=== PATIENT | male | born 1940 | race Caucasian/White ===

== ENCOUNTER 2017-03-05 02:02 | Observation (INO) | payer MEDICARE, BC ==
[2017-03-05 02:44] LABS: Basophils % (A) 0 %; Eosinophils # (A) 0.1 k/uL (0-0.7); Eosinophils % (A) 1 %; HCT 40.6 % (39.0-53.0); HGB 13.4 gm/dL (13.0-17.5); Lymphocytes # (A) 0.5 k/uL (1.0-4.8); Lymphocytes % (A) 5 %; MCV 94.1 fL (80.0-100.0); Mean Platelet Volume 6.7; Monocytes # (A) 0.5 k/uL (0-1.0); Monocytes % (A) 5 %; Neutrophils # (A) 8.7 k/uL (1.3-7.7); Neutrophils % (A) 88 %; Platelet Count 149 k/uL (150-450); RBC 4.31 m/uL (4.30-5.90); RDW 13.2 % (11.5-15.5)
[2017-03-05 02:57] LABS: Albumin 4.3 g/dL (3.5-5.0); Amylase 52 U/L (30-110); Anion Gap 10 mmol/L; Calcium 9.5 mg/dL (8.4-10.2); Carbon Dioxide 28 mmol/L (22-30); Chloride 103 mmol/L (98-107); Glucose 121 mg/dL (74-99); Lipase 175 U/L (23-300); Sodium 141 mmol/L (137-145); Total Bilirubin 0.9 mg/dL (0.2-1.3); Total Protein 7.2 g/dL (6.3-8.2)
[2017-03-05 03:01] LABS: ALT 36 U/L (21-72); AST 41 U/L (17-59); Blood Urea Nitrogen 25 mg/dL (9-20); Potassium 4.7 mmol/L (3.5-5.1)
[2017-03-05 03:02] LABS: Alkaline Phosphatase 58 U/L (38-126)
--- NOTE | 2017-03-05 03:33 | CT ---
EXAM: CT Abdomen and Pelvis Without Intravenous Contrast CLINICAL HISTORY: Pain TECHNIQUE: Axial computed tomography images of the abdomen and pelvis without intravenous contrast. CTDI is 14.4 mGy and DLP is 716 mGy-cm. This CT exam was performed using one or more of the following dose reduction techniques: automated exposure control, adjustment of the mA and/or kV according to patient size, and/or use of iterative reconstruction technique. COMPARISON: No relevant prior studies available. FINDINGS: Lower thorax: Lower thorax demonstrates atelectasis and or scarring. ABDOMEN: Liver: Unremarkable. Gallbladder and bile ducts: Gallstones. No CT evidence of acute cholecystitis. Pancreas: Unremarkable. Spleen: Calcified granulomata within the spleen Adrenals: Unremarkable. Kidneys and ureters: Minimally complex cyst within the left kidney measuring up to 8.1 cm (Bosniak 2F). Nonobstructing calculus within the right kidney. Probable hyperdense cysts within the right kidney. Stomach and bowel: Acute uncomplicated sigmoid diverticulitis. Mild bowel wall thickening within an inflamed diverticulum seen in the sigmoid colon with adjacent stranding. Appendix: No findings to suggest acute appendicitis. PELVIS: Bladder: Unremarkable. Reproductive: Unremarkable as visualized. ABDOMEN and PELVIS: Intraperitoneal space: Unremarkable. Bones/joints: Evidence of prior median sternotomy. Total left hip arthroplasty. Marked degenerative changes of the right hip. Scoliosis of the spine with degenerative change. No acute fracture. No dislocation. Soft tissues: Probable trace fluid within the left inguinal canal. Vasculature: Unremarkable. No abdominal aortic aneurysm. Lymph nodes: Unremarkable. IMPRESSION: 1. Acute uncomplicated sigmoid diverticulitis. 2. Gallstones. No CT evidence of acute cholecystitis. 3. Minimally complex cyst within the left kidney measuring up to 8.1 cm (Bosniak 2F).
[2017-03-05 03:38] LABS: Erythrocyte Sedimentation Rate 20 mm/hr (0-15)
[2017-03-05 03:54] LABS: Appearance,Urine Clear (Clear); Bilirubin,Urine Negative (Negative); Blood,Urine Negative (Negative); Color,Urine Yellow; Glucose,Urine (UA) Negative (Negative); Ketones,Urine Trace (Negative); Leukocyte Esterase,Urine Negative (Negative); Nitrite,Urine Negative (Negative); Protein,Urine Negative (Negative); Specific Gravity,Urine 1.018 (1.001-1.035); Urobilinogen,Urine <2.0 mg/dL (<2.0)
[2017-03-05] MEDS ORDERED: LEVOFLOXACIN 750 MG TAB PO STA (04:11)
[2017-03-05] MEDS ORDERED: metroNIDAZOLE 500 MG TAB PO STA (04:11)
[2017-03-05] MEDS ORDERED: ONDANSETRON 4 MG/2 ML VIAL IVP PRN (04:32)
[2017-03-05] MEDS ORDERED: NALOXONE 0.4 MG/ML 1 ML VIAL IV PRN (04:32)
--- NOTE | 2017-03-05 04:36 | ED ---
Abdominal Pain HPI - General Chief Complaint: Abdominal Pain Stated Complaint: ABD PAIN Time Seen by Provider: 03/05/17 02:12 Source: patient Mode of arrival: EMS Limitations: no limitations - History of Present Illness Initial Comments: Patient 76-year-old man presenting with increasing left lower quadrant pain and tenderness. MD Complaint: abdominal pain -: hour(s) Location: LLQ Radiation: none Migration to: no migration Severity: moderate Quality: aching, dull Consistency: constant Improves With: nothing Worsens With: nothing Associated Symptoms: denies other symptoms - Related Data Home Medications Medication Instructions Recorded Confirmed Cholecalciferol [Vitamin D3] 1,000 unit PO DAILY 03/05/17 03/05/17 Finasteride [Proscar] 5 mg PO DAILY 03/05/17 03/05/17 Tamsulosin HCl [Flomax] 0.4 mg PO DAILY 03/05/17 03/05/17 Previous Rx's Medication Instructions Recorded HYDROcodone/APAP 5-325MG [Evans 5] 1 each PO Q4HR PRN #60 tab 03/07/17 Levofloxacin [Levaquin] 500 mg PO DAILY #7 tab 03/07/17 metroNIDAZOLE [Flagyl] 500 mg PO TID #21 tab 03/07/17 Allergies Allergy/AdvReac Type Severity Reaction Status Date / Time verapamil Allergy Rash/Hives Verified 03/05/17 08:20 Review of Systems ROS Statement: Those systems with pertinent positive or pertinent negative responses have been documented in the HPI. ROS Other: All systems not noted in ROS Statement are negative. Constitutional: Denies: fever, chills Respiratory: Denies: cough, dyspnea Cardiovascular: Denies: chest pain, palpitations, edema Gastrointestinal: Reports: as per HPI, abdominal pain. Denies: nausea, vomiting , diarrhea, constipation Genitourinary: Denies: dysuria, hematuria Musculoskeletal: Denies: back pain Skin: Denies: rash Neurological: Denies: headache, weakness, numbness Past Medical History Past Medical History: Prostate Disorder History of Any Multi-Drug Resistant Organisms: None Reported Past Surgical History: Coronary Bypass/CABG, Orthopedic Surgery Past Psychological History: No Psychological Hx Reported Smoking Status: Former smoker Past Alcohol Use History: None Reported Past Drug Use History: None Reported - Past Family History Father Family Medical History: Unable to Obtain General Exam Limitations: no limitations General appearance: alert, in no apparent distress Head exam: Present: atraumatic, normocephalic Eye exam: Present: normal appearance. Absent: scleral icterus, conjunctival injection Respiratory exam: Present: normal lung sounds bilaterally. Absent: respiratory distress, wheezes, rales, rhonchi, stridor Cardiovascular Exam: Present: regular rate, normal rhythm, normal heart sounds. Absent: systolic murmur, diastolic murmur, rubs, gallop GI/Abdominal exam: Present: soft, tenderness, normal bowel sounds. Absent: distended, guarding, rebound, rigid, mass, pulsatile mass, hernia Extremities exam: Present: normal inspection, normal capillary refill. Absent: pedal edema, calf tenderness Back exam: Present: normal inspection. Absent: CVA tenderness (R), CVA tenderness (L) Neurological exam: Present: alert Skin exam: Present: warm, dry, intact, normal color. Absent: rash Course Vital Signs 03/05/17 03/05/17 03/05/17 02:07 03:12 04:29 Temperature 99.4 F Pulse Rate 83 79 80 Respiratory 18 16 18 Rate Blood Pressure 126/69 129/67 121/63 O2 Sat by Pulse 98 95 96 Oximetry 03/05/17 04:57 Temperature 99.2 F Pulse Rate 78 Respiratory 16 Rate Blood Pressure 115/59 O2 Sat by Pulse 94 L Oximetry Medical Decision Making - Medical Decision Making Patient is a 76-year-old man presenting with increasing pain and tenderness in the left lower quadrant. Given the tenderness patient sent for CT which does demonstrate diverticulitis. Patient will be admitted for further treatment. - Lab Data Result diagrams: 03/07/17 06:40 03/07/17 06:40 Lab Results 03/05/17 03/05/17 03/05/17 Range/Units 02:05 02:32 03:40 WBC 10.0 (3.8-10.6) k/uL RBC 4.31 (4.30-5.90) m/uL Hgb 13.4 (13.0-17.5) gm/dL Hct 40.6 (39.0-53.0) % MCV 94.1 (80.0-100.0) fL MCH 31.0 (25.0-35.0) pg MCHC 33.0 (31.0-37.0) g/dL RDW 13.2 (11.5-15.5) % Plt Count 149 L (150-450) k/uL Neutrophils % 88 % Lymphocytes % 5 % Monocytes % 5 % Eosinophils % 1 % Basophils % 0 % Neutrophils # 8.7 H (1.3-7.7) k/uL Lymphocytes # 0.5 L (1.0-4.8) k/uL Monocytes # 0.5 (0-1.0) k/uL Eosinophils # 0.1 (0-0.7) k/uL Basophils # 0.0 (0-0.2) k/uL ESR 20 H (0-15) mm/hr Sodium 141 (137-145) mmol/L Potassium 4.7 (3.5-5.1) mmol/L Chloride 103 (98-107) mmol/L Carbon Dioxide 28 (22-30) mmol/L Anion Gap 10 mmol/L BUN 25 H (9-20) mg/dL Creatinine 0.90 (0.66-1.25) mg/dL Est GFR (MDRD) Af Amer >60 (>60 ml/min/1.73 sqM) Est GFR (MDRD) Non-Af >60 (>60 ml/min/1.73 sqM) Glucose 121 H (74-99) mg/dL Calcium 9.5 (8.4-10.2) mg/dL Total Bilirubin 0.9 (0.2-1.3) mg/dL AST 41 (17-59) U/L ALT 36 (21-72) U/L Alkaline Phosphatase 58 (38-126) U/L Total Protein 7.2 (6.3-8.2) g/dL Albumin 4.3 (3.5-5.0) g/dL Amylase 52 (30-110) U/L Lipase 175 (23-300) U/L Urine Color Yellow Urine Appearance Clear (Clear) Urine pH 5.0 (5.0-8.0) Ur Specific [place] 1.018 (1.001-1.035) Urine Protein Negative (Negative) Urine Glucose (UA) Negative (Negative) Urine Ketones Trace H (Negative) Urine Blood Negative (Negative) Urine Nitrite Negative (Negative) Urine Bilirubin Negative (Negative) Urine Urobilinogen <2.0 (<2.0) mg/dL Ur Leukocyte Esterase Negative (Negative) Disposition Clinical Impression: Diverticulitis, Abdominal pain Disposition: ADMITTED IP TO THIS HOSP Condition: Fair
[2017-03-05] MEDS: HYDROcodone/APAP 5-325MG 1 EACH TAB PO PRN ×4 (05:24→20:58)
[2017-03-05] MEDS: FINASTERIDE 5 MG TAB PO SCH (08:19)
[2017-03-05] MEDS: TAMSULOSIN 0.4 MG CAP.ER.24H PO SCH (08:19)
[2017-03-05] MEDS ORDERED: ERGOCALCIFEROL 50,000 UNIT CAP PO SCH (09:00)
--- NOTE | 2017-03-05 11:34 | P.HPIM ---
History of Present Illness H&P Date: 03/05/17 Chief Complaint: Left lower quadrant abdominal pain This is a 76-year-old male, patient of Dr. Delgado. He has a known past medical history of enlarged prostate, history of previous nicotine dependence and diverticulitis. Patient reports his last episode of diverticulitis was 20 years ago. Last colonoscopy was about 3 years and he was told it was reported normal. He was scheduled for right knee surgery today at [facility]. However, yesterday patient is working outside and noticed some left lower quadrant abdominal pain. Pain continued to progress throughout the day. Patient reports that he felt that maybe she passed gas or had a bowel movement in the room help relieve the symptoms. He was unable to do this. I he visited with family and laid down to rest because of the pain. However when he awoke a couple hours later he was in excruciating pain and an ambulance had to be called. He was brought into the emergency room for further evaluation. Computed tomography scan of the abdomen and pelvis was completed showing evidence of an acute diverticulitis gallstones with no evidence of cholecystitis and a minimal complexed cyst in the left kidney measuring 8.1 cm. Patient was admitted to the medical floor and started on Levaquin and Flagyl for any acute diverticulitis. Patient reports eating a lot of nuts and he had blackberries couple a days ago. I even since he had diverticulitis in the past he has eaten nuts regularly. Patient's pain is controlled with the [place]. He denies any fever, chills, sweats, nausea or vomiting. Reports normal bowel movements. Denies any blood in the stools. Last bowel movement was yesterday morning. Denies any chest pain or shortness of breath. Denies any burning with urination. Review of Systems Please refer to HPI otherwise unremarkable Past Medical History Past Medical History: Prostate Disorder Additional Past Medical History / Comment(s): hip replacement, cardiac ablation , heart valve repair History of Any Multi-Drug Resistant Organisms: None Reported Past Surgical History: Cardiac Ablation, Orthopedic Surgery Past Anesthesia/Blood Transfusion Reactions: No Reported Reaction Past Psychological History: No Psychological Hx Reported Smoking Status: Former smoker Past Alcohol Use History: None Reported Past Drug Use History: None Reported - Past Family History Father Family Medical History: Unable to Obtain Medications and Allergies Home Medications Medication Instructions Recorded Confirmed Type Cholecalciferol [Vitamin D3] 1,000 unit PO DAILY 03/05/17 03/05/17 History Finasteride [Proscar] 5 mg PO DAILY 03/05/17 03/05/17 History Tamsulosin HCl [Flomax] 0.4 mg PO DAILY 03/05/17 03/05/17 History Allergies Allergy/AdvReac Type Severity Reaction Status Date / Time verapamil Allergy Rash/Hives Verified 03/05/17 08:20 Physical Exam Vitals: Vital Signs Temp Pulse Pulse Resp BP BP Pulse Ox 03/05/17 07:00 98.5 F 80 16 105/58 94 L 03/05/17 06:09 98.6 F 82 18 115/64 95 03/05/17 04:57 99.2 F 78 16 115/59 94 L 03/05/17 04:29 80 18 121/63 96 03/05/17 03:12 79 16 129/67 95 03/05/17 02:07 99.4 F 83 18 126/69 98 Intake and Output 03/04/17 03/05/17 03/05/17 22:59 06:59 14:59 Intake Total 480 Balance 480 Intake: Oral 480 Other: # Voids 0 Weight 95.254 kg Head normocephalic Neck supple Lungs clear to auscultation bilaterally no wheezing or crackles Heart regular rate and rhythm S1-S2, no rub or gallop Abdomen is soft nontender with left lower quadrant abdominal pain positive bowel sounds no hepatosplenomegaly Extremities no edema Neuro alert and orientated to 3 Results CBC & Chem 7: 03/05/17 02:05 03/05/17 02:32 Labs: Abnormal Lab Results - Last 24 Hours (Table) 03/05/17 03/05/17 03/05/17 Range/Units 02:05 02:32 03:40 Plt Count 149 L (150-450) k/uL Neutrophils # 8.7 H (1.3-7.7) k/uL Lymphocytes # 0.5 L (1.0-4.8) k/uL ESR 20 H (0-15) mm/hr BUN 25 H (9-20) mg/dL Glucose 121 H (74-99) mg/dL Urine Ketones Trace H (Negative) Thrombosis Risk Factor Assmnt - Choose All That Apply Any of the Below Risk Factors Present?: Yes Each Factor Represents 1 point: Obesity (BMI >25) Each Risk Factor Represents 2 Points: Age 61-74 years Thrombosis Risk Factor Assessment Total Risk Factor Score: 3 Thrombosis Risk Factor Assessment Level: Moderate Risk Assessment and Plan Assessment: 1. Acute diverticulitis. Patient is been placed on oral Levaquin and Flagyl. Computed tomography scan of the abdomen and pelvis had shown evidence of an acute diverticulitis. We'll continue with [place] for pain control. Educated patient to refrain from any seeds or nuts. Dietitian will be consulted. We'll advance diet from liquid to full liquid diet and then as tolerated 2. Enlarged prostate. Continue with Flomax and Proscar 3. History of nicotine dependence 4. Initially scheduled for right knee surgery today at [facility]. Surgery has been canceled. Patient will follow-up with his orthopedic at a later date GI prophylaxis Pepcid and DVT prophylaxis subcu heparin Time with Patient: Greater than 30 (Greater than 50% of the total time spent in counseling and coordination of care.I performed an examination of the patient and discussed their management with the physician [employer]. I have reviewed the Physician [employer]s's notes and agree with the documented findings and plan of care)
[2017-03-05 14:03] VITALS: BMI 30.1
[2017-03-05] MEDS: metroNIDAZOLE 500 MG TAB PO SCH ×2 (16:40→20:58)
[2017-03-05] MEDS: HEPARIN SODIUM,PORCINE 5,000 UNIT/ML 1 ML VIAL SQ SCH (20:59)
[2017-03-06] MEDS: HYDROcodone/APAP 5-325MG 1 EACH TAB PO PRN ×6 (01:00→21:25)
[2017-03-06 07:20] LABS: Basophils % (A) 0 %; Eosinophils # (A) 0.1 k/uL (0-0.7); Eosinophils % (A) 1 %; HGB 11.6 gm/dL (13.0-17.5); Lymphocytes # (A) 0.8 k/uL (1.0-4.8); Lymphocytes % (A) 12 %; MCH 30.7 pg (25.0-35.0); MCHC 33.3 g/dL (31.0-37.0); MCV 92.3 fL (80.0-100.0); Mean Platelet Volume 7.1; Monocytes # (A) 0.5 k/uL (0-1.0); Monocytes % (A) 7 %; Neutrophils # (A) 5.3 k/uL (1.3-7.7); Neutrophils % (A) 79 %; Platelet Count 136 k/uL (150-450); RBC 3.79 m/uL (4.30-5.90); WBC 6.7 k/uL (3.8-10.6)
[2017-03-06 07:41] LABS: Anion Gap 7 mmol/L; Blood Urea Nitrogen 15 mg/dL (9-20); Calcium 9.2 mg/dL (8.4-10.2); Carbon Dioxide 29 mmol/L (22-30); Chloride 102 mmol/L (98-107); Glucose 102 mg/dL (74-99); Potassium 4.3 mmol/L (3.5-5.1); Sodium 138 mmol/L (137-145)
[2017-03-06] MEDS: metroNIDAZOLE 500 MG TAB PO SCH ×3 (08:14→21:23)
[2017-03-06] MEDS: FINASTERIDE 5 MG TAB PO SCH (08:14)
[2017-03-06] MEDS: HEPARIN SODIUM,PORCINE 5,000 UNIT/ML 1 ML VIAL SQ SCH ×2 (08:15→21:23)
[2017-03-06] MEDS: TAMSULOSIN 0.4 MG CAP.ER.24H PO SCH (08:15)
[2017-03-06] MEDS: LEVOFLOXACIN 500 MG TAB PO SCH (08:15)
[2017-03-06] MEDS: CHOLECALCIFEROL 1,000 UNIT TAB PO SCH (08:15)
[2017-03-06] MEDS: FAMOTIDINE 20 MG TAB PO SCH (08:15)
--- NOTE | 2017-03-06 10:33 | P.CONS ---
History of Present Illness - Reason for Consult Consult date: 03/06/17 Diverticulitis Requesting physician: Elli Kim - Chief Complaint Abdominal pain - History of Present Illness 76-year-old gentleman with a history of valvular heart disease with repair, cardiac ablation, diverticulosis admitted with acute left lower quadrant abdominal pain 2 days without fever chills hematemesis hematochezia melena. No constipation or diarrhea. Last colonoscopy performed about [address] Bennett to his memory was unremarkable except diverticular disease. Last flare up of diverticulitis about [address] abdomen and pelvis reported acute diverticulitis sigmoid without abscess or free air. Patient's diet consisted of berries and nuts prior to admission. White count 6.7. Hemoglobin 11.6. Platelet 136. Passing flatus. No bowel movements. Tolerating low fiber diet. Review of Systems Constitutional: Denies fever, chills, sweats, weight gain, or loss. HEENT: Negative for migraines, blurred vision or loss, earaches, drainage, tinnitus, oral mucosal lesions, dysphagia, or odynophagia. Cardiac: Valvular heart disease with repair, cardiac ablation Negative for chest pain, arrhythmias, or palpitation. Respiratory: Negative for shortness of breath, hemoptysis, cough, or sputum production. Gastrointestinal: See HPI for pertinent findings. Genitourinary: History of prostate hypertrophy. Musculoskeletal: Negative for muscle aches, swelling, arthritis, and arthralgias. Neurologic: Negative for stroke or TIA. Endocrine: Negative for thyroid problems. Skin: Negative for rash or itching. Psychiatric: Negative history for depression and anxiety Past Medical History Past Medical History: Prostate Disorder Additional Past Medical History / Comment(s): hip replacement, cardiac ablation , heart valve repair History of Any Multi-Drug Resistant Organisms: None Reported Past Surgical History: Cardiac Ablation, Orthopedic Surgery Past Anesthesia/Blood Transfusion Reactions: No Reported Reaction Past Psychological History: No Psychological Hx Reported Smoking Status: Former smoker Past Alcohol Use History: None Reported Past Drug Use History: None Reported - Past Family History Father Family Medical History: Unable to Obtain Medications and Allergies Home Medications Medication Instructions Recorded Confirmed Type Cholecalciferol [Vitamin D3] 1,000 unit PO DAILY 03/05/17 03/05/17 History Finasteride [Proscar] 5 mg PO DAILY 03/05/17 03/05/17 History Tamsulosin HCl [Flomax] 0.4 mg PO DAILY 03/05/17 03/05/17 History Allergies Allergy/AdvReac Type Severity Reaction Status Date / Time verapamil Allergy Rash/Hives Verified 03/05/17 08:20 Physical Exam Vitals: Vital Signs Temp Pulse Resp BP Pulse Ox 03/06/17 07:00 97.0 F L 63 18 100/58 96 03/05/17 22:13 99.2 F 68 16 102/54 95 03/05/17 15:00 98.4 F 77 16 96/54 95 Intake and Output 03/05/17 03/06/17 03/06/17 22:59 06:59 14:59 Intake Total 540 240 Output Total 800 600 Balance -260 -360 Intake: Oral 540 240 Output: Urine 800 600 Other: Voiding Method Toilet Urinal # Voids 1 General appearance: The patient is alert, oriented, in no acute distress. HET: Head is normocephalic and atraumatic. Pupils are equal and reactive. Oropharynx is clear without lesions. Neck: Supple without lymphadenopathy. Trachea midline. Heart: S1 S2. Regular rate and rhythm. Lungs: No crackles or wheezes are heard. Abdomen: Soft, minimal tenderness left lower quadrant, nondistended with bowel sounds. No peritoneal signs. No palpable organomegaly or masses. Extremities: Normal skin color and turgor. No cyanosis, rash, ulceration, clubbing, or edema. Radial and pedal pulses are 2/4 bilaterally. Neurological: No focal deficits. Strength and sensation are grossly intact. Results CBC & Chem 7: 03/06/17 06:30 03/06/17 06:30 Labs: Abnormal Lab Results - Last 24 Hours (Table) 03/06/17 03/06/17 Range/Units 06:30 06:30 RBC 3.79 L (4.30-5.90) m/uL Hgb 11.6 L (13.0-17.5) gm/dL Hct 35.0 L (39.0-53.0) % Plt Count 136 L (150-450) k/uL Lymphocytes # 0.8 L (1.0-4.8) k/uL Glucose 102 H (74-99) mg/dL CT scan - abdomen: report reviewed (Dr. Cervantes) Assessment and Plan (1) Diverticulitis Narrative/Plan: Unconjugated sigmoid diverticulitis Current Visit: Yes Status: Acute Code(s): K57.92 - DVTRCLI OF INTEST, PART UNSP, W/O PERF OR ABSCESS W/O BLEED SNOMED Code(s): 753294179 Plan: 1. Agreeable for discharge. Remain on low fiber diet 1 week and advance to high-fiber. Avoid nuts and seeds. 2. Antibiotics x 7 days; Cipro Flagyl acceptable. 3. Return to office in 3-4 weeks for reevaluation and discussion of outpatient colonoscopy. Thank you for this kind referral and the opportunity to participate in the care of your patient. This consultation was discussed with Dr. Cervantes. The impression and plan of care have been directed as dictated.
--- NOTE | 2017-03-06 11:07 | P.PN ---
Subjective Progress Note Date: 03/06/17 This is a 76-year-old male, patient of Dr. Delgado. He has a known past medical history of enlarged prostate, history of previous nicotine dependence and diverticulitis. Patient reports his last episode of diverticulitis was 20 years ago. Last colonoscopy was about 3 years and he was told it was reported normal. He was scheduled for right knee surgery today at [facility]. However, yesterday patient is working outside and noticed some left lower quadrant abdominal pain. Pain continued to progress throughout the day. Patient reports that he felt that maybe she passed gas or had a bowel movement in the room help relieve the symptoms. He was unable to do this. I he visited with family and laid down to rest because of the pain. However when he awoke a couple hours later he was in excruciating pain and an ambulance had to be called. He was brought into the emergency room for further evaluation. Computed tomography scan of the abdomen and pelvis was completed showing evidence of an acute diverticulitis gallstones with no evidence of cholecystitis and a minimal complexed cyst in the left kidney measuring 8.1 cm. Patient was admitted to the medical floor and started on Levaquin and Flagyl for any acute diverticulitis. Patient reports eating a lot of nuts and he had blackberries couple a days ago. I even since he had diverticulitis in the past he has eaten nuts regularly. Patient's pain is controlled with the [place]. He denies any fever, chills, sweats, nausea or vomiting. Reports normal bowel movements. Denies any blood in the stools. Last bowel movement was yesterday morning. Denies any chest pain or shortness of breath. Denies any burning with urination. 03/06/2017 patient reports last night he had severe left lower quadrant abdominal pain. It was as severe as the pain that brought him into the hospital. He almost has nursing staff call the doctor for IV pain medication. Patient denies any nausea or vomiting. Reports no bowel movement yet. He's been started on a low fiber diet. White count normal. He is remained afebrile. A repeat Computed tomography scan of the abdomen and pelvis has been ordered to further follow up on patient's abdominal pain Objective - Vital Signs Vital signs: Vital Signs Temp 97.0 F L 03/06/17 07:00 Pulse 63 03/06/17 07:00 Resp 18 03/06/17 07:00 BP 100/58 03/06/17 07:00 Pulse Ox 96 03/06/17 07:00 Intake & Output 03/05/17 03/06/17 03/06/17 18:59 06:59 18:59 Intake Total 480 540 240 Output Total 500 800 600 Balance -20 -260 -360 Weight 95.254 kg Intake: Oral 480 540 240 Output: Urine 500 800 600 Other: Voiding Method Toilet Urinal # Voids 1 - Exam Head normocephalic Neck supple Lungs clear to auscultation bilaterally no wheezing or crackles Heart regular rate and rhythm S1-S2, no rub or gallop Abdomen is soft left lower quadrant tenderness nondistended positive bowel sounds no hepatosplenomegaly Extremities no edema Neuro alert and orientated to 3 - Labs CBC & Chem 7: 03/06/17 06:30 03/06/17 06:30 Labs: Abnormal Lab Results - Last 24 Hours (Table) 03/06/17 03/06/17 Range/Units 06:30 06:30 RBC 3.79 L (4.30-5.90) m/uL Hgb 11.6 L (13.0-17.5) gm/dL Hct 35.0 L (39.0-53.0) % Plt Count 136 L (150-450) k/uL Lymphocytes # 0.8 L (1.0-4.8) k/uL Glucose 102 H (74-99) mg/dL Assessment and Plan Assessment: 1. Acute diverticulitis. Patient is been placed on oral Levaquin and Flagyl. Computed tomography scan of the abdomen and pelvis had shown evidence of an acute diverticulitis. We'll continue with [place] for pain control. Educated patient to refrain from any seeds or nuts. Dietitian will be consulted. Patient currently on a low fiber diet. Patient had severe left lower quadrant abdominal pain last night. A repeat computed tomography scan the abdomen and pelvis has been ordered for further follow-up. Patient evaluated by GI service. He is to follow up outpatient for reevaluation and discussion of colonoscopy in 3 to 4 weeks 2. Enlarged prostate. Continue with Flomax and Proscar 3. History of nicotine dependence 4. Initially scheduled for right knee surgery today at [facility]. Surgery has been canceled. Patient will follow-up with his orthopedic at a later date GI prophylaxis Pepcid and DVT prophylaxis subcu heparin
--- NOTE | 2017-03-06 11:49 | CT ---
EXAMINATION TYPE: CT abdomen pelvis wo con DATE OF EXAM: 03/06/2017 COMPARISON: 03/05/2017 HISTORY: LLQ pain CT DLP: 794.7 mGycm Automated exposure control for dose reduction was used. TECHNIQUE: Helical acquisition of images was performed from the lung bases through the pelvis. FINDINGS: Lack of intravenous and oral contrast limit evaluation of both the hollow and solid viscera . LUNG BASES: 4 mm right lower lobe pulmonary nodules present on series 4 image 3. Pleural parenchymal scarring is noted along the interlobar fissure. LIVER/GB: Few punctate gallstones are seen within the gallbladder. No right upper quadrant fat strand ing is seen. The unenhanced liver is of unremarkable morphology. PANCREAS: No ductal dilatation. SPLEEN: Numerous benign splenic parenchymal granulomas are noted. ADRENALS: Symmetric and unremarkable. KIDNEYS: Within the left upper pole there is an exophytic 8.1 cm renal cyst with a single septa conta ining calcifications. Again this is Bosniak 2F and short-term follow-up is recommended. No hydronephr osis or nephrolithiasis of either kidney. FREE AIR: No free air is visualized ADENOPATHY: No greater than 1 cm short axis lymph nodes. REPRODUCTIVE ORGANS: Partially obscured by spray artifact from the left femoral arthroplasty. URINARY BLADDER: Incompletely distended and incompletely evaluated. OSSEOUS STRUCTURES: Left femoral arthroplasty is noted. Prior median sternotomy is seen. Severe dege nerative changes of the right femoral acetabular joint are noted. Redemonstration of scoliosis of the visualized spine with moderate multilevel degenerative change. BOWEL: There is redemonstration of acute uncomplicated sigmoid diverticulitis with numerous sigmoid diverticula surrounded by pericolonic fat stranding and focal bowel wall thickening. This is unchange d in comparison to the exam of 03/05/2017. No surrounding fluid collection or new pneumoperitoneum is seen. Small amount of free fluid layers within the low pelvis. No proximal obstruction. IMPRESSION: 1. EXAM IS UNCHANGED FROM 03/05/2017. ACUTE UNCOMPLICATED SIGMOID DIVERTICULITIS 2. REDEMONSTRATION OF A BOSNIAK 2F LEFT RENAL CYST. 3. CHOLELITHIASIS WITHOUT CT EVIDENCE OF CHOLECYSTITIS. FOLLOW-UP ENHANCED CT ABDOMEN (3 PHASE RENAL MASS PROTOCOL) IS RECOMMENDED IN 6 MONTHS FOR SURVEILLANCE.
[2017-03-07] MEDS: HYDROcodone/APAP 5-325MG 1 EACH TAB PO PRN ×2 (07:03→11:49)
[2017-03-07 07:08] LABS: Basophils % (A) 0 %; Eosinophils # (A) 0.1 k/uL (0-0.7); Eosinophils % (A) 1 %; HCT 36.8 % (39.0-53.0); HGB 12.1 gm/dL (13.0-17.5); Lymphocytes # (A) 0.9 k/uL (1.0-4.8); Lymphocytes % (A) 12 %; MCH 30.3 pg (25.0-35.0); MCHC 32.8 g/dL (31.0-37.0); MCV 92.4 fL (80.0-100.0); Mean Platelet Volume 7.4; Monocytes # (A) 0.6 k/uL (0-1.0); Monocytes % (A) 8 %; Neutrophils # (A) 5.9 k/uL (1.3-7.7); Neutrophils % (A) 77 %; Platelet Count 154 k/uL (150-450); RBC 3.98 m/uL (4.30-5.90); RDW 13.7 % (11.5-15.5); WBC 7.6 k/uL (3.8-10.6)
[2017-03-07 07:39] LABS: Anion Gap 9 mmol/L; Blood Urea Nitrogen 18 mg/dL (9-20); Calcium 9.1 mg/dL (8.4-10.2); Carbon Dioxide 27 mmol/L (22-30); Chloride 102 mmol/L (98-107); Glucose 106 mg/dL (74-99); Potassium 4.1 mmol/L (3.5-5.1); Sodium 138 mmol/L (137-145)
[2017-03-07 07:52] VITALS: BP 99/56; PULSE 73; RESP 16; TEMP 98.3
[2017-03-07] MEDS: HEPARIN SODIUM,PORCINE 5,000 UNIT/ML 1 ML VIAL SQ SCH (08:07)
[2017-03-07] MEDS: LEVOFLOXACIN 500 MG TAB PO SCH (08:07)
[2017-03-07] MEDS: CHOLECALCIFEROL 1,000 UNIT TAB PO SCH (08:07)
[2017-03-07] MEDS: metroNIDAZOLE 500 MG TAB PO SCH ×2 (08:07→16:07)
[2017-03-07] MEDS: TAMSULOSIN 0.4 MG CAP.ER.24H PO SCH (08:07)
[2017-03-07] MEDS: FINASTERIDE 5 MG TAB PO SCH (08:07)
[2017-03-07] MEDS: FAMOTIDINE 20 MG TAB PO SCH (08:07)
--- NOTE | 2017-03-07 11:37 | P.DS ---
Providers Date of admission: 03/05/17 04:23 Expected date of discharge: 03/07/17 Attending physician: Elli Kim Primary care physician: Radha Delgado [facility] Course: Diagnosis on discharge 1. Acute diverticulitis. Patient is been placed on oral Levaquin and Flagyl. Computed tomography scan of the abdomen and pelvis had shown evidence of an acute diverticulitis. We'll continue with [place] for pain control. Educated patient to refrain from any seeds or nuts. Dietitian will be consulted. Patient currently on a low fiber diet. Patient had severe left lower quadrant abdominal pain last night. A repeat computed tomography scan the abdomen and pelvis has been ordered for further follow-up. Patient evaluated by GI service. He is to follow up outpatient for reevaluation and discussion of colonoscopy in 3 to 4 weeks 2. Enlarged prostate. Continue with Flomax and Proscar 3. History of nicotine dependence 4. Initially scheduled for right knee surgery today at [facility]. Surgery has been canceled. Patient will follow-up with his orthopedic at a later date Hospital course This is a 76-year-old male, patient of Dr. Delgado. He has a known past medical history of enlarged prostate, history of previous nicotine dependence and diverticulitis. Patient reports his last episode of diverticulitis was 20 years ago. Last colonoscopy was about 3 years and he was told it was reported normal. He was scheduled for right knee surgery today at [facility]. However, yesterday patient is working outside and noticed some left lower quadrant abdominal pain. Pain continued to progress throughout the day. Patient reports that he felt that maybe she passed gas or had a bowel movement in the room help relieve the symptoms. He was unable to do this. I he visited with family and laid down to rest because of the pain. However when he awoke a couple hours later he was in excruciating pain and an ambulance had to be called. He was brought into the emergency room for further evaluation. Computed tomography scan of the abdomen and pelvis was completed showing evidence of an acute diverticulitis gallstones with no evidence of cholecystitis and a minimal complexed cyst in the left kidney measuring 8.1 cm. Patient was admitted to the medical floor and started on Levaquin and Flagyl for any acute diverticulitis. Patient reports eating a lot of nuts and he had blackberries couple a days ago. I even since he had diverticulitis in the past he has eaten nuts regularly. Patient's pain is controlled with the [place]. He denies any fever, chills, sweats, nausea or vomiting. Reports normal bowel movements. Denies any blood in the stools. Last bowel movement was yesterday morning. Denies any chest pain or shortness of breath. Denies any burning with urination. 03/06/2017 patient reports last night he had severe left lower quadrant abdominal pain. It was as severe as the pain that brought him into the hospital. He almost has nursing staff call the doctor for IV pain medication. Patient denies any nausea or vomiting. Reports no bowel movement yet. He's been started on a low fiber diet. White count normal. He is remained afebrile. A repeat Computed tomography scan of the abdomen and pelvis has been ordered to further follow up on patient's abdominal pain On 03/07/2017 agent is feeling better less pain since yesterday was ambulating without difficulty he is tolerating diet well requiring [place] one every 4-6 hours as needed GI input reviewed patient will be discharged home today he will be given a prescription for Levaquin 500 mg 1 daily for 7 days and Flagyl 503 times daily for 7 days and also be given [place] 5 325 one every 4 hours when necessary #60 he was told to follow-up with his primary care physician Dr. Radha Delgado within 1 week Patient Condition at Discharge: Fair Plan - Discharge Summary New Discharge Prescriptions: New HYDROcodone/APAP 5-325MG [[place] 5-325] 1 each PO Q4HR PRN tab PRN Reason: Moderate Pain Levofloxacin [Levaquin] 500 mg PO Q24H tab metroNIDAZOLE [Flagyl] 500 mg PO TID tab Continue Finasteride [Proscar] 5 mg PO DAILY Tamsulosin HCl [Flomax] 0.4 mg PO DAILY Cholecalciferol [Vitamin D3] 1,000 unit PO DAILY Discharge Medication List Cholecalciferol [Vitamin D3] 1,000 unit PO DAILY 03/05/17 [History] Finasteride [Proscar] 5 mg PO DAILY 03/05/17 [History] Tamsulosin HCl [Flomax] 0.4 mg PO DAILY 03/05/17 [History] HYDROcodone/APAP 5-325MG [[place] 5-325] 1 each PO Q4HR PRN tab 03/07/17 [Rx] Levofloxacin [Levaquin] 500 mg PO Q24H tab 03/07/17 [Rx] metroNIDAZOLE [Flagyl] 500 mg PO TID tab 03/07/17 [Rx] Follow up Appointment(s)/Referral(s): Radha Delgado DO [Primary Care Provider] - 1-2 days Chichi Cervantes MD [STAFF PHYSICIAN] - 04/11/17 2:30 pm
== END 2017-03-07 16:13 | disposition home or self-care (01) ==
LOC: EC 02:02 → INTOOBSV 04:23 → 5MS5E 04:23
PROVIDERS: ADMIT Internal Medicine; ATTEND Internal Medicine
DX: K57.32 Diverticulitis of large intestine without perforation or abscess without bleeding (principal); K80.20 Calculus of gallbladder without cholecystitis without obstruction; N28.1 Cyst of kidney, acquired; N40.0 Benign prostatic hyperplasia without lower urinary tract symptoms; E66.9 Obesity, unspecified; Z68.25 Body mass index [BMI] 25.0-25.9, adult; Z79.899 Other long term (current) drug therapy; Z88.8 Allergy status to other drugs, medicaments and biological substances; Z87.891 Personal history of nicotine dependence; Z86.79 Personal history of other diseases of the circulatory system; Z96.649 Presence of unspecified artificial hip joint
CPT/HCPCS: 99285 ×2; 96372 ×3; 36415; 97162; 80053; 80048 ×2; 85652; 82150; 83690; 85025 ×3; 81003; 74176 ×2; G0378 ×4; S0138 ×3; J1644 ×3; 96373

== ENCOUNTER → 2018-03-25 | Outpatient (CLI) | payer MEDICARE, BC ==
--- NOTE | 2018-03-25 14:08 | NM ---
EXAMINATION TYPE: NM bone 3 phase DATE OF EXAM: 03/25/2018 COMPARISON: NONE HISTORY: Right foot cellulitis Triple phase bone scintigraphy was performed following the injection of 24.8 mCi Tc 99m MDP. Immedia te images and 5 hours post injection images acquired. FINDINGS: There is increased flow throughout the right foot and increased blood pool within the right foot and ankle. On delayed imaging there is focal accumulation within the right tarsal bones appearing medial, possibly within the navicular. Delayed images only were obtained of the knees demonstrating increased uptake surrounding the right k nee prosthesis inferiorly and at its lateral tibial component. Bilateral knee prostheses are noted. IMPRESSION: 1. 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 Correlate with physical examination and radiographs for localization. 2. Delayed images only over the knees demonstrate findings that could relate to septic or aseptic loo sening of the right knee arthroplasty in the tibial component.
== END ==
LOC: RADNMMAIN 07:31
PROVIDERS: ATTEND Family Medicine
DX: M86.8X7 Other osteomyelitis, ankle and foot (principal)
CPT/HCPCS: 78315; A9503

== ENCOUNTER → 2018-11-20 | Outpatient (CLI) | payer MEDICARE, BC ==
[2018-11-20 10:35] LABS: HCT 38.2 % (39.0-53.0); HGB 12.6 gm/dL (13.0-17.5); MCH 31.4 pg (25.0-35.0); MCV 95.2 fL (80.0-100.0); Mean Platelet Volume 6.4; Platelet Count 164 k/uL (150-450); RBC 4.01 m/uL (4.30-5.90); RDW 13.5 % (11.5-15.5)
[2018-11-20 10:46] LABS: Potassium 4.5 mmol/L (3.5-5.1)
== END | disposition home or self-care (01) ==
LOC: LABPAT 09:47
PROVIDERS: ATTEND Internal Medicine Interventional Cardiology
DX: Z01.812 Encounter for preprocedural laboratory examination (principal); R94.39 Abnormal result of other cardiovascular function study
CPT/HCPCS: 36415; 80051; 82565; 84520; 85027

== ENCOUNTER → 2018-11-22 | Day surgery (SDC) | payer MEDICARE, BC ==
[2018-11-20 11:02] VITALS: BMI 30.7
[~2018-11-22] MED LIST: ALPRAZolam 0.25 MG TAB PO PRN; ALPRAZolam 0.5 MG TAB PO PRN; ASPIRIN 325 MG TAB PO ONE; ASPIRIN 81 MG ONE; ATORVASTATIN 80 MG TAB PO ONE; HEPARIN SODIUM 1,000 UN/ML (10ML VL) IV ONE; HEPARIN SODIUM 1,000 UN/ML (10ML VL) ONE; IOPAMIDOL-370 125ML BTL INJ ONE; LIDOCAINE 1% INJ 10MG/ML (20 ML MDV) ONE; LIDOCAINE 1% INJ 10MG/ML (20 ML MDV) SQ ONE; NITROGLYCERIN SL TABS 0.4 MG TAB SUBLINGUAL PRN; SODIUM CHLORIDE 0.9% 1,000 ML IV SCH; SODIUM CHLORIDE 0.9% 1,000 ML in EMPTY BAG 1 BAG IV ONE; VERAPAMIL 2.5 MG/ML 2 ML AMP ONE
[2018-11-22 09:30] VITALS: RESP 18; TEMP 97.9
[2018-11-22] MEDS: MIDAZOLAM PF (FBP) 2 MG/2 ML VIAL IV ONE ×2 (11:13→11:24)
[2018-11-22] MEDS: VERAPAMIL SYRINGE (5 MG/10 ML) INTRAARTER ONE ×2 (11:20→11:33)
--- NOTE | 2018-11-22 12:35 | CC ---
CARDIAC CATHETERIZATION REPORT DATE OF SERVICE: 11/22/2018 PROCEDURE: Left heart catheterization and coronary angiography. PERFORMED BY: Dr. Roney Church. Moderate conscious sedation time was 22 minutes. Patient was administered Versed. His oxygen saturation, hemodynamics and EKG were monitored closely. CLINICAL INFORMATION: Mr. 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 He also developed an SVT requiring ablation in the past. He has been doing well overall, but lately has some exertional shortness of breath and chest tightness and had a positive stress test and therefore was advised cardiac catheterization after due discussion regarding the risks, benefits, and options. PROCEDURE NOTE: Under local anesthesia and strict aseptic precautions, a 6-Cameroonian introducer was placed in the right radial artery. Using a JL3.5 and JR4 catheters I performed coronary angiography and a pigtail catheter was used to check LV pressures. LV gram was not performed. The catheter and sheath were taken out and TR band applied as per protocol. The saturation of the fingers of the right hand was 92%. Patient tolerated procedure well without complications. CARDIAC CATHETERIZATION FINDINGS: The left ventricular end-diastolic pressure was about 11 mmHg. There was no gradient across the aortic valve. CORONARY ANGIOGRAPHY FINDINGS: RIGHT CORONARY ARTERY: Large dominant vessel. No significant disease. Distally, it bifurcates into a larger PLV, smaller PDA. No significant disease noted. LEFT MAIN CORONARY ARTERY: Short patent disease-free vessel that bifurcates into LAD and circumflex. LEFT ANTERIOR DESCENDING CORONARY ARTERY: Good caliber vessel extends along the anterior wall, gives off septal and diagonal branches, runs all the way to the apex supplying a sizable amount of myocardium. There is no significant disease other than some mild calcification. LAD is a good caliber and good distribution vessel. LEFT POSTERIOR CIRCUMFLEX CORONARY ARTERY: This is a good caliber, good distribution, nondominant vessel that has minor irregularities but no significant obstructive disease is noted. It gives off a good-sized obtuse marginal that runs laterally. LEFT VENTRICULOGRAM: Left ventriculogram was not performed. FINAL IMPRESSION: This patient has a right dominant system, no significant obstructive coronary artery disease. Normal filling pressures and no gradient across the aortic valve. Stress test was therefore probably a false positive finding. Findings were discussed with the patient and I expect he will be discharged later on today if he remains stable. MMODL / IJN: [id number] /
[2018-11-22 17:33] VITALS: BP 127/64; PULSE 59
== END ==
LOC: CATHCVL 08:52
PROVIDERS: ATTEND Internal Medicine Interventional Cardiology
DX: I25.10 Atherosclerotic heart disease of native coronary artery without angina pectoris (principal); I25.84 Coronary atherosclerosis due to calcified coronary lesion; I47.1 Supraventricular tachycardia; Z72.0 Tobacco use; I10 Essential (primary) hypertension; E55.9 Vitamin D deficiency, unspecified; Z87.2 Personal history of diseases of the skin and subcutaneous tissue; Z96.642 Presence of left artificial hip joint; Z95.818 Presence of other cardiac implants and grafts; Z98.890 Other specified postprocedural states; Z79.82 Long term (current) use of aspirin; Z79.899 Other long term (current) drug therapy; Z88.8 Allergy status to other drugs, medicaments and biological substances
CPT/HCPCS: 93458; C1769; C1894; J2001; J1644; Q9967; J2250

== ENCOUNTER → 2019-10-20 | Outpatient (CLI) | payer MEDICARE ==
--- NOTE | 2019-10-21 06:02 | MR ---
EXAMINATION TYPE: MR lumbar spine wo con DATE OF EXAM: 10/20/2019 COMPARISON: CT abdomen and pelvis March 06, 2017. HISTORY: Low back pain radiating into stan legs TECHNIQUE: Multiplanar, multisequence imaging of the lumbar spine is performed without IV contrast. FINDINGS: Sagittal images of the lumbar spine show vertebral body heights to remain satisfactory. The re is dextroconvex scoliosis centered at L3 level redemonstrated. There is slight grade 1 retrolisthe sis L1 on L2 and more prominent grade 1 retrolisthesis L3 on L4 along with grade 1 anterolisthesis L4 on L5 and L5 on S1. There is multilevel disc desiccation and moderate to advanced disc space narrowi ng. There is moderate multilevel anterior spurring. The conus medullaris is normal in position and si gnal ending superior L1 level. There are heterogeneous Modic type I and type II endplate changes. Axial images at the T12-L1 level shows mild to moderate broad disc bulge mildly effacing the anterior thecal sac. Bilateral neural foramina are patent. Axial images at the L1-L2 level show spondylolisthesis with posterior spur disc complex effacing the anterior thecal sac. Mild facet arthropathy ligament flavum hypertrophy is seen. There is moderate le ft-sided neural foraminal narrowing. Axial images at the L2-L3 level show moderate broad disc bulge and [id number] facet degenerativ e changes and ligament flavum hypertrophy bilaterally effacing posterior lateral thecal sac. There is mild left-sided anterior inferior neural foraminal narrowing. Axial images at the L3-L4 level shows spondylolisthesis and advanced broad disc bulge. There is moder ate facet degenerative change and ligamentum flavum hypertrophy. There is effacement of the anterior thecal sac. There is moderate left greater than right bilateral neural foraminal narrowing. Axial images at the L4-L5 level shows spondylolisthesis and advanced facet degenerative changes and l igamentum flavum hypertrophy. There is moderate broad disc bulge. There is effacement of the anterior and posterior lateral thecal sac. There is moderate bilateral neural foraminal narrowing with encroa chment on right L4 nerve seen axial image 11 and sagittal image 14. Axial images at the L5-S1 level show advanced facet degenerative changes bilaterally. There is spondy lolisthesis with advanced broad disc bulge. There is advanced bilateral neural foraminal narrowing en croaching on both L5 nerves on sagittal image 4 and 13 respectively and confirmed on axial image 5. There is partial visualization of large lobulated thin-walled cyst left kidney corresponding to the C T findings. IMPRESSION: Scoliosis with multilevel spondylolisthesis and advanced degenerative changes as detailed above. Findings noted most prominent at the lumbosacral junction.
== END | disposition home or self-care (01) ==
LOC: RADMRIMAIN 18:04
PROVIDERS: ATTEND Family Medicine
DX: M43.16 Spondylolisthesis, lumbar region (principal); M43.17 Spondylolisthesis, lumbosacral region; M47.816 Spondylosis without myelopathy or radiculopathy, lumbar region; M47.817 Spondylosis without myelopathy or radiculopathy, lumbosacral region; M41.86 Other forms of scoliosis, lumbar region
CPT/HCPCS: 72148

== ENCOUNTER 2021-06-20 15:21 | Inpatient (IN) | payer MEDICARE ==
--- NOTE | 2021-06-20 16:17 | ED ---
General Adult HPI - General Chief complaint: Urogenital Stated complaint: Possible Sepsis Time Seen by Provider: 06/20/21 15:32 Source: patient Mode of arrival: wheelchair Limitations: no limitations - History of Present Illness Initial comments: This 81-year-old male presents emergency department stating is sent here by his primary care provider for UTI. Patient states he has been having increased urinary urgency and frequency 2 weeks. He states today he followed up with his primary care provider and was placed on levofloxacin. Patient states on Sunday afternoon he has also noticed right testicular swelling and pain. Patient states after leaving the office he began to experience fever, chills and increased fatigue. Patient states he called his primary care provider who told him to come be evaluated in the emergency room. Patient states he doesn't notice pain in the testicle unless it is being touched, he denies any left testicular pain or swelling. Patient states over the last couple weeks he has had a little bit of decreased appetite, however he states he has been eating a little bit and and drinking water. Patient denies any chest pain, shortness of breath, abdominal pain, back pain, nausea, vomiting, change in bowel, headache and lightheadedness, dizziness or change in vision. - Related Data Home Medications Medication Instructions Recorded Confirmed Finasteride [Proscar] 5 mg PO DAILY 03/05/17 06/20/21 Aspirin 81 mg PO DAILY 11/20/18 06/20/21 Metoprolol Tartrate 25 mg PO DAILY 11/22/18 06/20/21 Atorvastatin [Lipitor] 40 mg PO FR 06/20/21 06/20/21 Celecoxib [CeleBREX] 200 mg PO DAILY 06/20/21 06/20/21 Ergocalciferol [Vitamin D2 (1250 1,250 mcg PO FR 06/20/21 06/20/21 Mcg = 88634 Iu)] Levofloxacin [Levaquin] 750 mg PO DAILY 06/20/21 06/20/21 Multivitamins, Thera [Multivitamin 1 tab PO DAILY 06/20/21 06/20/21 (formulary)] Tadalafil [Cialis] 5 mg PO DAILY 06/20/21 06/20/21 Allergies Allergy/AdvReac Type Severity Reaction Status Date / Time verapamil Allergy Rash/Hives Verified 06/20/21 17:44 Review of Systems ROS Statement: Those systems with pertinent positive or pertinent negative responses have been documented in the HPI. ROS Other: All systems not noted in ROS Statement are negative. Past Medical History Past Medical History: Prostate Disorder Additional Past Medical History / Comment(s): hip replacement, cardiac ablation, heart valve repair History of Any Multi-Drug Resistant Organisms: None Reported Past Surgical History: Coronary Bypass/CABG, Orthopedic Surgery Past Anesthesia/Blood Transfusion Reactions: No Reported Reaction Past Psychological History: No Psychological Hx Reported Smoking Status: Former smoker Past Alcohol Use History: None Reported Past Drug Use History: None Reported - Past Family History Father Family Medical History: No Reported History General Exam Limitations: no limitations General appearance: alert, in no apparent distress Head exam: Present: atraumatic, normocephalic, normal inspection Eye exam: Present: normal appearance, PERRL, EOMI. Absent: scleral icterus, conjunctival injection, periorbital swelling ENT exam: Present: normal exam, mucous membranes moist Neck exam: Present: normal inspection, full ROM. Absent: tenderness, me ningismus, lymphadenopathy Respiratory exam: Present: normal lung sounds bilaterally. Absent: respiratory distress, wheezes, rales, rhonchi, stridor Cardiovascular Exam: Present: regular rate, normal rhythm, normal heart sounds. Absent: systolic murmur, diastolic murmur, rubs, gallop, clicks GI/Abdominal exam: Present: soft, normal bowel sounds. Absent: distended, tenderness, guarding, rebound, rigid exam: Present: testicular tenderness (Right testicular pain to palpation and scrotal swelling), scrotal swelling Extremities exam: Present: normal inspection, full ROM, normal capillary refill. Absent: tenderness, pedal edema, joint swelling, calf tenderness Back exam: Present: normal inspection, full ROM. Absent: CVA tenderness (R), CV A tenderness (L), paraspinal tenderness, vertebral tenderness Neurological exam: Present: alert, oriented X3, CN II-XII intact Psychiatric exam: Present: normal affect, normal mood Skin exam: Present: warm, dry, intact, normal color. Absent: rash Course Vital Signs 06/20/21 06/20/21 06/20/21 15:26 17:29 18:00 Temperature 100.8 F H 101.0 F H Pulse Rate 94 87 Respiratory 18 16 Rate Blood Pressure 116/71 99/56 O2 Sat by Pulse 98 98 Oximetry Medical Decision Making - Medical Decision Making This 81-year-old male presents emergency department for urinary tract infection and right testicular pain/scrotal swelling. Patient states over the last couple days he is also feeling increased fatigue, fever and chills. Patient with white blood cells 13.4, hemoglobin 11.9, hematocrit 35.3, sodium 132, calcium 0.3, albumin 3.4, urine with large leukocyte esterase, 1+ ketones, white blood cells 152, few white blood cell clumps and few urine bacteria. Patient with ultrasound scrotum with Doppler impression: Complex right hydrocele septated measuring 3.22.43.1, no varicoceles. Right testicle and epididymis show increased color Doppler flow. Left testicle is slightly asymmetric hydrogenous, patient without any pain, swelling or erythema to left testicle. I did review the ultrasound results with . I did call and speak to Dr.David Delgado who requested I start patient on Zosyn every 8 hours and consult urology. He requested I admit patient to his services. Patient verbally agreed to be admitted to the hospital for further workup, evaluation and treatment. Discussed case in detail my attending, Dr. Resendiz. - Lab Data Result diagrams: 06/20/21 16:07 06/20/21 16:07 Lab Results 06/20/21 06/20/21 06/20/21 Range/Units 16:07 16:07 16:08 WBC 13.4 H (3.8-10.6) k/uL RBC 3.74 L (4.30-5.90) m/uL Hgb 11.9 L (13.0-17.5) gm/dL Hct 35.3 L (39.0-53.0) % MCV 94.3 (80.0-100.0) fL MCH 31.7 (25.0-35.0) pg MCHC 33.6 (31.0-37.0) g/dL RDW 13.4 (11.5-15.5) % Plt Count 154 (150-450) k/uL MPV 6.8 Neutrophils % 93 % Lymphocytes % 3 % Monocytes % 4 % Eosinophils % 0 % Basophils % 0 % Neutrophils # 12.4 H (1.3-7.7) k/uL Lymphocytes # 0.4 L (1.0-4.8) k/uL Monocytes # 0.5 (0-1.0) k/uL Eosinophils # 0.0 (0-0.7) k/uL Basophils # 0.0 (0-0.2) k/uL Sodium 132 L (137-145) mmol/L Potassium 4.1 (3.5-5.1) mmol/L Chloride 100 (98-107) mmol/L Carbon Dioxide 24 (22-30) mmol/L Anion Gap 8 mmol/L BUN 19 (9-20) mg/dL Creatinine 0.83 (0.66-1.25) mg/dL Est GFR (CKD-EPI)AfAm >90 (>60 ml/min/1.73 sqM) Est GFR (CKD-EPI)NonAf 84 (>60 ml/min/1.73 sqM) Glucose 110 H (74-99) mg/dL Calcium 8.3 L (8.4-10.2) mg/dL Total Bilirubin 0.8 (0.2-1.3) mg/dL AST 21 (17-59) U/L ALT 14 (4-49) U/L Alkaline Phosphatase 54 (38-126) U/L Total Protein 6.3 (6.3-8.2) g/dL Albumin 3.4 L (3.5-5.0) g/dL Urine Color Yellow Urine Appearance Cloudy (Clear) Urine pH 5.5 (5.0-8.0) Ur Specific [place] 1.016 (1.001-1.035) Urine Protein Trace H (Negative) Urine Glucose (UA) Negative (Negative) Urine Ketones 1+ H (Negative) Urine Blood Large H (Negative) Urine Nitrite Negative (Negative) Urine Bilirubin Negative (Negative) Urine Urobilinogen <2.0 (<2.0) mg/dL Ur Leukocyte Esterase Large H (Negative) Urine RBC 158 H (0-5) /hpf Urine WBC 152 H (0-5) /hpf Urine WBC Clumps Few H (None) /hpf Urine Bacteria Few H (None) /hpf Urine Mucus Rare H (None) /hpf Disposition Clinical Impression: Testicular swelling, right, Hydrocele, right, Urinary tract infection, Leukocytosis Disposition: ADMITTED IP TO THIS HOSP Condition: Serious Is patient prescribed a controlled substance at d/c from ED?: No
[2021-06-20 16:34] LABS: Basophils % (A) 0 %; Eosinophils % (A) 0 %; HCT 35.3 % (39.0-53.0); HGB 11.9 gm/dL (13.0-17.5); Lymphocytes # (A) 0.4 k/uL (1.0-4.8); Lymphocytes % (A) 3 %; MCH 31.7 pg (25.0-35.0); MCHC 33.6 g/dL (31.0-37.0); MCV 94.3 fL (80.0-100.0); Mean Platelet Volume 6.8; Monocytes # (A) 0.5 k/uL (0-1.0); Monocytes % (A) 4 %; Neutrophils # (A) 12.4 k/uL (1.3-7.7); Neutrophils % (A) 93 %; Platelet Count 154 k/uL (150-450); RBC 3.74 m/uL (4.30-5.90); RDW 13.4 % (11.5-15.5); WBC 13.4 k/uL (3.8-10.6)
[2021-06-20 16:38] LABS: Appearance,Urine Cloudy (Clear); Bacteria,Urine Few /hpf; Bilirubin,Urine Negative (Negative); Blood,Urine Large (Negative); Color,Urine Yellow; Glucose,Urine (UA) Negative (Negative); Ketones,Urine 1+ (Negative); Leukocyte Esterase,Urine Large (Negative); Mucus,Urine Rare /hpf; Nitrite,Urine Negative (Negative); PH, Urine 5.5 (5.0-8.0); Protein,Urine Trace (Negative); RBC,Urine 158 /hpf (0-5); Specific Gravity,Urine 1.016 (1.001-1.035); Urobilinogen,Urine <2.0 mg/dL (<2.0); WBC,Urine 152 /hpf (0-5)
[2021-06-20] MEDS ORDERED: ACETAMINOPHEN TAB 500 MG TAB PO STA (16:51)
[2021-06-20 16:53] LABS: ALT 14 U/L (4-49); AST 21 U/L (17-59); African American GFR (CKD) >90 (>60 ml/min/1.73 sqM); Albumin 3.4 g/dL (3.5-5.0); Alkaline Phosphatase 54 U/L (38-126); Anion Gap 8 mmol/L; Blood Urea Nitrogen 19 mg/dL (9-20); Calcium 8.3 mg/dL (8.4-10.2); Carbon Dioxide 24 mmol/L (22-30); Chloride 100 mmol/L (98-107); Glucose 110 mg/dL (74-99); Non-African American GFR(CKD) 84 (>60 ml/min/1.73 sqM); Potassium 4.1 mmol/L (3.5-5.1); Sodium 132 mmol/L (137-145); Total Bilirubin 0.8 mg/dL (0.2-1.3); Total Protein 6.3 g/dL (6.3-8.2)
--- NOTE | 2021-06-20 17:17 | US ---
EXAMINATION TYPE: US scrotum with doppler. Grayscale and color Doppler Duplex imaging performed of yovani vazquez scrotum. DATE OF EXAM: 06/20/2021 COMPARISON: NONE CLINICAL HISTORY: Right testicle pain/swelling. EXAM MEASUREMENTS: TESTICLES: Right Testicle: 4.6 x 3.9 x 4.0cm Left Testicle: 5.0 x 3.0 x 2.2 cm EPIDIDYMIS HEAD: Right Epididymis: 1.1 cm Left Epididymis: 1.1 cm Doppler performed to assess for testicular vascularity; good bilateral color flow and waveforms are s een within the right testis suboptimal evaluation of the left testis vascular flow in particular the venous waveforms. Presence of hydroceles: septated hydrocele on right measuring 3.2 x 2.4 x 3.1 cm. Presence of varicoceles: No Right testicle and epididymis show increased color Doppler flow. Left testicle is slightly asymmetrically heterogeneous. IMPRESSION: 1. Right epididymoorchitis. 2. Complex right hydrocele likely secondary to #1. 3. Appropriate arterial collateral flow to the right testis. 4. Suboptimal evaluation of the venous arterial waveforms on the left. If there is concern for left testicular torsion consider repeat vascular flow examination.
[2021-06-20] MEDS ORDERED: PIPERACILLIN-TAZOBACTAM 3.375 GM in SODIUM CHLORIDE 0.9% 100 ML IVPB ONE (17:45)
[2021-06-20] MEDS ORDERED: NALOXONE 0.4 MG/ML 1 ML VIAL IV PRN (18:00)
[2021-06-20] MEDS ORDERED: ACETAMINOPHEN TAB 325 MG TAB PO PRN (18:00)
[2021-06-20] MEDS ORDERED: ONDANSETRON 4 MG/2 ML VIAL IVP PRN (18:00)
[2021-06-20] MEDS ORDERED: MORPHINE SULFATE 2 MG/ML SYRINGE IV PRN (18:00)
[2021-06-20] MEDS ORDERED: HYDROcodone/APAP 5-325MG 1 EACH TAB PO PRN (20:43)
[2021-06-21] MEDS: PIPERACILLIN-TAZOBACTAM 3.375 GM in SODIUM CHLORIDE 0.9% 100 ML IVPB SCH ×4 (02:45→17:44)
[2021-06-21] MEDS: SODIUM CHLORIDE 0.9% 1,000 ML IV SCH ×3 (02:46→16:50)
--- NOTE | 2021-06-21 08:33 | P.GSCN ---
History of Present Illness Consult date: 06/21/21 Reason for Consult: Right epididymitis Requesting physician: Ismael Delgado History of present illness: The patient is a 81-year-old male who presents with a 2 week history of urinary frequency and urgency. On June 17, he began to experience right testicular pain and swelling, associated with fever, chills, and fatigue. His symptoms have worsened and he was thus advised to be evaluated in the emergency room yesterday. Urinalysis was consistent with infection, and ultrasound was consistent with right epididymitis. He has been admitted for treatment with IV antibiotics. He takes tadalafil and finasteride for BPH. He previously took tamsulosin, but this was discontinued due to cataract surgery, and it was r eplaced with tadalafil. He states that his PSA level was elevated prior to taking finasteride. Review of Systems - Constitutional Reports chills, Reports fatigue, Reports fever - Cardiovascular Denies chest pain - Respiratory Denies dyspnea - Genitourinary Reports as per HPI Past Medical History Past Medical History: Prostate Disorder Additional Past Medical History / Comment(s): hip replacement, cardiac ablation, heart valve repair History of Any Multi-Drug Resistant Organisms: None Reported Past Surgical History: Coronary Bypass/CABG, Orthopedic Surgery Additional Past Surgical History / Comment(s): right and left hip, right knee 2x, cardiac ablation, heart valve repair Past Anesthesia/Blood Transfusion Reactions: No Reported Reaction Past Psychological History: No Psychological Hx Reported Smoking Status: Never smoker Past Alcohol Use History: None Reported Past Drug Use History: None Reported - Past Family History Father Family Medical History: No Reported History Medications and Allergies Home Medications Medication Instructions Recorded Confirmed Type Finasteride [Proscar] 5 mg PO DAILY 03/05/17 06/20/21 History Aspirin 81 mg PO DAILY 11/20/18 06/20/21 History Metoprolol Tartrate 25 mg PO DAILY 11/22/18 06/20/21 History Atorvastatin [Lipitor] 40 mg PO FR 06/20/21 06/20/21 History Celecoxib [CeleBREX] 200 mg PO DAILY 06/20/21 06/20/21 History Ergocalciferol [Vitamin D2 (1250 1,250 mcg PO FR 06/20/21 06/20/21 History Mcg = 41206 Iu)] Levofloxacin [Levaquin] 750 mg PO DAILY 06/20/21 06/20/21 History Multivitamins, Thera [Multivitamin 1 tab PO DAILY 06/20/21 06/20/21 History (formulary)] Tadalafil [Cialis] 5 mg PO DAILY 06/20/21 06/20/21 History Allergies Allergy/AdvReac Type Severity Reaction Status Date / Time verapamil Allergy Rash/Hives Verified 06/20/21 17:44 Surgical - Exam Vital Signs Temp Pulse Resp BP Pulse Ox 100.8 F H 94 18 116/71 98 06/20/21 15:26 06/20/21 15:26 06/20/21 15:26 06/20/21 15:26 06/20/21 15:26 - General well developed, well nourished, no distress - Respiratory normal respiratory effort - Abdomen Abdomen: soft, non tender, no guarding, no rigid, no rebound - Genitourinary Normal phallus, normal urethral meatus. The scrotum and left test year normal. The right testicle is tender and enlarged. - Rectum Rectum: normal sphincter tone, no masses, other (Prostate moderately enlarged and smooth) - Psychiatric oriented to time, oriented to person, oriented to place, speech is normal, memory intact Results - Labs 06/20/21 16:07 06/20/21 16:07 Abnormal Lab Results - Last 24 Hours (Table) 06/20/21 06/20/21 06/20/21 Range/Units 16:07 16:07 16:08 WBC 13.4 H (3.8-10.6) k/uL RBC 3.74 L (4.30-5.90) m/uL Hgb 11.9 L (13.0-17.5) gm/dL Hct 35.3 L (39.0-53.0) % Neutrophils # 12.4 H (1.3-7.7) k/uL Lymphocytes # 0.4 L (1.0-4.8) k/uL Sodium 132 L (137-145) mmol/L Glucose 110 H (74-99) mg/dL Calcium 8.3 L (8.4-10.2) mg/dL Albumin 3.4 L (3.5-5.0) g/dL Urine Protein Trace H (Negative) Urine Ketones 1+ H (Negative) Urine Blood Large H (Negative) Ur Leukocyte Esterase Large H (Negative) Urine RBC 158 H (0-5) /hpf Urine WBC 152 H (0-5) /hpf Urine WBC Clumps Few H (None) /hpf Urine Bacteria Few H (None) /hpf Urine Mucus Rare H (None) /hpf Microbiology - Last 24 Hours (Table) 06/20/21 16:08 Urine Culture - Preliminary Urine,Clean Catch Diabetes panel 06/20/21 Range/Units 16:07 Sodium 132 L (137-145) mmol/L Potassium 4.1 (3.5-5.1) mmol/L Chloride 100 (98-107) mmol/L Carbon Dioxide 24 (22-30) mmol/L BUN 19 (9-20) mg/dL Creatinine 0.83 (0.66-1.25) mg/dL Glucose 110 H (74-99) mg/dL Calcium 8.3 L (8.4-10.2) mg/dL AST 21 (17-59) U/L ALT 14 (4-49) U/L Alkaline Phosphatase 54 (38-126) U/L Total Protein 6.3 (6.3-8.2) g/dL Albumin 3.4 L (3.5-5.0) g/dL Calcium panel 06/20/21 Range/Units 16:07 Calcium 8.3 L (8.4-10.2) mg/dL Albumin 3.4 L (3.5-5.0) g/dL Pituitary panel 06/20/21 Range/Units 16:07 Sodium 132 L (137-145) mmol/L Potassium 4.1 (3.5-5.1) mmol/L Chloride 100 (98-107) mmol/L Carbon Dioxide 24 (22-30) mmol/L BUN 19 (9-20) mg/dL Creatinine 0.83 (0.66-1.25) mg/dL Glucose 110 H (74-99) mg/dL Calcium 8.3 L (8.4-10.2) mg/dL Adrenal panel 06/20/21 Range/Units 16:07 Sodium 132 L (137-145) mmol/L Potassium 4.1 (3.5-5.1) mmol/L Chloride 100 (98-107) mmol/L Carbon Dioxide 24 (22-30) mmol/L BUN 19 (9-20) mg/dL Creatinine 0.83 (0.66-1.25) mg/dL Glucose 110 H (74-99) mg/dL Calcium 8.3 L (8.4-10.2) mg/dL Total Bilirubin 0.8 (0.2-1.3) mg/dL AST 21 (17-59) U/L ALT 14 (4-49) U/L Alkaline Phosphatase 54 (38-126) U/L Total Protein 6.3 (6.3-8.2) g/dL Albumin 3.4 L (3.5-5.0) g/dL - Imaging US - pelvic: report reviewed Assessment and Plan (1) Right epididymitis Current Visit: Yes Status: Acute Code(s): N45.1 - EPIDIDYMITIS SNOMED Code(s): 30736145 Plan: The patient has right epididymitis due to a UTI and is being treated with Zosyn, pending the urine culture result. I will recommend that he be treated with a 14 day course of culture appropriate antibiotics, and anticipate complete resolution of his symptoms. The postvoid residual will be checked to assess bladder emptying. Time with Patient: Greater than 30
[2021-06-21] MEDS: FINASTERIDE 5 MG TAB PO SCH (09:21)
[2021-06-21] MEDS: METOPROLOL TARTRATE 25 MG TAB PO SCH (09:21)
[2021-06-21] MEDS: ASPIRIN 81 MG PO SCH (09:21)
--- NOTE | 2021-06-21 22:13 | P.HPIM ---
History of Present Illness H&P Date: 06/21/21 Chief Complaint: testicular pain Chip Mcmahan is a 81 yo M with PMH of BPH on finasteride, HTN, HLD who presented to the ED with increasing testicular pain and dysuria over the past few days. He states his symptoms started Sunday and have worsened over the weekend. He complains of chills and weakness over the same period. He saw his primary physician and was given a prescription for levaquin. He continued to experience the scrotal pain and was recommended to come to the ED. On his presentation he was febrile, WBC 13.4k, Hgb 11.9, Cr 0.83, urine with few bacteria, large LE. Scrotal US with good blood flow, R epididymoorchitis. Review of Systems All systems: negative Constitutional: Reports fever, Reports malaise, Denies chills Eyes: denies blurred vision, denies pain Ears, nose, mouth and throat: Denies headache, Denies sore throat Cardiovascular: Denies chest pain, Denies shortness of breath Respiratory: Denies cough Gastrointestinal: Denies abdominal pain, Denies diarrhea, Denies nausea, Denies vomiting Genitourinary: Reports as per HPI, Reports testicular pain Musculoskeletal: Denies myalgias Integumentary: Denies pruritus, Denies rash Neurological: Denies numbness, Denies weakness Psychiatric: Denies anxiety, Denies depression Endocrine: Denies fatigue, Denies weight change Past Medical History Past Medical History: Prostate Disorder Additional Past Medical History / Comment(s): hip replacement, cardiac ablation, heart valve repair History of Any Multi-Drug Resistant Organisms: None Reported Past Surgical History: Coronary Bypass/CABG, Orthopedic Surgery Additional Past Surgical History / Comment(s): right and left hip, right knee 2x, cardiac ablation, heart valve repair Past Anesthesia/Blood Transfusion Reactions: No Reported Reaction Past Psychological History: No Psychological Hx Reported Smoking Status: Never smoker Past Alcohol Use History: None Reported Past Drug Use History: None Reported - Past Family History Father Family Medical History: No Reported History Medications and Allergies Home Medications Medication Instructions Recorded Confirmed Type Finasteride [Proscar] 5 mg PO DAILY 03/05/17 06/20/21 History Aspirin 81 mg PO DAILY 11/20/18 06/20/21 History Metoprolol Tartrate 25 mg PO DAILY 11/22/18 06/20/21 History Atorvastatin [Lipitor] 40 mg PO FR 06/20/21 06/20/21 History Celecoxib [CeleBREX] 200 mg PO DAILY 06/20/21 06/20/21 History Ergocalciferol [Vitamin D2 (1250 1,250 mcg PO FR 06/20/21 06/20/21 History Mcg = 50774 Iu)] Levofloxacin [Levaquin] 750 mg PO DAILY 06/20/21 06/20/21 History Multivitamins, Thera [Multivitamin 1 tab PO DAILY 06/20/21 06/20/21 History (formulary)] Tadalafil [Cialis] 5 mg PO DAILY 06/20/21 06/20/21 History Allergies Allergy/AdvReac Type Severity Reaction Status Date / Time verapamil Allergy Rash/Hives Verified 06/20/21 17:44 Physical Exam Vitals: Vital Signs Temp Pulse Pulse Resp BP BP Pulse Ox 06/21/21 19:21 98.8 F 70 15 116/64 95 06/21/21 18:00 72 130/75 92 L 06/21/21 17:45 56 L 106/52 93 L 06/21/21 17:30 59 L 122/67 92 L 06/21/21 17:15 48 L 117/64 95 06/21/21 17:00 57 L 109/50 06/21/21 16:45 54 L 119/55 99 06/21/21 16:30 97.7 F 58 L 17 119/66 99 06/21/21 14:03 97.8 F 64 17 102/61 95 06/21/21 09:20 68 108/65 06/21/21 07:21 98.9 F 64 17 94/52 97 06/21/21 03:37 87 17 06/21/21 03:22 98.3 F 87 17 107/60 94 L 06/20/21 22:28 99.3 F 71 16 91/49 96 Intake and Output 06/21/21 06/21/21 06/21/21 06:59 14:59 22:59 Intake Total 591 Balance 591 Intake: Oral 591 Other: # Voids 2 # Bowel Movements 0 Weight 102.965 kg General: well nourished, well developed, NAD. Vitals reviewed Eyes: PERRL, EOMI, conjunctiva normal HENT: normocephalic, mucus membranes moist Neck: supple, no JVD Lungs: normal respiratory effort, no wheezes or rales CV: Regular rate and rhythm, no murmur. Peripheral pulses 2+ Abdomen: soft, nondistended, no organomegaly Lymph: no cervical or axillary LAD Skin: warm and dry. Testicular swelling and tenderness on the R Neuro: A&Ox3, normal mood and affect Results CBC & Chem 7: 06/20/21 16:07 06/20/21 16:07 Labs: Microbiology - Last 24 Hours (Table) 06/20/21 16:08 Urine Culture - Final Urine,Clean Catch 06/20/21 17:15 Blood Culture - Preliminary Blood No Growth after 24 hours 06/20/21 17:00 Blood Culture - Preliminary Blood No Growth after 24 hours Thrombosis Risk Factor Assmnt - Choose All That Apply Other Risk Factors: Yes Each Risk Factor Represents 3 Points: Age 75 years or older Thrombosis Risk Factor Assessment Total Risk Factor Score: 3 Thrombosis Risk Factor Assessment Level: Moderate Risk Assessment and Plan Plan: 1. Acute epididymoorchitis. Admit, blood and urine cultures. Start IV zosyn. Consult Urology 2. BPH. Continue with finasteride 3. HTN. Continue metoprolol
[2021-06-22] MEDS: PIPERACILLIN-TAZOBACTAM 3.375 GM in SODIUM CHLORIDE 0.9% 100 ML IVPB SCH ×3 (02:55→17:27)
--- NOTE | 2021-06-22 08:45 | P.PN ---
Subjective Progress Note Date: 06/22/21 Principal diagnosis: Right epididymo-orchitis The patient continues to feel better. He denies orchalgia. He is afebrile with stable vital signs. Urine and blood cultures are negative. Objective - Vital Signs Vital signs: Vital Signs Temp 97.8 F 06/22/21 07:06 Pulse 62 06/22/21 07:06 Resp 17 06/22/21 07:06 BP 108/66 06/22/21 07:06 Pulse Ox 93 L 06/22/21 07:06 Intake & Output 06/21/21 06/22/21 06/22/21 18:59 06:59 18:59 Output Total 200 Balance -200 Output: Urine 200 Other: # Voids 2 1 # Bowel Movements 0 - Constitutional General appearance: Present: average body habitus, cooperative, no acute distress - Genitourinary Genitourinary Comment(s): Normal phallus, normal urethral meatus. The left testicle is palpably normal. The right testicle remains hard and enlarged. Scrotal edema is noted overlying the right testicle. - Musculoskeletal Musculoskeletal: Present: gait normal - Psychiatric Psychiatric: Present: A&O x's 3, appropriate affect - Labs CBC & Chem 7: 06/20/21 16:07 06/20/21 16:07 Labs: Microbiology - Last 24 Hours (Table) 06/20/21 16:08 Urine Culture - Final Urine,Clean Catch 06/20/21 17:15 Blood Culture - Preliminary Blood No Growth after 24 hours 06/20/21 17:00 Blood Culture - Preliminary Blood No Growth after 24 hours Assessment and Plan (1) Right epididymitis Current Visit: Yes Status: Acute Code(s): N45.1 - EPIDIDYMITIS SNOMED Code(s): 66305138 Plan: The patient has right epididymitis due to a UTI and is being treated with Zosyn. His condition is improving. Cultures are negative, but perhaps falsely so given that he took Levaquin prior to present into the emergency room. I ex plained to him that with appropriate antibiotic therapy, the right testicular enlargement will take several weeks to subside. I would suggest he be treated with an additional 10 days of a broad-spectrum antibiotic such as Levaquin. This can be done as an outpatient, as I see no reason for him to remain hospitalized. He has noted some urethral spotting, so he will be given an appointment to follow up with me in 3-4 weeks, at which time cystoscopy will be performed. Please notify me if I can be of any further assistance.
[2021-06-22] MEDS: FINASTERIDE 5 MG TAB PO SCH (09:51)
[2021-06-22] MEDS: METOPROLOL TARTRATE 25 MG TAB PO SCH (09:51)
[2021-06-22] MEDS: ASPIRIN 81 MG PO SCH (09:51)
[2021-06-22] MEDS: SODIUM CHLORIDE 0.9% 1,000 ML IV SCH (11:26)
--- NOTE | 2021-06-22 11:28 | CDI ---
Documentation Clarification Form Date: 06/22/2021 11:09 AM From: Mony Locke RN CCDS Admit Date: 06/21/2021 02:07:00 PM Patient Name: Chip Mcmahan Visit Number: [id number] Discharge Date: ATTENTION: The Clinical Documentation Specialists (CDI) and [facility] Coding Staff appreciate your assistance in clarifying documentation. Please respond to the clarification below the line at the bottom and electronically sign. The CDI & [facility] Coding staff will review the response and follow-up if needed. Please note: Queries are made part of the Legal Health Record. If you have any questions, please contact the author of this message via ITS. Dr. Ismael Delgado The patient presented with the following clinical indicators. Additional clarification regarding the etiology/cause of the clinical indicators is requested. History/Risk Factors: 81-year-old male presents to the ED with increasing testicular pain and dysuria over a few days with chills and weakness. Medical History: Prostate disorder. Clinical Indicators: ED Note 5/2: Possible Sepsis WBC 5/2: 13.4 Neutrophil 5/2: 12.4 UA cultures 5/2: No growth after 18 hours. Blood cultures 5/2: No growth after 24 hours. Vitals signs: B/P 116/71; HR 94; Temp 100.8 F Oral; RR 18; SpO2 98% room air Treatment: Urology Consult 06/21: Right epididymitis Antibiotics: 5/2 - Zosyn 3.375mg IVPB x 1; 3 current Zosyn 3.375gm IVPB Q8H In your professional opinion, please clarify if these findings signify one of the following conditions: [ ] Sepsis POA [ ] Sepsis ruled out [ ] SIRS, without underlying infectious process [ ] Other, please specify [ ] Unable to determine SIRS Criteria: 2 or more of the following may indicate SIRS -Temperature < 96.8F (36C) or > 101.0F (38.3C) -Heart Rate > 90 bpm -Respiratory Rate > 20 breaths/min or PaCO2 < 32 mmHg -White Blood Cell Count > 12,000 or < 4,000 cells/mm3 or > 10% bands (Template Last Reviewed: March 2020) Sepsis BRANDONA DEVANG
--- NOTE | 2021-06-22 13:59 | P.PN ---
Subjective Progress Note Date: 06/22/21 H&P Date: 06/21/21 Chief Complaint: testicular pain Chip Mcmahan is a 81 yo M with PMH of BPH on finasteride, HTN, HLD who presented to the ED with increasing testicular pain and dysuria over the past few days. He states his symptoms started [place] and have worsened over the weekend. He complains of chills and weakness over the same period. He saw his primary physician and was given a prescription for levaquin. He continued to experience the scrotal pain and was recommended to come to the ED. On his presentation he was febrile, WBC 13.4k, Hgb 11.9, Cr 0.83, urine with few bacteria, large LE. Scrotal US with good blood flow, R epididymoorchitis. 06/22/2021 maintained on IV fluid hydration, Zosyn with significant clinical improvement. Preliminary blood cultures remain negative. Denies chills or sweats. Mild hematuria .Reporting less tenderness, less fatigue. Afebrile Denies chest pain, palpitations or shortness of breath. Objective - Vital Signs Vital signs: Vital Signs Temp 97.8 F 06/22/21 07:06 Pulse 62 06/22/21 07:06 Resp 17 06/22/21 07:06 BP 108/66 06/22/21 07:06 Pulse Ox 93 L 06/22/21 07:06 Intake & Output 06/21/21 06/22/21 06/22/21 18:59 06:59 18:59 Output Total 200 0 Balance -200 0 Output: Urine 200 Post Void Residual 0 Other: # Voids 2 1 # Bowel Movements 0 - Exam General: Lying in bed, fatigued, NAD. Vitals reviewed Eyes: PERRL, EOMI, conjunctiva normal HENT: normocephalic, mucus membranes moist Neck: supple, no JVD Lungs: normal respiratory effort, no wheezes or rales CV: Regular rate and rhythm, no murmur. Peripheral pulses 2+ Abdomen: soft, nondistended, no organomegaly,+bs Skin: warm and dry. Decreasing testicular swelling and tenderness on the R Neuro: A&Ox3, normal mood and affect Microbiology 06/20/21 16:08 Urine,Clean Catch Urine Culture - Final 06/20/21 17:15 Blood Blood Culture - Preliminary No Growth after 24 hours 06/20/21 17:00 Blood Blood Culture - Preliminary No Growth after 24 hours - Labs CBC & Chem 7: 06/20/21 16:07 06/20/21 16:07 Labs: Microbiology - Last 24 Hours (Table) 06/20/21 16:08 Urine Culture - Final Urine,Clean Catch 06/20/21 17:15 Blood Culture - Preliminary Blood No Growth after 24 hours 06/20/21 17:00 Blood Culture - Preliminary Blood No Growth after 24 hours Assessment and Plan Assessment: Acute Right epididymoorchitis, secondary to acute UTI BPH HTN Plan: Continue on current medication regime ,monitoring and symptomatic treatment. Maintain IV fluids and IV antibiotics as recommended per neurology. Bladder scan to evaluate for post void residual discussed with RN. Increase ambulation. Discharge planning in progress pending final DC recommendations and clearance per urology. The impression and plan of care has been dictated as directed. : I performed a history and examination of this patient, discussed the same with the dictator. I agree with the dictator's note ,documented as a scribe. Any additional findings or plans will be noted.
[2021-06-23] MEDS: PIPERACILLIN-TAZOBACTAM 3.375 GM in SODIUM CHLORIDE 0.9% 100 ML IVPB SCH ×2 (03:12→10:28)
[2021-06-23] MEDS: SODIUM CHLORIDE 0.9% 1,000 ML IV SCH ×2 (03:12→10:07)
[2021-06-23 09:24] LABS: Basophils # (A) 0.04 X 10*3/uL (0.00-0.10); Basophils % (A) 0.4 %; Eosinophils # (A) 0.19 X 10*3/uL (0.04-0.35); Eosinophils % (A) 1.8 %; HCT 30.5 % (39.6-50.0); HGB 9.9 g/dL (13.0-17.0); Immature Grans, Automated 0.9 %; Lymphocytes # (A) 0.93 X 10*3/uL (0.90-5.00); Lymphocytes % (A) 8.9 %; MCH 30.7 pg (27.0-32.0); MCHC 32.5 g/dL (32.0-37.0); MCV 94.7 fL (80.0-97.0); Mean Platelet Volume 9.7 fL (9.5-12.2); Monocytes # (A) 0.66 X 10*3/uL (0.20-1.00); Monocytes % (A) 6.3 %; NRBC Per 100 WBC 0 /100 WBCS (0.0-0.0); Neutrophils # (A) 8.57 X 10*3/uL (1.80-7.70); Neutrophils % (A) 81.7 %; Platelet Count 123 X 10*3/uL (140-440); RBC 3.22 X 10*6/uL (4.40-5.60); RDW 12.7 % (11.5-14.5); WBC 10.48 X 10*3/uL (4.50-10.00)
[2021-06-23] MEDS: ASPIRIN 81 MG PO SCH (09:39)
[2021-06-23] MEDS: FINASTERIDE 5 MG TAB PO SCH (09:39)
[2021-06-23] MEDS: METOPROLOL TARTRATE 25 MG TAB PO SCH (09:40)
[2021-06-23 09:49] LABS: African American GFR (CKD) 98.5 (60.0-200.0); Anion Gap 9.9 mmol/L (10.00-18.00); BUN/Creat Ratio 18.63 Ratio (12.00-20.00); Blood Urea Nitrogen 14.9 mg/dL (9.0-27.0); Calcium 8.1 mg/dL (8.7-10.3); Carbon Dioxide 23.1 mmol/L (20.0-27.5); Potassium 3.9 mmol/L (3.5-5.5)
--- NOTE | 2021-06-23 11:17 | P.PN ---
Subjective Progress Note Date: 06/23/21 Principal diagnosis: Right epididymo-orchitis The patient continues to feel better. He denies orchalgia. He is afebrile with stable vital signs. Urine and blood cultures are negative. Objective - Vital Signs Vital signs: Vital Signs Temp 98.3 F 06/23/21 07:13 Pulse 60 06/23/21 07:13 Resp 18 06/23/21 09:59 BP 117/66 06/23/21 07:13 Pulse Ox 96 06/23/21 07:13 Intake & Output 06/22/21 06/23/21 06/23/21 18:59 06:59 18:59 Output Total 0 Balance 0 Output: Post Void Residual 0 Other: # Voids 2 3 # Bowel Movements 0 - Constitutional General appearance: Present: cooperative, no acute distress - Genitourinary Genitourinary Comment(s): Physical examination is unchanged. The right testicle remains hard and enlarged, and remains mildly tender. Right scrotal wall edema is noted. - Psychiatric Psychiatric: Present: A&O x's 3, appropriate affect - Labs CBC & Chem 7: 06/23/21 04:21 06/23/21 04:21 Labs: Abnormal Lab Results - Last 24 Hours (Table) 06/23/21 06/23/21 Range/Units 04:21 04:21 WBC 10.48 H (4.50-10.00) X 10*3/uL RBC 3.22 L (4.40-5.60) X 10*6/uL Hgb 9.9 L (13.0-17.0) g/dL Hct 30.5 L (39.6-50.0) % Plt Count 123 L (140-440) X 10*3/uL Immature Gran # 0.09 H (0.00-0.04) X 10*3/uL Neutrophils # 8.57 H (1.80-7.70) X 10*3/uL Anion Gap 9.90 L (10.00-18.00) mmol/L Calcium 8.1 L (8.7-10.3) mg/dL Microbiology - Last 24 Hours (Table) 06/20/21 17:15 Blood Culture - Preliminary Blood No Growth after 48 hours 06/20/21 17:00 Blood Culture - Preliminary Blood No Growth after 48 hours Assessment and Plan (1) Right epididymitis Current Visit: Yes Status: Acute Code(s): N45.1 - EPIDIDYMITIS SNOMED Code(s): 90778958 Plan: The patient is urologically stable for discharge. He has been verified to be emptying his bladder completely. I would suggest he be treated with an additional 10 days of a broad-spectrum antibiotic such as Levaquin. In view of the recent urethral spotting, he will follow up with me in 3-4 weeks, at which time cystoscopy will be performed.
--- NOTE | 2021-06-23 12:08 | P.DS ---
Providers Date of admission: 06/21/21 14:07 Expected date of discharge: 06/23/21 Attending physician: Ismael Delgado MD Consults: 06/20/21 18:01 Consult Physician Routine Consulting Provider: Byron Turner Consult Reason/Comments: Right testicular pain, right hydrocele Do you want consulting provider notified?: Yes Primary care physician: Radha Delgado Hospital Course: Hospital course: Acute Right epididymoorchitis, suspect secondary to acute UTI, though patient had been on antibiotics prior to admission and culture reported no growth after 18 hours, BPH HTN Hospital course:Chip Mcmahan is a 81 yo M with PMH of BPH on finasteride, HTN, HLD who presented to the ED with increasing testicular pain and dysuria over the past few days. He states his symptoms started Sunday and have worsened over the weekend. He complains of chills and weakness over the same period. He saw his primary physician and was given a prescription for levaquin. He continued to experience the scrotal pain and was recommended to come to the ED. On his presentation he was febrile, WBC 13.4k, Hgb 11.9, Cr 0.83, urine with few bacteria, large LE. Scrotal US with good blood flow, R epididymoorchitis. 06/22/2021 maintained on IV fluid hydration, Zosyn with significant clinical improvement. Preliminary blood cultures remain negative. Denies chills or sweats. Mild hematuria .Reporting less tenderness, less fatigue. Afebrile Denies chest pain, palpitations or shortness of breath. Significant clinical improvement. Maintained on gentle IV fluid hydration, Zosyn. Afebrile, blood in urine cultures reporting no growth. Feels better, with continued decreased testicular edema,tenderness without redness. Cleared by urology for discharge with outpatient cystoscopy being planned. Patient will be discharged home today in a stable condition with guarded prognosis. The impression and plan of care has been dictated as directed. : I performed a history and examination of this patient, discussed the same with the dictator. I agree with the dictator's note ,documented as a scribe. Any additional findings or plans will be noted. Patient Condition at Discharge: Stable Plan - Discharge Summary Discharge Rx Participant: Yes New Discharge Prescriptions: Continue Finasteride [Proscar] 5 mg PO DAILY Aspirin 81 mg PO DAILY Metoprolol Tartrate 25 mg PO DAILY Celecoxib [CeleBREX] 200 mg PO DAILY Atorvastatin [Lipitor] 40 mg PO FR Levofloxacin [Levaquin] 750 mg PO DAILY #7 tab Multivitamins, Thera [Multivitamin (formulary)] 1 tab PO DAILY Ergocalciferol [Vitamin D2 (1250 Mcg = 77294 Iu)] 1,250 mcg PO FR No Action Tadalafil [Cialis] 5 mg PO DAILY Discharge Medication List Finasteride [Proscar] 5 mg PO DAILY 03/05/17 [History] Aspirin 81 mg PO DAILY 11/20/18 [History] Metoprolol Tartrate 25 mg PO DAILY 11/22/18 [History] Atorvastatin [Lipitor] 40 mg PO FR 06/20/21 [History] Celecoxib [CeleBREX] 200 mg PO DAILY 06/20/21 [History] Ergocalciferol [Vitamin D2 (1250 Mcg = 85074 Iu)] 1,250 mcg PO FR 06/20/21 [H istory] Multivitamins, Thera [Multivitamin (formulary)] 1 tab PO DAILY 06/20/21 [History] Tadalafil [Cialis] 5 mg PO DAILY 06/20/21 [History] Levofloxacin [Levaquin] 750 mg PO DAILY #7 tab 06/23/21 [Rx] Follow up Appointment(s)/Referral(s): Byron Turner MD [STAFF PHYSICIAN] - 4 Weeks (Office will call you with appointment. ) Radha Delgado DO [Primary Care Provider] - 06/27/21 2:30 pm ([place] office) Patient Instructions/Handouts: Hydrocele (DC), Testicle Pain (ED) Activity/Diet/Wound Care/Special Instructions: At time of discharge, scheduled follow-up appointment with Dr. Turner in 3-4 weeks for office cystoscopy.
[2021-06-23 14:37] VITALS: BP 123/67; PULSE 65; RESP 19; TEMP 98.7
== END 2021-06-23 16:41 | disposition home or self-care (01) | DRG 872 ==
LOC: EC 15:21 → 4SSUR 17:47 → OBSVTOIN 06-21 14:07
PROVIDERS: ADMIT Family Medicine; ATTEND Family Medicine
DX: A41.9 Sepsis, unspecified organism (principal); N39.0 Urinary tract infection, site not specified; N45.3 Epididymo-orchitis; E78.5 Hyperlipidemia, unspecified; I10 Essential (primary) hypertension; R31.9 Hematuria, unspecified; N40.0 Benign prostatic hyperplasia without lower urinary tract symptoms; R35.0 Frequency of micturition; N43.3 Hydrocele, unspecified; Z79.1 Long term (current) use of non-steroidal anti-inflammatories (NSAID); Z79.82 Long term (current) use of aspirin; Z79.899 Other long term (current) drug therapy; Z87.891 Personal history of nicotine dependence; Z95.1 Presence of aortocoronary bypass graft; Z96.643 Presence of artificial hip joint, bilateral; Z88.8 Allergy status to other drugs, medicaments and biological substances
CPT/HCPCS: 36415; 76870; 80048; 80053; 81001; 85025; 87040; 87086; 93975; 99285

== ENCOUNTER 2021-07-02 16:21 | Emergency (ER) | payer MEDICARE ==
[2021-07-02 16:44] VITALS: TEMP 98
--- NOTE | 2021-07-02 18:06 | ED ---
Extremity Problem HPI - General Chief complaint: Extremity Problem,Nontraumatic Stated complaint: Lower leg pain,r/o blood clots Time Seen by Provider: 07/02/21 17:37 Source: patient, family, RN notes reviewed Mode of arrival: ambulatory Limitations: no limitations - History of Present Illness Initial comments: This is a pleasant 81-year-old male who was recently admitted for urinary tract infection, had antibiotics. Patient does have a history of lymphedema. Patient states that he had bilateral calf pain which started about 3 days ago. He now noticed increased swelling today. There is been no fever. No erythema. Patient has no history of blood clots. Patient denying any chest pain or shortness of breath. No headache, no fever or chills, no changes in vision or hearing, no sore throat or difficulty with speech, no neck pain, no chest pain or shortness of breath, no abdominal pain, no nausea or vomiting, no changes in urination or bowel movements, no numbness or tingling, no extremity pain, no skin rashes or le sions. - Related Data Home Medications Medication Instructions Recorded Confirmed Finasteride [Proscar] 5 mg PO DAILY 03/05/17 07/02/21 Aspirin 81 mg PO DAILY 11/20/18 07/02/21 Metoprolol Tartrate 25 mg PO DAILY 11/22/18 07/02/21 Atorvastatin [Lipitor] 40 mg PO FR 06/20/21 07/02/21 Celecoxib [CeleBREX] 200 mg PO DAILY 06/20/21 07/02/21 Ergocalciferol [Vitamin D2 (1250 1,250 mcg PO FR 06/20/21 07/02/21 Mcg = 78726 Iu)] Multivitamins, Thera [Multivitamin 1 tab PO DAILY 06/20/21 07/02/21 (formulary)] Tadalafil [Cialis] 5 mg PO DAILY 06/20/21 07/02/21 Allergies Allergy/AdvReac Type Severity Reaction Status Date / Time verapamil Allergy Rash/Hives Verified 07/02/21 19:22 Review of Systems ROS Statement: Those systems with pertinent positive or pertinent negative responses have been documented in the HPI. ROS Other: All systems not noted in ROS Statement are negative. Past Medical History Past Medical History: Prostate Disorder Additional Past Medical History / Comment(s): hip replacement, cardiac ablation, heart valve repair History of Any Multi-Drug Resistant Organisms: None Reported Past Surgical History: Coronary Bypass/CABG, Orthopedic Surgery Additional Past Surgical History / Comment(s): right and left hip, right knee 2x, cardiac ablation, heart valve repair Past Anesthesia/Blood Transfusion Reactions: No Reported Reaction Past Psychological History: No Psychological Hx Reported Smoking Status: Never smoker Past Alcohol Use History: None Reported Past Drug Use History: None Reported - Past Family History Father Family Medical History: No Reported History General Exam - General Exam Comments Initial Comments: Patient does not appear to be ill or toxic. Limitations: no limitations General appearance: alert, in no apparent distress Head exam: Present: atraumatic, normocephalic, normal inspection Eye exam: Present: normal appearance, PERRL, EOMI. Absent: scleral icterus, conjunctival injection, periorbital swelling ENT exam: Present: normal exam, mucous membranes moist Neck exam: Present: normal inspection, full ROM. Absent: tenderness, meningismus, lymphadenopathy Respiratory exam: Present: normal lung sounds bilaterally. Absent: respiratory distress, wheezes, rales, rhonchi, stridor Cardiovascular Exam: Present: regular rate, normal rhythm, normal heart sounds. Absent: systolic murmur, diastolic murmur, rubs, gallop, clicks GI/Abdominal exam: Present: soft, normal bowel sounds. Absent: distended, tenderness, guarding, rebound, rigid Extremities exam: Present: normal inspection, full ROM, normal capillary refill, pedal edema (Bilateral pedal edema extending all the way up to the tibial plateau area. 3+ pitting. No evidence of erythema or infectious process). Absent: tenderness, joint swelling, calf tenderness Back exam: Present: normal inspection Neurological exam: Present: alert, oriented X3, CN II-XII intact Psychiatric exam: Present: normal affect, normal mood Skin exam: Present: warm, dry, intact, normal color. Absent: rash Course Vital Signs 07/02/21 16:40 Temperature 98.0 F Pulse Rate 80 Respiratory 18 Rate Blood Pressure 94/61 O2 Sat by Pulse 96 Oximetry - Reevaluation(s) Reevaluation #1: 07/02/21 20:27 Patient unchanged here in the right upper. No distress. Vital signs stable, patient afebrile Medical Decision Making - Medical Decision Making Patient presents with peripheral edema. Patient has had this previously as he does have some level of lymphedema and chronic edema. No respiratory distress. No evidence of congestive heart.. Patient in no distress. This appears to be consistent with the patient's worsening of chronic edema. We will treat conservatively with elevation and follow-up with her regular physician. Patient voiced understanding. All questions answered. Patient was told to return to the ER for any signs or symptoms worsen. Told to return immediately if any other problems arise. All questions answered. Treatment plan discussed. Patient in agreement Every effort has been made to ensure accuracy of this dictation. However, due to the limitations of electronic medical records and dictation devices, errors in charting still occur. The case was discussed in detail with ED attending physician. Presentation, findings, treatment plan discussed in detail. Supervising physician is - Lab Data Result diagrams: 07/02/21 18:37 07/02/21 18:37 Lab Results 07/02/21 07/02/21 07/02/21 Range/Units 18:37 18:37 18:37 WBC 8.3 (3.8-10.6) k/uL RBC 3.93 L (4.30-5.90) m/uL Hgb 11.9 L (13.0-17.5) gm/dL Hct 37.1 L (39.0-53.0) % MCV 94.3 (80.0-100.0) fL MCH 30.3 (25.0-35.0) pg MCHC 32.2 (31.0-37.0) g/dL RDW 13.0 (11.5-15.5) % Plt Count 230 (150-450) k/uL MPV 7.1 Neutrophils % 79 % Lymphocytes % 11 % Monocytes % 6 % Eosinophils % 2 % Basophils % 1 % Neutrophils # 6.5 (1.3-7.7) k/uL Lymphocytes # 0.9 L (1.0-4.8) k/uL Monocytes # 0.5 (0-1.0) k/uL Eosinophils # 0.1 (0-0.7) k/uL Basophils # 0.1 (0-0.2) k/uL PT 11.3 (9.0-12.0) sec INR 1.0 (<1.2) APTT 24.7 (22.0-30.0) sec Sodium 139 (137-145) mmol/L Potassium 4.5 (3.5-5.1) mmol/L Chloride 105 (98-107) mmol/L Carbon Dioxide 27 (22-30) mmol/L Anion Gap 7 mmol/L BUN 34 H (9-20) mg/dL Creatinine 1.18 (0.66-1.25) mg/dL Est GFR (CKD-EPI)AfAm 68 (>60 ml/min/1.73 sqM) Est GFR (CKD-EPI)NonAf 58 (>60 ml/min/1.73 sqM) Glucose 102 H (74-99) mg/dL Calcium 9.2 (8.4-10.2) mg/dL Magnesium 2.3 (1.6-2.3) mg/dL Total Bilirubin 0.6 (0.2-1.3) mg/dL AST 25 (17-59) U/L ALT 14 (4-49) U/L Alkaline Phosphatase 55 (38-126) U/L Troponin I (0.000-0.034) ng/mL NT-Pro-B Natriuret Pep pg/mL Total Protein 6.8 (6.3-8.2) g/dL Albumin 4.0 (3.5-5.0) g/dL 07/02/21 07/02/21 Range/Units 18:37 18:37 WBC (3.8-10.6) k/uL RBC (4.30-5.90) m/uL Hgb (13.0-17.5) gm/dL Hct (39.0-53.0) % MCV (80.0-100.0) fL MCH (25.0-35.0) pg MCHC (31.0-37.0) g/dL RDW (11.5-15.5) % Plt Count (150-450) k/uL MPV Neutrophils % % Lymphocytes % % Monocytes % % Eosinophils % % Basophils % % Neutrophils # (1.3-7.7) k/uL Lymphocytes # (1.0-4.8) k/uL Monocytes # (0-1.0) k/uL Eosinophils # (0-0.7) k/uL Basophils # (0-0.2) k/uL PT (9.0-12.0) sec INR (<1.2) APTT (22.0-30.0) sec Sodium (137-145) mmol/L Potassium (3.5-5.1) mmol/L Chloride (98-107) mmol/L Carbon Dioxide (22-30) mmol/L Anion Gap mmol/L BUN (9-20) mg/dL Creatinine (0.66-1.25) mg/dL Est GFR (CKD-EPI)AfAm (>60 ml/min/1.73 sqM) Est GFR (CKD-EPI)NonAf (>60 ml/min/1.73 sqM) Glucose (74-99) mg/dL Calcium (8.4-10.2) mg/dL Magnesium (1.6-2.3) mg/dL Total Bilirubin (0.2-1.3) mg/dL AST (17-59) U/L ALT (4-49) U/L Alkaline Phosphatase (38-126) U/L Troponin I <0.012 (0.000-0.034) ng/mL NT-Pro-B Natriuret Pep 296 pg/mL Total Protein (6.3-8.2) g/dL Albumin (3.5-5.0) g/dL - EKG Data EKG Comments: EKG done at 1821 and read by the ED attending physician reveals sinus rhythm with indeterminate axis, right bundle-branch block with QRS duration of 140 ms. Intervals are normal otherwise. No evidence of acute changes. Disposition Clinical Impression: Peripheral edema Disposition: HOME SELF-CARE Condition: Good Instructions (If sedation given, give patient instructions): Edema (ED) Additional Instructions: Elevate her legs as much as possible. Limit salt. Follow-up with your regular physician Sunday morning. Follow-up with your regular physician as directed. Return to the ER immediately if any symptoms worsen, new symptoms arise, or any other problems develop. Is patient prescribed a controlled substance at d/c from ED?: No Referrals: Ismael Delgado MD [STAFF PHYSICIAN] - 07/04/21 Time of Disposition: 20:29
[2021-07-02 19:09] LABS: Potassium 4.5 mmol/L (3.5-5.1)
[2021-07-02 19:10] LABS: Calcium 9.2 mg/dL (8.4-10.2); Magnesium 2.3 mg/dL (1.6-2.3); Total Bilirubin 0.6 mg/dL (0.2-1.3); Total Protein 6.8 g/dL (6.3-8.2)
[2021-07-02 19:12] LABS: Partial Thromboplastin Time 24.7 sec (22.0-30.0); Prothrombin Time 11.3 sec (9.0-12.0)
--- NOTE | 2021-07-02 19:19 | US ---
EXAMINATION TYPE: US venous doppler duplex LE BI DATE OF EXAM: 07/02/2021 6:55 PM COMPARISON: NONE CLINICAL HISTORY: Bilateral leg edema/pain. edema SIDE PERFORMED: Bilateral TECHNIQUE: The lower extremity deep venous system is examined utilizing real time linear array sonog jo-ann with graded compression, doppler sonography and color-flow sonography. VESSELS IMAGED: Common Femoral Vein Deep Femoral Vein Greater Saphenous Vein * Femoral Vein Popliteal Vein Small Saphenous Vein * Proximal Calf Veins (* superficial vessels) Right Leg: Negative for DVT Left Leg: Negative for DVT IMPRESSION: No evidence of deep vein thrombosis in both legs.
[2021-07-02 19:29] LABS: Basophils # (A) 0.1 k/uL (0-0.2); Basophils % (A) 1 %; Eosinophils # (A) 0.1 k/uL (0-0.7); Eosinophils % (A) 2 %; HCT 37.1 % (39.0-53.0); HGB 11.9 gm/dL (13.0-17.5); Lymphocytes # (A) 0.9 k/uL (1.0-4.8); Lymphocytes % (A) 11 %; MCH 30.3 pg (25.0-35.0); MCHC 32.2 g/dL (31.0-37.0); MCV 94.3 fL (80.0-100.0); Mean Platelet Volume 7.1; Monocytes # (A) 0.5 k/uL (0-1.0); Monocytes % (A) 6 %; Neutrophils # (A) 6.5 k/uL (1.3-7.7); Neutrophils % (A) 79 %; Platelet Count 230 k/uL (150-450); RBC 3.93 m/uL (4.30-5.90); WBC 8.3 k/uL (3.8-10.6)
--- NOTE | 2021-07-02 19:36 | XR ---
EXAMINATION TYPE: XR chest 1V portable DATE OF EXAM: 07/02/2021 COMPARISON: NONE HISTORY: Short of breath TECHNIQUE: Single view FINDINGS: There is no heart failure nor confluent pneumonic infiltrate. Costophrenic angles are clear . There are sternal wires. Heart size is normal. IMPRESSION: No active cardiopulmonary disease.
[2021-07-02 21:39] VITALS: BP 118/64; PULSE 74; RESP 16
== END 2021-07-02 21:40 | disposition home or self-care (01) ==
LOC: EC 16:21
DX: R60.0 Localized edema (principal); Z88.1 Allergy status to other antibiotic agents
CPT/HCPCS: 36415; 71045; 80053; 83735; 83880; 84484; 85025; 85610; 85730; 93970

== ENCOUNTER → 2021-09-12 | Outpatient (CLI) | payer MEDICARE ==
--- NOTE | 2021-09-12 09:58 | MR ---
EXAMINATION TYPE: MR lumbar spine wo con DATE OF EXAM: 09/12/2021 COMPARISON: 10/20/2019 INDICATION: Patient age:Male; 81 years old; Reason for study: M43.16 SPONDYLOLISTHESIS, LUMBAR REGION; TECHNIQUE: Multi planar, multi sequence imaging was performed utilizing: T1-weighted, T2-weighted, i maging of the lumbar spine. No gadolinium was given. FINDINGS: Alignment: The lumbar vertebral bodies have preserved heights. Slight grade 1 anterolisthesis of L4 a nd L5 which is unchanged from prior. Cord: The conus medullaris and the distal spinal cord appear unremarkable with regards to their signa l intensity and morphology. Bones/Discs: Multilevel degenerative disc disease is identified throughout the visualized spine with disc space narrowing, osteophyte formation and Modic endplate changes. No suspicious osseous bone mar row signal abnormality. L1-L2: Disc space narrowing with disc bulging, osteophytes and facet joint arthropathy result in mild spinal canal stenosis and mild bilateral neural foraminal stenosis. L2-L3: Disc space narrowing with disc bulging, osteophytes and facet joint arthropathy result in mild spinal canal stenosis and mild bilateral neural foraminal stenosis. L3-L4: Disc space narrowing with disc bulging, osteophytes and facet joint arthropathy result in mode rate spinal canal stenosis and moderate to severe bilateral neural foraminal stenosis. L4-L5: Disc space narrowing with disc bulging, grade 1 anterolisthesis, osteophytes and facet joint a rthropathy result in moderate to severe spinal canal stenosis and moderate bilateral neural foraminal stenosis. L5-S1: Disc space narrowing with disc bulging, osteophytes and facet joint arthropathy result in mode rate to severe spinal canal stenosis and severe bilateral neural foraminal stenosis. Other findings: There is a high T2 left renal cyst partially in the mwecl-bs-cane measuring at least 7.0 cm. 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 Findings overall are not significantly different than from prior o n 10/20/2019.
== END | disposition home or self-care (01) ==
LOC: RADMRIMAIN 05:55
PROVIDERS: ATTEND Orthopaedic Surgery
DX: M43.16 Spondylolisthesis, lumbar region (principal); M47.26 Other spondylosis with radiculopathy, lumbar region; M48.061 Spinal stenosis, lumbar region without neurogenic claudication; M99.73 Connective tissue and disc stenosis of intervertebral foramina of lumbar region
CPT/HCPCS: 72148

== ENCOUNTER → 2021-10-03 | Outpatient (CLI) | payer MEDICARE ==
[2021-10-03 08:35] VITALS: BP 125/77; PULSE 71; RESP 18; TEMP 98.6
--- NOTE | 2021-10-03 14:17 | P.PAINPG ---
PQRS Measure Charge Sheet Comment: HISTORY OF PRESENT ILLNESS: 81 yr old male as a referral from [facility] presents today w severe and chronic LBP secondary to disc bulges, spinal stenosis, neuroforaminal stenoses and fact arthropathy for evaluation. PT states his pain level is currently at 0/10 in intensity when sitting but escalates as high as 3/10 when standing/ walking for periods of 15 min or more. Pain is constant, dull/ achy in character which radiates to BL thighs. Pain is provoked w walking/standing and other weight bearing activity. Pain is palliated w topicals, PT for July 2021 for 6 weeks, chiropractic treatments semi monthly, use of a cane for ambulation, repositioning and rest. PMH: Prostate Disorder PSH: BL Hip Replacement, Cardiac Ablation, Coronary Bypass/CABG, Heart Valve Repair SH: Negative x 3 FH: Father- No reported history. All: See list Meds: See list REVIEW OF ORGAN SYSTEMS: CONSTITUTIONAL: No fevers or chills. No recent weight loss. NEUROLOGICAL: + numbness and tingling along the distal extremities. No seizure disorders or headaches. MUSCULOSKELETAL: + pain PSYCHIATRIC: Denies current depression or suicidal thoughts. Physical Examinations : Constitutional : Cooperative , not in acute distress . Neurologic : Cranial nerve II to XII intact. No focal neurological deficits. Psychiatric : alert & oriented x 3. Matching mood & appropriate affect. Judgment & insight intact. Musculoskeletal : Cervical Spine Motor strength in the deltoid and biceps: Normal right side. Normal Left side Motor strength biceps and the wrist extensors: Normal right side . Normal left side Motor strength in the triceps muscle: Normal right side. Normal left side Deep tendon reflexes: Normal at the biceps. Normal at Brachioradialis. Normal at triceps Vertebral body tenderness to deep palpation over Cervical facet loading test: positive bilaterally Spurling test: positive bilaterally Neck distraction test: positive bilaterally Tanja sign: positive bilaterally Lumbar spine Motor strength lower extremities ,thigh and legs 5/5 Right side , 5/5 Left side Deep tendon reflexes : Normal Knee Jerk. Normal Ankle Jerk Vertebral body tenderness over L4 Lumbar facet Loading Test: positive Right / positive Left Range of motion of the lumbar spine Flexion 30 degrees, extension 10 degrees Straight Leg Raise test: Left/ Right positive at degree Genoveva test: positive right / positive left. Severe tenderness over the Sacroiliac joint on the Right / Left sides Gaenslen test: positive bilaterally Seated flexion test: positive bilaterally. Sacral spine : Severe tenderness over the Sacroiliac joint: right side / left side Range of motion: Flexion of the lumbar spine <60 degrees Range of motion: Extension of the lumbar spine <20 degrees Gaenslen's Test positive Toro's Test positive Genoveva test: positive right side / left side Thigh Thrust Test Sacral Thrust Test Imaging: MRI without contrast of the lumbar spine from 09/12/21 reviewed Assessment/ Plan : Lumbar DDD Recommendation of LESI L4-L5. May need a series of injections, up to 3 within a 6 mo period, for optimal pain relief. Risks, benefits of procedure discussed and patient verbalized understanding. Denies aspirin or anti- coagulant use or medical history of diabetes. Protocol for discontinuation/ continuation of medications tere procedure discussed. All questions answered. I have spent greater than 30 minutes on patient care today. Dr Agarwal was available by phone for the evaluation of this patient. The time was used to review the medical records including relevant urine studies and Prescription history (MAPs), review of the available imaging, evaluation and examination of the patient, coordination of care with the medical staff and if applicable referring physicians, as well as creation of the medical record - Pain Location Bilateral Lower Back Non-Pharmacological Interventions: Chiropractic Treatment, Physical Therapy, Sitting PQRS Narrative: Smoking Status Former smoker Home Medications: Ambulatory Orders Finasteride [Proscar] 5 mg PO DAILY 03/05/17 Aspirin 81 mg PO DAILY 11/20/18 Metoprolol Tartrate 25 mg PO DAILY 11/22/18 Atorvastatin [Lipitor] 40 mg PO FR 06/20/21 Celecoxib [CeleBREX] 200 mg PO DAILY 06/20/21 Ergocalciferol [Vitamin D2 (1250 Mcg = 60887 Iu)] 1,250 mcg PO FR 06/20/21 Multivitamins, Thera [Multivitamin (formulary)] 1 tab PO DAILY 06/20/21 tadalafiL [Cialis] 5 mg PO DAILY 06/20/21 Controlled Substance Measures - Controlled Substance Measures Is patient prescribed a controlled substance at discharge?: No
== END ==
LOC: PNWHC3 08:03
PROVIDERS: ATTEND Specialist
DX: M47.26 Other spondylosis with radiculopathy, lumbar region (principal); M51.16 Intervertebral disc disorders with radiculopathy, lumbar region; Z87.891 Personal history of nicotine dependence
CPT/HCPCS: 99211

== ENCOUNTER 2021-11-08 10:03 | Day surgery (SDC) | payer MEDICARE ==
[2021-11-07 10:23] VITALS: BMI 31.4
[~2021-11-08 10:03] MED LIST changes: -ALPRAZolam 0.25 MG TAB PO PRN; -ALPRAZolam 0.5 MG TAB PO PRN; -ASPIRIN 325 MG TAB PO ONE; -ASPIRIN 81 MG ONE; -ATORVASTATIN 80 MG TAB PO ONE; -HEPARIN SODIUM 1,000 UN/ML (10ML VL) IV ONE; -HEPARIN SODIUM 1,000 UN/ML (10ML VL) ONE; -IOPAMIDOL-370 125ML BTL INJ ONE; +LACTATED RINGERS 1,000 ML IV SCH; -LIDOCAINE 1% INJ 10MG/ML (20 ML MDV) ONE; -LIDOCAINE 1% INJ 10MG/ML (20 ML MDV) SQ ONE; -NITROGLYCERIN SL TABS 0.4 MG TAB SUBLINGUAL PRN; -SODIUM CHLORIDE 0.9% 1,000 ML IV SCH; -SODIUM CHLORIDE 0.9% 1,000 ML in EMPTY BAG 1 BAG IV ONE; -VERAPAMIL 2.5 MG/ML 2 ML AMP ONE
[2021-11-08 10:36] VITALS: TEMP 97.1
[2021-11-08] MEDS: LACTATED RINGERS 1,000 ML IV SCH ×2 (10:46→10:48)
[2021-11-08] MEDS ORDERED: methylPREDNISolone ACETATE 80 MG/ML 1 ML VIAL ONE (10:50)
[2021-11-08] MEDS ORDERED: fentaNYL (PF) 50 MCG/ML 2 ML AMP ONE (10:50)
[2021-11-08] MEDS ORDERED: IOPAMIDOL M200 10 ML VIAL ONE (10:50)
[2021-11-08] MEDS ORDERED: MIDAZOLAM 2 MG/2 ML VIAL ONE (10:50)
--- NOTE | 2021-11-08 11:03 | P.PCN ---
Date of Procedure: 11/08/21 Description of Procedure: Procedure: 1. L4-L5 Epidural steroid injection under fluoroscopic guidance#1/3 , 2. Lumbar epidurogram PREOPERATIVE DIAGNOSIS: Lumbar degenerative disc disease, and Lumbar radiculopathy. POSTOPERATIVE DIAGNOSIS: Lumbar degenerative disc disease, and Lumbar radiculopathy. SURGEON: Kiana Molina ANESTHESIA: Local with 1% lidocaine, and IV sedation : Versed 1 mg, and fentanyl 50 g Sedation supervision start time : 1051 sedation Supervision end time: 1100 EBL: None. Specimen removed: None Fluoroscopic image: saved to electronic medical records PROCEDURE INDICATION: The patient had history of Lumbar degenerative disc disease and Lumbar radiculopathy. Failed to conservative therapy. Presented for epidural steroid injection. PROCEDURE DESCRIPTION: The patient was seen and identified in the preoperative area. Risks, benefits, complications, and alternatives were discussed with the patient. The patient agreed to proceed with the procedure and signed the consent. IV was started, and vital signs were stable. Patient was taken to the procedure area, and time out was completed. The patient was placed in the prone position on procedure table and a pillow was placed under the abdomen to reduce lumbar lordosis. The lumbosacral area was prepped and draped in the usual sterile fashion. Critical pause was taken. Vital signs were closely monitored during the procedure. Using anterior-posterior fluoroscopy, the L4-L5 interlaminar space was identified, and skin and deeper tissues were localized with 1% lidocaine. Using anterior-posterior fluoroscopy, lateral fluoroscopy, and [id number] technique, a 20 gauge 3.5 Tuohy epidural needle entered the epidural space. After negative aspiration of CSF and blood with no paresthesias, 2 ml of [id number] contrast dye was injected and an excellent epidurogram was seen. Again after negative aspiration of CSF and blood with no paresthesias, 6 mL of block solution was injected into the epidural space. Block solution contained 80 mg of Depo-Medrol, and 5 mL of preservative-free normal saline. Needle was withdrawn intact, skin was cleansed, and bandages were applied. COMPLICATIONS: None. DISPOSITION / PLANS: The patient was placed in a supine position and transferred to the recovery area in a stable condition for observation. Patient was discharged from the recovery room after meeting discharge criteria. Home discharge instructions given to the patient by the staff. The patient was reexamined prior to discharge. The patient will schedule a follow up in the clinic in 4 weeks.
[2021-11-08] MEDS ORDERED: IV FLUID CONTINUATION 1,000 ML IV ONE (11:04)
[2021-11-08 11:08] VITALS: RESP 16
--- NOTE | 2021-11-08 11:12 | FL ---
Intraoperative/procedural fluoroscopic services were provided for lumbar epidural injection. Total fl uoroscopy time is 6 seconds with a total of 2 submitted images to PACS. Please see the operative note for further details.
[2021-11-08 11:40] VITALS: BP 105/63; PULSE 57
== END 2021-11-08 12:00 | disposition home or self-care (01) ==
LOC: ORPAIN 10:03
PROVIDERS: ATTEND Specialist
DX: M51.16 Intervertebral disc disorders with radiculopathy, lumbar region (principal); Z88.1 Allergy status to other antibiotic agents; E78.00 Pure hypercholesterolemia, unspecified; M19.90 Unspecified osteoarthritis, unspecified site; I48.91 Unspecified atrial fibrillation
CPT/HCPCS: 62323; J2250; J1040; J3010; Q9966

== ENCOUNTER → 2021-12-07 | Outpatient (CLI) | payer MEDICARE ==
[2021-12-07 08:48] VITALS: BP 131/74; PULSE 67; RESP 16; TEMP 98.1
--- NOTE | 2021-12-07 14:44 | P.PAINPG ---
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 Pt states he experienced 15% pain relief x 4 wks s/p procedure. Pain is also accom panied w BL paraspinal lumbar spasms and cramping. Pain level is currently at 2/10 in intensity, constant, localized in the lower lumbar spine, dull/ achy in character without radiation. Pain is provoked by weight bearing activity. Pain is alleviated with PT this month but stopped intermittently due to illness, chiropractic treatments monthly, heat, medications (ASA), repositioning and rest. Interventional pain procedures completed include SHERI L4-L5 Patient is currently on ASA Patient denies any side effects of the medication(s), denies excessive drowsiness or sleepiness, denies suicidal ideation and reports that the current pain medication is helping to control the pain and improve activities of daily living. Patient denies any motor or sensory deficits. Patient denies any fever or night sweats, denies any change in the bowel movements or urination. Physical Examination: -Constitutional: Cooperative. Not in acute distress . - Neurologic: Cranial nerve II to XII intact. No focal neurological deficits. - Psychatric: Alert & oriented x 3. Matching mood & appropriate affect. Judgment and insight intact. - Musculoskeletal: Cervical spine: Muscle bulk/ tone/ strength in the bilateral upper extremities normal Vertebral body tenderness to palpation over Spurling test positive Distraction test positive Facet loading test positive Thoracic spine Muscle bulk / tone/ strength in the bilateral paraspinal muscles normal Vertebral body tender to palpation over Facet loading test positive Lumbar spine: Motor bulk/ tone/ strength lower extremities , thigh and legs : 5/5 Deep tendon reflexes : Normal Knee Jerk. Normal Ankle Jerk . Vertebral body tenderness to palpation over L4, L5 Lumbar Facet Loading Test positive Straight Leg Raise: positive at 30 degrees right side/ left side Gaenslen's Test positive Sacral spine : Severe tenderness over the Sacroiliac joint: right side / left side Range of motion: Flexion of the lumbar spine <60 degrees Range of motion: Extension of the lumbar spine <20 degrees Gaenslen's Test positive Toro's Test positive Genoveva test: positive right side / left side Thigh Thrust Test Sacral Thrust Test Assessment and plan: Chronic low back pain secondary to lumbar degenerative disc disease , lumbar spondylosis with facet arthropathy without myelopathy Recommendatino of SHERI L4-L5 #2. May need a series of injections, up to 3 within a 6m o period, for optimal pain relief. Risks, benefits of procedure discussed and pt verbalized understanding. Admits to anticoagulant use or medical history of diabetes. Protocol for discontinuation/ continuation of medications tere procedure discussed. All patient questions answered I have spent less than 30 minutes on patient care today. Dr Agarwal was available by phone for the evaluation of this patient. The time was used to review the medical records including relevant urine studies and Prescription history (MAPs), review of the available imaging, evaluation and examination of the patient, coordination of care with the medical staff and if applicable referring physicians, as well as creation of the medical record PQRS Narrative: Smoking Status Former smoker Hx Alcohol Use (MH) No Home Medications: Ambulatory Orders Finasteride [Proscar] 5 mg PO DAILY 03/05/17 Aspirin 81 mg PO DAILY 11/20/18 Ergocalciferol [Vitamin D2 (1250 Mcg = 06333 Iu)] 1,250 mcg PO FR 06/20/21 tadalafiL [Cialis] 5 mg PO DAILY 06/20/21 Co Q-10 200mg W/Vitamin D3 50mcg 1 tab PO DAILY 11/26/21 Collagen Powder 1 scoop PO DAILY 11/26/21 Iron W/Vitamin C 1 tab PO Q72H 11/26/21 Apixaban [Eliquis] 5 mg PO BID #60 tab 11/29/21 Digoxin [Lanoxin] 125 mcg PO DAILY #90 tab 11/29/21 Famotidine [Pepcid] 20 mg PO DAILY #30 tablet 11/29/21 Metoprolol Tartrate [Lopressor] 50 mg PO BID #60 tab 11/29/21 Controlled Substance Measures - Controlled Substance Measures Is patient prescribed a controlled substance at discharge?: No
== END ==
LOC: PNWHC3 08:26
PROVIDERS: ATTEND Specialist
DX: M47.816 Spondylosis without myelopathy or radiculopathy, lumbar region (principal); M51.36 Other intervertebral disc degeneration, lumbar region; G89.29 Other chronic pain; E11.9 Type 2 diabetes mellitus without complications; Z79.01 Long term (current) use of anticoagulants; Z79.84 Long term (current) use of oral hypoglycemic drugs
CPT/HCPCS: 99211

== ENCOUNTER 2022-01-18 22:37 | Inpatient (IN) | payer MEDICARE ==
--- NOTE | 2022-01-18 23:59 | XR ---
EXAMINATION TYPE: XR chest 2V DATE OF EXAM: 01/18/2022 COMPARISON: 11/26/2021 HISTORY: Cough TECHNIQUE: FINDINGS: Heart is normal. There is some coarsening of interstitial markings. There are sternal wires . No pleural effusion. No obvious heart failure. Bony thorax is intact. IMPRESSION: Coarse interstitial densities suggestive of some mild pulmonary fibrosis. No change marta red to old exam.
[2022-01-19] MEDS ORDERED: ACETAMINOPHEN TAB 500 MG TAB PO STA (01:06)
[2022-01-19] MEDS ORDERED: SODIUM CHLORIDE 0.9% 1,000 ML IV STA (01:06)
[2022-01-19] MEDS ORDERED: CEFEPIME 2 GM in SODIUM CHLORIDE 0.9% 100 ML IVPB STA (01:07)
--- NOTE | 2022-01-19 01:10 | ED ---
Fever HPI - General Chief Complaint: Fever Stated Complaint: Fever, Weakness Time Seen by Provider: 01/19/22 00:57 Source: patient, RN notes reviewed Mode of arrival: ambulatory Limitations: no limitations - History of Present Illness Initial Comments: This is a pleasant 81-year-old male with history of hypertension. He presents to the emergency room today complaining of a fever, shaking chills which has been going on for 1 day. Patient has also had a bit of a runny nose but no shortness breath or cough. Patient denies any problems with urination or bowel movements. Patient's noticed that he has some redness to his right great toe. No headache,no changes in vision or hearing, no sore throat or difficulty with speech, no neck pain, no chest pain or shortness of breath, no abdominal pain, no nausea or vomiting, no changes in urination or bowel movements, no numbness or tingling, no extremity pain, no skin rashes or lesions. Past medical, surgical, social, and family history reviewed. MD Complaint: fever - Related Data Home Medications Medication Instructions Recorded Confirmed Finasteride [Proscar] 5 mg PO DAILY 03/05/17 01/17/22 Aspirin 81 mg PO DAILY 11/20/18 01/17/22 Ergocalciferol [Vitamin D2 (1250 1,250 mcg PO FR 06/20/21 01/17/22 Mcg = 30729 Iu)] tadalafiL [Cialis] 5 mg PO DAILY 06/20/21 01/17/22 Co Q-10 200mg W/Vitamin D3 50mcg 1 tab PO DAILY 11/26/21 01/17/22 Collagen Powder 1 scoop PO DAILY 11/26/21 01/17/22 Iron W/Vitamin C 1 tab PO Q72H 11/26/21 01/17/22 Previous Rx's Medication Instructions Recorded Apixaban [Eliquis] 5 mg PO BID #60 tab 11/29/21 Digoxin [Lanoxin] 125 mcg PO DAILY #90 tab 11/29/21 Metoprolol Tartrate [Lopressor] 50 mg PO BID #60 tab 11/29/21 Allergies Allergy/AdvReac Type Severity Reaction Status Date / Time verapamil Allergy Rash/Hives Verified 01/17/22 11:25 on face levofloxacin [From Levaquin] AdvReac leg pain Verified 01/17/22 11:25 Review of Systems ROS Statement: Those systems with pertinent positive or pertinent negative responses have been documented in the HPI. ROS Other: All systems not noted in ROS Statement are negative. Past Medical History Past Medical History: Atrial Fibrillation, Hyperlipidemia, Hypertension, Prostate Disorder Additional Past Medical History / Comment(s): hip replacement, cardiac ablation, heart valve repair History of Any Multi-Drug Resistant Organisms: None Reported Past Surgical History: Cardiac Ablation, Cardiac Valve Replacement, Coronary Bypass/CABG, Joint Replacement, Orthopedic Surgery Additional Past Surgical History / Comment(s): right and left hip, right knee 2x, LT TKA, cardiac ablation, heart valve repair , COLONOSCOPY, BILAT CATARACTS REMOVED WITH LENS IMPLANTS Past Anesthesia/Blood Transfusion Reactions: No Reported Reaction Past Psychological History: No Psychological Hx Reported Smoking Status: Former smoker Past Alcohol Use History: None Reported Past Drug Use History: None Reported - Past Family History Father Family Medical History: No Reported History Additional Family Medical History / Comment(s): father was a heavy smoker and most of his health problems were related to smoking Mother Additional Family Medical History / Comment(s): had TB when she was young, at 97 General Exam - General Exam Comments Initial Comments: Temp 102.8. Remainder of vital signs are stable. Limitations: no limitations General appearance: alert, in distress (Minimal) Head exam: Present: atraumatic, normocephalic, normal inspection Eye exam: Present: normal appearance, PERRL, EOMI. Absent: scleral icterus, conjunctival injection, periorbital swelling ENT exam: Present: normal exam, normal oropharynx, mucous membranes moist, normal external ear exam. Absent: mucous membranes dry Neck exam: Present: normal inspection, full ROM. Absent: tenderness, meningismus, lymphadenopathy Respiratory exam: Present: normal lung sounds bilaterally. Absent: respiratory distress, wheezes, rales, rhonchi, stridor Cardiovascular Exam: Present: regular rate, normal rhythm, normal heart sounds. Absent: systolic murmur, diastolic murmur, rubs, gallop, clicks GI/Abdominal exam: Present: soft, normal bowel sounds. Absent: distended, tenderness, guarding, rebound, rigid Extremities exam: Present: full ROM, normal capillary refill. Absent: tenderness, pedal edema, joint swelling, calf tenderness Right Knee exam: Present: normal inspection. Absent: tenderness, swelling, erythema Lower Leg exam: Present: swelling, erythema. Absent: normal inspection, tenderness, abrasion, laceration, ecchymosis, deformity, crepitus, dislocation, palpable cord, Homans' sign Ankle exam: Present: normal inspection, full ROM. Absent: tenderness, swelling, erythema Foot/Toe exam: Present: tenderness (Minimal tenderness in the right great toe), erythema (Right great toe) Neurovascular tendon exam: Present: no vascular compromise. Absent: pulse deficit, abnormal cap refill, motor deficit, sensory deficit, tendon deficit, extremity cold to touch, pallor, foot drop Back exam: Present: normal inspection Neurological exam: Present: alert, oriented X3, CN II-XII intact Psychiatric exam: Present: normal affect, normal mood Skin exam: Present: warm, dry, intact, normal color. Absent: rash Course Vital Signs 01/18/22 23:32 Temperature 102.8 F H Pulse Rate 96 Respiratory 18 Rate Blood Pressure 101/57 O2 Sat by Pulse 95 Oximetry - Reevaluation(s) Reevaluation #1: 01/19/22 02:08 Medical record is reviewed Patient somewhat improved after acetaminophen. Patient does meet sepsis criteria. We'll admit the patient for IV antibiotics Patient is informed of results and questions answered Patient in no distress - Consultations Consultation #1: Call placed for admitting physician Consultation #2: Social awaiting callback from the patient's primary care/admitting physician Medical Decision Making - Medical Decision Making Patient presents symptomology most consistent with right lower leg cellulitis. Patient afebrile. Patient's viral testing with regards to COVID-19, influenza, and RSV was all negative. Patient will be worked up with septic workup. Will start patient on cefepime 2 g IV piggyback. Patient's white blood cell count is 17,900, no differential noted. C-reactive protein 4.7, anion gap was normal at 10 Patient does meet sepsis criteria. I did review the plain film x-rays myself. PMI interpretation patient has no acute findings. She'll be admitted for IV antibiotics. Will consult infectious disease. Currently awaiting callback from the admitting physician. Blood cultures are pending. I did consider a venous Doppler however, this does not appear to be consistent with DVT The case was discussed in detail with ED attending physician. Presentation, findings, treatment plan discussed in detail. Crab Backer Dr. Harvey - Lab Data Result diagrams: 01/19/22 01:16 01/19/22 01:16 Lab Results 01/18/22 01/18/22 01/19/22 Range/Units 23:46 23:46 01:16 WBC 17.9 H (3.8-10.6) k/uL RBC 4.13 L (4.30-5.90) m/uL Hgb 13.2 (13.0-17.5) gm/dL Hct 38.0 L (39.0-53.0) % MCV 92.0 (80.0-100.0) fL MCH 31.9 (25.0-35.0) pg MCHC 34.7 (31.0-37.0) g/dL RDW 13.1 (11.5-15.5) % Plt Count 117 L (150-450) k/uL MPV 7.5 Sodium (137-145) mmol/L Potassium (3.5-5.1) mmol/L Chloride (98-107) mmol/L Carbon Dioxide (22-30) mmol/L Anion Gap mmol/L BUN (9-20) mg/dL Creatinine (0.66-1.25) mg/dL Est GFR (CKD-EPI)AfAm (>60 ml/min/1.73 sqM) Est GFR (CKD-EPI)NonAf (>60 ml/min/1.73 sqM) Glucose (74-99) mg/dL Plasma Lactic Acid Raghav (0.7-2.0) mmol/L Calcium (8.4-10.2) mg/dL Total Bilirubin (0.2-1.3) mg/dL AST (17-59) U/L ALT (4-49) U/L Alkaline Phosphatase (38-126) U/L Troponin I (0.000-0.034) ng/mL C-Reactive Protein (<1.0) mg/dL Total Protein (6.3-8.2) g/dL Albumin (3.5-5.0) g/dL Coronavirus (PCR) Not Detected (Not Detectd) Influenza Type A RNA Not Detected (Not Detectd) Influenza Type B (PCR) Not Detected (Not Detectd) RSV (PCR) Negative (Negative) 01/19/22 01/19/2222 Range/Units 01:16 01:16 01:16 WBC (3.8-10.6) k/uL RBC (4.30-5.90) m/uL Hgb (13.0-17.5) gm/dL Hct (39.0-53.0) % MCV (80.0-100.0) fL MCH (25.0-35.0) pg MCHC (31.0-37.0) g/dL RDW (11.5-15.5) % Plt Count (150-450) k/uL MPV Sodium 134 L (137-145) mmol/L Potassium 4.0 (3.5-5.1) mmol/L Chloride 101 (98-107) mmol/L Carbon Dioxide 23 (22-30) mmol/L Anion Gap 10 mmol/L BUN 26 H (9-20) mg/dL Creatinine 1.05 (0.66-1.25) mg/dL Est GFR (CKD-EPI)AfAm 78 (>60 ml/min/1.73 sqM) Est GFR (CKD-EPI)NonAf 68 (>60 ml/min/1.73 sqM) Glucose 114 H (74-99) mg/dL Plasma Lactic Acid Raghav 1.4 (0.7-2.0) mmol/L Calcium 9.0 (8.4-10.2) mg/dL Total Bilirubin 1.1 (0.2-1.3) mg/dL AST 30 (17-59) U/L ALT 21 (4-49) U/L Alkaline Phosphatase 58 (38-126) U/L Troponin I <0.012 (0.000-0.034) ng/mL C-Reactive Protein 4.7 H (<1.0) mg/dL Total Protein 7.2 (6.3-8.2) g/dL Albumin 4.6 (3.5-5.0) g/dL Coronavirus (PCR) (Not Detectd) Influenza Type A RNA (Not Detectd) Influenza Type B (PCR) (Not Detectd) RSV (PCR) (Negative) - Radiology Data Radiology results: report reviewed, image reviewed Two-view chest x-ray reveals some evidence of pulmonary fibrosis. No evidence of pneumonia. No pneumothorax. No effusion. This was interpreted by me. Her with radiology interpretation. Plain film x-rays of the right tibia/fibula and right foot interpreted by me reveal no acute pathology. Patient does have postsurgical hardware noted. I did review the radiologist's interpretation. Disposition Clinical Impression: Cellulitis of right lower leg, Sepsis, Thrombocytopenia Disposition: ADMITTED IP TO THIS HOSP Referrals: Radha Delgado DO [Primary Care Provider] - 1-2 days Time of Disposition: 02:08 Decision to Admit Reason: Admit from EC Decision Time: 02:08
[2022-01-19 01:52] LABS: HGB 13.2 gm/dL (13.0-17.5); MCH 31.9 pg (25.0-35.0); MCHC 34.7 g/dL (31.0-37.0); Mean Platelet Volume 7.5; Platelet Count 117 k/uL (150-450); RBC 4.13 m/uL (4.30-5.90); RDW 13.1 % (11.5-15.5); WBC 17.9 k/uL (3.8-10.6)
--- NOTE | 2022-01-19 02:02 | XR ---
EXAMINATION TYPE: XR foot complete RT DATE OF EXAM: 01/19/2022 COMPARISON: NONE HISTORY: Big toe infection TECHNIQUE: 3 views FINDINGS: There is some soft tissue swelling of the forefoot. Metatarsals are intact. There is narrow ing of the intertarsal joint spaces. The big toe is intact. I see no focal bone destruction. 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 No fracture seen. No focal bone destruction .
--- NOTE | 2022-01-19 02:05 | XR ---
EXAMINATION TYPE: XR tibia fibula RT DATE OF EXAM: 01/19/2022 COMPARISON: NONE HISTORY: Infectious process TECHNIQUE: 4 views FINDINGS: There is right knee prosthesis. The ankle joint appears anatomic. I see no fracture nor dis location. No focal bone destruction. There is mild soft tissue swelling around the lower leg. IMPRESSION: Soft tissue swelling. No fracture. No evidence of osteomyelitis.
[2022-01-19 02:12] LABS: Albumin 4.6 g/dL (3.5-5.0); C Reactive Protein 4.7 mg/dL (<1.0); Total Bilirubin 1.1 mg/dL (0.2-1.3); Total Protein 7.2 g/dL (6.3-8.2)
[2022-01-19] MEDS ORDERED: ONDANSETRON 4 MG/2 ML VIAL IVP PRN (02:38)
[2022-01-19] MEDS ORDERED: NALOXONE 0.4 MG/ML 1 ML VIAL IV PRN (02:38)
[2022-01-19 03:02] LABS: Band Neutrophils % 13 %; Lymphocytes # (M) 0.36 k/uL (1.0-4.8); Monocytes # (M) 0.36 k/uL (0-1.0); Neutrophils % (M) 83 %; Nucleated Red Blood Cells 0 /100 WBC (0-0); Total Cells Counted 100
[2022-01-19] MEDS ORDERED: HEPARIN SODIUM,PORCINE/PF 5,000 UNIT/0.5 ML SYRINGE SQ SCH (09:00)
[2022-01-19] MEDS: SODIUM CHLORIDE 0.9% 1,000 ML IV SCH ×3 (10:27→20:02)
[2022-01-19] MEDS: DIGOXIN 125 MCG TAB PO SCH ×2 (10:33→10:44)
[2022-01-19] MEDS: APIXABAN 5 MG TAB PO SCH ×2 (10:33→21:11)
[2022-01-19] MEDS: ACETAMINOPHEN TAB 325 MG TAB PO PRN ×2 (10:33→21:11)
[2022-01-19] MEDS: METOPROLOL TARTRATE 50 MG TAB PO SCH ×2 (10:33→21:11)
[2022-01-19] MEDS: NON FORMULARY DRUG (Mirabegron [Myrbetriq] 50 MG Tab.Er.24h) PO SCH (11:05)
[2022-01-19] MEDS: PANTOPRAZOLE 40 MG/10 ML VIAL IVP SCH (13:07)
[2022-01-19] MEDS: FINASTERIDE 5 MG TAB PO SCH (13:07)
[2022-01-19 15:50] LABS: Appearance,Urine Clear (Clear); Bilirubin,Urine Negative (Negative); Blood,Urine Negative (Negative); Color,Urine Yellow; Glucose,Urine (UA) Negative (Negative); Ketones,Urine Trace (Negative); Leukocyte Esterase,Urine Negative (Negative); Nitrite,Urine Negative (Negative); PH, Urine 5.5 (5.0-8.0); Protein,Urine Trace (Negative); Specific Gravity,Urine 1.024 (1.001-1.035); Urobilinogen,Urine <2.0 mg/dL (<2.0)
[2022-01-19] MEDS: CEFEPIME 2 GM in SODIUM CHLORIDE 0.9% 100 ML IVPB SCH ×2 (15:51→16:26)
--- NOTE | 2022-01-19 23:19 | P.CONS ---
History of Present Illness - Reason for Consult Consult date: 01/19/22 - History of Present Illness Patient is a 81-year-old male with a past medical history significant for hypertension history of right lower extremity cellulitis presenting to the ER last night for evaluation of fever shaking chills that has been going on for a day before presentation to the hospital patient was complaining of some runny nose but no other URI symptoms no chest pain or shortness of breath no cough no nausea no vomiting no abdominal pain or any diarrhea patient noticed to have increasing swelling and redness to right lower extremity and has been complaining of some dull aching pain to the right leg 5- no radiation did have diffuse swelling redness but no blisters or open wound or any drainage and apparently the patient seem to have a problem with the right big toe ingrowing toenail that has 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 but did have associated swelling and redness and pain to the right big toe with the symptom the patient was evaluated by the ER physician on arrival to the ER the patient did have a fever of 102.8 F patient was not tachycardic white count 17.9 with a left shift kidney function has been normal liver enzymes are normal influenza RSV and COVID testing was negative urine is negative patient did have a chest x- ray which was reported as coarse interstitial density suggestive of some pulmonary fibrosis no change from previous x-ray patient did have a foot x-ray osteoarthritis midfoot no fracture seen no focal bony destruction x-rays of the tibia-fibula was negative for any fracture patient was started on cefepime infectious disease was consulted for further management of antibiotic therapy Past Medical History Past Medical History: Atrial Fibrillation, Hyperlipidemia, Hypertension, Prostate Disorder Additional Past Medical History / Comment(s): hip replacement, cardiac ablation, heart valve repair History of Any Multi-Drug Resistant Organisms: None Reported Past Surgical History: Cardiac Ablation, Cardiac Valve Replacement, Coronary Bypass/CABG, Joint Replacement, Orthopedic Surgery Additional Past Surgical History / Comment(s): right and left hip, right knee 2x, LT TKA, cardiac ablation, heart valve repair , COLONOSCOPY, BILAT CATARACTS REMOVED WITH LENS IMPLANTS Past Anesthesia/Blood Transfusion Reactions: No Reported Reaction Past Psychological History: No Psychological Hx Reported Smoking Status: Former smoker Past Alcohol Use History: None Reported Past Drug Use History: None Reported - Past Family History Father Family Medical History: No Reported History Additional Family Medical History / Comment(s): father was a heavy smoker and most of his health problems were related to smoking Mother Additional Family Medical History / Comment(s): had TB when she was young, at 97 Medications and Allergies Home Medications Medication Instructions Recorded Confirmed Type Finasteride [Proscar] 5 mg PO DAILY 03/05/17 01/19/22 History Aspirin 81 mg PO DAILY 11/20/18 01/19/22 History Ergocalciferol [Vitamin D2 (1250 1,250 mcg PO FR 06/20/21 01/19/22 History Mcg = 98973 Iu)] tadalafiL [Cialis] 5 mg PO DAILY 06/20/21 01/19/22 History Co Q-10 200mg W/Vitamin D3 50mcg 1 tab PO DAILY 11/26/21 01/19/22 History Collagen Powder 1 scoop PO DAILY 11/26/21 01/19/22 History Iron W/Vitamin C 1 tab PO DAILY 11/26/21 01/19/22 History Apixaban [Eliquis] 5 mg PO BID #60 tab 11/29/21 01/19/22 Rx Digoxin [Lanoxin] 125 mcg PO DAILY #90 tab 11/29/21 01/19/22 Rx Metoprolol Tartrate [Lopressor] 50 mg PO BID #60 tab 11/29/21 01/19/22 Rx Mirabegron [Myrbetriq] 50 mg PO DAILY 01/19/22 01/19/22 History Allergies Allergy/AdvReac Type Severity Reaction Status Date / Time verapamil Allergy Rash/Hives Verified 01/19/22 07:13 on face ciprofloxacin [From Cipro] AdvReac Severe LEG PAIN Verified 01/19/22 07:13 levofloxacin [From Levaquin] AdvReac leg pain Verified 01/19/22 07:13 Physical Exam Vitals: Vital Signs Temp Pulse Pulse Resp BP BP Pulse Ox 01/19/22 09:30 100.4 F H 72 18 112/53 95 01/19/22 05:15 107/52 01/19/22 04:25 101.4 F H 82 14 93 L 01/18/22 23:32 102.8 F H 96 18 101/57 95 Intake and Output 01/18/22 01/19/22 01/19/22 22:59 06:59 14:59 Intake Total 90 Output Total 300 Balance 90 -300 Intake: Oral 90 Output: Urine 300 Other: Voiding Method Urinal Weight 104.326 kg Results CBC & Chem 7: 01/19/22 01:16 01/19/22 01:16 Labs: Abnormal Lab Results - Last 24 Hours (Table) 01/19/22 01/19/22 Range/Units 01:16 01:16 WBC 17.9 H (3.8-10.6) k/uL RBC 4.13 L (4.30-5.90) m/uL Hct 38.0 L (39.0-53.0) % Plt Count 117 L (150-450) k/uL Neutrophils # (Manual) 17.10 H (1.3-7.7) k/uL Lymphocytes # (Manual) 0.36 L (1.0-4.8) k/uL Sodium 134 L (137-145) mmol/L BUN 26 H (9-20) mg/dL Glucose 114 H (74-99) mg/dL C-Reactive Protein 4.7 H (<1.0) mg/dL Assessment and Plan Plan: 1patient presented to hospital with sepsis in this patient who did have a fever elevated white count source is likely right lower extremity cellulitis with diffuse swelling redness likely streptococcal disease and the patient did have ingrowing right big toe nail could be the contributing factor. 2Mark area of the redness and apply Jackson wrap from just above the toe to below the knee 3discontinue cefepime. 4start the patient on cefazolin 2 g every 8 hours. We will follow on clinical condition and cultures to further adjust medication if needed Thank you for this consultation will follow this patient along with you Time with Patient: Greater than 30
[2022-01-20] MEDS: SODIUM CHLORIDE 0.9% 1,000 ML IV SCH ×3 (04:18→20:17)
[2022-01-20] MEDS: ACETAMINOPHEN TAB 325 MG TAB PO PRN (05:43)
--- NOTE | 2022-01-20 08:29 | P.HPIM ---
History of Present Illness H&P Date: 01/19/22 Chip Mcmahan is a 81 yo M with PMH of HTN, hx RLE cellulitis and chronic RLE edema who presented to the ED complaining of leg redness and tenderness x2 days and fever, chills and sweats over the past day or so. He denies any obvious injury to the leg, no laceration or insect bite, he does complain of chronically ingrown R great toenail. He denies chest pain or shortness of breath, no nausea, vomiting or diarrhea. He has not been on any antibiotics recently. He does note his toenail had been trimmed by podiatry recently. On presentation pt febrile to 102.8, WBC 17.9k, renal function normal, trop negative. RSV, influenza, Covid negative. CXR with no acute process. XR R foot with OA no focal bony destruction. Review of Systems All systems: negative Constitutional: Reports malaise, Reports sweats, Reports weakness, Denies chills , Denies fever Eyes: denies blurred vision, denies pain Ears, nose, mouth and throat: Denies headache, Denies sore throat Cardiovascular: Denies chest pain, Denies shortness of breath Respiratory: Denies cough Gastrointestinal: Denies abdominal pain, Denies diarrhea, Denies nausea, Denies vomiting Musculoskeletal: Denies myalgias Integumentary: Denies pruritus, Denies rash Neurological: Denies numbness, Denies weakness Psychiatric: Denies anxiety, Denies depression Endocrine: Denies fatigue, Denies weight change Past Medical History Past Medical History: Atrial Fibrillation, Hyperlipidemia, Hypertension, Prostate Disorder Additional Past Medical History / Comment(s): hip replacement, cardiac ablation, heart valve repair History of Any Multi-Drug Resistant Organisms: None Reported Past Surgical History: Cardiac Ablation, Cardiac Valve Replacement, Coronary Bypass/CABG, Joint Replacement, Orthopedic Surgery Additional Past Surgical History / Comment(s): right and left hip, right knee 2x, LT TKA, cardiac ablation, heart valve repair , COLONOSCOPY, BILAT CATARACTS REMOVED WITH LENS IMPLANTS Past Anesthesia/Blood Transfusion Reactions: No Reported Reaction Past Psychological History: No Psychological Hx Reported Smoking Status: Former smoker Past Alcohol Use History: None Reported Past Drug Use History: None Reported - Past Family History Father Family Medical History: No Reported History Additional Family Medical History / Comment(s): father was a heavy smoker and most of his health problems were related to smoking Mother Additional Family Medical History / Comment(s): had TB when she was young, at 97 Medications and Allergies Home Medications Medication Instructions Recorded Confirmed Type Finasteride [Proscar] 5 mg PO DAILY 03/05/17 01/19/22 History Aspirin 81 mg PO DAILY 11/20/18 01/19/22 History Ergocalciferol [Vitamin D2 (1250 1,250 mcg PO FR 06/20/21 01/19/22 History Mcg = 12187 Iu)] tadalafiL [Cialis] 5 mg PO DAILY 06/20/21 01/19/22 History Co Q-10 200mg W/Vitamin D3 50mcg 1 tab PO DAILY 11/26/21 01/19/22 History Collagen Powder 1 scoop PO DAILY 11/26/21 01/19/22 History Iron W/Vitamin C 1 tab PO DAILY 11/26/21 01/19/22 History Apixaban [Eliquis] 5 mg PO BID #60 tab 11/29/21 01/19/22 Rx Digoxin [Lanoxin] 125 mcg PO DAILY #90 tab 11/29/21 01/19/22 Rx Metoprolol Tartrate [Lopressor] 50 mg PO BID #60 tab 11/29/21 01/19/22 Rx Mirabegron [Myrbetriq] 50 mg PO DAILY 01/19/22 01/19/22 History Allergies Allergy/AdvReac Type Severity Reaction Status Date / Time verapamil Allergy Rash/Hives Verified 01/19/22 07:13 on face ciprofloxacin [From Cipro] AdvReac Severe LEG PAIN Verified 01/19/22 07:13 levofloxacin [From Levaquin] AdvReac leg pain Verified 01/19/22 07:13 Physical Exam Vitals: Vital Signs Temp Pulse Pulse Resp BP BP Pulse Ox 01/20/22 07:00 99.4 F 66 18 85/32 87/42 94 L 01/20/22 02:18 99.7 F H 61 18 116/62 96 01/19/22 19:15 100.2 F H 72 17 95/46 95 01/19/22 15:00 98.8 F 72 16 121/62 97 01/19/22 14:40 100.2 F H 64 18 96/43 95 01/19/22 09:30 100.4 F H 72 18 112/53 95 Intake and Output 01/19/22 01/20/22 01/20/22 22:59 06:59 14:59 Output Total 500 Balance -500 Output: Urine 500 Other: Voiding Method Urinal Urinal # Voids 1 Gen: well developed, well nourished, NAD Neck: supple, no JVD or thyromegaly CV: RRR, no murmur Lungs: Normal effort, clear throughout Abd: soft, nontender, non distended Skin: warm and dry. Erythema extending up R calf approx 50% up. 1+ edema and tenderness Neuro: alert and oriented x3, no focal deficit Lymph: no cervical or axillary LAD Results CBC & Chem 7: 01/19/22 01:16 01/19/22 01:16 Labs: Abnormal Lab Results - Last 24 Hours (Table) 01/19/22 Range/Units 15:39 Urine Protein Trace H (Negative) Urine Ketones Trace H (Negative) Microbiology - Last 24 Hours (Table) 01/19/22 01:17 Blood Culture - Preliminary Blood No Growth after 24 hours 01/19/22 01:33 Blood Culture - Preliminary Blood No Growth after 24 hours Thrombosis Risk Factor Assmnt - Choose All That Apply Any of the Below Risk Factors Present?: No Each Factor Represents 1 point: Obesity (BMI >25), Swollen legs (current) Each Risk Factor Represents 3 Points: Age 75 years or older Other congenital or acquired thrombophilia - If yes, enter type in comment: No Thrombosis Risk Factor Assessment Total Risk Factor Score: 5 Thrombosis Risk Factor Assessment Level: High Risk Assessment and Plan Plan: 1. Sepsis secondary to RLE cellulitis. Admit, start cefepime. blood cultures. ID consult 2. AF continue eliquis, metoprolol
[2022-01-20] MEDS: METOPROLOL TARTRATE 50 MG TAB PO SCH ×2 (08:31→20:17)
[2022-01-20] MEDS: NON FORMULARY DRUG (Mirabegron [Myrbetriq] 50 MG Tab.Er.24h) PO SCH (08:31)
[2022-01-20] MEDS: DIGOXIN 125 MCG TAB PO SCH (08:31)
[2022-01-20] MEDS: FINASTERIDE 5 MG TAB PO SCH (08:31)
[2022-01-20] MEDS: APIXABAN 5 MG TAB PO SCH ×2 (08:31→20:16)
[2022-01-20] MEDS: PANTOPRAZOLE 40 MG/10 ML VIAL IVP SCH (08:31)
[2022-01-20 09:54] LABS: African American GFR (CKD) 74.4 (60.0-200.0); Anion Gap 8.5 mmol/L (10.00-18.00); BUN/Creat Ratio 18.26 Ratio (12.00-20.00); Blood Urea Nitrogen 19.9 mg/dL (9.0-27.0); C Reactive Protein 20.4 mg/dL (0.00-0.80); Calcium 8.1 mg/dL (8.7-10.3); Carbon Dioxide 24.4 mmol/L (20.0-27.5); Non-African American GFR(CKD) 64.2 (60.0-200.0)
[2022-01-20 10:01] LABS: Basophils # (A) 0.03 X 10*3/uL (0.00-0.10); Basophils % (A) 0.3 %; Eosinophils # (A) 0.01 X 10*3/uL (0.04-0.35); Eosinophils % (A) 0.1 %; HCT 31.1 % (39.6-50.0); HGB 10.3 g/dL (13.0-17.0); Immature Grans, Automated 0.7 %; Lymphocytes # (A) 0.58 X 10*3/uL (0.90-5.00); MCH 31.9 pg (27.0-32.0); MCHC 33.1 g/dL (32.0-37.0); MCV 96.3 fL (80.0-97.0); Mean Platelet Volume 9.5 fL (9.5-12.2); Monocytes # (A) 0.52 X 10*3/uL (0.20-1.00); Monocytes % (A) 5.3 %; NRBC Per 100 WBC 0 /100 WBCS (0.0-0.0); Neutrophils # (A) 8.53 X 10*3/uL (1.80-7.70); Neutrophils % (A) 87.6 %; Platelet Count 81 X 10*3/uL (140-440); RBC 3.23 X 10*6/uL (4.40-5.60); RDW 13.6 % (11.5-14.5); WBC 9.74 X 10*3/uL (4.50-10.00)
--- NOTE | 2022-01-20 11:04 | P.CNOR ---
History of Present Illness - HPI Consult date: 01/20/22 Consult reason: other (Right lower extremity cellulitis. Possible source foot?) History of present illness: Chip Mcmahan is a 81 yo M with PMH of HTN, hx RLE cellulitis and chronic RLE edema who presented to the ED complaining of leg redness and tenderness x2 days and fever, chills and sweats over the past day or so. He denies any obvious injury to the leg, no laceration or insect bite, he does complain of chronically ingrown R great toenail. He denies chest pain or shortness of breath, no nausea, vomiting or diarrhea. He has not been on any antibiotics recently. He does note his toenail had been trimmed by podiatry recently. On presentation pt febrile to 102.8, WBC 17.9k, renal function normal, trop negative. RSV, influenza, Covid negative. CXR with no acute process. XR R foot with OA no focal bony de struction. Patient states that he's had a previous history of right lower extremity cellulitis. States that the source was an open wound between to his toes. Since that event, he states that he has chronic edema in the right lower extremity. During the exam when I noted that his leg appeared swollen, and he commented that it was near baseline. Past Medical History Past Medical History: Atrial Fibrillation, Hyperlipidemia, Hypertension, Prostate Disorder Additional Past Medical History / Comment(s): hip replacement, cardiac ablation, heart valve repair History of Any Multi-Drug Resistant Organisms: None Reported Past Surgical History: Cardiac Ablation, Cardiac Valve Replacement, Coronary Bypass/CABG, Joint Replacement, Orthopedic Surgery Additional Past Surgical History / Comment(s): right and left hip, right knee 2x, LT TKA, cardiac ablation, heart valve repair , COLONOSCOPY, BILAT CATARACTS REMOVED WITH LENS IMPLANTS Past Anesthesia/Blood Transfusion Reactions: No Reported Reaction Past Psychological History: No Psychological Hx Reported Smoking Status: Former smoker Past Alcohol Use History: None Reported Past Drug Use History: None Reported - Past Family History Father Family Medical History: No Reported History Additional Family Medical History / Comment(s): father was a heavy smoker and most of his health problems were related to smoking Mother Additional Family Medical History / Comment(s): had TB when she was young, at 97 Medications and Allergies Home Medications Medication Instructions Recorded Confirmed Type Finasteride [Proscar] 5 mg PO DAILY 03/05/17 01/19/22 History Aspirin 81 mg PO DAILY 11/20/18 01/19/22 History Ergocalciferol [Vitamin D2 (1250 1,250 mcg PO FR 06/20/21 01/19/22 History Mcg = 98389 Iu)] tadalafiL [Cialis] 5 mg PO DAILY 06/20/21 01/19/22 History Co Q-10 200mg W/Vitamin D3 50mcg 1 tab PO DAILY 11/26/21 01/19/22 History Collagen Powder 1 scoop PO DAILY 11/26/21 01/19/22 History Iron W/Vitamin C 1 tab PO DAILY 11/26/21 01/19/22 History Apixaban [Eliquis] 5 mg PO BID #60 tab 11/29/21 01/19/22 Rx Digoxin [Lanoxin] 125 mcg PO DAILY #90 tab 11/29/21 01/19/22 Rx Metoprolol Tartrate [Lopressor] 50 mg PO BID #60 tab 11/29/21 01/19/22 Rx Mirabegron [Myrbetriq] 50 mg PO DAILY 01/19/22 01/19/22 History Allergies Allergy/AdvReac Type Severity Reaction Status Date / Time verapamil Allergy Rash/Hives Verified 01/19/22 07:13 on face ciprofloxacin [From Cipro] AdvReac Severe LEG PAIN Verified 01/19/22 07:13 levofloxacin [From Levaquin] AdvReac leg pain Verified 01/19/22 07:13 Physical Examination Osteopathic Statement: *. No significant issues noted on an osteopathic structural exam other than those noted in the History and Physical/Consult. Right lower extremity exam: Skin: Warm, dry, supple skin. No obvious open wounds. Right great toenail was thickened, discolored, and dystrophic. There is dried blood in the proximal medial nail fold. There is no surrounding erythema, no open wounds, no purulent drainage. There are markings near the knee indicated where the patient's eryth fran had extended. The patient had a Jackson wrap on the right leg. The bandage was removed and there was no erythema noted to the area of the midshaft of the tibia. Cardiovascular: Regular pulses are palpable in the right foot. Capillary refill time intact to all digits right foot. Chronic edema right lower extremity. Neurological: Intact sensation to right lower extremity. Musculoskeletal: No right foot deformities. Normal muscle strength in all groups right lower extremity. Full, nonpainful range of motion the joints of the ankle and foot Results - Labs Labs: Abnormal Lab Results - Last 24 Hours (Table) 01/19/22 01/20/22 01/20/22 Range/Units 15:39 04:26 04:26 RBC 3.23 L (4.40-5.60) X 10*6/uL Hgb 10.3 L (13.0-17.0) g/dL Hct 31.1 L (39.6-50.0) % Plt Count 81 L (140-440) X 10*3/uL Plt Count Comment DECREASED A Immature Gran # 0.07 H (0.00-0.04) X 10*3/uL Neutrophils # 8.53 H (1.80-7.70) X 10*3/uL Lymphocytes # 0.58 L (0.90-5.00) X 10*3/uL Eosinophils # 0.01 L (0.04-0.35) X 10*3/uL Anion Gap 8.50 L (10.00-18.00) mmol/L Calcium 8.1 L (8.7-10.3) mg/dL C-Reactive Protein 20.40 H (0.00-0.80) mg/dL Urine Protein Trace H (Negative) Urine Ketones Trace H (Negative) Microbiology - Last 24 Hours (Table) 01/19/22 01:17 Blood Culture - Preliminary Blood No Growth after 24 hours 01/19/22 01:33 Blood Culture - Preliminary Blood No Growth after 24 hours H & H 01/19/22 01/20/22 Range/Units 01:16 04:26 Hgb 13.2 10.3 L (13.0-17.5) gm/dL Hct 38.0 L 31.1 L (39.0-53.0) % Result Diagrams: 01/20/22 04:26 01/20/22 04:26 Assessment and Plan (1) Cellulitis of right lower leg Current Visit: Yes Status: Acute Code(s): L03.115 - CELLULITIS OF RIGHT LOWER LIMB SNOMED Code(s): 503496488 Plan: It does not appear that the right great toe was grossly infected. The area around the nailbed could've been the source of his current infection. X-rays indicated that there weren't any bony destructive changes of the distal phalanx of the right great toe. No surgical intervention is required. Patient states that he has appointments made with other specialists in the area that perform routine footcare. I informed him that he needs to feels appointment so they can evaluate the right great toenail. I informed him that they may elect to remove the toenail. Time with Patient: Less than 30
--- NOTE | 2022-01-20 16:25 | P.PN ---
Subjective Progress Note Date: 01/20/22 H&P Date: 01/19/22 Chip Mcmahan is a 81 yo M with PMH of HTN, hx RLE cellulitis and chronic RLE edema who presented to the ED complaining of leg redness and tenderness x2 days and fever, chills and sweats over the past day or so. He denies any obvious injury to the leg, no laceration or insect bite, he does complain of chronically ingrown R great toenail. He denies chest pain or shortness of breath, no nausea, vomiting or diarrhea. He has not been on any antibiotics recently. He does note his toenail had been trimmed by podiatry recently. On presentation pt febrile to 102.8, WBC 17.9k, renal function normal, trop negative. RSV, influenza, Covid negative. CXR with no acute process. XR R foot with OA no focal bony destruction. 01/20/[address], recommendations pending. Evaluated by infectious disease with antibiotics adjusted. Renal function stable .Wore his BiPAP last night. He reports significant sweating during the night, "drenched". Denies chest pain, palpitations or shortness of breath. Denies nausea vomiting or abdominal pain. T-max 100.2, WBC returned to normal. CRP increased to 20.40. Hemoglobin 10.3, platelets 81. Objective - Vital Signs Vital signs: Vital Signs Temp 99.0 F 01/20/22 13:31 Pulse 61 01/20/22 13:31 Resp 20 01/20/22 13:31 BP 102/57 01/20/22 13:31 Pulse Ox 89 L 01/20/22 13:31 FiO2 Intake & Output 01/19/22 01/20/22 01/20/22 18:59 06:59 18:59 Intake Total 230 Output Total 300 500 Balance -70 -500 Weight 104.326 kg Intake: Intake, IV Titration 230 Amount Cefepime 2 gm In Sodium 100 Chloride 0.9% 100 ml @ 25 mls/hr IVPB Q12H [facility] Rx# :[id number] Sodium Chloride 0.9% 1, 130 000 ml @ 130 mls/hr IV . Q7H42M [facility] Rx#:[id number] Output: Urine 300 500 Other: Voiding Method Urinal Urinal # Voids 1 1 - Exam Gen: Alert and oriented 3, sitting up in bed, NAD Neck: supple, no JVD. CV: RRR, no murmur Lungs: Normal effort, clear throughout Abd: soft, nontender, non distended,+BS Skin: warm and dry. Jackson wrapped, decreased tenderness, decreased redness on distal foot Neuro: Cranial nerves II through XII grossly intact,no focal deficit - Labs CBC & Chem 7: 01/20/22 04:26 01/20/22 04:26 Labs: Abnormal Lab Results - Last 24 Hours (Table) 01/19/22 01/20/22 01/20/22 Range/Units 15:39 04:26 04:26 RBC 3.23 L (4.40-5.60) X 10*6/uL Hgb 10.3 L (13.0-17.0) g/dL Hct 31.1 L (39.6-50.0) % Plt Count 81 L (140-440) X 10*3/uL Plt Count Comment DECREASED A Immature Gran # 0.07 H (0.00-0.04) X 10*3/uL Neutrophils # 8.53 H (1.80-7.70) X 10*3/uL Lymphocytes # 0.58 L (0.90-5.00) X 10*3/uL Eosinophils # 0.01 L (0.04-0.35) X 10*3/uL Anion Gap 8.50 L (10.00-18.00) mmol/L Calcium 8.1 L (8.7-10.3) mg/dL C-Reactive Protein 20.40 H (0.00-0.80) mg/dL Urine Protein Trace H (Negative) Urine Ketones Trace H (Negative) Microbiology - Last 24 Hours (Table) 01/19/22 01:17 Blood Culture - Preliminary Blood No Growth after 24 hours 01/19/22 01:33 Blood Culture - Preliminary Blood No Growth after 24 hours Assessment and Plan Assessment: Sepsis secondary to right lower extremity cellulitis Chronic paroxysmal Atrial fibrillation Mitral valve repair in 2005 History of PFO closure History of PSVT status post ablation in 2013 Mild non-obstructive coronary artery disease Hypertension Lymphedema Hyperlipidemia. Plan: Continue on current medication regime ,monitoring and symptomatic treatment. IV fluids .Antibiotics as per infectious disease. Blood cultures reporting no growth at 24 hours, continue monitoring. Orthopedic recommendations pending. The impression and plan of care has been dictated as directed. : I performed a history and examination of this patient, discussed the same with the dictator. I agree with the dictator's note ,documented as a scribe. Any additional findings or plans will be noted.
[2022-01-21] MEDS: SODIUM CHLORIDE 0.9% 1,000 ML IV SCH ×3 (00:45→17:08)
[2022-01-21 08:39] LABS: Basophils # (A) 0.01 X 10*3/uL (0.00-0.10); Basophils % (A) 0.2 %; Eosinophils # (A) 0.04 X 10*3/uL (0.04-0.35); Eosinophils % (A) 0.7 %; HCT 29.5 % (39.6-50.0); HGB 9.6 g/dL (13.0-17.0); Immature Grans, Automated 0.7 %; Lymphocytes % (A) 8.4 %; MCH 30.8 pg (27.0-32.0); MCHC 32.5 g/dL (32.0-37.0); MCV 94.6 fL (80.0-97.0); Mean Platelet Volume 9.7 fL (9.5-12.2); Monocytes # (A) 0.39 X 10*3/uL (0.20-1.00); Monocytes % (A) 6.6 %; NRBC Per 100 WBC 0 /100 WBCS (0.0-0.0); Neutrophils # (A) 4.97 X 10*3/uL (1.80-7.70); Neutrophils % (A) 83.4 %; Platelet Count 82 X 10*3/uL (140-440); RBC 3.12 X 10*6/uL (4.40-5.60); RDW 13.3 % (11.5-14.5); WBC 5.95 X 10*3/uL (4.50-10.00)
[2022-01-21 08:46] LABS: African American GFR (CKD) 101.1 (60.0-200.0); BUN/Creat Ratio 17.87 Ratio (12.00-20.00); Blood Urea Nitrogen 13.4 mg/dL (9.0-27.0); Carbon Dioxide 21.7 mmol/L (20.0-27.5); Non-African American GFR(CKD) 87.3 (60.0-200.0); Potassium 3.6 mmol/L (3.5-5.5)
[2022-01-21] MEDS: METOPROLOL TARTRATE 50 MG TAB PO SCH ×2 (08:47→20:07)
[2022-01-21] MEDS: FINASTERIDE 5 MG TAB PO SCH (08:47)
[2022-01-21] MEDS: APIXABAN 5 MG TAB PO SCH ×2 (08:47→20:07)
[2022-01-21] MEDS: DIGOXIN 125 MCG TAB PO SCH (08:47)
[2022-01-21] MEDS: PANTOPRAZOLE 40 MG/10 ML VIAL IVP SCH (08:47)
[2022-01-21] MEDS: NON FORMULARY DRUG (Mirabegron [Myrbetriq] 50 MG Tab.Er.24h) PO SCH (08:49)
[2022-01-22] MEDS: SODIUM CHLORIDE 0.9% 1,000 ML IV SCH ×2 (00:39→08:12)
--- NOTE | 2022-01-22 00:53 | P.PN ---
Subjective Progress Note Date: 01/20/22 Principal diagnosis: Right lower extremity cellulitis Patient is a 81 year male with a past medical history significant for hypertension presented to the hospital with a fever and shaking chills and did have a right lower extremity swelling and redness concerning for cellulitis. On today's evaluation that is 01/20/2022, patient denies having any fever or any chills patient is breathing comfortably on room air no chest pain shortness of breath or cough right lower extremity swelling redness slightly decreased no nausea no vomiting no diarrhea Objective - Vital Signs Vital signs: Vital Signs Temp 99.4 F 01/20/22 07:00 Pulse 67 01/20/22 08:38 Resp 18 01/20/22 07:00 BP 108/57 01/20/22 08:38 Pulse Ox 94 L 01/20/22 07:00 FiO2 Intake & Output 01/19/22 01/20/22 01/20/22 18:59 06:59 18:59 Intake Total 230 Output Total 300 500 Balance -70 -500 Weight 104.326 kg Intake: Intake, IV Titration 230 Amount Cefepime 2 gm In Sodium 100 Chloride 0.9% 100 ml @ 25 mls/hr IVPB Q12H [facility] Rx# :[id number] Sodium Chloride 0.9% 1, 130 000 ml @ 130 mls/hr IV . Q7H42M [facility] Rx#:[id number] Output: Urine 300 500 Other: Voiding Method Urinal Urinal # Voids 1 - Exam GENERAL DESCRIPTION: An elderly male lying in bed in no distress RESPIRATORY SYSTEM: Unlabored breathing , decreased breath sounds at bases HEART: S1 S2 regular rate and rhythm , ABDOMEN: Soft , no tenderness EXTREMITIES: Right leg swelling redness slightly decreased - Labs CBC & Chem 7: 01/21/22 05:53 01/21/22 05:53 Labs: Abnormal Lab Results - Last 24 Hours (Table) 01/19/22 01/20/22 01/20/22 Range/Units 15:39 04:26 04:26 RBC 3.23 L (4.40-5.60) X 10*6/uL Hgb 10.3 L (13.0-17.0) g/dL Hct 31.1 L (39.6-50.0) % Plt Count 81 L (140-440) X 10*3/uL Plt Count Comment DECREASED A Immature Gran # 0.07 H (0.00-0.04) X 10*3/uL Neutrophils # 8.53 H (1.80-7.70) X 10*3/uL Lymphocytes # 0.58 L (0.90-5.00) X 10*3/uL Eosinophils # 0.01 L (0.04-0.35) X 10*3/uL Anion Gap 8.50 L (10.00-18.00) mmol/L Calcium 8.1 L (8.7-10.3) mg/dL C-Reactive Protein 20.40 H (0.00-0.80) mg/dL Urine Protein Trace H (Negative) Urine Ketones Trace H (Negative) Microbiology - Last 24 Hours (Table) 01/19/22 01:17 Blood Culture - Preliminary Blood No Growth after 24 hours 01/19/22 01:33 Blood Culture - Preliminary Blood No Growth after 24 hours Assessment and Plan (1) Cellulitis of right lower leg Current Visit: Yes Status: Acute Code(s): L03.115 - CELLULITIS OF RIGHT LOWER LIMB SNOMED Code(s): 412564678 Plan: 1patient presented to hospital with sepsis in this patient who did have a fever elevated white count source is likely right lower extremity cellulitis with diffuse swelling redness likely streptococcal disease and the patient did have ingrowing right big toe nail could be the contributing factor. 2patient will continue with Jackson wrap from just above the toe to below the knee to keep the swelling down 3patient will continue with cefazolin 2 g every 8 hours. Time with Patient: Less than 30
--- NOTE | 2022-01-22 00:54 | P.PN ---
Subjective Progress Note Date: 01/21/22 Principal diagnosis: Right lower extremity cellulitis Patient is a 81 year male with a past medical history significant for hypertension presented to the hospital with a fever and shaking chills and did have a right lower extremity swelling and redness concerning for cellulitis. On today's evaluation that is 01/21/2022, patient remains to be afebrile, patient is breathing comfortably on room air , the patient denies chest pain shortness of breath or cough right lower extremity swelling redness slightly decreased in intensity, no nausea no vomiting no diarrhea Objective - Vital Signs Vital signs: Vital Signs Temp 98.7 F 01/21/22 07:00 Pulse 67 01/21/22 07:00 Resp 16 01/21/22 07:00 BP 111/52 01/21/22 07:00 Pulse Ox 95 01/21/22 12:34 FiO2 Intake & Output 01/20/22 01/21/22 01/21/22 18:59 06:59 18:59 Intake Total 118 118 Output Total 675 Balance 118 -557 Intake: Oral 118 118 Output: Urine 675 Other: Voiding Method Urinal # Voids 1 3 - Exam GENERAL DESCRIPTION: An elderly male lying in bed in no distress RESPIRATORY SYSTEM: Unlabored breathing , decreased breath sounds at bases HEART: S1 S2 regular rate and rhythm , ABDOMEN: Soft , no tenderness EXTREMITIES: Right leg swelling redness slightly decreased - Labs CBC & Chem 7: 01/21/22 05:53 01/21/22 05:53 Labs: Abnormal Lab Results - Last 24 Hours (Table) 01/21/22 01/21/22 Range/Units 05:53 05:53 RBC 3.12 L (4.40-5.60) X 10*6/uL Hgb 9.6 L (13.0-17.0) g/dL Hct 29.5 L (39.6-50.0) % Plt Count 82 L (140-440) X 10*3/uL Lymphocytes # 0.50 L (0.90-5.00) X 10*3/uL Anion Gap 8.00 L (10.00-18.00) mmol/L Calcium 8.0 L (8.7-10.3) mg/dL Microbiology - Last 24 Hours (Table) 01/19/22 01:17 Blood Culture - Preliminary Blood No Growth after 48 hours 01/19/22 01:33 Blood Culture - Preliminary Blood No Growth after 48 hours Assessment and Plan (1) Cellulitis of right lower leg Current Visit: Yes Status: Acute Code(s): L03.115 - CELLULITIS OF RIGHT LOWER LIMB SNOMED Code(s): 558905268 Plan: 1patient presented to hospital with sepsis in this patient who did have a fever elevated white count source is likely right lower extremity cellulitis with diffuse swelling redness likely streptococcal disease and the patient did have ingrowing right big toe nail could be the contributing factor. 2patient will continue with Jackosn wrap from just above the toe to below the knee to keep the swelling down 3patient seemed to have shown clinical improvement and will continue with cefazolin 2 g every 8 hours for another 24-48 hour before switching to by mouth Time with Patient: Less than 30
--- NOTE | 2022-01-22 04:55 | PN ---
PROGRESS NOTE DATE OF SERVICE: 01/21/2022 I am covering for Dr. Delgado. SUBJECTIVE: This 81-year-old gentleman admitted with right leg cellulitis. Also has atrial fibrillation. No chest pain. No palpitations. No fever. Cultures are negative so far. OBJECTIVE: VITAL SIGNS: Pulse is 67, blood pressure ntd, respirations 16. CHEST: Clear to auscultation. CARDIOVASCULAR: S1, S2 normal. ABDOMEN: Soft. EXTREMITIES: Right leg cellulitis. LABORATORY DATA: Hemoglobin ntd labs are noted. ASSESSMENT: 1. Right leg cellulitis. 2. Chronic obstructive pulmonary disease. 3. Chronic paroxysmal atrial fibrillation. 4. Mitral valve repair. 5. Paroxysmal supraventricular tachycardia. 6. Multiple medications. RECOMMENDATIONS: Recommend to continue current medications, antibiotics. We will closely follow with Infectious Disease. Further recommendations to follow. MMODL / IJN: [id number] / MTDD
[2022-01-22] MEDS: FINASTERIDE 5 MG TAB PO SCH (09:10)
[2022-01-22] MEDS: DIGOXIN 125 MCG TAB PO SCH (09:10)
[2022-01-22] MEDS: METOPROLOL TARTRATE 50 MG TAB PO SCH ×2 (09:10→21:07)
[2022-01-22] MEDS: NON FORMULARY DRUG (Mirabegron [Myrbetriq] 50 MG Tab.Er.24h) PO SCH (09:11)
[2022-01-22] MEDS: APIXABAN 5 MG TAB PO SCH ×2 (09:11→21:07)
[2022-01-22] MEDS: PANTOPRAZOLE 40 MG/10 ML VIAL IVP SCH (09:11)
[2022-01-22] MEDS ORDERED: FUROSEMIDE 10 MG/ML 2 ML VIAL IV STA (12:29)
--- NOTE | 2022-01-22 13:23 | PN ---
PROGRESS NOTE DATE OF SERVICE: 01/22/2022 SUBJECTIVE: This 81-year-old gentleman, admitted with right leg cellulitis, is improving significantly. No chest pain. No palpitations. No fever. OBJECTIVE: VITAL SIGNS: Pulse is 69, blood pressure ntd, respirations 16. CHEST: Clear to auscultation. CARDIOVASCULAR: S1, S2. ABDOMEN: Soft. LEGS: Right leg cellulitis present, some swelling and redness also present, but improving progressively. LABORATORY DATA: Reviewed. ASSESSMENT: 1. Right leg cellulitis. 2. Chronic obstructive pulmonary disease. 3. Chronic paroxysmal atrial fibrillation. 4. Mitral valve repair. 5. Thrombocytopenia. 6. Paroxysmal supraventricular tachycardia. 7. Multiple medical problems. RECOMMENDATIONS: I recommend to continue current medications. Continue the antibiotics. I would recommend to repeat labs. Cut down the IV fluids. See orders for further details. Further recommendations to follow. NICOLASAL / JUHIN: [id number] / MTDD
--- NOTE | 2022-01-22 23:43 | P.PN ---
Subjective Progress Note Date: 01/22/22 Principal diagnosis: Right lower extremity cellulitis Patient is a 81 year male with a past medical history significant for hypertension presented to the hospital with a fever and shaking chills and did have a right lower extremity swelling and redness concerning for cellulitis. On today's evaluation that is 01/22/2022, patient continues to be afebrile, patient is breathing comfortably on room air , the patient denies chest pain shortness of breath or cough, the patient right lower extremity swelling redness decreased in intensity, the patient denies nausea no vomiting no diarrhea Objective - Vital Signs Vital signs: Vital Signs Temp 98.5 F 01/22/22 20:26 Pulse 67 01/22/22 20:26 Resp 17 01/22/22 20:26 BP 128/71 01/22/22 20:26 Pulse Ox 97 01/22/22 20:26 FiO2 Intake & Output 01/22/22 01/22/22 01/23/22 06:59 18:59 06:59 Intake Total 480 Output Total 475 Balance 5 Intake: Oral 480 Output: Urine 475 Other: Voiding Method Urinal # Voids 1 2 - Exam GENERAL DESCRIPTION: An elderly male lying in bed in no distress RESPIRATORY SYSTEM: Unlabored breathing , decreased breath sounds at bases HEART: S1 S2 regular rate and rhythm , ABDOMEN: Soft , no tenderness EXTREMITIES: Right leg swelling redness slightly decreased - Labs CBC & Chem 7: 01/21/22 05:53 01/21/22 05:53 Labs: Microbiology - Last 24 Hours (Table) 01/19/22 01:17 Blood Culture - Preliminary Blood No Growth after 72 hours 01/19/22 01:33 Blood Culture - Preliminary Blood No Growth after 72 hours Assessment and Plan (1) Cellulitis of right lower leg Current Visit: Yes Status: Acute Code(s): L03.115 - CELLULITIS OF RIGHT LOWER LIMB SNOMED Code(s): 676091666 Plan: 1patient presented to hospital with sepsis in this patient who did have a fever elevated white count source is likely right lower extremity cellulitis with diffuse swelling redness likely streptococcal disease and the patient did have ingrowing right big toe nail could be the contributing factor. 2patient will continue with Jackson wrap from just above the toe to below the knee to keep the swelling down 3patient has shown clinical improvement and will continue with cefazolin 2 g ev halie 8 hours with the plan to finish therapy with oral Keflex Time with Patient: Less than 30
[2022-01-23 09:02] LABS: Basophils # (A) 0.03 X 10*3/uL (0.00-0.10); Basophils % (A) 0.5 %; Eosinophils % (A) 1.7 %; HCT 28.3 % (39.6-50.0); HGB 9.5 g/dL (13.0-17.0); Lymphocytes # (A) 0.76 X 10*3/uL (0.90-5.00); Lymphocytes % (A) 12.6 %; MCH 30.9 pg (27.0-32.0); MCHC 33.6 g/dL (32.0-37.0); MCV 92.2 fL (80.0-97.0); Mean Platelet Volume 8.9 fL (9.5-12.2); Monocytes # (A) 0.72 X 10*3/uL (0.20-1.00); NRBC Per 100 WBC 0 /100 WBCS (0.0-0.0); Neutrophils # (A) 4.35 X 10*3/uL (1.80-7.70); Neutrophils % (A) 72.2 %; Platelet Count 109 X 10*3/uL (140-440); RBC 3.07 X 10*6/uL (4.40-5.60); RDW 12.9 % (11.5-14.5); WBC 6.02 X 10*3/uL (4.50-10.00)
[2022-01-23 09:17] LABS: BUN/Creat Ratio 18.86 Ratio (12.00-20.00); Blood Urea Nitrogen 13.2 mg/dL (9.0-27.0); Calcium 8.3 mg/dL (8.7-10.3); Non-African American GFR(CKD) 89.8 (60.0-200.0); Potassium 3.8 mmol/L (3.5-5.5)
[2022-01-23] MEDS: METOPROLOL TARTRATE 50 MG TAB PO SCH ×2 (09:37→20:55)
[2022-01-23] MEDS: APIXABAN 5 MG TAB PO SCH ×2 (09:37→20:55)
[2022-01-23] MEDS: FINASTERIDE 5 MG TAB PO SCH (09:37)
[2022-01-23] MEDS: DIGOXIN 125 MCG TAB PO SCH (09:37)
[2022-01-23] MEDS: PANTOPRAZOLE 40 MG/10 ML VIAL IVP SCH (09:37)
[2022-01-23] MEDS: NON FORMULARY DRUG (Mirabegron [Myrbetriq] 50 MG Tab.Er.24h) PO SCH (09:38)
[2022-01-23] MEDS: SODIUM CHLORIDE 0.9% 1,000 ML IV SCH (09:44)
--- NOTE | 2022-01-23 22:49 | P.PN ---
Subjective Progress Note Date: 01/23/22 His erythema is diminished, he denies leg pain at rest, no fever, chills, sweats. WBC 6k. Objective - Vital Signs Vital signs: Vital Signs Temp 97.6 F 01/23/22 14:00 Pulse 66 01/23/22 14:00 Resp 16 01/23/22 14:00 BP 128/67 01/23/22 14:00 Pulse Ox 96 01/23/22 14:00 FiO2 Intake & Output 01/23/22 01/23/22 01/24/22 06:59 18:59 06:59 Intake Total 771 Balance 771 Intake: Oral 771 Other: # Voids 2 2 - Exam Gen: well developed, well nourished, NAD CV: RRR, no murmur Lungs: Normal effort, clear throughout Skin: RLE with erythema and minimal induration extending to mid-ramos - Labs CBC & Chem 7: 01/23/22 05:57 01/23/22 05:57 Labs: Abnormal Lab Results - Last 24 Hours (Table) 01/23/22 01/23/22 Range/Units 05:57 05:57 RBC 3.07 L (4.40-5.60) X 10*6/uL Hgb 9.5 L (13.0-17.0) g/dL Hct 28.3 L (39.6-50.0) % Plt Count 109 L (140-440) X 10*3/uL MPV 8.9 L (9.5-12.2) fL Immature Gran # 0.06 H (0.00-0.04) X 10*3/uL Lymphocytes # 0.76 L (0.90-5.00) X 10*3/uL Calcium 8.3 L (8.7-10.3) mg/dL Microbiology - Last 24 Hours (Table) 01/19/22 01:17 Blood Culture - Preliminary Blood No Growth after 96 hours 01/19/22 01:33 Blood Culture - Preliminary Blood No Growth after 96 hours Assessment and Plan Plan: Continue with current regimen, IV abx, leg wraps. Discharge planning in progress
[2022-01-24] MEDS: PANTOPRAZOLE 40 MG/10 ML VIAL IVP SCH (08:20)
[2022-01-24] MEDS: METOPROLOL TARTRATE 50 MG TAB PO SCH ×2 (08:20→21:11)
[2022-01-24] MEDS: FINASTERIDE 5 MG TAB PO SCH (08:20)
[2022-01-24] MEDS: DIGOXIN 125 MCG TAB PO SCH (08:20)
[2022-01-24] MEDS: APIXABAN 5 MG TAB PO SCH ×2 (08:20→21:11)
[2022-01-24] MEDS: NON FORMULARY DRUG (Mirabegron [Myrbetriq] 50 MG Tab.Er.24h) PO SCH (08:21)
--- NOTE | 2022-01-24 11:45 | P.PN ---
Subjective Progress Note Date: 01/24/22 H&P Date: 01/19/22 Chip Mcmahan is a 81 yo M with PMH of HTN, hx RLE cellulitis and chronic RLE edema who presented to the ED complaining of leg redness and tenderness x2 days and fever, chills and sweats over the past day or so. He denies any obvious injury to the leg, no laceration or insect bite, he does complain of chronically ingrown R great toenail. He denies chest pain or shortness of breath, no nausea, vomiting or diarrhea. He has not been on any antibiotics recently. He does note his toenail had been trimmed by podiatry recently. On presentation pt febrile to 102.8, WBC 17.9k, renal function normal, trop negative. RSV, influenza, Covid negative. CXR with no acute process. XR R foot with OA no focal bony destruction. 01/20/[address], recommendations pending. Evaluated by infectious disease with antibiotics adjusted. Renal function stable .Wore his BiPAP last night. He reports significant sweating during the night, "drenched". Denies chest pain, palpitations or shortness of breath. Denies nausea vomiting or abdominal pain. T-max 100.2, WBC returned to normal. CRP increased to 20.40. Hemoglobin 10.3, platelets 81. 01/24/2022 continued improvement with decreased tenderness, edema/erythema. Denies sweats or chills, afebrile, normal recent WBC. Renal function stable. Vital signs stable, maintaining O2 sats in the 90s on room air. Objective - Vital Signs Vital signs: Vital Signs Temp 98.1 F 01/24/22 07:46 Pulse 73 01/24/22 07:46 Resp 19 01/24/22 07:46 BP 147/74 01/24/22 07:46 Pulse Ox 94 L 01/24/22 07:46 FiO2 Intake & Output 01/23/22 01/24/22 01/24/22 18:59 06:59 18:59 Intake Total 771 320 Balance 771 320 Intake: Oral 771 320 Other: Voiding Method Toilet Toilet Urinal Urinal # Voids 2 1 - Exam Gen: Alert and oriented 3, sitting up in bed, NAD CV: RRR, no murmur Lungs: Normal effort, clear throughout Abd: soft, nontender, non distended,+BS Skin: RLE with decreased erythema and minimal induration extending to mid-ramos Neuro: Cranial nerves II through XII grossly intact,no focal deficit Microbiology 01/19/22 01:17 Blood Blood Culture - Preliminary No Growth after 120 hours 01/19/22 01:33 Blood Blood Culture - Preliminary No Growth after 120 hours - Labs CBC & Chem 7: 01/23/22 05:57 01/23/22 05:57 Labs: Microbiology - Last 24 Hours (Table) 01/19/22 01:17 Blood Culture - Preliminary Blood No Growth after 120 hours 01/19/22 01:33 Blood Culture - Preliminary Blood No Growth after 120 hours Assessment and Plan Assessment: Sepsis secondary to right lower extremity cellulitis Chronic paroxysmal Atrial fibrillation Mitral valve repair in 2005 History of PFO closure History of PSVT status post ablation in 2013 Mild non-obstructive coronary artery disease Hypertension Lymphedema Hyperlipidemia. Plan: Continue on current medication regime ,monitoring and symptomatic treatment. Maintain IV antibiotics/Jackson wraps. Discharge planning in progress for tomorrow, pending clearance per ID. The impression and plan of care has been dictated as directed. : I performed a history and examination of this patient, discussed the same with the dictator. I agree with the dictator's note ,documented as a scribe. Any additional findings or plans will be noted.
[2022-01-24] MEDS: SODIUM CHLORIDE 0.9% 1,000 ML IV SCH (12:14)
[2022-01-25] MEDS: APIXABAN 5 MG TAB PO SCH ×2 (08:41→20:24)
[2022-01-25] MEDS: METOPROLOL TARTRATE 50 MG TAB PO SCH ×2 (08:41→20:24)
[2022-01-25] MEDS: FINASTERIDE 5 MG TAB PO SCH (08:41)
[2022-01-25] MEDS: DIGOXIN 125 MCG TAB PO SCH (08:41)
[2022-01-25] MEDS: SODIUM CHLORIDE 0.9% 1,000 ML IV SCH (08:42)
[2022-01-25] MEDS: PANTOPRAZOLE 40 MG/10 ML VIAL IVP SCH (08:42)
[2022-01-25] MEDS: NON FORMULARY DRUG (Mirabegron [Myrbetriq] 50 MG Tab.Er.24h) PO SCH (08:42)
--- NOTE | 2022-01-25 10:34 | P.PN ---
Subjective Progress Note Date: 01/23/22 Principal diagnosis: Right lower extremity cellulitis Patient is a 81 year male with a past medical history significant for hypertension presented to the hospital with a fever and shaking chills and did have a right lower extremity swelling and redness concerning for cellulitis. On today's evaluation that is 01/23/2022 the patient remains to be afebrile has been breathing comfortably on room air no chest pain shortness of breath or cough no abdominal pain secondary to significant swelling to the right lower extremity Objective - Vital Signs Vital signs: Vital Signs Temp 98.4 F 01/23/22 08:00 Pulse 73 01/23/22 08:00 Resp 16 01/23/22 08:00 BP 107/53 01/23/22 08:00 Pulse Ox 96 01/23/22 08:00 FiO2 Intake & Output 01/22/22 01/23/22 01/23/22 18:59 06:59 18:59 Intake Total 480 771 Output Total 475 Balance 5 771 Intake: Oral 480 771 Output: Urine 475 Other: # Voids 2 2 - Exam GENERAL DESCRIPTION: An elderly male lying in bed in no distress RESPIRATORY SYSTEM: Unlabored breathing , decreased breath sounds at bases HEART: S1 S2 regular rate and rhythm , ABDOMEN: Soft , no tenderness EXTREMITIES: Right leg swelling redness slightly decreased - Labs CBC & Chem 7: 01/23/22 05:57 01/23/22 05:57 Labs: Abnormal Lab Results - Last 24 Hours (Table) 01/23/22 01/23/22 Range/Units 05:57 05:57 RBC 3.07 L (4.40-5.60) X 10*6/uL Hgb 9.5 L (13.0-17.0) g/dL Hct 28.3 L (39.6-50.0) % Plt Count 109 L (140-440) X 10*3/uL MPV 8.9 L (9.5-12.2) fL Immature Gran # 0.06 H (0.00-0.04) X 10*3/uL Lymphocytes # 0.76 L (0.90-5.00) X 10*3/uL Calcium 8.3 L (8.7-10.3) mg/dL Microbiology - Last 24 Hours (Table) 01/19/22 01:17 Blood Culture - Preliminary Blood No Growth after 96 hours 01/19/22 01:33 Blood Culture - Preliminary Blood No Growth after 96 hours Assessment and Plan (1) Cellulitis of right lower leg Current Visit: Yes Status: Acute Code(s): L03.115 - CELLULITIS OF RIGHT LOWER LIMB SNOMED Code(s): 360901561 Plan: 1patient presented to hospital with sepsis in this patient who did have a fever elevated white count source is likely right lower extremity cellulitis with diffuse swelling redness likely streptococcal disease and the patient did have ingrowing right big toe nail could be the contributing factor. 2patient will continue with Jackson wrap from just above the toe to below the knee to keep the swelling down 3Patient has shown clinical improvement as for cellulitis however still has significant swelling to the right lower extremity may benefit from more aggressive diuresis continue with the compression and cefazolin Time with Patient: Less than 30
[2022-01-25] MEDS ORDERED: FUROSEMIDE 10 MG/ML 4 ML VIAL IV STA (10:36)
--- NOTE | 2022-01-25 10:36 | P.PN ---
Subjective Progress Note Date: 01/24/22 Principal diagnosis: Right lower extremity cellulitis Patient is a 81 year male with a past medical history significant for hypertension presented to the hospital with a fever and shaking chills and did have a right lower extremity swelling and redness concerning for cellulitis. On today's evaluation that is 01/24/2022 the patient remains to be afebrile patient is breathing comfortably on room air patient denies having any chest pain shortness with or cough still have significant swelling to the right lower extremity redness has improved no open wound or any drainage Objective - Vital Signs Vital signs: Vital Signs Temp 98.1 F 01/24/22 07:46 Pulse 73 01/24/22 07:46 Resp 19 01/24/22 07:46 BP 147/74 01/24/22 07:46 Pulse Ox 94 L 01/24/22 07:46 FiO2 Intake & Output 01/23/22 01/24/22 01/24/22 18:59 06:59 18:59 Intake Total 771 320 Balance 771 320 Intake: Oral 771 320 Other: Voiding Method Toilet Toilet Urinal Urinal # Voids 2 1 - Exam GENERAL DESCRIPTION: An elderly male lying in bed in no distress RESPIRATORY SYSTEM: Unlabored breathing , decreased breath sounds at bases HEART: S1 S2 regular rate and rhythm , ABDOMEN: Soft , no tenderness EXTREMITIES: Right leg swelling redness slightly decreased - Labs CBC & Chem 7: 01/23/22 05:57 01/23/22 05:57 Labs: Microbiology - Last 24 Hours (Table) 01/19/22 01:17 Blood Culture - Preliminary Blood No Growth after 120 hours 01/19/22 01:33 Blood Culture - Preliminary Blood No Growth after 120 hours Assessment and Plan (1) Cellulitis of right lower leg Current Visit: Yes Status: Acute Code(s): L03.115 - CELLULITIS OF RIGHT LOWER LIMB SNOMED Code(s): 526872747 Plan: 1patient presented to hospital with sepsis in this patient who did have a fever elevated white count source is likely right lower extremity cellulitis with diffuse swelling redness likely streptococcal disease and the patient did have ingrowing right big toe nail could be the contributing factor. 2patient will continue with Jackson wrap from just above the toe to below the knee to keep the swelling down 3Patient right lower extremity redness has improved fever resolved white count has normalized culture has been negative still have significant swelling to the right leg will benefit from more aggressive diuresis continue with compression in the form of Jackson wrap and cefazolin hopefully will finish therapy with oral Keflex Time with Patient: Less than 30
[2022-01-25 13:59] VITALS: BMI 32.1
[2022-01-25] MEDS: DAPTOmycin 350 MG in SODIUM CHLORIDE 0.9% 50 ML IVPB SCH (13:59)
--- NOTE | 2022-01-25 23:47 | P.PN ---
Subjective Progress Note Date: 01/25/22 Principal diagnosis: Right lower extremity cellulitis Patient is a 81 year male with a past medical history significant for hypertension presented to the hospital with a fever and shaking chills and did have a right lower extremity swelling and redness concerning for cellulitis. On today's evaluation that is 01/25/2022, the patient denies having any fever or any chills the patient is breathing comfortably denies any chest pain or worsening shortness of breath no cough no abdominal pain he did have significant swelling to the lower extremity and noticed to have slight more redness today but no open wound or any drainage Objective - Vital Signs Vital signs: Vital Signs Temp 98.6 F 01/25/22 08:00 Pulse 70 01/25/22 08:00 Resp 16 01/25/22 08:00 BP 124/75 01/25/22 08:00 Pulse Ox 96 01/25/22 08:00 FiO2 Intake & Output 01/24/22 01/25/22 01/25/22 18:59 06:59 18:59 Intake Total 320 298 Balance 320 298 Intake: Oral 320 298 Other: Voiding Method Toilet Toilet Toilet Urinal # Voids 1 2 - Exam GENERAL DESCRIPTION: An elderly male lying in bed in no distress RESPIRATORY SYSTEM: Unlabored breathing , decreased breath sounds at bases HEART: S1 S2 regular rate and rhythm , ABDOMEN: Soft , no tenderness EXTREMITIES: Patient with increasing swelling and redness to the right lower extremity no open wound or drainage - Labs CBC & Chem 7: 01/23/22 05:57 01/23/22 05:57 Labs: Microbiology - Last 24 Hours (Table) 01/19/22 01:17 Blood Culture - Final Blood No Growth after 144 hours 01/19/22 01:33 Blood Culture - Final Blood No Growth after 144 hours Assessment and Plan (1) Cellulitis of right lower leg Current Visit: Yes Status: Acute Code(s): L03.115 - CELLULITIS OF RIGHT LOWER LIMB SNOMED Code(s): 054904021 Plan: 1patient presented to hospital with sepsis in this patient who did have a fever elevated white count source is likely right lower extremity cellulitis with diffuse swelling redness likely streptococcal disease and the patient did have ingrowing right big toe nail could be the contributing factor. 2Patient noticed to have worsening swelling as well as redness to the right lower extremity possible failure of the cefazolin we will go ahead and discontinue cefazolin and start the patient on daptomycin and will see his clinical response, the patient did have multiple questions and concerns were answered Time with Patient: Greater than 30
[2022-01-26] MEDS: SODIUM CHLORIDE 0.9% 1,000 ML IV SCH (09:20)
[2022-01-26] MEDS: DAPTOmycin 350 MG in SODIUM CHLORIDE 0.9% 50 ML IVPB SCH (09:26)
[2022-01-26] MEDS: PANTOPRAZOLE 40 MG/10 ML VIAL IVP SCH (09:26)
[2022-01-26] MEDS: METOPROLOL TARTRATE 50 MG TAB PO SCH ×2 (09:27→20:23)
[2022-01-26] MEDS: APIXABAN 5 MG TAB PO SCH ×2 (09:27→20:23)
[2022-01-26] MEDS: NON FORMULARY DRUG (Mirabegron [Myrbetriq] 50 MG Tab.Er.24h) PO SCH (09:27)
[2022-01-26] MEDS: DIGOXIN 125 MCG TAB PO SCH (09:27)
[2022-01-26] MEDS: FINASTERIDE 5 MG TAB PO SCH (09:27)
[2022-01-26 12:02] LABS: ALT 12 U/L (4-49); AST 24 U/L (17-59); African American GFR (CKD) >90 (>60 ml/min/1.73 sqM); Albumin 3.3 g/dL (3.5-5.0); Albumin/Globulin Ratio 1.2; Alkaline Phosphatase 49 U/L (38-126); Anion Gap 4 mmol/L; Blood Urea Nitrogen 19 mg/dL (9-20); C Reactive Protein 4.3 mg/dL (<1.0); Calcium 8.8 mg/dL (8.4-10.2); Carbon Dioxide 31 mmol/L (22-30); Chloride 102 mmol/L (98-107); Globulin 2.7 g/dL; Glucose 95 mg/dL (74-99); Non-African American GFR(CKD) 82 (>60 ml/min/1.73 sqM); Potassium 4.5 mmol/L (3.5-5.1); Sodium 137 mmol/L (137-145); Total Bilirubin 0.4 mg/dL (0.2-1.3)
[2022-01-26 12:13] LABS: Basophils # (A) 0.1 k/uL (0-0.2); Basophils % (A) 1 %; Eosinophils # (A) 0.1 k/uL (0-0.7); Eosinophils % (A) 1 %; HCT 32.6 % (39.0-53.0); HGB 11.2 gm/dL (13.0-17.5); Lymphocytes # (A) 0.8 k/uL (1.0-4.8); Lymphocytes % (A) 11 %; MCH 31.7 pg (25.0-35.0); MCHC 34.3 g/dL (31.0-37.0); MCV 92.5 fL (80.0-100.0); Mean Platelet Volume 7.2; Monocytes # (A) 0.6 k/uL (0-1.0); Monocytes % (A) 8 %; Neutrophils # (A) 5.5 k/uL (1.3-7.7); Neutrophils % (A) 76 %; RBC 3.52 m/uL (4.30-5.90); RDW 12.6 % (11.5-15.5); WBC 7.2 k/uL (3.8-10.6)
[2022-01-26 12:25] LABS: Platelet Count 243 k/uL (150-450)
--- NOTE | 2022-01-26 13:44 | P.PN ---
Subjective Progress Note Date: 01/25/22 H&P Date: 01/19/22 Chip Mcmahan is a 81 yo M with PMH of HTN, hx RLE cellulitis and chronic RLE edema who presented to the ED complaining of leg redness and tenderness x2 days and fever, chills and sweats over the past day or so. He denies any obvious injury to the leg, no laceration or insect bite, he does complain of chronically ingrown R great toenail. He denies chest pain or shortness of breath, no nausea, vomiting or diarrhea. He has not been on any antibiotics recently. He does note his toenail had been trimmed by podiatry recently. On presentation pt febrile to 102.8, WBC 17.9k, renal function normal, trop negative. RSV, influenza, Covid negative. CXR with no acute process. XR R foot with OA no focal bony destruction. 01/20/[address], recommendations pending. Evaluated by infectious disease with antibiotics adjusted. Renal function stable .Wore his BiPAP last night. He reports significant sweating during the night, "drenched". Denies chest pain, palpitations or shortness of breath. Denies nausea vomiting or abdominal pain. T-max 100.2, WBC returned to normal. CRP increased to 20.40. Hemoglobin 10.3, platelets 81. 01/24/2022 continued improvement with decreased tenderness, edema/erythema. Denies sweats or chills, afebrile, normal recent WBC. Renal function stable. Vital signs stable, maintaining O2 sats in the 90s on room air. 01/25/22 maintained on IV cefazolin ,significant edema persists, accompanied by tenderness, increased redness ,currently Jackson wrap off. Denies any fever or chills. Denies any chest pain, palpitations or shortness of breath. Objective - Vital Signs Vital signs: Vital Signs Temp 98.6 F 01/25/22 08:00 Pulse 70 01/25/22 08:00 Resp 16 01/25/22 08:00 BP 124/75 01/25/22 08:00 Pulse Ox 96 01/25/22 08:00 FiO2 Intake & Output 01/24/22 01/25/22 01/25/22 18:59 06:59 18:59 Intake Total 320 298 Balance 320 298 Weight 104.326 kg Intake: Oral 320 298 Other: Voiding Method Toilet Toilet Toilet Urinal # Voids 1 2 - Exam Gen: Alert and oriented 3, sitting up in bed, NAD CV: RRR, no murmur Lungs: Normal effort, clear throughout Abd: soft, nontender, non distended,+BS Skin: RLE tender with increased erythema,minimal induration extending to mid- ramos Neuro: Cranial nerves II through XII grossly intact,no focal deficit - Labs CBC & Chem 7: 01/26/22 11:20 01/26/22 11:20 Labs: Microbiology - Last 24 Hours (Table) 01/19/22 01:17 Blood Culture - Final Blood No Growth after 144 hours 01/19/22 01:33 Blood Culture - Final Blood No Growth after 144 hours Assessment and Plan Assessment: Sepsis secondary to right lower extremity cellulitis Chronic paroxysmal Atrial fibrillation Mitral valve repair in 2005 History of PFO closure History of PSVT status post ablation in 2013 Mild non-obstructive coronary artery disease Hypertension Lymphedema Hyperlipidemia. Plan: Continue on current medication regime ,monitoring and symptomatic treatment. Slow improvement. Lasix 40 mg IV push 1.IV antibiotic adjustment as per infectious disease/maintain Jackson wraps. The impression and plan of care has been dictated as directed. : I performed a history and examination of this patient, discussed the same with the dictator. I agree with the dictator's note ,documented as a scribe. Any additional findings or plans will be noted.
--- NOTE | 2022-01-26 13:49 | P.PN ---
Subjective Progress Note Date: 01/26/22 H&P Date: 01/19/22 Chip Mcmahan is a 81 yo M with PMH of HTN, hx RLE cellulitis and chronic RLE edema who presented to the ED complaining of leg redness and tenderness x2 days and fever, chills and sweats over the past day or so. He denies any obvious injury to the leg, no laceration or insect bite, he does complain of chronically ingrown R great toenail. He denies chest pain or shortness of breath, no nausea, vomiting or diarrhea. He has not been on any antibiotics recently. He does note his toenail had been trimmed by podiatry recently. On presentation pt febrile to 102.8, WBC 17.9k, renal function normal, trop negative. RSV, influenza, Covid negative. CXR with no acute process. XR R foot with OA no focal bony destruction. 01/20/[address], recommendations pending. Evaluated by infectious disease with antibiotics adjusted. Renal function stable .Wore his BiPAP last night. He reports significant sweating during the night, "drenched". Denies chest pain, palpitations or shortness of breath. Denies nausea vomiting or abdominal pain. T-max 100.2, WBC returned to normal. CRP increased to 20.40. Hemoglobin 10.3, platelets 81. 01/24/2022 continued improvement with decreased tenderness, edema/erythema. Denies sweats or chills, afebrile, normal recent WBC. Renal function stable. Vital signs stable, maintaining O2 sats in the 90s on room air. 01/25/22 maintained on IV cefazolin ,significant edema persists, accompanied by tenderness, increased redness ,currently Jackson wrap off. Denies any fever or chills. Denies any chest pain, palpitations or shortness of breath. 01/26/22 IV antibiotics adjusted to daptomycin yesterday, improving. Denies chills, slept well. Afebrile, normal WBC. Renal function stable. CRP decreased to 4.3. Reports able to tolerate ambulating with minimal pain. Objective - Vital Signs Vital signs: Vital Signs Temp 98.2 F 01/26/22 07:57 Pulse 92 01/26/22 07:57 Resp 16 01/26/22 07:57 BP 119/58 01/26/22 07:57 Pulse Ox 96 01/26/22 07:57 FiO2 Intake & Output 01/25/22 01/26/22 01/26/22 18:59 06:59 18:59 Intake Total 416 236 Balance 416 236 Weight 104.326 kg Intake: Oral 416 236 Other: Voiding Method Toilet Toilet # Voids 1 3 - Exam Gen: Alert and oriented 3, sitting up in bed, NAD CV: RRR, no murmur Lungs: Normal effort, clear throughout Abd: soft, nontender, non distended,+BS Skin: RLE decreased tenderness, decreased erythema, decreased induration extending to mid-ramos Neuro: Cranial nerves II through XII grossly intact,no focal deficit - Labs CBC & Chem 7: 01/26/22 11:20 01/26/22 11:20 Labs: Abnormal Lab Results - Last 24 Hours (Table) 01/26/22 01/26/22 Range/Units 11:20 11:20 RBC 3.52 L (4.30-5.90) m/uL Hgb 11.2 L (13.0-17.5) gm/dL Hct 32.6 L (39.0-53.0) % Lymphocytes # 0.8 L (1.0-4.8) k/uL Carbon Dioxide 31 H (22-30) mmol/L C-Reactive Protein 4.3 H (<1.0) mg/dL Total Protein 6.0 L (6.3-8.2) g/dL Albumin 3.3 L (3.5-5.0) g/dL Assessment and Plan Assessment: Sepsis secondary to right lower extremity cellulitis Chronic paroxysmal Atrial fibrillation Mitral valve repair in 2005 History of PFO closure History of PSVT status post ablation in 2013 Mild non-obstructive coronary artery disease Hypertension Lymphedema Hyperlipidemia. Plan: Continue on current medication regime ,monitoring and symptomatic treatment. Maintain IV antibiotics as per infectious disease/continue with Jackson wraps. Discussed lymphedema clinic/ outpatient. The impression and plan of care has been dictated as directed. : I performed a history and examination of this patient, discussed the same with the dictator. I agree with the dictator's note ,documented as a scribe. Any additional findings or plans will be noted.
--- NOTE | 2022-01-26 23:02 | P.PN ---
Subjective Progress Note Date: 01/26/22 Principal diagnosis: Right lower extremity cellulitis Patient is a 81 year male with a past medical history significant for hypertension presented to the hospital with a fever and shaking chills and did have a right lower extremity swelling and redness concerning for cellulitis. On today's evaluation that is 01/26/2022 the patient remains to be afebrile, the patient is breathing comfortably room air no chest pain or shortness with occasional cough right leg still has significant swelling redness has mildly decreased no drainage Objective - Vital Signs Vital signs: Vital Signs Temp 98.2 F 01/26/22 07:57 Pulse 92 01/26/22 07:57 Resp 16 01/26/22 07:57 BP 119/58 01/26/22 07:57 Pulse Ox 96 01/26/22 07:57 FiO2 Intake & Output 01/25/22 01/26/22 01/26/22 18:59 06:59 18:59 Intake Total 416 236 Balance 416 236 Weight 104.326 kg Intake: Oral 416 236 Other: Voiding Method Toilet Toilet # Voids 1 3 - Exam GENERAL DESCRIPTION: An elderly male lying in bed in no distress RESPIRATORY SYSTEM: Unlabored breathing , decreased breath sounds at bases HEART: S1 S2 regular rate and rhythm , ABDOMEN: Soft , no tenderness EXTREMITIES: Patient with increasing swelling and redness to the right lower extremity no open wound or drainage - Labs CBC & Chem 7: 01/26/22 11:20 01/26/22 11:20 Labs: Abnormal Lab Results - Last 24 Hours (Table) 01/26/22 01/26/22 Range/Units 11:20 11:20 RBC 3.52 L (4.30-5.90) m/uL Hgb 11.2 L (13.0-17.5) gm/dL Hct 32.6 L (39.0-53.0) % Lymphocytes # 0.8 L (1.0-4.8) k/uL Carbon Dioxide 31 H (22-30) mmol/L C-Reactive Protein 4.3 H (<1.0) mg/dL Total Protein 6.0 L (6.3-8.2) g/dL Albumin 3.3 L (3.5-5.0) g/dL Assessment and Plan (1) Cellulitis of right lower leg Current Visit: Yes Status: Acute Code(s): L03.115 - CELLULITIS OF RIGHT LO WER LIMB SNOMED Code(s): 723799044 Plan: 1patient presented to hospital with sepsis in this patient who did have a fever elevated white count source is likely right lower extremity cellulitis with diffuse swelling redness likely streptococcal disease and the patient did have ingrowing right big toe nail could be the contributing factor. 2Patient seem to have some minimal clinical improvement with addition of daptomycin yesterday, the patient will need midline and continuation of IV daptomycin in the outpatient setting this was discussed with the upper caser to work on outpatient antibiotic arrangement Time with Patient: Less than 30
[2022-01-27] MEDS: SODIUM CHLORIDE 0.9% 1,000 ML IV SCH (04:56)
[2022-01-27] MEDS: DAPTOmycin 350 MG in SODIUM CHLORIDE 0.9% 50 ML IVPB SCH (08:51)
[2022-01-27 08:52] VITALS: BP 133/77; PULSE 70; RESP 18; TEMP 98.1
[2022-01-27] MEDS: NON FORMULARY DRUG (Mirabegron [Myrbetriq] 50 MG Tab.Er.24h) PO SCH (08:52)
[2022-01-27] MEDS: METOPROLOL TARTRATE 50 MG TAB PO SCH (08:52)
[2022-01-27] MEDS: FINASTERIDE 5 MG TAB PO SCH (08:52)
[2022-01-27] MEDS: PANTOPRAZOLE 40 MG/10 ML VIAL IVP SCH (08:52)
[2022-01-27] MEDS: DIGOXIN 125 MCG TAB PO SCH (08:52)
[2022-01-27] MEDS: APIXABAN 5 MG TAB PO SCH (08:52)
--- NOTE | 2022-01-27 14:52 | P.DS ---
Providers Date of admission: 01/20/22 12:04 Expected date of discharge: 01/27/22 Attending physician: Ismael Delgado MD Consults: 01/19/22 02:38 Consult Physician Urgent Consulting Provider: Anette Perea Consult Reason/Comments: Cellulitis right leg, sepsis Do you want consulting provider notified?: Yes, Notify in am 01/19/22 03:36 Consult Physician Urgent Consulting Provider: Hai Boswell Consult Reason/Comments: Foot infection/cellulitis Do you want consulting provider notified?: Yes, Notify in am Primary care physician: Radha Laureanobagh [facility] Hospital Course: Final Diagnoses: Sepsis secondary to right lower extremity cellulitis Chronic paroxysmal Atrial fibrillation Mitral valve repair in 2005 History of PFO closure History of PSVT status post ablation in 2013 Mild non-obstructive coronary artery disease Hypertension Lymphedema Hyperlipidemia. Hospital course:Chip Mcmahan is a 81 yo M with PMH of HTN, hx RLE cellulitis and chronic RLE edema who presented to the ED complaining of leg redness and tenderness x2 days and fever, chills and sweats over the past day or so. He denies any obvious injury to the leg, no laceration or insect bite, he does complain of chronically ingrown R great toenail. He denies chest pain or shortness of breath, no nausea, vomiting or diarrhea. He has not been on any antibiotics recently. He does note his toenail had been trimmed by podiatry recently. On presentation pt febrile to 102.8, WBC 17.9k, renal function normal, trop negative. RSV, influenza, Covid negative. CXR with no acute process. XR R foot with OA no focal bony destruction. 01/20/[address], recommendations pending. Evaluated by infectious disease with antibiotics adjusted. Renal function stable .Wore his BiPAP last night. He reports significant sweating during the night, "drenched". Denies chest pain, palpitations or shortness of breath. Denies nausea vomiting or abdominal pain. T-max 100.2, WBC returned to normal. CRP increased to 20.40. Hemoglobin 10.3, platelets 81. 01/24/2022 continued improvement with decreased tenderness, edema/erythema. Denies sweats or chills, afebrile, normal recent WBC. Renal function stable. Vital signs stable, maintaining O2 sats in the 90s on room air. 01/25/22 maintained on IV cefazolin ,significant edema persists, accompanied by tenderness, increased redness ,currently Jackson wrap off. Denies any fever or chills. Denies any chest pain, palpitations or shortness of breath. 01/26/22 IV antibiotics adjusted to daptomycin yesterday, improving. Denies chills, slept well. Afebrile, normal WBC. Renal function stable. CRP decreased to 4.3. Reports able to tolerate ambulating with minimal pain. Maintained on Daptomycin with significant clinical improvement; decreased arely ma,decreased redness, softer, now able to ambulate and flex leg, foot and toes much easier. Denies chest pain, palpitations or shortness of breath. Denies chills sweats or headache. Afebrile. Patient will be discharged home today in a stable condition with guarded prognosis pending final DC recommendations/antibiotics, midline IV catheter and clearance per infectious disease. The impression and plan of care has been dictated as directed. : I performed a history and examination of this patient, discussed the same with the dictator. I agree with the dictator's note ,documented as a scribe. Any additional findings or plans will be noted. Patient Condition at Discharge: Stable Plan - Discharge Summary New Discharge Prescriptions: Continue Finasteride [Proscar] 5 mg PO DAILY Aspirin 81 mg PO DAILY Collagen Powder 1 scoop PO DAILY Iron W/Vitamin C 1 tab PO DAILY Apixaban [Eliquis] 5 mg PO BID #60 tab Ergocalciferol [Vitamin D2 (1250 Mcg = 09808 Iu)] 1,250 mcg PO FR tadalafiL [Cialis] 5 mg PO DAILY Co Q-10 200mg W/Vitamin D3 50mcg 1 tab PO DAILY Digoxin [Lanoxin] 125 mcg PO DAILY #90 tab Metoprolol Tartrate [Lopressor] 50 mg PO BID #60 tab Mirabegron [Myrbetriq] 50 mg PO DAILY Discharge Medication List Finasteride [Proscar] 5 mg PO DAILY 03/05/17 [History] Aspirin 81 mg PO DAILY 11/20/18 [History] Ergocalciferol [Vitamin D2 (1250 Mcg = 21898 Iu)] 1,250 mcg PO FR 06/20/21 [History] tadalafiL [Cialis] 5 mg PO DAILY 06/20/21 [History] Co Q-10 200mg W/Vitamin D3 50mcg 1 tab PO DAILY 11/26/21 [History] Collagen Powder 1 scoop PO DAILY 11/26/21 [History] Iron W/Vitamin C 1 tab PO DAILY 11/26/21 [History] Apixaban [Eliquis] 5 mg PO BID #60 tab 11/29/21 [Rx] Digoxin [Lanoxin] 125 mcg PO DAILY #90 tab 11/29/21 [Rx] Metoprolol Tartrate [Lopressor] 50 mg PO BID #60 tab 11/29/21 [Rx] Mirabegron [Myrbetriq] 50 mg PO DAILY 01/19/22 [History] Follow up Appointment(s)/Referral(s): Radha Delgado DO [Primary Care Provider] - 1 Week [facility],Infusion [NON-STAFF] - 1 Week Anette Perea MD [STAFF PHYSICIAN] - 1 Week Patient Instructions/Handouts: Cellulitis (GEN) Activity/Diet/Wound Care/Special Instructions: Someone from [facility] office will call to set up time for antibiotic infusion. Go to their office. Do not come to the hospital. Address and Phone Number included in this packet.
== END 2022-01-27 15:55 | disposition home or self-care (01) | DRG 872 ==
LOC: EC 22:37 → 6NMEDSUR 01-19 03:06 → OBSVTOIN 01-20 12:04
PROVIDERS: ADMIT Family Medicine; ATTEND Family Medicine
PROC: 05HF33Z Insertion of Infusion Device into Left Cephalic Vein, Percutaneous Approach (ICD-10-PCS; principal; 2022-01-27 15:50)
DX: A41.9 Sepsis, unspecified organism (principal); L03.115 Cellulitis of right lower limb; I48.20 Chronic atrial fibrillation, unspecified; D69.6 Thrombocytopenia, unspecified; E78.5 Hyperlipidemia, unspecified; I10 Essential (primary) hypertension; L60.0 Ingrowing nail; J84.10 Pulmonary fibrosis, unspecified; I25.10 Atherosclerotic heart disease of native coronary artery without angina pectoris; I89.0 Lymphedema, not elsewhere classified; B95.5 Unspecified streptococcus as the cause of diseases classified elsewhere; J44.9 Chronic obstructive pulmonary disease, unspecified; N42.9 Disorder of prostate, unspecified; Z96.652 Presence of left artificial knee joint; E66.9 Obesity, unspecified; Z68.32 Body mass index [BMI] 32.0-32.9, adult; Z96.643 Presence of artificial hip joint, bilateral; Z20.822 Contact with and (suspected) exposure to COVID-19; Z88.1 Allergy status to other antibiotic agents; Z28.310 Unvaccinated for COVID-19; Z95.2 Presence of prosthetic heart valve; Z95.1 Presence of aortocoronary bypass graft; Z87.891 Personal history of nicotine dependence; Z87.74 Personal history of (corrected) congenital malformations of heart and circulatory system; Z79.899 Other long term (current) drug therapy; Z79.82 Long term (current) use of aspirin; Z79.01 Long term (current) use of anticoagulants; Z98.890 Other specified postprocedural states; Z86.79 Personal history of other diseases of the circulatory system
CPT/HCPCS: 36410; 36415; 71046; 76937; 80048; 80053; 81003; 83605; 84484; 85025; 86140; 87040; 87502; 87634; 87635; 94760; 96361; 96365; 96375; 99285

== ENCOUNTER 2022-07-24 05:59 | Day surgery (SDC) | payer MEDICARE ==
[~2022-07-24 05:59] MED LIST changes: -LACTATED RINGERS 1,000 ML IV SCH; +SODIUM CHLORIDE 0.9% 1,000 ML IV SCH
[2022-07-24 06:34] VITALS: RESP 18; TEMP 98.1
[2022-07-24 06:46] LABS: African American GFR (CKD) 88 (>60 ml/min/1.73 sqM); Anion Gap 7 mmol/L; Blood Urea Nitrogen 31 mg/dL (9-20); Calcium 8.8 mg/dL (8.4-10.2); Carbon Dioxide 27 mmol/L (22-30); Chloride 106 mmol/L (98-107); Glucose 100 mg/dL (74-99); Non-African American GFR(CKD) 76 (>60 ml/min/1.73 sqM); Potassium 4.1 mmol/L (3.5-5.1); Sodium 140 mmol/L (137-145)
[2022-07-24] MEDS ORDERED: LIDOCAINE 2% INJ 20 MG/ML (2 ML VIAL) ONE (07:23)
[2022-07-24] MEDS ORDERED: PROPOFOL 10 MG/ML 20 ML VIAL IV ONE (07:23)
--- NOTE | 2022-07-24 07:52 | P.HPCAR ---
History of Present Illness This is Dr. Lopez dictating an H/P on this patient The patient was interviewed and examined IMPRESSION / ASSESSMENT: Persistent atrial fibrillation, symptomatic complaining of shortness of breath and dizziness despite adequate rate control Normal coronary arteries Valvular heart disease with mitral valve repair with a anaplasty ring, intraoperative surgical history repair Left ventricular ejection fraction of 50% IVCD the right bundle branch block morphology Dilated left atrium Moderate aortic regurgitation PLAN: Electrical cardioversion on low-dose flecainide Digoxin has been discontinued for 7 days and metoprolol has been on hold for 3 days HPI Patient continues to complain of shortness of breath fatigue and dizziness despite adequate rate control of atrial fibrillation No significant bradycardia or pauses Normal coronary arteries with valvular heart disease with mitral valve repair and ASD closure in the past Significantly enlarged left atrium ROS: No fever chills or rigors, no cough, phlegm or expectoration, no nausea, vomiting or diarrhea, no hematuria, dysuria, no musculoskeletal complaints, no strokes or seizures, no skin lesions. EXAMINATION: Afebrile 98.1F, pulse rate in the 80s, blood pressure 125/69 mmHg Breath sounds are clear no rhonchi no crackles Heart sounds S1 and S2 are normal Barrel chested Right lower extremity swelling consistent with lymphedema REVIEW OF LABS, ECG & MEDICAL DATA Sodium 140, potassium 4.1, urine 31 and creatinine 0.95 Physical Exam Vitals: Vital Signs Temp Pulse Resp BP Pulse Ox 07/24/22 06:32 98.1 F 88 18 125/69 96 Intake and Output 07/23/22 07/24/22 07/24/22 22:59 06:59 14:59 Intake Total 100 50 Balance 100 50 Intake: IV 100 50 Other: Weight 105.8 kg Past Medical History Past Medical History: Atrial Fibrillation, Deep Vein Thrombosis (DVT), Musculoskeletal Disorder, Osteoarthritis (OA), Prostate Disorder Additional Past Medical History / Comment(s): Hx cellulitis right leg-recently resolved. see Dr Lopez's H & P, dvt in 1981 post op knee procedure History of Any Multi-Drug Resistant Organisms: None Reported Past Surgical History: Cardiac Ablation, Cardiac Valve Replacement, Joint Replacement, Orthopedic Surgery Additional Past Surgical History / Comment(s): Bilateral hip surgery, stan total knee replacement, cardiac ablation, mitral valve repair, COLONOSCOPY, BILATERAL CATARACTS REMOVED WITH LENS IMPLANTS, pain procedure. Past Anesthesia/Blood Transfusion Reactions: No Reported Reaction Additional Past Anesthesia/Blood Transfusion Reaction / Comment(s): as child had blood tx Smoking Status: Former smoker - Past Family History Father Family Medical History: No Reported History Additional Family Medical History / Comment(s): Father was a heavy smoker and most of his health problems were related to smoking. Mother Additional Family Medical History / Comment(s): Had TB when she was young, at 97. Physical Examination Vital Signs Temp Pulse Resp BP Pulse Ox 07/24/22 06:32 98.1 F 88 18 125/69 96 Intake and Output 07/23/22 07/24/22 07/24/22 22:59 06:59 14:59 Intake Total 100 50 Balance 100 50 Intake: IV 100 50 Other: Weight 105.8 kg Results 07/24/22 06:15 Comprehensive Metabolic Panel 07/24/22 Range/Units 06:15 Sodium 140 (137-145) mmol/L Potassium 4.1 (3.5-5.1) mmol/L Chloride 106 (98-107) mmol/L Carbon Dioxide 27 (22-30) mmol/L BUN 31 H (9-20) mg/dL Creatinine 0.95 (0.66-1.25) mg/dL Glucose 100 H (74-99) mg/dL Calcium 8.8 (8.4-10.2) mg/dL Current Medications Generic Name Dose Route Start Last Admin Trade Name Freq PRN Reason Stop Dose Admin Sodium Chloride 1,000 mls @ 20 mls/hr 07/24/22 05:55 07/24/22 06:37 Saline 0.9% IV 08/23/22 05:56 150 mls .Q24H ASYA Administration Intake and Output 07/23/22 07/24/22 07/24/22 22:59 06:59 14:59 Intake Total 100 50 Balance 100 50 Intake: IV 100 50 Other: Weight 105.8 kg 07/24/22 06:15
--- NOTE | 2022-07-24 07:54 | P.EPPROC ---
- EP Procedure Note Electrophysiology Procedure Note: Diagnosis Symptomatic atrial fibrillation, persistent with IVCD Mitral valve repair with a mitral valve ring and closure of the ASD intraoperatively with a running Prolene suture 27 mm Earnest ring for mitral valve repair Procedure Successful electrical cardioversion with 200 J biphasic shock in the AP configuration to sinus rhythm/sinus bradycardia in the 50s with IVCD Plan Continue flecainide 50 g twice daily Discontinue digoxin Hold metoprolol Follow-up 7 day Holter monitor at [facility] in follow-up with Dr. Lopez in 3-4 weeks for reassessment of management of atrial fibrillation Continue anticoagulation
[2022-07-24 08:36] VITALS: PULSE 50
[2022-07-24 08:38] VITALS: BP 123/57
== END 2022-07-24 08:51 | disposition home or self-care (01) ==
LOC: OR 05:59
PROVIDERS: ATTEND Internal Medicine Clinical Cardiac Electrophysiology
DX: I48.19 Other persistent atrial fibrillation (principal); I45.9 Conduction disorder, unspecified; M19.90 Unspecified osteoarthritis, unspecified site; Z95.2 Presence of prosthetic heart valve; Z86.718 Personal history of other venous thrombosis and embolism; Z87.891 Personal history of nicotine dependence; Z79.1 Long term (current) use of non-steroidal anti-inflammatories (NSAID); Z79.01 Long term (current) use of anticoagulants; Z79.899 Other long term (current) drug therapy; Z88.1 Allergy status to other antibiotic agents; Z88.8 Allergy status to other drugs, medicaments and biological substances; Z79.82 Long term (current) use of aspirin
CPT/HCPCS: 92960; 80048; J2704; J2001

== ENCOUNTER → 2022-12-28 | Outpatient (CLI) | payer MEDICARE ==
[2022-12-28 14:26] VITALS: BP 133/76; PULSE 73; RESP 16; TEMP 98.1
--- NOTE | 2022-12-28 15:08 | P.PAINPG ---
PQRS Measure Charge Sheet Comment: A 82 yr old male with a history of severe and chronic LBP secondary to lumbar DDD and spondylosis with facet arthropathy without myelopathy presents today for evaluation s/p R paramedian SHERI L4-L5 #3. Pt states he experienced % pain relief x 6 mo s/p procedure. Pain level is provoked at 4 /10 in intensity, constant, predominantly axial, localized in the R lumbar spine, sharp in character without shooting pain. Pain is provoked by standing/ bending for periods of 20 min or more. Pain is alleviated with injections, OTC medications, repositioning and rest. Oswestry axial pain score of . Interventional pain procedures completed include SHERI L4-L5 x3 Patient is currently on OTC medications Patient denies any side effects of the medication(s), denies excessive drowsiness or sleepiness, denies suicidal ideation and reports that the current pain medication is helping to control the pain and improve activities of daily living. Patient denies any motor or sensory deficits. Patient denies any fever or night sweats, denies any change in the bowel movements or urination. Physical Examination: -Constitutional: Cooperative. Not in acute distress . - Neurologic: Cranial nerve II to XII intact. No focal neurological deficits. - Psychatric: Alert & oriented x 3. Matching mood & appropriate affect. Dia gment and insight intact. - Musculoskeletal: Cervical spine: Muscle bulk/ tone/ strength in the bilateral upper extremities normal Vertebral body tenderness to palpation over Spurling test positive Distraction test positive Facet loading test positive Thoracic spine Muscle bulk / tone/ strength in the bilateral paraspinal muscles normal Vertebral body tender to palpation over Facet loading test positive Lumbar spine: Motor bulk/ tone/ strength lower extremities , thigh and legs : 5/5 Deep tendon reflexes : Normal Knee Jerk. Normal Ankle Jerk . Vertebral body tenderness to palpation over L4 Lumbar Facet Loading Test positive Straight Leg Raise: positive at 30 degrees right side/ left side Gaenslen's Test positive Sacral spine : Severe tenderness over the Sacroiliac joint: right side / left side Range of motion: Flexion of the lumbar spine <60 degrees Range of motion: Extension of the lumbar spine <20 degrees Gaenslen's Test positive Genoveva test: positive right side / left side Thigh Thrust Test Sacral Thrust Test Assessment and plan: Chronic LBP secondary to lumbar DDD, spondylosis with facet arthropathy without myelopathy Recommendation of SHERI L4-L5 #4. May need a series of injections for optimal pain relief. Risks, benefits of procedure discussed and pt verbalized understanding. Admits to anticoagulant use or medical history of diabetes. Protocol for discontinuation/ continuation of medications tere procedure discussed. All patient questions answered I have spent less than 30 minutes on patient care today. Dr Agarwal was available by phone for the evaluation of this patient. The time was used to review the medical records including relevant urine studies and Prescription history (MAPs), review of the available imaging, evaluation and examination of the patient, coordination of care with the medical staff and if applicable referring physicians, as well as creation of the medical record PQRS Narrative: Smoking Status Former smoker Hx Alcohol Use (MH) No Home Medications: Ambulatory Orders Finasteride [Proscar] 5 mg PO DAILY 03/05/17 Aspirin 81 mg PO DAILY 11/20/18 Iron W/Vitamin C 1 tab PO DAILY 11/26/21 Ubidecarenone [Co Q-10] 200 mg PO DAILY #0 11/26/21 Apixaban [Eliquis] 5 mg PO BID #60 tab 11/29/21 Mirabegron [Myrbetriq] 50 mg PO DAILY 01/19/22 Celebrex(Unk) 1 tab PO DIRECTED 07/20/22 Flecainide [Tambocor] 50 mg PO Q12HR 07/24/22 Controlled Substance Measures - Controlled Substance Measures Is patient prescribed a controlled substance at discharge?: No
== END ==
LOC: PNWHC3 13:28
PROVIDERS: ATTEND Specialist
DX: M51.36 Other intervertebral disc degeneration, lumbar region (principal); M47.816 Spondylosis without myelopathy or radiculopathy, lumbar region; G89.29 Other chronic pain; Z87.891 Personal history of nicotine dependence; Z79.82 Long term (current) use of aspirin; Z88.8 Allergy status to other drugs, medicaments and biological substances; Z88.1 Allergy status to other antibiotic agents
CPT/HCPCS: 99211

== ENCOUNTER → 2023-09-05 | Outpatient (CLI) | payer MEDICARE ==
[2023-09-05 09:07] VITALS: BP 118/58; PULSE 70; RESP 16; TEMP 97.6
--- NOTE | 2023-09-05 14:01 | P.PAINPG ---
PQRS Measure Charge Sheet Comment: A 83 yr old male with a history of severe and chronic LBP secondary to lumbar DDD and spondylosis with facet arthropathy without myelopathy presents today for evaluation. Pain level is provoked at 7 /10 in intensity, constant, predominantly axial, localized in the R lumbar spine, sharp in character w occas ional shooting pain towards the BL knees. Pain is provoked by standing/ bending for periods > 20 min. Pain is alleviated with PT integrated w massage x 5 wks which ended in Mar 2023, chiropractic treatments semi monthly x 3 yrs which he is currently in, injections, OTC medications, repositioning and rest. Oswestry axial pain score of 17. Interventional pain procedures completed include SHERI L4-L5 x3 Patient is currently on Tyl, Ibu, ASA Patient denies any side effects of the medication(s), denies excessive drowsiness or sleepiness, denies suicidal ideation and reports that the current pain medication is helping to control the pain and improve activities of daily living. Patient denies any motor or sensory deficits. Patient denies any fever or night sweats, denies any change in the bowel movements or urination. Physical Examination: -Constitutional: Cooperative. Not in acute distress . - Neurologic: Cranial nerve II to XII intact. No focal neurological deficits. - Psychatric: Alert & oriented x 3. Matching mood & appropriate affect. Judgment and insight intact. - Musculoskeletal: Cervical spine: Muscle bulk/ tone/ strength in the bilateral upper extremities normal Vertebral body tenderness to palpation over Spurling test positive Distraction test positive Facet loading test positive Thoracic spine Muscle bulk / tone/ strength in the bilateral paraspinal muscles normal Vertebral body tender to palpation over Facet loading test positive Lumbar spine: Motor bulk/ tone/ strength lower extremities , thigh and legs : 5/5 Deep tendon reflexes : Normal Knee Jerk. Normal Ankle Jerk . Vertebral body tenderness to palpation over L4 Pérez test positive BL L4-L5 Lumbar Facet Loading Test positive Straight Leg Raise: positive at 30 degrees right side/ left side Gaenslen's Test positive Sacral spine : Severe tenderness over the Sacroiliac joint: right side / left side Range of motion: Flexion of the lumbar spine <60 degrees Range of motion: Extension of the lumbar spine <20 degrees Gaenslen's Test positive Genoveva test: positive right side / left side Thigh Thrust Test Sacral Thrust Test Assessment and plan: Chronic LBP secondary to lumbar DDD, spondylosis with facet arthropathy without myelopathy Recommendation of R TFESI L4-L5 #1. May need a series of injections for optimal pain relief. Risks, benefits of procedure discussed and pt verbalized understanding. Admits to anticoagulant use or medical history of diabetes. Protocol for discontinuation/ continuation of medications tere procedure discussed. All patient questions answered I have spent less than 30 minutes on patient care today. Dr Agarwal was available by phone for the evaluation of this patient. The time was used to review the medical records including relevant urine studies and Prescription history (MAPs), review of the available imaging, evaluation and examination of the patient, coordination of care with the medical staff and if applicable referring physicians, as well as creation of the medical record PQRS Narrative: Smoking Status Former smoker Hx Alcohol Use (MH) No Home Medications: Ambulatory Orders Finasteride [Proscar] 5 mg PO DAILY 03/05/17 Aspirin 81 mg PO DAILY 11/20/18 Iron W/Vitamin C 1 tab PO DAILY 11/26/21 Ubidecarenone [Co Q-10] 200 mg PO DAILY #0 11/26/21 Apixaban [Eliquis] 5 mg PO BID #60 tab 11/29/21 Mirabegron [Myrbetriq] 50 mg PO DAILY 01/19/22 Celebrex(Unk) 1 tab PO DIRECTED 07/20/22 Flecainide [Tambocor] 50 mg PO Q12HR 07/24/22 Controlled Substance Measures - Controlled Substance Measures Is patient prescribed a controlled substance at discharge?: No
== END ==
LOC: PNWHC3 08:21
PROVIDERS: ATTEND Specialist
DX: M43.16 Spondylolisthesis, lumbar region (principal); M51.36 Other intervertebral disc degeneration, lumbar region; M47.816 Spondylosis without myelopathy or radiculopathy, lumbar region; Z87.891 Personal history of nicotine dependence; Z88.1 Allergy status to other antibiotic agents; Z88.8 Allergy status to other drugs, medicaments and biological substances
CPT/HCPCS: 99211

== ENCOUNTER → 2024-01-14 | Outpatient (CLI) | payer MEDICARE ==
[2024-01-14 18:40] LABS: HCT 38.3 % (39.6-50.0); HGB 12.3 g/dL (13.0-17.0); MCH 29.9 pg (27.0-32.0); MCHC 32.1 g/dL (32.0-37.0); MCV 93.2 FL (80.0-97.0); Mean Platelet Volume 9.6 FL (9.5-12.2); NRBC Per 100 WBC 0 X 10*3/uL (0.00-0.01); Platelet Count 160 X 10*3/uL (140-440); RBC 4.11 X 10*6/uL (4.40-5.60); RDW 13.4 % (11.5-14.5)
[2024-01-14 18:45] LABS: Blood Urea Nitrogen 27.5 mg/dL (9.0-27.0); Carbon Dioxide 26.2 mmol/L (21.6-31.8); Chloride 105 mmol/L (96-109); Potassium 4.7 mmol/L (3.5-5.5); Sodium 140 mmol/L (135-145)
== END | disposition home or self-care (01) ==
LOC: LABPAT 13:54
PROVIDERS: ATTEND Internal Medicine Clinical Cardiac Electrophysiology
DX: Z01.812 Encounter for preprocedural laboratory examination (principal); I48.19 Other persistent atrial fibrillation; I48.3 Typical atrial flutter; I51.7 Cardiomegaly
CPT/HCPCS: 36415; 80051; 82565; 84520; 85027

== ENCOUNTER 2024-01-24 08:57 | Day surgery (SDC) | payer MEDICARE ==
[2024-01-22 16:41] VITALS: BMI 33.0
[2024-01-24] MEDS: SODIUM CHLORIDE 0.9% 1,000 ML IV SCH (09:09)
[2024-01-24] MEDS: IV FLUID CONTINUATION 1,000 ML IV ONE (09:11)
[2024-01-24] MEDS: HEPARIN SOD,PORK IN 0.45% NACL 25,000 UNIT in 0.45% NACL 1 250ML.BAG IV ONE (11:10)
[2024-01-24] MEDS: HEPARIN SODIUM (1,000 UNIT/ML) 1,000 UNIT in SODIUM CHLORIDE 0.9% 1,000 ML IRRIGATION ONE (11:11)
[2024-01-24] MEDS ORDERED: SUCCINYLCHOLINE CHLORIDE 200 MG/10 ML VIAL IV ONE (11:20)
[2024-01-24] MEDS ORDERED: HEPARIN SODIUM,PORCINE 10,000 UNIT/ML 1 ML VIAL ONE (11:20)
[2024-01-24] MEDS ORDERED: HYDROmorphone (PF) 1 MG/ML ONE (11:20)
[2024-01-24] MEDS ORDERED: PHENYLEPHRINE 10 MG/ML VIAL ONE (11:20)
[2024-01-24] MEDS ORDERED: HEPARIN SODIUM,PORCINE 5,000 UNIT/ML 1 ML VIAL ONE (11:20)
[2024-01-24] MEDS ORDERED: fentaNYL (PF) 50 MCG/ML 2 ML AMP ONE (11:20)
[2024-01-24] MEDS ORDERED: MIDAZOLAM 2 MG/2 ML VIAL ONE (11:20)
[2024-01-24] MEDS ORDERED: LIDOCAINE 1% INJ 10MG/ML (20 ML MDV) ONE (11:20)
[2024-01-24] MEDS ORDERED: ETOMIDATE 2 MG/ML 10 ML VIAL ONE (11:20)
[2024-01-24] MEDS ORDERED: ceFAZolin 1 GM/50 ML BAG (PMX) ONE (11:20)
[2024-01-24] MEDS: LIDOCAINE 1% INJ 10MG/ML (20 ML MDV) SQ ONE (12:11)
[2024-01-24] MEDS: IOPAMIDOL-370 100ML BTL INJ ONE (12:23)
[2024-01-24] MEDS ORDERED: ACETAMINOPHEN TAB 325 MG TAB PO PRN (15:43)
--- NOTE | 2024-01-24 15:52 | P.EPPROC ---
- EP Procedure Note Electrophysiology Procedure Note: PROCEDURE A. fib ablation with antral level PVI, left atrial roof ablation and left atrial septal ablation DIAGNOSIS Persistent atrial fibrillation, symptomatic, refractory to therapy and symptomatic despite rate control of atrial fibrillation. Valvular heart disease status post mitral valve repair. Enlarged left atrium RESULT No left atrial appendage mass seen on intracardiac echo, enlarged left atrium with large pulmonary veins including a large left common pulmonary vein Successful A. fib ablation/pulmonary vein isolation of all veins using cryo- ablation Complete entrance block in all 4 veins confirmed Left atrial roof ablation Left atrial septal ablation No evidence for phrenic nerve injury Esophageal deflection YES, extreme left-sided esophagus Electrical cardioversion with a synchronized shock across the chest YES PROCEDURE DETAILS Written informed consent prior to procedure. Patient brought to the EP lab. General anesthesia given. Heparin administered. A city maintained above 300 seconds Both groins prepped and draped per protocol and venous sheaths placed. Esophagus intubated, circa catheter for temperature monitoring an endoscope for possible esophageal deflection. Phrenic nerve monitoring performed. Esophageal temperature monitoring performed. Esophageal deflection performed if circa catheter overlapping with the balloon or circa temperature less than 27.5C Intracardiac echocardiography performed. Pericardium evaluated. Left atrial appendage evaluated. Left atrium evaluated along with pulmonary veins Transseptal catheterization performed under fluoroscopic guidance and intracardiac echo guidance Cryoablation sheath exchanged, balloon catheter along with achieve catheter placed in the left atrium. Pulmonary veins isolated in the following sequence: Left superior pulmonary vein followed by left inferior pulmonary vein, followed by right inferior pulmonary vein and lastly right superior pulmonary vein. Phrenic nerve stimulation along with capture thresholds within the SVC and right superior pulmonary vein to identify the phrenic nerve proximity to the cryo- balloon. Pulmonary veins isolated and confirmed with entrance and exit block. Phrenic nerve integrity confirmed at the end of the procedure Ablation of the left atrial roof performed with sequential lesions from the left superior to the right superior pulmonary veins. Ablation of the electrograms confirmed Ablation of the left atrial septum performed with cannulation of the superior branch of the right inferior or the inferior branch of the right superior vein to achieve ablation of the posterior septum of the left atrium. Ablation of electrograms confirmed Electrical cardioversion performed for persistence of atrial fibrillation despite successful ablation. Diagnostic catheters for the high right atrium, His bundle, coronary sinus placed. LA and RA pressures recorded LA pressure: 25/9/14 Diagnostic EP study with coronary sinus pacing and recording. Post cardioversion in sinus rhythm the following measurements were made Baseline measurements: 130 ms AH interval, 37 ms HV interval IL interval 200 ms, QRS right bundle branch block pattern 150 ms, QT interval 436 ms Venous sheaths were removed and hemostasis assured with a closure device. Pat ient extubated and transferred to recovery Increase procedural time During ablation multiple attempts had to be made to move the esophagus a safe distance of the from the pulmonary vein draining cryoablation, to avoid excessive thermal cooling of the esophagus This took extra time and effort to keep the esophagus a safe distance away from the cryoablation balloon. Very enlarged left atrium with large pulmonary veins and a very large common left-sided pulmonary vein Very long left atrial roof requiring multiple ablations. This was also performed successfully Wide intracranial distance and a large left atrial septum requiring extensive ablation. This was performed successfully PROCEDURES PERFORMED Diagnostic EP study CS pacing and recording Left and right transseptal catheterization Catheter the mapping of the tachycardia Intracardiac echocardiography Pulmonary vein isolation with transseptal and comprehensive EPS, [id number] Extended procedure duration Left atrial roof line, +[id number] Linear ablation, left atrium, +14469 Electrical cardioversion with a synchronized shock across the chest [id number]
[2024-01-24] MEDS: IV FLUID CONTINUATION 500 ML IV ONE (15:55)
[2024-01-24] MEDS: LACTATED RINGERS 1,000 ML IV SCH (17:11)
[2024-01-24] MEDS: ACETAMINOPHEN IV (For NPO) 1,000 MG in EMPTY BAG 1 BAG IVPB ONE (17:25)
[2024-01-24] MEDS: APIXABAN 5 MG TAB PO SCH (19:39)
[2024-01-24] MEDS: METOPROLOL TARTRATE 50 MG TAB PO SCH (19:40)
[2024-01-25 06:24] VITALS: BP 105/55; PULSE 64; RESP 18; TEMP 97.2
[2024-01-25 06:55] LABS: Basophils % (A) 0 %; Eosinophils % (A) 0 %; HCT 30.2 % (39.0-53.0); HGB 9.7 gm/dL (13.0-17.5); Hypochromasia Slight; Lymphocytes # (A) 0.8 k/uL (1.0-4.8); Lymphocytes % (A) 10 %; MCH 30.5 pg (25.0-35.0); MCV 95.4 fL (80.0-100.0); Mean Platelet Volume 7.1; Monocytes # (A) 0.6 k/uL (0-1.0); Monocytes % (A) 7 %; Neutrophils # (A) 6.5 k/uL (1.3-7.7); Neutrophils % (A) 81 %; Platelet Count 145 k/uL (150-450); RBC 3.16 m/uL (4.30-5.90); RDW 13.7 % (11.5-15.5); WBC 8.1 k/uL (3.8-10.6)
[2024-01-25 07:07] LABS: ALT 17 U/L (4-49); AST 47 U/L (17-59); African American GFR (CKD) 77 (>60 ml/min/1.73 sqM); Albumin 3.2 g/dL (3.5-5.0); Albumin/Globulin Ratio 1.4; Alkaline Phosphatase 54 U/L (38-126); Anion Gap 4 mmol/L; Blood Urea Nitrogen 28 mg/dL (9-20); Calcium 8.2 mg/dL (8.4-10.2); Carbon Dioxide 22 mmol/L (22-30); Chloride 108 mmol/L (98-107); Globulin 2.3 g/dL; Glucose 145 mg/dL (74-99); Non-African American GFR(CKD) 67 (>60 ml/min/1.73 sqM); Sodium 134 mmol/L (137-145); Total Bilirubin 0.8 mg/dL (0.2-1.3); Total Protein 5.5 g/dL (6.3-8.2)
--- NOTE | 2024-01-25 08:04 | P.DS ---
Providers Attending physician: Antonio Lopez Primary care physician: Radha 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 Whitten in a week Plan - Discharge Summary Discharge Rx Participant: No New Discharge Prescriptions: New Cephalexin [Keflex] 500 mg PO Q8HR 7 Days #21 cap Continue Finasteride [Proscar] 5 mg PO DAILY Aspirin 81 mg PO DAILY Apixaban [Eliquis] 5 mg PO BID #60 tab Vitc/E/Zinc/Copper/Lutein/Zeax [Icaps Areds2 Tablet] 1 tab PO DAILY Metoprolol Tartrate [Lopressor] 50 mg PO BID Chondroiton 1 tab PO DAILY Mirabegron [Myrbetriq] 50 mg PO DAILY Tamsulosin HCl [Flomax] 0.4 mg PO DAILY Discharge Medication List Finasteride [Proscar] 5 mg PO DAILY 03/05/17 [History] Aspirin 81 mg PO DAILY 11/20/18 [History] Apixaban [Eliquis] 5 mg PO BID #60 tab 11/29/21 [Rx] Mirabegron [Myrbetriq] 50 mg PO DAILY 01/19/22 [History] Tamsulosin HCl [Flomax] 0.4 mg PO DAILY 09/05/23 [History] Vitc/E/Zinc/Copper/Lutein/Zeax [Icaps Areds2 Tablet] 1 tab PO DAILY 09/05/23 [History] Chondroiton 1 tab PO DAILY 01/22/24 [History] Metoprolol Tartrate [Lopressor] 50 mg PO BID 01/22/24 [History] Cephalexin [Keflex] 500 mg PO Q8HR 7 Days #21 cap 01/25/24 [Rx] Follow up Appointment(s)/Referral(s): Shira Whitten MD [STAFF PHYSICIAN] - 1 Week Activity/Diet/Wound Care/Special Instructions: Post EP study - Ablation instructions 1. Keep access sites dry for 2 days. 2. No heavy lifting or straining for 2 days. 3. Avoid bending the hips repeatedly for 2 days. 4. You may go up and down stairs slowly 5. If you have had an ablation for atrial fibrillation or atrial flutter and are on a blood thinner, do not stop the blood thinner even temporarily for 3 months post ablation Call if the following is noted 1. Bleeding, increasing swelling or pain at the access sites. 2. Increasing chest discomfort, especially upon taking a deep breath. 3. Increasing shortness of breath, at rest or with exertion. 4. Undue cough / phlegm 5. Difficulty or pain while swallowing. 6. Pain or change in color in the extremities. 7. Fever, chills, rigors. 8. Increasing headache or neurologic symptoms. 9. Dizziness, fainting, palpitations For patients who have undergone an A-fib ablation /atrial flutter ablation Strict instruction; do NOT stop anticoagulation (Eliquis/Xarelto/Pradaxa) for the next 2 months even temporarily, for any elective, nonurgent surgery. This increases the risk of stroke, post A-fib ablation Discharge Disposition: HOME SELF-CARE
[2024-01-25] MEDS: TAMSULOSIN 0.4 MG CAP.ER.24H PO SCH (08:21)
[2024-01-25] MEDS: FINASTERIDE 5 MG TAB PO SCH (08:21)
[2024-01-25] MEDS: ASPIRIN 81 MG PO SCH (08:21)
== END 2024-01-25 13:40 | disposition home or self-care (01) ==
LOC: CATHEP 08:57 → 6NMEDSUR 15:46 → CATHEP 01-25 13:40
PROVIDERS: ATTEND Internal Medicine Clinical Cardiac Electrophysiology
DX: I48.19 Other persistent atrial fibrillation (principal); Z79.01 Long term (current) use of anticoagulants; Z79.82 Long term (current) use of aspirin; Z79.899 Other long term (current) drug therapy; Z98.890 Other specified postprocedural states; Z88.1 Allergy status to other antibiotic agents; Z88.8 Allergy status to other drugs, medicaments and biological substances
CPT/HCPCS: 92960; 93656; 93657; 86900; 86901; 80053; 84443; 85025; 86850; S0138; J2250; J0330; J1644 ×4; J0690 ×3; J2003; J3010; J1171; J0131; Q9967; J2371; 93653

== ENCOUNTER → 2024-01-28 | Outpatient (CLI) | payer MEDICARE ==
--- NOTE | 2024-01-28 16:55 | US ---
EXAMINATION TYPE: US groin LT DATE OF EXAM: 01/28/2024 COMPARISON: NONE CLINICAL INDICATION: Male, 83 years old with history of I72.4 ANEURYSM OF ARTERY OF LOWER EXTREMITY; LLE Swelling and bruise post heart ablation TECHNIQUE: Grayscale and color Doppler imaging. FINDINGS: ? Hematoma seen in left inguinal canal extending to groin; no connection seen to arteries or veins within the groin. No internal flow seen. Area = 11.3 x 6.7 x 7.6 cm IMPRESSION: Left inguinal fluid collection most compatible with hematoma. No pseudoaneurysm definitiv luis visualized. [facility], , 01/28/2024 4:53 PM
--- NOTE | 2024-01-28 16:56 | US ---
EXAMINATION TYPE: US venous doppler duplex LE LT DATE OF EXAM: 01/28/2024 4:39 PM COMPARISON: NONE CLINICAL INDICATION: Male, 83 years old with history of Rule out DVT; Bruise and LLE swelling post he art ablation , Pain TECHNIQUE: The lower extremity deep venous system is examined utilizing real time linear array sonog jo-ann with graded compression, color doppler sonography, and spectral doppler. SIDE PERFORMED: Left FINDINGS: VESSELS IMAGED: Common Femoral Vein Deep Femoral Vein Greater Saphenous Vein * Femoral Vein Popliteal Vein Small Saphenous Vein * Proximal Calf Veins (* superficial vessels) Right Leg: NA, Color Doppler imaging shows patency of the vessels. Spectral waveforms are within nor mal limits. Left Leg: Negative for DVT, Color Doppler imaging shows patency of the vessels. Spectral waveforms a re within normal limits. IMPRESSION: No ultrasound evidence for deep venous thrombosis. [facility], , 01/28/2024 4:53 PM
== END | disposition home or self-care (01) ==
LOC: RADUSWWP 16:05
PROVIDERS: ATTEND Internal Medicine Interventional Cardiology
DX: I72.4 Aneurysm of artery of lower extremity (principal)

== ENCOUNTER 2024-02-09 15:31 | Observation (INO) | payer MEDICARE ==
--- NOTE | 2024-02-09 15:46 | ED ---
Extremity Problem HPI - General Chief complaint: Extremity Problem,Nontraumatic Stated complaint: Left leg inflamation Time Seen by Provider: 02/09/24 15:43 Source: patient Mode of arrival: ambulatory Limitations: physical limitation - History of Present Illness Initial comments: Patient is an 83-year-old male with a past medical history of A-fib status post ablation, on Eliquis presenting today for left lower extremity pain and swelling. States that the pain in his leg began shortly after his ablation, during his hospitalization he did have an ultrasound up for DVT and of the groin performed which were negative for acute process. He was discharged home and has not missed any dose of his Eliquis. Since then he has had persistent pain to left lower extremity that feels "like a tightness". He has not had any injuries to the extremity. He has seen worsening redness and states it feels "like cellulitis". Denies numbness. Note has had "low-grade fever" at home of 99.4 degrees oral. Last Tylenol was last night. He denies any chest pain or shortness of breath, abdominal pain, nausea, vomiting. Denies body aches or chills. - Related Data Home Medications Medication Instructions Recorded Confirmed Finasteride [Proscar] 5 mg PO DAILY 03/05/17 02/09/24 Aspirin 81 mg PO DAILY 11/20/18 02/09/24 Mirabegron [Myrbetriq] 50 mg PO DAILY 01/19/22 02/09/24 Vitc/E/Zinc/Copper/Lutein/Zeax 1 tab PO DAILY 09/05/23 02/09/24 [Icaps Areds2 Tablet] Ammonium Lactate Lotion 1 applic TOPICAL DIRECTED 02/09/24 02/09/24 [Lac-Hydrin 12% Lotion] Cholecalciferol (Vitamin D3) 50 mcg PO DAILY 02/09/24 02/09/24 [Vitamin D3 (50 Mcg = 2000 Iu)] Furosemide [Lasix] 20 mg PO DAILY 02/09/24 02/09/24 Metoprolol Tartrate [Lopressor] 50 mg PO BID 02/09/24 02/09/24 Previous Rx's Medication Instructions Recorded Apixaban [Eliquis] 5 mg PO BID #60 tab 11/29/21 Allergies Allergy/AdvReac Type Severity Reaction Status Date / Time verapamil Allergy Rash/Hives Verified 02/09/24 16:30 on face ciprofloxacin [From Cipro] AdvReac Severe LEG PAIN Verified 02/09/24 16:30 levofloxacin [From Levaquin] AdvReac leg pain Verified 02/09/24 16:30 Review of Systems ROS Statement: Those systems with pertinent positive or pertinent negative responses have been documented in the HPI. ROS Other: All systems not noted in ROS Statement are negative. Past Medical History Past Medical History: Atrial Fibrillation, Deep Vein Thrombosis (DVT), Musculoskeletal Disorder, Osteoarthritis (OA), Prostate Disorder, Skin Disorder Additional Past Medical History / Comment(s): Hx cellulitis right leg, [facility] lower wound on ramos, uses silvadine, dvt in 1981 post op knee procedure History of Any Multi-Drug Resistant Organisms: None Reported Past Surgical History: Cardiac Ablation, Cardiac Valve Replacement, Joint Replacement, Orthopedic Surgery Additional Past Surgical History / Comment(s): Bilateral hip surgery, stan total knee replacement, cardiac ablation, mitral valve repair, COLONOSCOPY, BILATERAL CATARACTS REMOVED WITH LENS IMPLANTS, pain procedure. Past Anesthesia/Blood Transfusion Reactions: No Reported Reaction Additional Past Anesthesia/Blood Transfusion Reaction / Comment(s): as child had blood tx Past Psychological History: No Psychological Hx Reported Smoking Status: Former smoker Past Alcohol Use History: None Reported Past Drug Use History: None Reported - Past Family History Father Family Medical History: No Reported History Additional Family Medical History / Comment(s): Father was a heavy smoker and most of his health problems were related to smoking. Mother Additional Family Medical History / Comment(s): Had TB when she was young, at 97. Daughter(s) Family Medical History: Cancer Additional Family Medical History / Comment(s): Breast and liver cancer. General Exam - General Exam Comments Initial Comments: PE: CONSTITUTIONAL: [no apparent distress, well appearing] SKIN: [warm, dry, no jaundice, hives or petechiae. Brawny discoloration of the bilateral ankles consistent with venous stasis changes, erythema of the left lower extremity extending from ankle towards knee, it is warm to the touch, purple-green bruising along the medial aspect of the left lower extremity] EYES:[ pupils are equally round, extraocular movements intact without nystagmus, clear conjunctiva, non-icteric sclera] HENT: [normocephalic, atraumatic, moist mucus membranes, oropharynx clear without exudates] NECK: , [Full range of motion, normal appearance] PULMONARY: [clear to auscultation without wheezes, rhonchi, or rales, normal excursion, no accessory muscle use and no stridor] CARDIOVASCULAR:[ regular rate, rhythm, normal S1 and S2. No appreciated murmurs, rubs or gallops. Strong radial pulses with intact distal perfusion. Bilaterally 2+ lower extremity edema] GASTROINTESTINAL: [soft, active bowel sounds throughout, non-tender, non- distended, no palpable masses, no rebound or guarding. No hepatosplenomegaly] GENITOURINARY: MUSCULOSKELETAL: [Left lower extremity is tender to palpation at the mid tib- fib, there is no deformity present, patient is able to to plantar and dorsiflex left lower extremity left ankle, difficulty flexing the left knee due to "tightness and swelling in the left lower extremity, femoral pulses palpable, no bruit palpable, no rapidly expanding hematoma of the left groin extremities have no gross deformity, no edema, redness, or swelling. No calf swelling ] NEUROLOGIC: [_a/o x 3, GCS 15, normal mentation and speech. Otherwise moves extremities x 4 without motor or sensory deficit] PSYCHIATRIC:[ _normal mood and affect, thought process is clear and linear] Limitations: physical limitation Course Vital Signs 02/09/24 02/09/24 02/09/24 15:34 18:00 19:00 Temperature 97.9 F Pulse Rate 74 68 71 Respiratory 20 18 18 Rate Blood Pressure 122/59 116/68 130/68 O2 Sat by Pulse 99 97 98 Oximetry 02/09/24 02/09/24 21:00 22:00 Temperature Pulse Rate 71 75 Respiratory 18 18 Rate Blood Pressure 124/68 115/78 O2 Sat by Pulse 97 96 Oximetry Medical Decision Making - Medical Decision Making Was pt. sent in by a medical professional or institution (, PA, ADAPTIVE PHYSICAL EDUCATION SPECIALIST, urgent care, hospital, or fci...) When possible be specific @ -[No] Did you speak to anyone other than the patient for history (EMS, parent, family, police, friend...)? What history was obtained from this source @ -[No] Did you review nursing and triage notes (agree or disagree)? Why? @ -[I reviewed and agree with nursing and triage notes] Were old charts reviewed (outside hosp., previous admission, EMS record, old EKG, old radiological studies, urgent care reports/EKG's, fci records)? Report findings @ -Medical records reviewed Patient had ultrasounds performed of the groin and left lower extremity on 01/28/2024, ultrasound of the left lower extremity did not show evidence of DVT, ultrasound of the left groin showed left inguinal fluid collection compatible with hematoma no pseudoaneurysm was identified Differential Diagnosis (chest pain, altered mental status, abdominal pain women, abdominal pain men, vaginal bleeding, weakness, fever, dyspnea, syncope, headache, dizziness, GI bleed, back pain, seizure, CVA, palpatations, mental health, musculoskeletal)? @ -[not applicable] EKG interpreted by me (3pts min.). @Junctional rhythm, right bundle branch block, rate 68 bpm, MN interval 140 ms, QRS duration 151, QT/QTc 419/437, left axis deviation compared to EKG performed on 01/25/2024, ST depression in lead II is consistent with prior on this EKG X-rays interpreted by me (1pt min.). @ -[None done] CT interpreted by me (1pt min.). I see no evidence of abscess or mass in left groin U/S interpreted by me (1pt. min.). @ -No DVT What testing was considered but not performed or refused? (CT, X-rays, U/S, labs)? Why? @ -[None] What meds were considered but not given or refused? Why? @ -[None] Did you discuss the management of the patient with other professionals (professionals i.e. , PA, ADAPTIVE PHYSICAL EDUCATION SPECIALIST, lab, RT, psych nurse, social services assistant, iron melter, teacher, loan officer assistant, case coordinator)? Give summary Case discussed with Dr. Alegria, Vascular surgery, see notes bbelow Was smoking cessation discussed for >3mins.? @ -[No] Was critical care preformed (if so, how long)? @ -[No] Were there social determinants of health that impacted care today? How? (Homelessness, low income, unemployed, alcoholism, drug addiction, transportation, low edu. Level, literacy, decrease access to med. care, halfway, rehab)? @ -[No] Was there de-escalation of care discussed even if they declined (Discuss DNR or withdrawal of care, Hospice)? @ -[No] What co-morbidities impacted this encounter? (DM, HTN, Smoking, COPD, CAD, Cancer, CVA, ARF, Chemo, Hep., AIDS, mental health diagnosis, sleep apnea, morbid obesity)? @CAD, A-fib, DVT Was patient admitted / discharged? Hospital course, mention meds given and route, prescriptions, significant lab abnormalities, going to OR and other pertinent info. @ -[hospital course] patient is a pleasant 83-year-old gentleman presenting today for left lower extremity pain and swelling that is worsened since recent hospitalization when the left groin was accessed via catheter for cardiac ablation. No missed dose of Eliquis. Low-grade fever at home. On my assessme nt patient is comfortable appearing, there is brawny discoloration of the ankles bilaterally consistent with venous stasis changes, there is erythema and warmth around the left ankle and tenderness palpation, no gross deformity or injuries. Will obtain ultrasound of the left lower extremity out of concern for DVT or infected hematoma versus cellulitis, initiate cefepime and vancomycin anticipate admission. CT angiogram performed and comments on no CT evidence of pathology in the left groin could have been artificial, comments completely occluded right anterior tibial posterior tibial and peroneal arteries with 0 vessel runoff into the right lower extremity no significant flow visualized in the right dorsalis pedis and posterior tibial arteries in the foot. Of note patient does have a 2+ dorsalis pedis pulse palpated in the right lower extremity but will consult vascular for further recommendations. Discussed with Dr. Alegria, lower extremities neurovascularly intact, read on CT is likely secondary to poor technique of contrast admin, can follow up outpatient if needed. Patient has an excellent DP pulse and dopplerable pulse in the RLE. Discussed case with Dr. Hinson, kindly accepts patient for admission. Undiagnosed new problem with uncertain prognosis? @ -[No] Drug Therapy requiring intensive monitoring for toxicity (Heparin, Nitro, Insulin, Cardizem)? @ -[No] Were any procedures done? @ -[No] Diagnosis/symptom? @ -Cellulitis Acute, or Chronic, or Acute on Chronic? @ -Acute Uncomplicated (without systemic symptoms) or Complicated (systemic symptoms)? @ -Complicated Side effects of treatment? @ -[No] Exacerbation, Progression, or Severe Exacerbation? @ -[No] Poses a threat to life or bodily function? How? (Chest pain, USA, ND, pneumonia, PE, COPD, DKA, ARF, appy, cholecystitis, CVA, Diverticulitis, Homicidal, Suicidal, threat to staff... and all critical care pts) @ -Potentially, if left untreated could progress to sepsis, septic shock and - Lab Data Result diagrams: 02/09/24 16:37 02/09/24 16:37 Lab Results 02/09/24 02/09/24 02/09/24 Range/Units 16:37 16:37 16:37 WBC 7.0 (3.8-10.6) k/uL RBC 2.99 L (4.30-5.90) m/uL Hgb 9.1 L (13.0-17.5) gm/dL Hct 27.8 L (39.0-53.0) % MCV 92.8 (80.0-100.0) fL MCH 30.5 (25.0-35.0) pg MCHC 32.9 (31.0-37.0) g/dL RDW 14.6 (11.5-15.5) % Plt Count 233 (150-450) k/uL MPV 6.7 Neutrophils % 79 % Lymphocytes % 10 % Monocytes % 7 % Eosinophils % 2 % Basophils % 0 % Neutrophils # 5.5 (1.3-7.7) k/uL Lymphocytes # 0.7 L (1.0-4.8) k/uL Monocytes # 0.5 (0-1.0) k/uL Eosinophils # 0.1 (0-0.7) k/uL Basophils # 0.0 (0-0.2) k/uL Hypochromasia Slight PT 12.1 (10.0-12.5) sec INR 1.1 (<1.2) APTT 24.7 (22.0-30.0) sec Sodium 136 L (137-145) mmol/L Potassium 4.3 (3.5-5.1) mmol/L Chloride 103 (98-107) mmol/L Carbon Dioxide 26 (22-30) mmol/L Anion Gap 7 mmol/L BUN 27 H (9-20) mg/dL Creatinine 0.86 (0.66-1.25) mg/dL Est GFR (CKD-EPI)AfAm >90 (>60 ml/min/1.73 sqM) Est GFR (CKD-EPI)NonAf 82 (>60 ml/min/1.73 sqM) Glucose 97 (74-99) mg/dL Plasma Lactic Acid Raghav (0.7-2.0) mmol/L Calcium 9.0 (8.4-10.2) mg/dL Magnesium 2.3 (1.6-2.3) mg/dL Total Bilirubin 0.9 (0.2-1.3) mg/dL AST 23 (17-59) U/L ALT 13 (4-49) U/L Alkaline Phosphatase 54 (38-126) U/L Troponin I (0.000-0.034) ng/mL NT-Pro-B Natriuret Pep 856 pg/mL Total Protein 6.5 (6.3-8.2) g/dL Albumin 3.8 (3.5-5.0) g/dL 02/09/24 02/09/24 Range/Units 16:37 16:37 WBC (3.8-10.6) k/uL RBC (4.30-5.90) m/uL Hgb (13.0-17.5) gm/dL Hct (39.0-53.0) % MCV (80.0-100.0) fL MCH (25.0-35.0) pg MCHC (31.0-37.0) g/dL RDW (11.5-15.5) % Plt Count (150-450) k/uL MPV Neutrophils % % Lymphocytes % % Monocytes % % Eosinophils % % Basophils % % Neutrophils # (1.3-7.7) k/uL Lymphocytes # (1.0-4.8) k/uL Monocytes # (0-1.0) k/uL Eosinophils # (0-0.7) k/uL Basophils # (0-0.2) k/uL Hypochromasia PT (10.0-12.5) sec INR (<1.2) APTT (22.0-30.0) sec Sodium (137-145) mmol/L Potassium (3.5-5.1) mmol/L Chloride (98-107) mmol/L Carbon Dioxide (22-30) mmol/L Anion Gap mmol/L BUN (9-20) mg/dL Creatinine (0.66-1.25) mg/dL Est GFR (CKD-EPI)AfAm (>60 ml/min/1.73 sqM) Est GFR (CKD-EPI)NonAf (>60 ml/min/1.73 sqM) Glucose (74-99) mg/dL Plasma Lactic Acid Raghav 1.1 (0.7-2.0) mmol/L Calcium (8.4-10.2) mg/dL Magnesium (1.6-2.3) mg/dL Total Bilirubin (0.2-1.3) mg/dL AST (17-59) U/L ALT (4-49) U/L Alkaline Phosphatase (38-126) U/L Troponin I <0.012 (0.000-0.034) ng/mL NT-Pro-B Natriuret Pep pg/mL Total Protein (6.3-8.2) g/dL Albumin (3.5-5.0) g/dL Disposition Clinical Impression: Cellulitis, Renal cyst, left Disposition: ADMITTED IP TO THIS HOSP Condition: Good
[2024-02-09] MEDS ORDERED: VANCOMYCIN IV PER PHARMACY 1 EACH MISC MISCELLANE PRN (16:14)
[2024-02-09] MEDS: CEFEPIME 2 GM in SODIUM CHLORIDE 0.9% 100 ML IVPB STA (16:47)
[2024-02-09 16:49] LABS: Basophils % (A) 0 %; Eosinophils # (A) 0.1 k/uL (0-0.7); Eosinophils % (A) 2 %; HCT 27.8 % (39.0-53.0); HGB 9.1 gm/dL (13.0-17.5); Hypochromasia Slight; Lymphocytes # (A) 0.7 k/uL (1.0-4.8); Lymphocytes % (A) 10 %; MCH 30.5 pg (25.0-35.0); MCHC 32.9 g/dL (31.0-37.0); MCV 92.8 fL (80.0-100.0); Mean Platelet Volume 6.7; Monocytes # (A) 0.5 k/uL (0-1.0); Monocytes % (A) 7 %; Neutrophils # (A) 5.5 k/uL (1.3-7.7); Neutrophils % (A) 79 %; Platelet Count 233 k/uL (150-450); RBC 2.99 m/uL (4.30-5.90); RDW 14.6 % (11.5-15.5)
[2024-02-09 16:57] LABS: INR 1.1 (<1.2); Partial Thromboplastin Time 24.7 sec (22.0-30.0); Prothrombin Time 12.1 sec (10.0-12.5)
[2024-02-09 16:59] LABS: ALT 13 U/L (4-49); AST 23 U/L (17-59); African American GFR (CKD) >90 (>60 ml/min/1.73 sqM); Albumin 3.8 g/dL (3.5-5.0); Alkaline Phosphatase 54 U/L (38-126); Anion Gap 7 mmol/L; Blood Urea Nitrogen 27 mg/dL (9-20); Carbon Dioxide 26 mmol/L (22-30); Chloride 103 mmol/L (98-107); Glucose 97 mg/dL (74-99); Magnesium 2.3 mg/dL (1.6-2.3); Non-African American GFR(CKD) 82 (>60 ml/min/1.73 sqM); Potassium 4.3 mmol/L (3.5-5.1); Sodium 136 mmol/L (137-145); Total Bilirubin 0.9 mg/dL (0.2-1.3); Total Protein 6.5 g/dL (6.3-8.2)
[2024-02-09 17:07] LABS: NT-Pro-B-Type Natriuretic Pept 856 pg/mL
--- NOTE | 2024-02-09 18:12 | US ---
EXAMINATION TYPE: US venous doppler duplex LE LT DATE OF EXAM: 02/09/2024 6:00 PM COMPARISON: Same exam 01-28-2024 CLINICAL INDICATION: Male, 83 years old with history of recent ablation, erythema, bruising swelling LLE; , Pain TECHNIQUE: The lower extremity deep venous system is examined utilizing real time linear array sonog jo-ann with graded compression, color doppler sonography, and spectral doppler. SIDE PERFORMED: Left FINDINGS: VESSELS IMAGED: Common Femoral Vein Deep Femoral Vein Greater Saphenous Vein Femoral Vein Popliteal Vein Small Saphenous Vein Proximal Calf Veins Left Leg: Appears negative for DVT Left groin: Multi septated complex fluid collection/mass 7.9 x 4.8 x 4.8cm complex area seen medial t o vessels. IMPRESSION: 1. No ultrasound evidence for deep venous thrombosis. 2. Indeterminant complex hypoechoic region in the left groin measuring 7.9 x 4.8 cm, possibly reflec ting a fluid collection/abscess, hematoma or large necrotic lymph node. Recommend clinical correlatio n. [facility], , 02/09/2024 6:10 PM
[2024-02-09] MEDS: VANCOMYCIN 1,750 MG in SODIUM CHLORIDE 0.9% 500 ML 500 ML IVPB STA (18:19)
[2024-02-09] MEDS ORDERED: RX INFO: IV CONTRAST WAS GIVEN 1 EACH MISC MISCELLANE PRN (18:25)
--- NOTE | 2024-02-09 19:15 | CT ---
EXAMINATION TYPE: CT angio lower extremity LT DATE OF EXAM: 02/09/2024 7:01 PM COMPARISON: None. CLINICAL INDICATION: Male, 83 years old with history of US concerned for necrotic lymph node; PHH, Le ft lower leg tenderness, redness, and swelling. hx of DVT TECHNIQUE: Multiple thin slice sub-millimeter images were obtained after administration of contrast. 3-D reconstructed images and maximum intensity projection images were obtained. CT angio lower extre mity LT CT Contrast: Contrast used:100 mL of Isovue 370 with IV Contrast, CT DLP: 1891.2 mGycm, Automated exposure control for dose reduction was used. FINDINGS: Nonvascular: Partially visualized lower lungs demonstrate right lower lobe atelectasis/scarring. Evaluation of int ra-abdominal organs suboptimal due to arterial phase of contrast. Multi septated partially calcified cystic lesion in the left kidney measuring 9.2 x 8.7 cm. No definite internal enhancement or nodulari ty within this lesion. No hydronephrosis bilaterally. No suspicious adrenal gland nodule. Spleen norm al in size and morphology. Noncalcified gallstones noted in the gallbladder. Pancreas unremarkable. N o abnormal biliary duct dilatation. No evidence of small bowel obstruction. Diffuse colonic diverticulosis without acute diverticulitis. Urinary bladder unremarkable. Stomach underdistended but otherwise unremarkable. No pathologic retrop eritoneal or mesenteric lymphadenopathy. No significant free fluid or free air in the abdomen/pelvis. Bilateral hip arthroplasty devices. Bilateral knee arthroplasties. No abnormal fluid collection or ma ss in the left groin. No CT correlate for findings described on same day ultrasound study. Vascular: Calcified at the sclerotic disease of the abdominal aorta without aneurysmal dilatation. Celiac arter y and SMA appear grossly patent. The bilateral common iliac, external and internal iliac arteries vic ear patent. Common femoral arteries are patent bilaterally. Bilateral superficial femoral arteries ap pear patent. Popliteal arteries are patent bilaterally. Left anterior tibial, posterior tibial and pe roneal arteries are all patent. There is extensive lower extremity subcutaneous edema, left greater t penn right. Numerous venous varicosities noted throughout the left lower extremity. Partially visualiz ed dorsalis pedis and left posterior tibial arteries appear patent. Evaluation of the distal right popliteal artery suboptimal due to streak artifact in right knee arthr oplasty. Right anterior tibial, posterior tibial and peroneal arteries are completely occluded with 0 vessel right lower extremity runoff. Right dorsalis pedis and posterior tibial arteries appear occlu ded in the right foot IMPRESSION: 1. No CT evidence of pathology in the left groin region of interest. Findings on ultrasound may have been artifactual. 2. Completely occluded right anterior tibial, posterior tibial and peroneal arteries with zero vesse l right lower extremity runoff. No significant flow visualized in the right dorsalis pedis and miller supervisor ior tibial arteries in the right foot. 3. 3 vessel left lower extremity runoff. 4. Extensive bilateral lower extremity subcutaneous edema, left greater than right. Numerous left-si ded venous varicosities. [facility], , 02/09/2024 7:13 PM
[2024-02-09] MEDS ORDERED: MAG HYDROX/AL HYDROX/SIMETH 30 ML CUP PO PRN (22:21)
[2024-02-09] MEDS ORDERED: CALCIUM CARBONATE 500 MG CHEWABLE PO PRN (22:21)
[2024-02-09] MEDS ORDERED: ACETAMINOPHEN TAB 325 MG TAB PO PRN (22:21)
[2024-02-09] MEDS ORDERED: ONDANSETRON 4 MG/2 ML VIAL IVP PRN (22:21)
[2024-02-09] MEDS ORDERED: NALOXONE 0.4 MG/ML 1 ML VIAL IV PRN (22:21)
[2024-02-09] MEDS: APIXABAN 5 MG TAB PO SCH (22:49)
[2024-02-10] MEDS: VANCOMYCIN 1,750 MG in SODIUM CHLORIDE 0.9% 500 ML 500 ML IVPB SCH (06:41)
[2024-02-10 07:47] LABS: African American GFR (CKD) >90 (>60 ml/min/1.73 sqM); Non-African American GFR(CKD) 79 (>60 ml/min/1.73 sqM)
[2024-02-10] MEDS: ASPIRIN 81 MG PO SCH (08:21)
[2024-02-10] MEDS: FINASTERIDE 5 MG TAB PO SCH (08:21)
[2024-02-10] MEDS: VIT A,C & E-LUTEIN-MINERALS 1 EACH TAB PO SCH (08:21)
[2024-02-10] MEDS: METOPROLOL TARTRATE 50 MG TAB PO SCH (08:21)
[2024-02-10] MEDS: FUROSEMIDE 20 MG TAB PO SCH (08:21)
[2024-02-10] MEDS: CHOLECALCIFEROL 25 MCG (1000 IU) TABLET PO SCH (08:21)
[2024-02-10] MEDS: NON FORMULARY DRUG (Mirabegron [Myrbetriq] 50 MG Tab.Er.24h) PO SCH (08:22)
[2024-02-10] MEDS: traMADol 50 MG TAB PO PRN (10:43)
[2024-02-11 03:46] LABS: African American GFR (CKD) >90 (>60 ml/min/1.73 sqM); Anion Gap 3 mmol/L; Blood Urea Nitrogen 25 mg/dL (9-20); Calcium 8.8 mg/dL (8.4-10.2); Carbon Dioxide 26 mmol/L (22-30); Chloride 105 mmol/L (98-107); Glucose 99 mg/dL (74-99); Non-African American GFR(CKD) 81 (>60 ml/min/1.73 sqM); Potassium 4.3 mmol/L (3.5-5.1); Sodium 134 mmol/L (137-145)
--- NOTE | 2024-02-11 08:06 | P.CONS ---
History of Present Illness - Reason for Consult Consult date: 02/10/24 Cellulitis Requesting physician: Jayla Hoffman - Chief Complaint Increasing swelling redness to the left leg x few days - History of Present Illness Patient is a 83-year-old male with a past medical history significant for osteoarthritis DVT atrial fibrillation previous history of right lower extremity cellulitis patient recently did have a ablation done for atrial fibrillation and mention he did have approached through bilateral groin after the procedure the patient did have significant pain and swelling and bruising to the left groin area apparently subsequently has been admitted to the hospital and did have ultrasound that was negative for any DVT and the patient has been treated with Eliquis patient now presenting back to the hospital concerning for increasing swelling redness to the left lower extremity that apparently has been getting worse over the last few days patient describing pain to the left leg mostly dull aching to throbbing moderate intensity without radiation currently to recommend open wound or any drainage patient denies high-grade fever vomiting chills and no fever have recorded on presentation to the hospital patient was n ot tachycardic hypotensive or hypoxic he did have a white count of 7.0 creatinine 0.86 electrolytes are normal liver enzymes normal patient initially did have venous Doppler that was suggestive of complex fluid collection to the left groin however subsequent lower extremity CTA did not show any pathology to the left groin finding on ultrasound may have been artifactual and intermittent significant PAD patient has been started on vancomycin concerning for cellulitis infectious disease was consulted for further management of antibiotic therapy Review of Systems Positive point and negatives has been mentioned in the HPI, complete review of systems was performed and all other systems are negative Past Medical History Past Medical History: Atrial Fibrillation, Deep Vein Thrombosis (DVT), Musculoskeletal Disorder, Osteoarthritis (OA), Prostate Disorder, Skin Disorder Additional Past Medical History / Comment(s): Hx cellulitis right leg, [facility] wound on ramos, uses silvadine, dvt in 1981 post op knee procedure History of Any Multi-Drug Resistant Organisms: None Reported Past Surgical History: Cardiac Ablation, Cardiac Valve Replacement, Joint Replacement, Orthopedic Surgery Additional Past Surgical History / Comment(s): Bilateral hip surgery, stan total knee replacement, cardiac ablation, mitral valve repair, COLONOSCOPY, BILATERAL CATARACTS REMOVED WITH LENS IMPLANTS, pain procedure. Past Anesthesia/Blood Transfusion Reactions: No Reported Reaction Additional Past Anesthesia/Blood Transfusion Reaction / Comm: as child had blood tx Past Psychological History: No Psychological Hx Reported Smoking Status: Former smoker Past Alcohol Use History: None Reported Additional Past Alcohol Use History / Comment(s): QUIT SMOKING 30 YEARS AGO. Past Drug Use History: None Reported - Past Family History Father Family Medical History: No Reported History Additional Family Medical History / Comment(s): Father was a heavy smoker and most of his health problems were related to smoking. Mother Additional Family Medical History / Comment(s): Had TB when she was young, at 97. Daughter(s) Family Medical History: Cancer Additional Family Medical History / Comment(s): Breast and liver cancer. Medications and Allergies Home Medications Medication Instructions Recorded Confirmed Type Finasteride [Proscar] 5 mg PO DAILY 03/05/17 02/09/24 History Aspirin 81 mg PO DAILY 11/20/18 02/09/24 History Apixaban [Eliquis] 5 mg PO BID #60 tab 11/29/21 02/09/24 Rx Mirabegron [Myrbetriq] 50 mg PO DAILY 01/19/22 02/09/24 History Vitc/E/Zinc/Copper/Lutein/Zeax 1 tab PO DAILY 09/05/23 02/09/24 History [Icaps Areds2 Tablet] Ammonium Lactate Lotion 1 applic TOPICAL DIRECTED 02/09/24 02/09/24 History [Lac-Hydrin 12% Lotion] Cholecalciferol (Vitamin D3) 50 mcg PO DAILY 02/09/24 02/09/24 History [Vitamin D3 (50 Mcg = 2000 Iu)] Furosemide [Lasix] 20 mg PO DAILY 02/09/24 02/09/24 History Metoprolol Tartrate [Lopressor] 50 mg PO BID 02/09/24 02/09/24 History Allergies Allergy/AdvReac Type Severity Reaction Status Date / Time verapamil Allergy Rash/Hives Verified 02/09/24 16:30 on face ciprofloxacin [From Cipro] AdvReac Severe LEG PAIN Verified 02/09/24 16:30 levofloxacin [From Levaquin] AdvReac leg pain Verified 02/09/24 16:30 Physical Exam Vitals: Vital Signs Temp Pulse Pulse Resp BP BP Pulse Ox 02/10/24 08:14 98 02/10/24 06:50 98.4 F 86 17 108/65 97 02/10/24 00:56 97.7 F 82 17 124/66 96 02/10/24 00:06 79 18 125/68 97 02/09/24 23:00 78 18 124/65 97 02/09/24 22:00 75 18 115/78 96 02/09/24 21:00 71 18 124/68 97 02/09/24 19:00 71 18 130/68 98 02/09/24 18:00 68 18 116/68 97 02/09/24 15:34 97.9 F 74 20 122/59 99 Intake and Output 02/09/24 02/10/24 02/10/24 22:59 06:59 14:59 Other: # Voids 3 Weight 106.594 kg 106.594 kg GENERAL DESCRIPTION: Elderly male up in the chair, no distress. No tachypnea or accessory muscle of respiration use. HEENT: Shows Pallor , no scleral icterus. Oral mucous membrane is dry. NECK: Trachea central, no thyromegaly. LUNGS: Unlabored breathing. Clear to auscultation anteriorly. No wheeze or crackle. HEART: S1, S2, regular rate and rhythm. No loud murmur ABDOMEN: Soft, no tenderness , guarding or rigidity, no organomegaly EXTREMITIES: Left lower extremity has some swelling mild redness and warm to touch SKIN: No rash, no masses palpable. NEUROLOGICAL: The patient is awake, alert, oriented x3, mood and affect normal. Results CBC & Chem 7: 02/09/24 16:37 02/11/24 02:36 Labs: Abnormal Lab Results - Last 24 Hours (Table) 02/09/24 02/09/24 Range/Units 16:37 16:37 RBC 2.99 L (4.30-5.90) m/uL Hgb 9.1 L (13.0-17.5) gm/dL Hct 27.8 L (39.0-53.0) % Lymphocytes # 0.7 L (1.0-4.8) k/uL Sodium 136 L (137-145) mmol/L BUN 27 H (9-20) mg/dL Assessment and Plan (1) Left leg cellulitis Current Visit: Yes Status: Acute Code(s): L03.116 - CELLULITIS OF LEFT LOWER LIMB SNOMED Code(s): 36158264622773359 Plan: 1patient presented to hospital with increasing swelling redness to the left lower extremity he did have a slight redness and warmth of the left leg concerning for possible cellulitis in this patient who recently did have ablation for atrial fibrillation and postprocedure did have significant swelling to the left groin possible hematoma the seem to be resolving as the CTA did not show any abnormality to the left groin. 2marked the area of the redness. 3keeping in mind significant PAD we will avoid compression at this point 4vancomycin pharmacy to dose target trough of 15 while watching kidney function and Vanco trough closely We will follow on clinical condition and cultures to further adjust medication if needed Thank you for this consultation we will follow the patient along with you Dictation was produced using [employer] dictation software. please excuse any grammatical, word or spelling errors. Time with Patient: Greater than 30
--- NOTE | 2024-02-11 08:35 | P.HPIM ---
History of Present Illness Chief Complaint: Continue with IV vancomycin, pharmacy to dose This is a pleasant 83 years old male with past medical history of multiple medical problems as below. Patient presents because of worsening left lower extremity redness swelling and tenderness suspicious for cellulitis. Patient states recently had ablation but his symptoms started on January 23 and gradually were getting worse. He denies any other specific complaint, no chest pain or dyspnea, no fever chills or GI/ signs or symptoms He denies smoking alcohol or illicit drugs Vitals are stable and patient is afebrile He has unremarkable labs including CBC, BMP, LFT, INR and troponin Only hemoglobin is 9.1 CT angio of the left lower extremity showing completely occluded right anterior tibial and posterior tibial and peroneal arteries with extensive soft tissue edema on the left side more than the right. EKG showing junctional rhythm at 68 Patient currently covered with IV vancomycin and his home dose of Eliquis and aspirin Review of Systems Review of systems CONSTITUTIONAL: No fever, no malaise, no fatigue. HEENT: No recent visual problems or hearing problems. Denied any sore throat. CARDIOVASCULAR: No orthopnea, PND, no palpitations, no syncope. PULMONARY: No shortness of breath, no cough, no hemoptysis. GASTROINTESTINAL: No diarrhea, no nausea, no vomiting, no abdominal pain. Normoactive bowel sounds. NEUROLOGICAL: No headaches, no weakness, no numbness. HEMATOLOGICAL: Denies any bleeding or petechiae. GENITOURINARY: Denies any burning micturition, frequency, or urgency. MUSCULOSKELETAL/RHEUMATOLOGICAL: Denies any joint pain, swelling, or any muscle pain. ENDOCRINE: Denies any polyuria or polydipsia. Past Medical History Past Medical History: Atrial Fibrillation, Deep Vein Thrombosis (DVT), Musculoskeletal Disorder, Osteoarthritis (OA), Prostate Disorder, Skin Disorder Additional Past Medical History / Comment(s): Hx cellulitis right leg, [facility] wound on ramos, uses silvadine, dvt in 1981 post op knee procedure History of Any Multi-Drug Resistant Organisms: None Reported Past Surgical History: Cardiac Ablation, Cardiac Valve Replacement, Joint Replacement, Orthopedic Surgery Additional Past Surgical History / Comment(s): Bilateral hip surgery, stan total knee replacement, cardiac ablation, mitral valve repair, COLONOSCOPY, BILATERAL CATARACTS REMOVED WITH LENS IMPLANTS, pain procedure. Past Anesthesia/Blood Transfusion Reactions: No Reported Reaction Additional Past Anesthesia/Blood Transfusion Reaction / Comment(s): as child had blood tx Past Psychological History: No Psychological Hx Reported Smoking Status: Former smoker Past Alcohol Use History: None Reported Additional Past Alcohol Use History / Comment(s): QUIT SMOKING 30 YEARS AGO. Past Drug Use History: None Reported - Past Family History Father Family Medical History: No Reported History Additional Family Medical History / Comment(s): Father was a heavy smoker and most of his health problems were related to smoking. Mother Additional Family Medical History / Comment(s): Had TB when she was young, at 97. Daughter(s) Family Medical History: Cancer Additional Family Medical History / Comment(s): Breast and liver cancer. Medications and Allergies Home Medications Medication Instructions Recorded Confirmed Type Finasteride [Proscar] 5 mg PO DAILY 03/05/17 02/09/24 History Aspirin 81 mg PO DAILY 11/20/18 02/09/24 History Apixaban [Eliquis] 5 mg PO BID #60 tab 11/29/21 02/09/24 Rx Mirabegron [Myrbetriq] 50 mg PO DAILY 01/19/22 02/09/24 History Vitc/E/Zinc/Copper/Lutein/Zeax 1 tab PO DAILY 09/05/23 02/09/24 History [Icaps Areds2 Tablet] Ammonium Lactate Lotion 1 applic TOPICAL DIRECTED 02/09/24 02/09/24 History [Lac-Hydrin 12% Lotion] Cholecalciferol (Vitamin D3) 50 mcg PO DAILY 02/09/24 02/09/24 History [Vitamin D3 (50 Mcg = 2000 Iu)] Furosemide [Lasix] 20 mg PO DAILY 02/09/24 02/09/24 History Metoprolol Tartrate [Lopressor] 50 mg PO BID 02/09/24 02/09/24 History Allergies Allergy/AdvReac Type Severity Reaction Status Date / Time verapamil Allergy Rash/Hives Verified 02/09/24 16:30 on face ciprofloxacin [From Cipro] AdvReac Severe LEG PAIN Verified 02/09/24 16:30 levofloxacin [From Levaquin] AdvReac leg pain Verified 02/09/24 16:30 Physical Exam Vitals: Vital Signs Temp Pulse Resp BP Pulse Ox 02/11/24 06:45 98.3 F 75 17 127/67 98 02/11/24 00:59 98.5 F 68 16 103/48 99 02/10/24 19:04 97.5 F L 73 17 113/63 98 02/10/24 15:00 98.3 F 72 16 107/70 96 Intake and Output 02/10/24 02/11/24 02/11/24 22:59 06:59 14:59 Intake Total 1060 Output Total 1250 Balance -190 Intake: Intake, IV Titration 100 Amount Cefepime 2 gm In Sodium 100 Chloride 0.9% 100 ml @ 200 mls/hr IVPB ONCE STA Rx#:[id number] Oral 960 Output: Urine 1250 Other: Voiding Method Toilet Urinal # Voids 5 GENERAL: The patient is alert and oriented x3, not in any acute distress. Well developed, well nourished. HEENT: Pupils are round and equally reacting to light. EOMI. No scleral icterus. No conjunctival pallor. Normocephalic, atraumatic. No pharyngeal erythema. No thyromegaly. CARDIOVASCULAR: S1 and S2 present. No murmurs, rubs, or gallops. PULMONARY: Chest is clear to auscultation, no wheezing , no crackles. ABDOMEN: Soft, nontender, nondistended, normoactive bowel sounds. No palpable organomegaly. MUSCULOSKELETAL: No joint swelling or deformity. EXTREMITIES: No cyanosis, clubbing, or pedal edema. -Left leg is swollen warm red and tender more than the right side NEUROLOGICAL: Gross neurological examination did not reveal any focal deficits. SKIN: No rashes. no petechiae. Results CBC & Chem 7: 02/09/24 16:37 02/11/24 02:36 Labs: Abnormal Lab Results - Last 24 Hours (Table) 02/11/24 Range/Units 02:36 Sodium 134 L (137-145) mmol/L BUN 25 H (9-20) mg/dL Thrombosis Risk Factor Assmnt - Choose All That Apply Any of the Below Risk Factors Present?: Yes Each Risk Factor Represents 3 Points: Age 75 years or older, History of DVT/PE Thrombosis Risk Factor Assessment Total Risk Factor Score: 6 Thrombosis Risk Factor Assessment Level: High Risk Assessment and Plan Assessment: Left lower extremity/leg cellulitis Peripheral artery disease with CTA showing completely occluded right anterior tibial, right posterior tibial and peroneal arteries Atrial fibrillation, rate controlled on Eliquis History of deep venous thrombosis on Eliquis Osteoarthritis Prostate disorder and disease Plan: Continue with IV vancomycin pharmacy to dose Antibiotic management as per ID team on the case Continue on Eliquis 5 mg Vascular surgery team consult Pain management Labs and medication were reviewed.. Continue same treatment. Continue with symptomatic treatment. Resume home medication. Monitor labs and vitals. DVT and GI prophylaxis. Further recommendations as per clinical course of the patient DVT prophylaxis: Eliquis GI Prophylaxis: Pepcid PT/OT: Pending Prognosis is guarded
[2024-02-11] MEDS: FAMOTIDINE 20 MG/2 ML VIAL IV SCH (09:20)
--- NOTE | 2024-02-11 10:14 | P.GSCN ---
History of Present Illness Consult date: 02/11/24 Reason for Consult: Lower extremity arterial disease and occlusion Requesting physician: Carson E Sheet History of present illness: This is a pleasant 83-year-old male who had presented to the emergency department 2 days ago with complaints of left lower extremity pain and swelling. He has a history of atrial fibrillation and underwent a cardiac ablation with access to bilateral groins on 01/24/2024. Following the procedure he states that he had significant pain in his left groin and lower extremity. He had an u ltrasound on 01/28/2024 showing a left hematoma without any evidence of pseudoaneurysm measuring 11.3 x 6.7 x 7.6 cm. He presented back to the emergency department with come concerns of the left lower extremity swelling, redness and pain. States that the pain in his groin has improved he had quite a bit of bruising that has improved as well. He had a venous duplex on 1220 showing a left groin complex hyperechoic fluid collection measuring 7.9 x 4.8 cm. No DVT bilaterally. Patient states he has chronic lower extremity swelling with discoloration secondary to previous varicosities status post varicose treatment years ago. He also states that he has bilateral numbness and tingling for last 20 years secondary to peripheral neuropathy. He denies any history of diabetes mellitus and was a previous smoker many years ago for short period. He had a CTA of the left lower extremity that reported patent left lower extremity arteries however there was findings of completely occluded right anterior tibial, posterior tibial and peroneal arteries with 0 vessel right lower extremity runoff. No significant flow visualized in the right dorsalis pedis and posterior tibial arteries in the right foot. Vascular surgery was consulted for arterial disease with occlusion. Patient denies any pain in his right lower extremity or foot. He denies any claudication with walking. Denies any previou s history of known peripheral arterial disease. Review of Systems A 14 point review systems was completed all pertinent positives and negatives as stated in the HPI. Past Medical History Past Medical History: Atrial Fibrillation, Deep Vein Thrombosis (DVT), Musculoskeletal Disorder, Osteoarthritis (OA), Prostate Disorder, Skin Disorder Additional Past Medical History / Comment(s): Hx cellulitis right leg, [facility] on ramos, uses silvadine, dvt in 1981 post op knee procedure History of Any Multi-Drug Resistant Organisms: None Reported Past Surgical History: Cardiac Ablation, Cardiac Valve Replacement, Joint Replacement, Orthopedic Surgery Additional Past Surgical History / Comment(s): Bilateral hip surgery, stan total knee replacement, cardiac ablation, mitral valve repair, COLONOSCOPY, BILATERAL CATARACTS REMOVED WITH LENS IMPLANTS, pain procedure. Past Anesthesia/Blood Transfusion Reactions: No Reported Reaction Additional Past Anesthesia/Blood Transfusion Reaction / Comm: as child had blood tx Past Psychological History: No Psychological Hx Reported Smoking Status: Former smoker Past Alcohol Use History: None Reported Additional Past Alcohol Use History / Comment(s): QUIT SMOKING 30 YEARS AGO. Past Drug Use History: None Reported - Past Family History Father Family Medical History: No Reported History Additional Family Medical History / Comment(s): Father was a heavy smoker and most of his health problems were related to smoking. Mother Additional Family Medical History / Comment(s): Had TB when she was young, at 97. Daughter(s) Family Medical History: Cancer Additional Family Medical History / Comment(s): Breast and liver cancer. Medications and Allergies Home Medications Medication Instructions Recorded Confirmed Type Finasteride [Proscar] 5 mg PO DAILY 03/05/17 02/09/24 History Aspirin 81 mg PO DAILY 11/20/18 02/09/24 History Apixaban [Eliquis] 5 mg PO BID #60 tab 11/29/21 02/09/24 Rx Mirabegron [Myrbetriq] 50 mg PO DAILY 01/19/22 02/09/24 History Vitc/E/Zinc/Copper/Lutein/Zeax 1 tab PO DAILY 09/05/23 02/09/24 History [Icaps Areds2 Tablet] Ammonium Lactate Lotion 1 applic TOPICAL DIRECTED 02/09/24 02/09/24 History [Lac-Hydrin 12% Lotion] Cholecalciferol (Vitamin D3) 50 mcg PO DAILY 02/09/24 02/09/24 History [Vitamin D3 (50 Mcg = 2000 Iu)] Furosemide [Lasix] 20 mg PO DAILY 02/09/24 02/09/24 History Metoprolol Tartrate [Lopressor] 50 mg PO BID 02/09/24 02/09/24 History Allergies Allergy/AdvReac Type Severity Reaction Status Date / Time verapamil Allergy Rash/Hives Verified 02/09/24 16:30 on face ciprofloxacin [From Cipro] AdvReac Severe LEG PAIN Verified 02/09/24 16:30 levofloxacin [From Levaquin] AdvReac leg pain Verified 02/09/24 16:30 Surgical - Exam Vital Signs Temp Pulse Resp BP Pulse Ox 97.9 F 74 20 122/59 99 02/09/24 15:34 02/09/24 15:34 02/09/24 15:34 02/09/24 15:34 02/09/24 15:34 General appearance: The patient is alert, oriented, appears in no acute distress. HET: Head is normocephalic and atraumatic. Pupils are equal and reactive. Neck: Supple. Heart: Regular. Lungs: Equal expansion, normal respiratory effort. Abdomen: Soft, nontender, nondistended. Extremities: Palpable bilateral femoral pulses. No hematoma appreciated in left groin without any significant ecchymosis. Bilateral lower extremity pitting edema, left greater than right. Discoloration bilateral lower extremities around ankles to mid ramos/calf consistent with venous stasis/dermatitis, left side greater than right also marked. Bilateral lower extremities warm to the touch with good capillary refill. Sensorimotor intact. Bilateral popliteal, posterior tibial and dorsalis pedis Doppler signals. Neurological: No focal deficits. Strength and sensation are grossly intact. Results - Labs 02/09/24 16:37 02/11/24 02:36 Abnormal Lab Results - Last 24 Hours (Table) 02/11/24 Range/Units 02:36 Sodium 134 L (137-145) mmol/L BUN 25 H (9-20) mg/dL Diabetes panel 02/11/24 Range/Units 02:36 Sodium 134 L (137-145) mmol/L Potassium 4.3 (3.5-5.1) mmol/L Chloride 105 (98-107) mmol/L Carbon Dioxide 26 (22-30) mmol/L BUN 25 H (9-20) mg/dL Creatinine 0.87 (0.66-1.25) mg/dL Glucose 99 (74-99) mg/dL Calcium 8.8 (8.4-10.2) mg/dL Calcium panel 02/11/24 Range/Units 02:36 Calcium 8.8 (8.4-10.2) mg/dL Pituitary panel 02/11/24 Range/Units 02:36 Sodium 134 L (137-145) mmol/L Potassium 4.3 (3.5-5.1) mmol/L Chloride 105 (98-107) mmol/L Carbon Dioxide 26 (22-30) mmol/L BUN 25 H (9-20) mg/dL Creatinine 0.87 (0.66-1.25) mg/dL Glucose 99 (74-99) mg/dL Calcium 8.8 (8.4-10.2) mg/dL Adrenal panel 02/11/24 Range/Units 02:36 Sodium 134 L (137-145) mmol/L Potassium 4.3 (3.5-5.1) mmol/L Chloride 105 (98-107) mmol/L Carbon Dioxide 26 (22-30) mmol/L BUN 25 H (9-20) mg/dL Creatinine 0.87 (0.66-1.25) mg/dL Glucose 99 (74-99) mg/dL Calcium 8.8 (8.4-10.2) mg/dL - Imaging Comments: Left lower extremity CTA reports no CT evidence of pathology in the left groin region of interest. Findings on ultrasound may be artifactual. Completely occluded right anterior tibial, posterior tibial and peroneal arteries with 0 vessel right lower extremity runoff. No significant flow visualized in the right dorsalis pedis and posterior tibial arteries in the right foot. Three- vessel left lower extremity runoff. Extensive bilateral lower extremity subcutaneous edema, left greater than right. Numerous left-sided venous varicosities. Venous duplex study reports no ultrasound evidence for deep venous thrombosis. Indeterminant complex hyperechoic region in the left groin measuring 7.9 x 4.8 cm, possibly reflecting a fluid collection/abscess, hematoma or large necrotic lymph node. Recommend clinical correlation. Assessment and Plan Assessment: 1. CT findings of right anterior tibial, posterior tibial and peritoneal artery occlusion, with no reported right lower extremity pain. Likely all chronic. 2. Left lower extremity swelling 3. Left groin 7.9 x 4.8 cm fluid collection likely secondary to hematoma from previous access site for cardiac ablation, improving from previous ultrasound 4. Atrial fibrillation with recent cardiac ablation done on 01/24/2024 Plan: 1. Recommend bilateral lower extremity compression stockings 2. There is no indication for any acute vascular surgical intervention 3. Recommend outpatient follow-up with vascular surgery in 2 to 4 weeks 4. Elevate lower extremities 5. Continue rest of medical management per primary medical team Thank you for this consultation, we will sign off at this time. The impression and plan of care has been dictated as directed. Dr. Moffett I performed a history and examination of this patient, discussed the same with the dictator. I agree with the dictator's note ,documented as a scribe. Any additional findings or plans will be noted.
[2024-02-12] MEDS: VANCOMYCIN TROUGH DUE 1 EACH MISC MISCELLANE ONE (07:17)
--- NOTE | 2024-02-12 14:21 | P.PN ---
Subjective Progress Note Date: 02/11/24 Principal diagnosis: Reason for follow-up is left leg cellulitis Patient is a 83-year-old male with a past medical history significant for osteoarthritis DVT atrial fibrillation previous history of right lower extremity cellulitis patient recently did have a ablation done for atrial fibrillation and mention he did have approached through bilateral groin after the procedure the patient did have significant pain and swelling and bruising to the left groin area and noted him to the hospital with increasing swelling and redness to left lower extremity concerning for cellulitis ultrasound was suspicious for abnormality of the left groin however CT thought it was mostly artifactual. On today's evaluation that is 02/11/2024, patient has been afebrile, patient is breathing comfortably and is currently on room air, patient denies having any significant cough no chest pain, patient denies nausea vomiting or diarrhea and no abdominal pain, patient left leg swelling redness has slightly decreased Patient did have a creatinine of 0.7 no CBC was done today Objective - Vital Signs Vital signs: Vital Signs Temp 98.3 F 02/11/24 06:45 Pulse 75 02/11/24 06:45 Resp 17 02/11/24 06:45 BP 127/67 02/11/24 06:45 Pulse Ox 98 02/11/24 06:45 FiO2 Intake & Output 02/10/24 02/11/24 02/11/24 18:59 06:59 18:59 Intake Total 1060 Output Total 1250 Balance -190 Intake: Intake, IV Titration 100 Amount Cefepime 2 gm In Sodium 100 Chloride 0.9% 100 ml @ 200 mls/hr IVPB ONCE STA Rx#:[id number] Oral 960 Output: Urine 1250 Other: Voiding Method Toilet Urinal # Voids 5 - Exam GENERAL DESCRIPTION: An elderly male up in the chair in no distress RESPIRATORY SYSTEM: Unlabored breathing , decreased breath sounds at bases HEART: S1 S2 regular rate and rhythm , ABDOMEN: Soft , no tenderness EXTREMITIES: Left leg swelling redness slightly decreased - Labs CBC & Chem 7: 02/09/24 16:37 02/11/24 02:36 Labs: Abnormal Lab Results - Last 24 Hours (Table) 02/11/24 Range/Units 02:36 Sodium 134 L (137-145) mmol/L BUN 25 H (9-20) mg/dL Assessment and Plan (1) Left leg cellulitis Current Visit: Yes Status: Acute Code(s): L03.116 - CELLULITIS OF LEFT LOWER LIMB SNOMED Code(s): 39664303638886479 Plan: 1patient presented to hospital with increasing swelling redness to the left lower extremity he did have a slight redness and warmth of the left leg concerning for possible cellulitis in this patient who recently did have ablation for atrial fibrillation and postprocedure did have significant swelling to the left groin possible hematoma the seem to be resolving as the CTA did not show any abnormality to the left groin. 2patient seem to have shown some clinical improvement continuevancomycin pharmacy to dose target trough of 15 while watching kidney function and Vanco trough closely Dictation was produced using Webspy dictation software. please excuse any grammatical, word or spelling errors. Time with Patient: Less than 30
--- NOTE | 2024-02-12 14:22 | P.PN ---
Subjective Progress Note Date: 02/12/24 Principal diagnosis: Reason for follow-up is left leg cellulitis Patient is a 83-year-old male with a past medical history significant for osteoarthritis DVT atrial fibrillation previous history of right lower extremity cellulitis patient recently did have a ablation done for atrial fibrillation and mention he did have approached through bilateral groin after the procedure the patient did have significant pain and swelling and bruising to the left groin area and noted him to the hospital with increasing swelling and redness to left lower extremity concerning for cellulitis ultrasound was suspicious for abnormality of the left groin however CT thought it was mostly artifactual. On today's evaluation that is 02/12/2024, the patient continues to be afebrile the patient is breathing comfortably he denies having any chest pain or shortness of breath or cough no nausea vomiting still complaining of some tightness to the left leg however overall swelling has decreased as well as redness did not have an open wound or any drainage. Patient did have a vancomycin trough of 20 Objective - Vital Signs Vital signs: Vital Signs Temp 97.8 F 02/12/24 07:50 Pulse 79 02/12/24 07:50 Resp 18 02/12/24 07:50 BP 135/67 02/12/24 07:50 Pulse Ox 98 02/12/24 07:50 FiO2 Intake & Output 02/11/24 02/12/24 02/12/24 18:59 06:59 18:59 Output Total 650 Balance -650 Output: Urine 650 Other: Voiding Method Urinal # Voids 1 2 - Exam GENERAL DESCRIPTION: An elderly male up in the chair in no distress RESPIRATORY SYSTEM: Unlabored breathing , decreased breath sounds at bases HEART: S1 S2 regular rate and rhythm , ABDOMEN: Soft , no tenderness EXTREMITIES: Left leg swelling redness slightly decreased - Labs CBC & Chem 7: 02/09/24 16:37 02/11/24 02:36 Assessment and Plan (1) Left leg cellulitis Current Visit: Yes Status: Acute Code(s): L03.116 - CELLULITIS OF LEFT LOWER LIMB SNOMED Code(s): 63503345822768759 Plan: 1patient presented to hospital with increasing swelling redness to the left lower extremity he did have a slight redness and warmth of the left leg concerning for possible cellulitis in this patient who recently did have ablation for atrial fibrillation and postprocedure did have significant swelling to the left groin possible hematoma the seem to be resolving as the CTA did not show any abnormality to the left groin. 2patient seem to have shown some clinical improvement however the patient mentioned not ready to go home we will continuevancomycin pharmacy to dose target trough of 15 for another 24 hours and finishing therapy with oral Zyvox prescription sent to the pharmacy Dictation was produced using [email or web address] dictation software. please excuse any grammatical, word or spelling errors. Time with Patient: Less than 30
--- NOTE | 2024-02-12 16:51 | P.PN ---
Subjective This is a pleasant 83 years old male with past medical history of multiple medical problems as below. Patient presents because of worsening left lower extremity redness swelling and tenderness suspicious for cellulitis. Patient states recently had ablation but his symptoms started on January 23 and gradually were getting worse. He denies any other specific complaint, no chest pain or dyspnea, no fever chills or GI/ signs or symptoms He denies smoking alcohol or illicit drugs Vitals are stable and patient is afebrile He has unremarkable labs including CBC, BMP, LFT, INR and troponin Only hemoglobin is 9.1 CT angio of the left lower extremity showing completely occluded right anterior tibial and posterior tibial and peroneal arteries with extensive soft tissue edema on the left side more than the right. EKG showing junctional rhythm at 68 Patient currently covered with IV vancomycin and his home dose of Eliquis and aspirin 02/11 Patient continued to have left leg cellulitis although it is improved significantly however still not completely resolved . Case discussed with the ID team and may consider switching IV antibiotics to oral tomorrow if he keeps improving however is not ready for this today Possible discharge in 24 to 48 hours Vascular surgery team found the patient have chronic arterial disease rather than acute and recommend outpatient follow-up Objective - Vital Signs Vital signs: Vital Signs Temp 97.8 F 02/12/24 07:50 Pulse 79 02/12/24 07:50 Resp 18 02/12/24 07:50 BP 135/67 02/12/24 07:50 Pulse Ox 98 02/12/24 07:50 FiO2 Intake & Output 02/11/24 02/12/24 02/12/24 18:59 06:59 18:59 Output Total 650 Balance -650 Output: Urine 650 Other: Voiding Method Urinal # Voids 1 2 - Exam GENERAL: The patient is alert and oriented x3, not in any acute distress. Well developed, well nourished. HEENT: Pupils are round and equally reacting to light. EOMI. No scleral icterus. No conjunctival pallor. Normocephalic, atraumatic. No pharyngeal erythema. No thyromegaly. CARDIOVASCULAR: S1 and S2 present. No murmurs, rubs, or gallops. PULMONARY: Chest is clear to auscultation, no wheezing , no crackles. ABDOMEN: Soft, nontender, nondistended, normoactive bowel sounds. No palpable organomegaly. MUSCULOSKELETAL: No joint swelling or deformity. -EXTREMITIES: No cyanosis, clubbing, or pedal edema. Improving left leg cellulitis NEUROLOGICAL: Gross neurological examination did not reveal any focal deficits. SKIN: No rashes. no petechiae. - Labs CBC & Chem 7: 02/09/24 16:37 02/11/24 02:36 Assessment and Plan Assessment: Left lower extremity/leg cellulitis Peripheral artery disease with CTA showing completely occluded right anterior tibial, right posterior tibial and peroneal arteries Atrial fibrillation, rate controlled on Eliquis History of deep venous thrombosis on Eliquis Osteoarthritis Prostate disorder and disease Plan: Continue with IV vancomycin pharmacy to dose Antibiotic management as per ID team on the case Continue on Eliquis 5 mg Vascular surgery team consult Pain management Labs and medication were reviewed.. Continue same treatment. Continue with symptomatic treatment. Resume home medication. Monitor labs and vitals. DVT and GI prophylaxis. Further recommendations as per clinical course of the patient DVT prophylaxis: Eliquis GI Prophylaxis: Pepcid PT/OT: Pending Prognosis is guarded
[2024-02-12] MEDS: VANCOMYCIN 1,500 MG in SODIUM CHLORIDE 0.9% 500 ML 500 ML IVPB SCH (22:08)
[2024-02-13 09:28] LABS: Basophils # (A) 0.09 X 10*3/uL (0.00-0.10); Basophils % (A) 1.2 %; Eosinophils % (A) 2.6 %; HCT 28.6 % (39.6-50.0); HGB 9.2 g/dL (13.0-17.0); Lymphocytes # (A) 1.23 X 10*3/uL (0.90-5.00); Lymphocytes % (A) 15.9 %; MCH 30.5 pg (27.0-32.0); MCHC 32.2 g/dL (32.0-37.0); MCV 94.7 FL (80.0-97.0); Mean Platelet Volume 8.6 FL (9.5-12.2); Monocytes % (A) 10.3 %; NRBC Per 100 WBC 0 X 10*3/uL (0.00-0.01); Neutrophils # (A) 5.34 X 10*3/uL (1.80-7.70); Neutrophils % (A) 69.1 %; Platelet Count 211 X 10*3/uL (140-440); RBC 3.02 X 10*6/uL (4.40-5.60); RDW 14.4 % (11.5-14.5); WBC 7.73 X 10*3/uL (4.50-10.00)
[2024-02-13 09:33] LABS: BUN/Creat Ratio 21.56 Ratio (12.00-20.00); Blood Urea Nitrogen 19.4 mg/dL (9.0-27.0); Carbon Dioxide 23.5 mmol/L (21.6-31.8); Chloride 103 mmol/L (96-109); Glucose 96 mg/dL (70-110); Potassium 4.5 mmol/L (3.5-5.5); Sodium 138 mmol/L (135-145)
[2024-02-13 09:51] VITALS: RESP 16; TEMP 98.1
[2024-02-13 16:25] VITALS: BP 112/75; PULSE 69
[2024-02-13] MEDS: LINEZOLID 600 MG TAB PO ONE (17:51)
--- NOTE | 2024-02-13 20:47 | P.PN ---
Subjective Progress Note Date: 02/13/24 Principal diagnosis: Reason for follow-up is left leg cellulitis Patient is a 83-year-old male with a past medical history significant for osteoarthritis DVT atrial fibrillation previous history of right lower extremity cellulitis patient recently did have a ablation done for atrial fibrillation and mention he did have approached through bilateral groin after the procedure the patient did have significant pain and swelling and bruising to the left groin area and noted him to the hospital with increasing swelling and redness to left lower extremity concerning for cellulitis ultrasound was suspicious for abnormality of the left groin however CT thought it was mostly artifactual. On today's evaluation that is 02/13/2024,the patient denies any fever or any chills, patient is breathing comfortably on room air, the patient denies chest pain shortness of breath and no significant cough, patient denies abdominal pain, no nausea vomiting or diarrhea. Patient pain and swelling to the left leg decreased in intensity. Patient white count 7.73 creatinine 0.9 Objective - Vital Signs Vital signs: Vital Signs Temp 98.1 F 02/13/24 08:00 Pulse 76 02/13/24 08:00 Resp 16 02/13/24 08:00 BP 123/71 02/13/24 08:00 Pulse Ox 100 02/13/24 08:00 FiO2 Intake & Output 02/12/24 02/13/24 02/13/24 18:59 06:59 18:59 Intake Total 980 Output Total 650 Balance -650 980 Intake: IV 500 Vancomycin 1,500 mg In 500 Sodium Chloride 0.9% 500 ml 500 ml @ 167 mls/hr IVPB Q12H [facility] Rx#: [id number] Oral 480 Output: Urine 650 Other: Voiding Method Urinal Urinal # Voids 8 4 # Bowel Movements 1 1 - Exam GENERAL DESCRIPTION: An elderly male up in the chair in no distress RESPIRATORY SYSTEM: Unlabored breathing , decreased breath sounds at bases HEART: S1 S2 regular rate and rhythm , ABDOMEN: Soft , no tenderness EXTREMITIES: Left leg swelling redness slightly decreased - Labs CBC & Chem 7: 02/13/24 04:15 02/13/24 04:15 Labs: Abnormal Lab Results - Last 24 Hours (Table) 02/13/24 02/13/24 Range/Units 04:15 04:15 RBC 3.02 L (4.40-5.60) X 10*6/uL Hgb 9.2 L (13.0-17.0) g/dL Hct 28.6 L (39.6-50.0) % MPV 8.6 L (9.5-12.2) FL Immature Gran # 0.07 H (0.00-0.04) X 10*3/uL BUN/Creatinine Ratio 21.56 H (12.00-20.00) Ratio Assessment and Plan (1) Left leg cellulitis Status: Acute Code(s): L03.116 - CELLULITIS OF LEFT LOWER LIMB SNOMED Code(s): 01034968217753646 Plan: 1patient presented to hospital with increasing swelling redness to the left lower extremity he did have a slight redness and warmth of the left leg concerning for possible cellulitis in this patient who recently did have ab lation for atrial fibrillation and postprocedure did have significant swelling to the left groin possible hematoma the seem to be resolving as the CTA did not show any abnormality to the left groin. 2patient did have clinical improvement on IV vancomycin plan to finish therapy with oral Zyvox and close outpatient follow-up prescription already sent Dictation was produced using Alo[employer]ation software. please excuse any grammatical, word or spelling errors. Time with Patient: Less than 30
--- NOTE | 2024-02-13 23:12 | P.DS ---
Providers Date of admission: 02/09/24 22:21 Attending physician: Natalie Hinson Consults: 02/09/24 22:21 Consult Physician Routine Consulting Provider: Anette Perea Consult Reason/Comments: Cellulitis Do you want consulting provider notified?: Yes, Notify in am Primary care physician: Radha [facility] Course: Diagnoses -Left lower extremity/leg cellulitis -Peripheral artery disease with CTA showing completely occluded right anterior tibial, right posterior tibial and peroneal arteries. Cleared by vascular surgery for discharge with compression stockings ordered for him -Atrial fibrillation, rate controlled on Eliquis -History of deep venous thrombosis on Eliquis -Osteoarthritis -Prostate disorder and disease Hospital course: This is a pleasant 83 years old male with past medical history of multiple medical problems as below. Patient presents because of left lower extremity cellulitis, patient was started on IV vancomycin, infectious disease team are following closely. Patient showed significant and drastic improvement on IV vancomycin. As such patient was switched his antibiotics to Zyvox by ID team and cleared her for discharge. Patient denies any other new complaint and he agrees to plan hide today. Patient was cleared for discharge by ID and Vascular surgery team signed off the case with recommendation for outpatient follow-up as well in 2 to 4 weeks Problems and management plan were discussed with the patient and he verbalized understanding and acceptance Patient was found stable and can be discharged home in guarded prognosis however he needs follow-up as an outpatient. Patient was instructed to follow up with PCP Dr. Delgado within one week and patient agrees Patient was instructed to follow-up with Dr. Dyer in [address] Moffett from vascular surgery in 2 to 4 weeks and 8 weeks Physical exam Gen: patient is a AAOx3, no distress CVS: S1-S2, RRR, no murmur Lungs: B/L CTA, no wheezing Abdomen: soft, no distention, no tenderness, positive bowel sounds Extremity: no leg edema or induration Time spent more than 35 minutes Patient Condition at Discharge: Good Plan - Discharge Summary New Discharge Prescriptions: New Linezolid [Zyvox] 600 mg PO Q12H #14 tab Continue Finasteride [Proscar] 5 mg PO DAILY Aspirin 81 mg PO DAILY Apixaban [Eliquis] 5 mg PO BID #60 tab Vitc/E/Zinc/Copper/Lutein/Zeax [Icaps Areds2 Tablet] 1 tab PO DAILY Mirabegron [Myrbetriq] 50 mg PO DAILY Metoprolol Tartrate [Lopressor] 50 mg PO BID Furosemide [Lasix] 20 mg PO DAILY Ammonium Lactate Lotion [Lac-Hydrin 12% Lotion] 1 applic TOPICAL DIRECTED Cholecalciferol (Vitamin D3) [Vitamin D3 (50 Mcg = 2000 Iu)] 50 mcg PO DAILY Discharge Medication List Finasteride [Proscar] 5 mg PO DAILY 03/05/17 [History] Aspirin 81 mg PO DAILY 11/20/18 [History] Apixaban [Eliquis] 5 mg PO BID #60 tab 11/29/21 [Rx] Mirabegron [Myrbetriq] 50 mg PO DAILY 01/19/22 [History] Vitc/E/Zinc/Copper/Lutein/Zeax [Icaps Areds2 Tablet] 1 tab PO DAILY 09/05/23 [History] Ammonium Lactate Lotion [Lac-Hydrin 12% Lotion] 1 applic TOPICAL DIRECTED 02/09/24 [History] Cholecalciferol (Vitamin D3) [Vitamin D3 (50 Mcg = 2000 Iu)] 50 mcg PO DAILY 02/09/24 [History] Furosemide [Lasix] 20 mg PO DAILY 02/09/24 [History] Metoprolol Tartrate [Lopressor] 50 mg PO BID 02/09/24 [History] Linezolid [Zyvox] 600 mg PO Q12H #14 tab 02/12/24 [Rx] Follow up Appointment(s)/Referral(s): Radha Delgado DO [Primary Care Provider] - 1-2 days Anette Perea MD [STAFF PHYSICIAN] - 1 Week Patient Instructions/Handouts: Cellulitis (ED) Activity/Diet/Wound Care/Special Instructions: Heart healthy diet Activity is restricted till you see your doctor Discharge Disposition: HOME SELF-CARE
== END 2024-02-13 19:00 | disposition home or self-care (01) ==
LOC: EC 15:31 → UNDOADMOB 22:21 → INTOOBSV 22:21 → 4SSUR 22:21 → OBSVTOIN 22:21 → 4SSUR 23:46 → UNDOADMOB 02-12 13:30 → OBSVTOIN 02-12 13:30 → INTOOBSV 02-12 13:30 → 4SSUR 02-12 13:30 → UNDODISOB 02-13 19:00
PROVIDERS: ADMIT Internal Medicine; ATTEND Internal Medicine
DX: L03.116 Cellulitis of left lower limb (principal); N28.1 Cyst of kidney, acquired; I48.91 Unspecified atrial fibrillation; M19.90 Unspecified osteoarthritis, unspecified site; I73.9 Peripheral vascular disease, unspecified; Z86.718 Personal history of other venous thrombosis and embolism; Z87.891 Personal history of nicotine dependence; Z95.4 Presence of other heart-valve replacement; Z79.01 Long term (current) use of anticoagulants; Z79.82 Long term (current) use of aspirin; Z79.899 Other long term (current) drug therapy; Z88.1 Allergy status to other antibiotic agents
CPT/HCPCS: 96376 ×3; 96365 ×2; 96366 ×5; 96375; 96367; 99285; 36415; 94760; 93005; 97161; 97166; 83880; 80053; 80048 ×2; 82565; 83605; 83735; 84484; 85025 ×2; 80202; 85610; 85730; 93971; 73706; G0378 ×5; S0138 ×4; J3370 ×5; J0692; J3490 ×3; Q9967

== ENCOUNTER 2024-03-01 13:22 | Inpatient (IN) | payer MEDICARE ==
--- NOTE | 2024-03-01 14:02 | ED ---
General Adult HPI - General Chief complaint: Arrhythmia/Palpitations Stated complaint: Irreg. heart rate Time Seen by Provider: 03/01/24 13:45 Source: patient, RN notes reviewed, old records reviewed Mode of arrival: wheelchair Limitations: no limitations - History of Present Illness Initial comments: This is an 83-year-old male who presents to the emergency department stating that he has a history of A-fib but he is under control with metoprolol and is on a blood thinner. Patient comes in today because he felt his heart racing and was 119 beats a minute and felt slightly weak when that occurred. Patient states currently he feels completely at his baseline he has no palpitation. Patient denies any chest pain difficulty breathing shortness of breath. Patient has any fever chills or cough. Patient has abdominal pain patient has any nausea vomiting diarrhea. Patient states it does not seem to occur when he is at rest. - Related Data Home Medications Medication Instructions Recorded Confirmed Finasteride [Proscar] 5 mg PO DAILY 03/05/17 03/01/24 Aspirin 81 mg PO DAILY 11/20/18 03/01/24 Mirabegron [Myrbetriq] 50 mg PO DAILY 01/19/22 03/01/24 Vitc/E/Zinc/Copper/Lutein/Zeax 1 tab PO DAILY 09/05/23 03/01/24 [Icaps Areds2 Tablet] Ammonium Lactate Lotion 1 applic TOPICAL DAILY 02/09/24 03/01/24 [Lac-Hydrin 12% Lotion] Cholecalciferol (Vitamin D3) 50 mcg PO DAILY 02/09/24 03/01/24 [Vitamin D3 (50 Mcg = 2000 Iu)] Metoprolol Tartrate [Lopressor] 50 mg PO BID 02/09/24 03/01/24 Nystatin 100,000 Unit/gm Powd 1 applic TOPICAL DIRECTED 03/01/24 03/01/24 [Mycostatin Powder] Previous Rx's Medication Instructions Recorded Apixaban [Eliquis] 5 mg PO BID #60 tab 11/29/21 Allergies Allergy/AdvReac Type Severity Reaction Status Date / Time verapamil Allergy Rash/Hives Verified 03/01/24 13:25 on face ciprofloxacin [From Cipro] AdvReac Severe LEG PAIN Verified 03/01/24 13:25 levofloxacin [From Levaquin] AdvReac leg pain Verified 03/01/24 13:25 Review of Systems ROS Statement: Those systems with pertinent positive or pertinent negative responses have been documented in the HPI. ROS Other: All systems not noted in ROS Statement are negative. Past Medical History Past Medical History: Atrial Fibrillation, Deep Vein Thrombosis (DVT), Musculoskeletal Disorder, Osteoarthritis (OA), Prostate Disorder, Skin Disorder Additional Past Medical History / Comment(s): Hx cellulitis right leg, [facility] lower wound on ramos, uses silvadine, dvt in 1981 post op knee procedure History of Any Multi-Drug Resistant Organisms: None Reported Past Surgical History: Cardiac Ablation, Cardiac Valve Replacement, Joint Replacement, Orthopedic Surgery Additional Past Surgical History / Comment(s): Bilateral hip surgery, stan total knee replacement, cardiac ablation, mitral valve repair, COLONOSCOPY, BILATERAL CATARACTS REMOVED WITH LENS IMPLANTS, pain procedure. Past Anesthesia/Blood Transfusion Reactions: No Reported Reaction Additional Past Anesthesia/Blood Transfusion Reaction / Comment(s): as child had blood tx Past Psychological History: No Psychological Hx Reported Smoking Status: Former smoker Past Alcohol Use History: None Reported Past Drug Use History: None Reported - Past Family History Father Family Medical History: No Reported History Additional Family Medical History / Comment(s): Father was a heavy smoker and most of his health problems were related to smoking. Mother Additional Family Medical History / Comment(s): Had TB when she was young, at 97. Daughter(s) Family Medical History: Cancer Additional Family Medical History / Comment(s): Breast and liver cancer. General Exam - General Exam Comments Initial Comments: GENERAL: Patient is well-developed and well-nourished. Patient is nontoxic and well- hydrated and is in mild distress. ENT: Neck is soft and supple. No significant lymphadenopathy is noted. Oropharynx is clear. Moist mucous membranes. Neck has full range of motion without eliciting any pain. EYES: The sclera were anicteric and conjunctiva were pink and moist. Extraocular movements were intact and pupils were equal round and reactive to light. Eyelids were unremarkable. PULMONARY: Unlabored respirations. Good breath sounds bilaterally. No audible rales rhonchi or wheezing was noted. CARDIOVASCULAR: There is a regular rate and rhythm without any murmurs gallops or rubs. ABDOMEN: Soft and nontender with normal bowel sounds. SKIN: Skin is clear with no lesions or rashes and otherwise unremarkable. NEUROLOGIC: Patient is alert and oriented x3. Cranial nerves II through XII are grossly intact. Motor and sensory are also intact. Normal speech, volume and content. Symmetrical smile. MUSCULOSKELETAL: Normal extremities with adequate strength and full range of motion. LYMPHATICS: No significant lymphadenopathy is noted PSYCHIATRIC: Normal psychiatric evaluation. Limitations: no limitations Course Vital Signs 03/01/24 03/01/24 03/01/24 13:26 14:58 15:05 Temperature 97.3 F L Pulse Rate 77 69 86 Respiratory 20 Rate Blood Pressure 97/54 106/57 O2 Sat by Pulse 97 97 Oximetry 03/01/24 03/01/24 03/01/24 15:08 17:07 18:30 Temperature Pulse Rate 79 69 71 Respiratory 17 18 Rate Blood Pressure 104/54 107/58 104/56 O2 Sat by Pulse 97 98 96 Oximetry 03/01/24 20:44 Temperature Pulse Rate 73 Respiratory 18 Rate Blood Pressure 129/72 O2 Sat by Pulse 97 Oximetry Medical Decision Making - Medical Decision Making EKG is interpreted by myself but EKG shows a sinus rhythm at 68 bpm HI was 135 QRS is 150 QT interval is 414 QTc is 431. Patient's EKG shows no ST segment elevation patient does have a right bundle branch block Was pt. sent in by a medical professional or institution ([employer], CONSUMER RELATIONS COMPLAINT CLERK, urgent care, hospital, or usp...) When possible be specific @ -[No] Did you speak to anyone other than the patient for history (EMS, parent, family, police, friend...)? What history was obtained from this source @ -[No] Did you review nursing and triage notes (agree or disagree)? Why? @ -[I reviewed and agree with nursing and triage notes] Were old charts reviewed (outside hosp., previous admission, EMS record, old EKG, old radiological studies, urgent care reports/EKG's, usp records)? Report findings @ -[No old charts were reviewed] Differential Diagnosis? @ -Differential Palpitations Ventricular arrhythmias, atrial arrhythmias, myocardial infarction, anemia, thyrotoxicosis, electrolyte imbalance, hypokalemia, pulmonary embolism, pulmonary disease, drugs, alcohol, anxiety, stress.... This is not meant to be an all-inclusive list. EKG interpreted by me (3pts min.). @ -[As above] X-rays interpreted by me (1pt min.). @ -Chest x-ray shows no acute abnormality CT interpreted by me (1pt min.). @ -[None done] U/S interpreted by me (1pt. min.). @ -[None done] What testing was considered but not performed or refused? (CT, X-rays, U/S, labs)? Why? @ -[None] What meds were considered but not given or refused? Why? @ -[None] Did you discuss the management of the patient with other professionals (professionals i.e. , PA, CONSUMER RELATIONS COMPLAINT CLERK, lab, RT, psych nurse, social services specialist, fender mechanic apprentice, teacher, guest services officer, employment case manager)? Give summary @ -[No] Was smoking cessation discussed for >3mins.? @ -[No] Was critical care preformed (if so, how long)? @ -[No] Were there social determinants of health that impacted care today? How? (Homelessness, low income, unemployed, alcoholism, drug addiction, transportation, low edu. Level, literacy, decrease access to med. care, nursing home, rehab)? @ -[No] Was there de-escalation of care discussed even if they declined (Discuss DNR or withdrawal of care, Hospice)? DNR status @ -[No] What co-morbidities impacted this encounter? (DM, HTN, Smoking, COPD, CAD, Cancer, CVA, ARF, Chemo, Hep., AIDS, mental health diagnosis, sleep apnea, morbid obesity)? @ -[None] Was patient admitted / discharged? Hospital course, mention meds given and route, prescriptions, significant lab abnormalities, going to OR and other pertinent info. @ -Patient's hemoglobin dropped from 9.2-7.6 since February 12 I did a Hemoccult. At this point in time at 3:15 PM I signed the patient out to Dr. Mahmood. - Lab Data Result diagrams: 03/04/24 05:05 03/04/24 05:05 Lab Results 03/01/24 03/01/24 03/01/24 Range/Units 14:15 14:15 14:15 WBC 3.4 L (3.8-10.6) k/uL RBC 2.53 L (4.30-5.90) m/uL Hgb 7.6 L D (13.0-17.5) gm/dL Hct 22.8 L (39.0-53.0) % MCV 90.2 (80.0-100.0) fL MCH 30.0 (25.0-35.0) pg MCHC 33.2 (31.0-37.0) g/dL RDW 14.5 (11.5-15.5) % Plt Count 68 L D (150-450) k/uL MPV 7.5 Immature Gran % (Auto) % Absolute Nucleated RBC % Neutrophils % 81 % Lymphocytes % 10 % Monocytes % 7 % Eosinophils % 1 % Basophils % 0 % Immature Gran # (0.00-0.04) X 10*3/uL Neutrophils # 2.7 (1.3-7.7) k/uL Lymphocytes # 0.3 L (1.0-4.8) k/uL Monocytes # 0.2 (0-1.0) k/uL Eosinophils # 0.0 (0-0.7) k/uL Basophils # 0.0 (0-0.2) k/uL NRBC/100 WBC Diff (0.00-0.01) X 10*3/uL Immature Plt Fraction (1.1-6.1) % ESR (0-20) mm/Hr Retic Count (0.10-1.80) % Haptoglobin (31.2-198.0) mg/dL PT (10.0-12.5) sec INR (<1.2) APTT (22.0-30.0) sec Sodium 137 (137-145) mmol/L Potassium 4.3 (3.5-5.1) mmol/L Chloride 105 (98-107) mmol/L Carbon Dioxide 23 (22-30) mmol/L Anion Gap 9 mmol/L BUN 24 H (9-20) mg/dL Creatinine 0.92 (0.66-1.25) mg/dL Est GFR (CKD-EPI) (>=60) Est GFR (CKD-EPI)AfAm >90 (>60 ml/min/1.73 sqM) Est GFR (CKD-EPI)NonAf 78 (>60 ml/min/1.73 sqM) BUN/Creatinine Ratio (12.00-20.00) Ratio Glucose 120 H (74-99) mg/dL Calcium 8.9 (8.4-10.2) mg/dL Magnesium 2.1 (1.6-2.3) mg/dL Iron (65-175) UG/DL TIBC (228-460) UG/DL % Saturation (15.00-50.00) Transferrin (204.0-354.0) mg/dL Ferritin (22.0-322.0) ng/mL Total Bilirubin 0.3 (0.2-1.3) mg/dL AST 30 (17-59) U/L ALT 31 (4-49) U/L Alkaline Phosphatase 52 (38-126) U/L Lactate Dehydrogenase (120-246) U/L Troponin I <0.012 (0.000-0.034) ng/mL Total Protein 6.1 L (6.3-8.2) g/dL Albumin 3.6 (3.5-5.0) g/dL Vitamin B12 (200.0-944.0) pg/mL Folate (4.40-31.00) ng/mL RBC Folate (280 - 791) ng/mL Stool Occult Blood (Negative) Rheumatoid Factor (0-15) IU/mL RICARDO Screen (Negative) Heparin-Ind Plt Ab Scrn (<0.4) OD Blood Type Blood Type Recheck Bld Type Recheck Status Antibody Screen Crossmatch Transfuse Platelets Spec Expiration Date 03/01/24 03/02/24 03/02/24 Range/Units 15:30 08:19 10:34 WBC 2.8 L (3.8-10.6) k/uL RBC 2.44 L (4.30-5.90) m/uL Hgb 7.2 L (13.0-17.5) gm/dL Hct 22.2 L (39.0-53.0) % MCV 91.2 (80.0-100.0) fL MCH 29.6 (25.0-35.0) pg MCHC 32.4 (31.0-37.0) g/dL RDW 14.4 (11.5-15.5) % Plt Count 51 L (150-450) k/uL MPV 8.5 Immature Gran % (Auto) % Absolute Nucleated RBC % Neutrophils % 69 % Lymphocytes % 19 % Monocytes % 8 % Eosinophils % 2 % Basophils % 0 % Immature Gran # (0.00-0.04) X 10*3/uL Neutrophils # 1.9 (1.3-7.7) k/uL Lymphocytes # 0.5 L (1.0-4.8) k/uL Monocytes # 0.2 (0-1.0) k/uL Eosinophils # 0.1 (0-0.7) k/uL Basophils # 0.0 (0-0.2) k/uL NRBC/100 WBC Diff (0.00-0.01) X 10*3/uL Immature Plt Fraction (1.1-6.1) % ESR (0-20) mm/Hr Retic Count (0.10-1.80) % Haptoglobin (31.2-198.0) mg/dL PT (10.0-12.5) sec INR (<1.2) APTT (22.0-30.0) sec Sodium (137-145) mmol/L Potassium (3.5-5.1) mmol/L Chloride (98-107) mmol/L Carbon Dioxide (22-30) mmol/L Anion Gap mmol/L BUN (9-20) mg/dL Creatinine (0.66-1.25) mg/dL Est GFR (CKD-EPI) (>=60) Est GFR (CKD-EPI)AfAm (>60 ml/min/1.73 sqM) Est GFR (CKD-EPI)NonAf (>60 ml/min/1.73 sqM) BUN/Creatinine Ratio (12.00-20.00) Ratio Glucose (74-99) mg/dL Calcium (8.4-10.2) mg/dL Magnesium (1.6-2.3) mg/dL Iron (65-175) UG/DL TIBC (228-460) UG/DL % Saturation (15.00-50.00) Transferrin (204.0-354.0) mg/dL Ferritin (22.0-322.0) ng/mL Total Bilirubin (0.2-1.3) mg/dL AST (17-59) U/L ALT (4-49) U/L Alkaline Phosphatase (38-126) U/L Lactate Dehydrogenase (120-246) U/L Troponin I (0.000-0.034) ng/mL Total Protein (6.3-8.2) g/dL Albumin (3.5-5.0) g/dL Vitamin B12 (200.0-944.0) pg/mL Folate (4.40-31.00) ng/mL RBC Folate (280 - 791) ng/mL Stool Occult Blood Positive (Negative) Rheumatoid Factor (0-15) IU/mL RICARDO Screen (Negative) Heparin-Ind Plt Ab Scrn (<0.4) OD Blood Type A Negative Blood Type Recheck A Neg Bld Type Recheck Status No Antibody Screen NEGATIVE Crossmatch See Detail Transfuse Platelets Spec Expiration Date 03/05/2024 - 233303/03/24 03/03/24 03/03/24 Range/Units 05:01 05:01 05:01 WBC 3.70 L (3.8-10.6) k/uL RBC 2.38 L (4.30-5.90) m/uL Hgb 7.0 L (13.0-17.5) gm/dL Hct 21.5 L (39.0-53.0) % MCV 90.3 (80.0-100.0) fL MCH 29.4 (25.0-35.0) pg MCHC 32.6 (31.0-37.0) g/dL RDW 13.9 (11.5-15.5) % Plt Count 47 A* (150-450) k/uL MPV 9.3 L Immature Gran % (Auto) 0.30 % Absolute Nucleated RBC 0 % Neutrophils % 60.8 % Lymphocytes % 18.1 % Monocytes % 16.5 % Eosinophils % 3.5 % Basophils % 0.8 % Immature Gran # 0.01 (0.00-0.04) X 10*3/uL Neutrophils # 2.25 (1.3-7.7) k/uL Lymphocytes # 0.67 L (1.0-4.8) k/uL Monocytes # 0.61 (0-1.0) k/uL Eosinophils # 0.13 (0-0.7) k/uL Basophils # 0.03 (0-0.2) k/uL NRBC/100 WBC Diff 0 (0.00-0.01) X 10*3/uL Immature Plt Fraction 2.3 (1.1-6.1) % ESR (0-20) mm/Hr Retic Count (0.10-1.80) % Haptoglobin (31.2-198.0) mg/dL PT 12.3 (10.0-12.5) sec INR 1.1 (<1.2) APTT 22.9 (22.0-30.0) sec Sodium 139 (137-145) mmol/L Potassium 4.0 (3.5-5.1) mmol/L Chloride 106 (98-107) mmol/L Carbon Dioxide 24.3 (22-30) mmol/L Anion Gap 8.70 mmol/L BUN 11.6 (9-20) mg/dL Creatinine 0.9 (0.66-1.25) mg/dL Est GFR (CKD-EPI) 86 (>=60) Est GFR (CKD-EPI)AfAm (>60 ml/min/1.73 sqM) Est GFR (CKD-EPI)NonAf (>60 ml/min/1.73 sqM) BUN/Creatinine Ratio 12.89 (12.00-20.00) Ratio Glucose 89 (74-99) mg/dL Calcium 8.3 L (8.4-10.2) mg/dL Magnesium (1.6-2.3) mg/dL Iron (65-175) UG/DL TIBC (228-460) UG/DL % Saturation (15.00-50.00) Transferrin (204.0-354.0) mg/dL Ferritin (22.0-322.0) ng/mL Total Bilirubin (0.2-1.3) mg/dL AST (17-59) U/L ALT (4-49) U/L Alkaline Phosphatase (38-126) U/L Lactate Dehydrogenase (120-246) U/L Troponin I (0.000-0.034) ng/mL Total Protein (6.3-8.2) g/dL Albumin (3.5-5.0) g/dL Vitamin B12 (200.0-944.0) pg/mL Folate (4.40-31.00) ng/mL RBC Folate (280 - 791) ng/mL Stool Occult Blood (Negative) Rheumatoid Factor (0-15) IU/mL RICARDO Screen (Negative) Heparin-Ind Plt Ab Scrn (<0.4) OD Blood Type Blood Type Recheck Bld Type Recheck Status Antibody Screen Crossmatch Transfuse Platelets Spec Expiration Date 03/03/24 03/03/24 03/03/24 Range/Units 09:54 09:54 09:54 WBC (3.8-10.6) k/uL RBC (4.30-5.90) m/uL Hgb (13.0-17.5) gm/dL Hct (39.0-53.0) % MCV (80.0-100.0) fL MCH (25.0-35.0) pg MCHC (31.0-37.0) g/dL RDW (11.5-15.5) % Plt Count (150-450) k/uL MPV Immature Gran % (Auto) % Absolute Nucleated RBC % Neutrophils % % Lymphocytes % % Monocytes % % Eosinophils % % Basophils % % Immature Gran # (0.00-0.04) X 10*3/uL Neutrophils # (1.3-7.7) k/uL Lymphocytes # (1.0-4.8) k/uL Monocytes # (0-1.0) k/uL Eosinophils # (0-0.7) k/uL Basophils # (0-0.2) k/uL NRBC/100 WBC Diff (0.00-0.01) X 10*3/uL Immature Plt Fraction (1.1-6.1) % ESR 11 (0-20) mm/Hr Retic Count 0.21 (0.10-1.80) % Haptoglobin (31.2-198.0) mg/dL PT (10.0-12.5) sec INR (<1.2) APTT (22.0-30.0) sec Sodium (137-145) mmol/L Potassium (3.5-5.1) mmol/L Chloride (98-107) mmol/L Carbon Dioxide (22-30) mmol/L Anion Gap mmol/L BUN (9-20) mg/dL Creatinine (0.66-1.25) mg/dL Est GFR (CKD-EPI) (>=60) Est GFR (CKD-EPI)AfAm (>60 ml/min/1.73 sqM) Est GFR (CKD-EPI)NonAf (>60 ml/min/1.73 sqM) BUN/Creatinine Ratio (12.00-20.00) Ratio Glucose (74-99) mg/dL Calcium (8.4-10.2) mg/dL Magnesium (1.6-2.3) mg/dL Iron 41 L (65-175) UG/DL TIBC 311 (228-460) UG/DL % Saturation 13.18 L (15.00-50.00) Transferrin 222.0 (204.0-354.0) mg/dL Ferritin 294.0 (22.0-322.0) ng/mL Total Bilirubin (0.2-1.3) mg/dL AST (17-59) U/L ALT (4-49) U/L Alkaline Phosphatase (38-126) U/L Lactate Dehydrogenase (120-246) U/L Troponin I (0.000-0.034) ng/mL Total Protein (6.3-8.2) g/dL Albumin (3.5-5.0) g/dL Vitamin B12 462.0 (200.0-944.0) pg/mL Folate 8.80 (4.40-31.00) ng/mL RBC Folate (280 - 791) ng/mL Stool Occult Blood (Negative) Rheumatoid Factor <15 (0-15) IU/mL RICARDO Screen (Negative) Heparin-Ind Plt Ab Scrn (<0.4) OD Blood Type Blood Type Recheck Bld Type Recheck Status Antibody Screen Crossmatch Transfuse Platelets Spec Expiration Date 03/03/24 03/03/24 03/03/24 Range/Units 09:54 09:54 09:54 WBC (3.8-10.6) k/uL RBC (4.30-5.90) m/uL Hgb (13.0-17.5) gm/dL Hct (39.0-53.0) % MCV (80.0-100.0) fL MCH (25.0-35.0) pg MCHC (31.0-37.0) g/dL RDW (11.5-15.5) % Plt Count (150-450) k/uL MPV Immature Gran % (Auto) % Absolute Nucleated RBC % Neutrophils % % Lymphocytes % % Monocytes % % Eosinophils % % Basophils % % Immature Gran # (0.00-0.04) X 10*3/uL Neutrophils # (1.3-7.7) k/uL Lymphocytes # (1.0-4.8) k/uL Monocytes # (0-1.0) k/uL Eosinophils # (0-0.7) k/uL Basophils # (0-0.2) k/uL NRBC/100 WBC Diff (0.00-0.01) X 10*3/uL Immature Plt Fraction (1.1-6.1) % ESR (0-20) mm/Hr Retic Count (0.10-1.80) % Haptoglobin (31.2-198.0) mg/dL PT (10.0-12.5) sec INR (<1.2) APTT (22.0-30.0) sec Sodium (137-145) mmol/L Potassium (3.5-5.1) mmol/L Chloride (98-107) mmol/L Carbon Dioxide (22-30) mmol/L Anion Gap mmol/L BUN (9-20) mg/dL Creatinine (0.66-1.25) mg/dL Est GFR (CKD-EPI) (>=60) Est GFR (CKD-EPI)AfAm (>60 ml/min/1.73 sqM) Est GFR (CKD-EPI)NonAf (>60 ml/min/1.73 sqM) BUN/Creatinine Ratio (12.00-20.00) Ratio Glucose (74-99) mg/dL Calcium (8.4-10.2) mg/dL Magnesium (1.6-2.3) mg/dL Iron (65-175) UG/DL TIBC (228-460) UG/DL % Saturation (15.00-50.00) Transferrin (204.0-354.0) mg/dL Ferritin (22.0-322.0) ng/mL Total Bilirubin (0.2-1.3) mg/dL AST (17-59) U/L ALT (4-49) U/L Alkaline Phosphatase (38-126) U/L Lactate Dehydrogenase (120-246) U/L Troponin I (0.000-0.034) ng/mL Total Protein (6.3-8.2) g/dL Albumin (3.5-5.0) g/dL Vitamin B12 (200.0-944.0) pg/mL Folate (4.40-31.00) ng/mL RBC Folate 865 H (280 - 791) ng/mL Stool Occult Blood (Negative) Rheumatoid Factor (0-15) IU/mL RICARDO Screen Negative (Negative) Heparin-Ind Plt Ab Scrn 0.214 (<0.4) OD Blood Type Blood Type Recheck Bld Type Recheck Status Antibody Screen Crossmatch Transfuse Platelets Spec Expiration Date 03/03/24 03/03/24 03/03/24 Range/Units 09:54 09:54 13:45 WBC (3.8-10.6) k/uL RBC (4.30-5.90) m/uL Hgb (13.0-17.5) gm/dL Hct (39.0-53.0) % MCV (80.0-100.0) fL MCH (25.0-35.0) pg MCHC (31.0-37.0) g/dL RDW (11.5-15.5) % Plt Count (150-450) k/uL MPV Immature Gran % (Auto) % Absolute Nucleated RBC % Neutrophils % % Lymphocytes % % Monocytes % % Eosinophils % % Basophils % % Immature Gran # (0.00-0.04) X 10*3/uL Neutrophils # (1.3-7.7) k/uL Lymphocytes # (1.0-4.8) k/uL Monocytes # (0-1.0) k/uL Eosinophils # (0-0.7) k/uL Basophils # (0-0.2) k/uL NRBC/100 WBC Diff (0.00-0.01) X 10*3/uL Immature Plt Fraction (1.1-6.1) % ESR (0-20) mm/Hr Retic Count (0.10-1.80) % Haptoglobin 112.0 (31.2-198.0) mg/dL PT (10.0-12.5) sec INR (<1.2) APTT (22.0-30.0) sec Sodium (137-145) mmol/L Potassium (3.5-5.1) mmol/L Chloride (98-107) mmol/L Carbon Dioxide (22-30) mmol/L Anion Gap mmol/L BUN (9-20) mg/dL Creatinine (0.66-1.25) mg/dL Est GFR (CKD-EPI) (>=60) Est GFR (CKD-EPI)AfAm (>60 ml/min/1.73 sqM) Est GFR (CKD-EPI)NonAf (>60 ml/min/1.73 sqM) BUN/Creatinine Ratio (12.00-20.00) Ratio Glucose (74-99) mg/dL Calcium (8.4-10.2) mg/dL Magnesium (1.6-2.3) mg/dL Iron (65-175) UG/DL TIBC (228-460) UG/DL % Saturation (15.00-50.00) Transferrin (204.0-354.0) mg/dL Ferritin (22.0-322.0) ng/mL Total Bilirubin (0.2-1.3) mg/dL AST (17-59) U/L ALT (4-49) U/L Alkaline Phosphatase (38-126) U/L Lactate Dehydrogenase 213 (120-246) U/L Troponin I (0.000-0.034) ng/mL Total Protein (6.3-8.2) g/dL Albumin (3.5-5.0) g/dL Vitamin B12 (200.0-944.0) pg/mL Folate (4.40-31.00) ng/mL RBC Folate (280 - 791) ng/mL Stool Occult Blood (Negative) Rheumatoid Factor (0-15) IU/mL RICARDO Screen (Negative) Heparin-Ind Plt Ab Scrn (<0.4) OD Blood Type Blood Type Recheck Bld Type Recheck Status Antibody Screen Crossmatch Transfuse Platelets 03/03/2024 Spec Expiration Date 03/04/24 03/04/24 Range/Units 05:05 05:05 WBC 5.6 (3.8-10.6) k/uL RBC 2.50 L (4.30-5.90) m/uL Hgb 7.4 L (13.0-17.5) gm/dL Hct 22.2 L (39.0-53.0) % MCV 88.6 (80.0-100.0) fL MCH 29.7 (25.0-35.0) pg MCHC 33.5 (31.0-37.0) g/dL RDW 14.5 (11.5-15.5) % Plt Count 70 L (150-450) k/uL MPV 8.2 Immature Gran % (Auto) % Absolute Nucleated RBC % Neutrophils % 68 % Lymphocytes % 15 % Monocytes % 12 % Eosinophils % 3 % Basophils % 1 % Immature Gran # (0.00-0.04) X 10*3/uL Neutrophils # 3.8 (1.3-7.7) k/uL Lymphocytes # 0.8 L (1.0-4.8) k/uL Monocytes # 0.7 (0-1.0) k/uL Eosinophils # 0.2 (0-0.7) k/uL Basophils # 0.0 (0-0.2) k/uL NRBC/100 WBC Diff (0.00-0.01) X 10*3/uL Immature Plt Fraction (1.1-6.1) % ESR (0-20) mm/Hr Retic Count (0.10-1.80) % Haptoglobin (31.2-198.0) mg/dL PT (10.0-12.5) sec INR (<1.2) APTT (22.0-30.0) sec Sodium 137 (137-145) mmol/L Potassium 3.9 (3.5-5.1) mmol/L Chloride 105 (98-107) mmol/L Carbon Dioxide 27 (22-30) mmol/L Anion Gap 5 mmol/L BUN 7 L (9-20) mg/dL Creatinine 0.82 (0.66-1.25) mg/dL Est GFR (CKD-EPI) (>=60) Est GFR (CKD-EPI)AfAm >90 (>60 ml/min/1.73 sqM) Est GFR (CKD-EPI)NonAf 83 (>60 ml/min/1.73 sqM) BUN/Creatinine Ratio (12.00-20.00) Ratio Glucose 87 (74-99) mg/dL Calcium 8.7 (8.4-10.2) mg/dL Magnesium (1.6-2.3) mg/dL Iron (65-175) UG/DL TIBC (228-460) UG/DL % Saturation (15.00-50.00) Transferrin (204.0-354.0) mg/dL Ferritin (22.0-322.0) ng/mL Total Bilirubin (0.2-1.3) mg/dL AST (17-59) U/L ALT (4-49) U/L Alkaline Phosphatase (38-126) U/L Lactate Dehydrogenase (120-246) U/L Troponin I (0.000-0.034) ng/mL Total Protein (6.3-8.2) g/dL Albumin (3.5-5.0) g/dL Vitamin B12 (200.0-944.0) pg/mL Folate (4.40-31.00) ng/mL RBC Folate (280 - 791) ng/mL Stool Occult Blood (Negative) Rheumatoid Factor (0-15) IU/mL RICARDO Screen (Negative) Heparin-Ind Plt Ab Scrn (<0.4) OD Blood Type Blood Type Recheck Bld Type Recheck Status Antibody Screen Crossmatch Transfuse Platelets Spec Expiration Date Disposition Clinical Impression: Atrial fibrillation Disposition: ADMITTED IP TO THIS HOSP
[2024-03-01 14:20] LABS: Basophils % (A) 0 %; Eosinophils % (A) 1 %; HCT 22.8 % (39.0-53.0); Lymphocytes # (A) 0.3 k/uL (1.0-4.8); Lymphocytes % (A) 10 %; MCHC 33.2 g/dL (31.0-37.0); MCV 90.2 fL (80.0-100.0); Mean Platelet Volume 7.5; Monocytes # (A) 0.2 k/uL (0-1.0); Monocytes % (A) 7 %; Neutrophils # (A) 2.7 k/uL (1.3-7.7); Neutrophils % (A) 81 %; RBC 2.53 m/uL (4.30-5.90); RDW 14.5 % (11.5-15.5); WBC 3.4 k/uL (3.8-10.6)
--- NOTE | 2024-03-01 14:53 | XR ---
EXAMINATION TYPE: XR chest 2V DATE OF EXAM: 03/01/2024 2:33 PM COMPARISON: Chest radiographs from 01/18/2022 CLINICAL INDICATION: Male, 83 years old with history of dysrhythmia; [facility] TECHNIQUE: XR chest 2V Frontal and lateral views of the chest. FINDINGS: Lungs/Pleura: There is no evidence of pleural effusion, focal consolidation, or pneumothorax. Pulmonary vascularity: Pulmonary vascular congestion. Heart/mediastinum: Cardiomediastinal silhouette is enlarged and stable. Mitral valve annular repair changes. Musculoskeletal: No acute osseous pathology. Midline sternotomy wires are noted. IMPRESSION: 1. No acute cardiopulmonary disease process. 2. COPD changes. [facility], , 03/01/2024 2:50 PM
[2024-03-01 15:06] LABS: ALT 31 U/L (4-49); AST 30 U/L (17-59); African American GFR (CKD) >90 (>60 ml/min/1.73 sqM); Albumin 3.6 g/dL (3.5-5.0); Alkaline Phosphatase 52 U/L (38-126); Anion Gap 9 mmol/L; Blood Urea Nitrogen 24 mg/dL (9-20); Calcium 8.9 mg/dL (8.4-10.2); Carbon Dioxide 23 mmol/L (22-30); Chloride 105 mmol/L (98-107); Glucose 120 mg/dL (74-99); Magnesium 2.1 mg/dL (1.6-2.3); Non-African American GFR(CKD) 78 (>60 ml/min/1.73 sqM); Potassium 4.3 mmol/L (3.5-5.1); Sodium 137 mmol/L (137-145); Total Bilirubin 0.3 mg/dL (0.2-1.3); Total Protein 6.1 g/dL (6.3-8.2)
[2024-03-01] MEDS: SODIUM CHLORIDE 0.9% 1,000 ML IV ONE (15:19)
[2024-03-01 15:21] LABS: HGB 7.6 gm/dL (13.0-17.5)
[2024-03-01 15:23] LABS: Platelet Count 68 k/uL (150-450)
[2024-03-01] MEDS ORDERED: ACETAMINOPHEN TAB 325 MG TAB PO PRN (17:12)
[2024-03-01] MEDS ORDERED: ONDANSETRON 4 MG/2 ML VIAL IVP PRN (17:12)
[2024-03-01] MEDS ORDERED: NALOXONE 0.4 MG/ML 1 ML VIAL IV PRN (17:12)
[2024-03-01] MEDS: SODIUM CHLORIDE 0.9% 1,000 ML IV SCH (17:33)
[2024-03-01] MEDS: APIXABAN 5 MG TAB PO SCH (20:34)
[2024-03-01] MEDS: FAMOTIDINE 20 MG TAB PO SCH (20:35)
[2024-03-01] MEDS: METOPROLOL TARTRATE 50 MG TAB PO SCH (20:35)
[2024-03-02] MEDS: ASPIRIN 81 MG PO SCH (07:35)
[2024-03-02] MEDS: CHOLECALCIFEROL 25 MCG (1000 IU) TABLET PO SCH (08:07)
[2024-03-02] MEDS: FUROSEMIDE 20 MG TAB PO SCH (08:07)
[2024-03-02] MEDS: FINASTERIDE 5 MG TAB PO SCH (08:10)
[2024-03-02 08:39] LABS: Basophils % (A) 0 %; Eosinophils # (A) 0.1 k/uL (0-0.7); Eosinophils % (A) 2 %; HCT 22.2 % (39.0-53.0); HGB 7.2 gm/dL (13.0-17.5); Lymphocytes # (A) 0.5 k/uL (1.0-4.8); Lymphocytes % (A) 19 %; MCH 29.6 pg (25.0-35.0); MCHC 32.4 g/dL (31.0-37.0); MCV 91.2 fL (80.0-100.0); Mean Platelet Volume 8.5; Monocytes # (A) 0.2 k/uL (0-1.0); Monocytes % (A) 8 %; Neutrophils # (A) 1.9 k/uL (1.3-7.7); Neutrophils % (A) 69 %; Platelet Count 51 k/uL (150-450); RBC 2.44 m/uL (4.30-5.90); RDW 14.4 % (11.5-15.5); WBC 2.8 k/uL (3.8-10.6)
[2024-03-02] MEDS ORDERED: METOPROLOL TARTRATE 50 MG TAB PO SCH (09:00)
--- NOTE | 2024-03-02 14:00 | P.HPIM ---
History of Present Illness This is a pleasant 83 years old male with past medical history of multiple medical problem Patient presents because of weakness and elevated heart rate. At home he checked his heart rate was 119 and blood pressure 170/71 Patient states that he was extremely fatigued yesterday that he was lying on the floor. Has been complaining from exertional dyspnea over the last week and that he has to stop and catch up his breath He denies chest pain or dyspnea. No GI/ symptoms. No blood in the stool no vomiting. No abdominal pain. No headache dizziness weakness or numbness Patient is currently getting 1 unit of blood transfusion Patient is hemodynamically stable. He is afebrile. Labs showing anemia with hemoglobin 7.6 at 7.2 He has pancytopenia with WBC also trending down 3.4 down to 2.8 and platelet count 68 down to 51 Occult blood in stool positive EKG showing junctional rhythm at [address]-T changes Chest x-ray is negative for acute process Review of Systems Review of systems CONSTITUTIONAL: No fever, no malaise, no fatigue. HEENT: No recent visual problems or hearing problems. Denied any sore throat. CARDIOVASCULAR: No orthopnea, PND, no palpitations, no syncope. PULMONARY: No shortness of breath, no cough, no hemoptysis. GASTROINTESTINAL: No diarrhea, no nausea, no vomiting, no abdominal pain. Normoactive bowel sounds. NEUROLOGICAL: No headaches, no weakness, no numbness. HEMATOLOGICAL: Denies any bleeding or petechiae. GENITOURINARY: Denies any burning micturition, frequency, or urgency. MUSCULOSKELETAL/RHEUMATOLOGICAL: Denies any joint pain, swelling, or any muscle pain. ENDOCRINE: Denies any polyuria or polydipsia. Past Medical History Past Medical History: Atrial Fibrillation, Deep Vein Thrombosis (DVT), Musculoskeletal Disorder, Osteoarthritis (OA), Prostate Disorder, Skin Disorder Additional Past Medical History / Comment(s): Hx cellulitis right leg, [facility] lower wound on [place], uses silvadine, dvt in 1981 post op knee procedure History of Any Multi-Drug Resistant Organisms: None Reported Past Surgical History: Cardiac Ablation, Cardiac Valve Replacement, Joint Replacement, Orthopedic Surgery Additional Past Surgical History / Comment(s): Bilateral hip surgery, stan total knee replacement, cardiac ablation, mitral valve repair, COLONOSCOPY, BILATERAL CATARACTS REMOVED WITH LENS IMPLANTS, pain procedure. Past Anesthesia/Blood Transfusion Reactions: No Reported Reaction Additional Past Anesthesia/Blood Transfusion Reaction / Comment(s): as child had blood tx Past Psychological History: No Psychological Hx Reported Smoking Status: Former smoker Past Alcohol Use History: None Reported Additional Past Alcohol Use History / Comment(s): QUIT SMOKING 30 YEARS AGO. Past Drug Use History: None Reported - Past Family History Father Family Medical History: No Reported History Additional Family Medical History / Comment(s): Father was a heavy smoker and most of his health problems were related to smoking. Mother Additional Family Medical History / Comment(s): Had TB when she was young, at 97. Daughter(s) Family Medical History: Cancer Additional Family Medical History / Comment(s): Breast and liver cancer. Medications and Allergies Home Medications Medication Instructions Recorded Confirmed Type Finasteride [Proscar] 5 mg PO DAILY 03/05/17 03/01/24 History Aspirin 81 mg PO DAILY 11/20/18 03/01/24 History Apixaban [Eliquis] 5 mg PO BID #60 tab 11/29/21 03/01/24 Rx Mirabegron [Myrbetriq] 50 mg PO DAILY 01/19/22 03/01/24 History Vitc/E/Zinc/Copper/Lutein/Zeax 1 tab PO DAILY 09/05/23 03/01/24 History [Icaps Areds2 Tablet] Ammonium Lactate Lotion 1 applic TOPICAL DAILY 02/09/24 03/01/24 History [Lac-Hydrin 12% Lotion] Cholecalciferol (Vitamin D3) 50 mcg PO DAILY 02/09/24 03/01/24 History [Vitamin D3 (50 Mcg = 2000 Iu)] Metoprolol Tartrate [Lopressor] 50 mg PO BID 02/09/24 03/01/24 History Nystatin 100,000 Unit/gm Powd 1 applic TOPICAL DIRECTED 03/01/24 03/01/24 History [Mycostatin Powder] Allergies Allergy/AdvReac Type Severity Reaction Status Date / Time verapamil Allergy Rash/Hives Verified 03/01/24 13:25 on face ciprofloxacin [From Cipro] AdvReac Severe LEG PAIN Verified 03/01/24 13:25 levofloxacin [From Levaquin] AdvReac leg pain Verified 03/01/24 13:25 Physical Exam Vitals: Vital Signs Temp Pulse Pulse Resp BP BP Pulse Ox 03/02/24 13:43 97.9 F 66 16 124/67 03/02/24 07:00 97.9 F 72 16 104/54 96 03/02/24 01:52 98.6 F 70 18 102/56 96 03/01/24 20:55 98.6 F 72 18 108/51 98 03/01/24 20:44 73 18 129/72 97 03/01/24 18:30 71 18 104/56 96 03/01/24 17:07 69 17 107/58 98 03/01/24 15:08 79 104/54 97 03/01/24 15:05 86 03/01/24 14:58 69 106/57 97 Intake and Output 03/01/24 03/02/24 03/02/24 22:59 06:59 14:59 Intake Total 600 Balance 600 Intake: Intake, IV Titration 600 Amount Sodium Chloride 0.9% 1, 600 000 ml @ 75 mls/hr IV . [id number] ASYA Rx#:[id number] Blood Product 0 Unit 0 Other: # Voids 1 2 # Bowel Movements 1 1 Weight 104.326 kg GENERAL: The patient is alert and oriented x3, not in any acute distress. Well developed, well nourished. HEENT: Pupils are round and equally reacting to light. EOMI. No scleral icterus. No conjunctival pallor. Normocephalic, atraumatic. No pharyngeal erythema. No thyromegaly. CARDIOVASCULAR: S1 and S2 present. No murmurs, rubs, or gallops. PULMONARY: Chest is clear to auscultation, no wheezing , no crackles. ABDOMEN: Soft, nontender, nondistended, normoactive bowel sounds. No palpable organomegaly. MUSCULOSKELETAL: No joint swelling or deformity. EXTREMITIES: No cyanosis, clubbing, or pedal edema. NEUROLOGICAL: Gross neurological examination did not reveal any focal deficits. SKIN: No rashes. no petechiae. Results CBC & Chem 7: 03/02/24 08:19 03/01/24 14:15 Labs: Abnormal Lab Results - Last 24 Hours (Table) 03/01/24 03/01/24 03/02/24 Range/Units 14:15 14:15 08:19 WBC 3.4 L 2.8 L (3.8-10.6) k/uL RBC 2.53 L 2.44 L (4.30-5.90) m/uL Hgb 7.6 L D 7.2 L (13.0-17.5) gm/dL Hct 22.8 L 22.2 L (39.0-53.0) % Plt Count 68 L D 51 L (150-450) k/uL Lymphocytes # 0.3 L 0.5 L (1.0-4.8) k/uL BUN 24 H (9-20) mg/dL Glucose 120 H (74-99) mg/dL Total Protein 6.1 L (6.3-8.2) g/dL Crossmatch 03/02/24 Range/Units 10:34 WBC (3.8-10.6) k/uL RBC (4.30-5.90) m/uL Hgb (13.0-17.5) gm/dL Hct (39.0-53.0) % Plt Count (150-450) k/uL Lymphocytes # (1.0-4.8) k/uL BUN (9-20) mg/dL Glucose (74-99) mg/dL Total Protein (6.3-8.2) g/dL Crossmatch See Detail Thrombosis Risk Factor Assmnt - Choose All That Apply Any of the Below Risk Factors Present?: Yes Each Factor Represents 1 point: Abnormal pulmonary function (COPD), Obesity (BMI >25) Other Risk Factors: Yes Each Risk Factor Represents 3 Points: Age 75 years or older Other congenital or acquired thrombophilia - If yes, enter type in comment: No Thrombosis Risk Factor Assessment Total Risk Factor Score: 5 Thrombosis Risk Factor Assessment Level: High Risk Assessment and Plan Assessment: Acute GI bleed, patient is s/p 1 unit of blood transfusion on 03/02 Acute blood loss anemia Pancytopenia, new Atrial fibrillation on Eliquis History of DVT on Eliquis BPH Osteoarthritis Plan: Continue monitoring hemoglobin Transfuse if hemoglobin less than 7 Hold Eliquis till cleared by surgery team given his GI bleed. Also patient on his aspirin may consider holding the hemoglobin drops more. Surgery team consult. No GI team coverage in this facility this week Hematology/oncology team consult Labs and medication were reviewed.. Continue same treatment. Continue with symptomatic treatment. Resume home medication. Monitor labs and vitals. DVT and GI prophylaxis. Further recommendations as per clinical course of the patient DVT prophylaxis: Mechanical GI Prophylaxis: P Protonix PT/OT: Pending Prognosis is guarded
--- NOTE | 2024-03-02 23:30 | P.GSCN ---
History of Present Illness History of present illness: This is an 83 years old male presents because of weakness and elevated heart rate. At home he checked his heart rate was 119 and blood pressure 170/71 Patient states that he was extremely fatigued yesterday which has been increasing over the last several months. Patient admits to exertional dyspnea and that he has to stop and catch up his breath. Of note patient has been struggling with his afib. He underwent an ablation but had complications of a groin hematoma. Previous hgb was 9ish and now is 7 on admission. Patient had a large bruise/hematoma over his entire left leg. He denies chest pain or dyspnea. No GI/ symptoms. No blood in the stool no vomiting. No abdominal pain. No headache dizziness weakness or numbness Review of Systems - Constitutional Reports as per HPI Past Medical History Past Medical History: Atrial Fibrillation, Deep Vein Thrombosis (DVT), Musculoskeletal Disorder, Osteoarthritis (OA), Prostate Disorder, Skin Disorder Additional Past Medical History / Comment(s): Hx cellulitis right leg, [facility] wound on [place], uses silvadine, dvt in 1981 post op knee procedure History of Any Multi-Drug Resistant Organisms: None Reported Past Surgical History: Cardiac Ablation, Cardiac Valve Replacement, Joint Replacement, Orthopedic Surgery Additional Past Surgical History / Comment(s): Bilateral hip surgery, stan total knee replacement, cardiac ablation, mitral valve repair, COLONOSCOPY, BILATERAL CATARACTS REMOVED WITH LENS IMPLANTS, pain procedure. Past Anesthesia/Blood Transfusion Reactions: No Reported Reaction Additional Past Anesthesia/Blood Transfusion Reaction / Comm: as child had blood tx Past Psychological History: No Psychological Hx Reported Smoking Status: Former smoker Past Alcohol Use History: None Reported Additional Past Alcohol Use History / Comment(s): QUIT SMOKING 30 YEARS AGO. Past Drug Use History: None Reported - Past Family History Father Family Medical History: No Reported History Additional Family Medical History / Comment(s): Father was a heavy smoker and most of his health problems were related to smoking. Mother Additional Family Medical History / Comment(s): Had TB when she was young, at 97. Daughter(s) Family Medical History: Cancer Additional Family Medical History / Comment(s): Breast and liver cancer. Medications and Allergies Home Medications Medication Instructions Recorded Confirmed Type Finasteride [Proscar] 5 mg PO DAILY 03/05/17 03/01/24 History Aspirin 81 mg PO DAILY 11/20/18 03/01/24 History Apixaban [Eliquis] 5 mg PO BID #60 tab 11/29/21 03/01/24 Rx Mirabegron [Myrbetriq] 50 mg PO DAILY 01/19/22 03/01/24 History Vitc/E/Zinc/Copper/Lutein/Zeax 1 tab PO DAILY 09/05/23 03/01/24 History [Icaps Areds2 Tablet] Ammonium Lactate Lotion 1 applic TOPICAL DAILY 02/09/24 03/01/24 History [Lac-Hydrin 12% Lotion] Cholecalciferol (Vitamin D3) 50 mcg PO DAILY 02/09/24 03/01/24 History [Vitamin D3 (50 Mcg = 2000 Iu)] Metoprolol Tartrate [Lopressor] 50 mg PO BID 02/09/24 03/01/24 History Nystatin 100,000 Unit/gm Powd 1 applic TOPICAL DIRECTED 03/01/24 03/01/24 History [Mycostatin Powder] Allergies Allergy/AdvReac Type Severity Reaction Status Date / Time verapamil Allergy Rash/Hives Verified 03/01/24 13:25 on face ciprofloxacin [From Cipro] AdvReac Severe LEG PAIN Verified 03/01/24 13:25 levofloxacin [From Levaquin] AdvReac leg pain Verified 03/01/24 13:25 Surgical - Exam Osteopathic Statement: *. No significant issues noted on an osteopathic structural exam other than those noted in the History and Physical/Consult. Vital Signs Temp Pulse Resp BP Pulse Ox 97.3 F L 77 20 97/54 97 03/01/24 13:26 03/01/24 13:26 03/01/24 13:26 03/01/24 13:26 03/01/24 13:26 gen: nad cv: rrr pul non labored breathing abd: soft, non distended, non tender to palpation, no guarding or rebound tenderness left lower extremity calf still appears somewhat taught but is improving Results - Labs 03/02/24 08:19 03/01/24 14:15 Abnormal Lab Results - Last 24 Hours (Table) 03/02/24 03/02/24 Range/Units 08:19 10:34 WBC 2.8 L (3.8-10.6) k/uL RBC 2.44 L (4.30-5.90) m/uL Hgb 7.2 L (13.0-17.5) gm/dL Hct 22.2 L (39.0-53.0) % Plt Count 51 L (150-450) k/uL Lymphocytes # 0.5 L (1.0-4.8) k/uL Crossmatch See Detail Assessment and Plan Assessment: 83 yo male symptomatic anemia history of colonoscopy x 4 years ago with polyp removal and history of hemorrhoid (recent +fecal occult blood test) recent history of large hematoma of lower extremity I believe his lethargy and exercise induced dyspnea is multifactorial. Patient was likely labored secondary to afib, once ablation was performed, hgb dropped 2 grams over the last several weeks from lower extremity hematoma contributing to dyspnea. Less likely secondary to gastrointestinal source. Outpatient colonoscopy can be performed. Recommend transfuse 1 unit of packed red blood cells for hgb less than 8 with active cardiac history. If hgb stable, discharge planning within the next 24hrs. Mckay Polanco DO Trauma/Surg Crit Care [phone] Time with Patient: Greater than 30
[2024-03-03 06:06] LABS: INR 1.1 (<1.2); Partial Thromboplastin Time 22.9 sec (22.0-30.0); Prothrombin Time 12.3 sec (10.0-12.5)
[2024-03-03 09:00] LABS: BUN/Creat Ratio 12.89 Ratio (12.00-20.00); Blood Urea Nitrogen 11.6 mg/dL (9.0-27.0); Calcium 8.3 mg/dL (8.7-10.3); Carbon Dioxide 24.3 mmol/L (21.6-31.8); Chloride 106 mmol/L (96-109); Glucose 89 mg/dL (70-110); Sodium 139 mmol/L (135-145)
[2024-03-03 09:57] LABS: Basophils # (A) 0.03 X 10*3/uL (0.00-0.10); Basophils % (A) 0.8 %; Eosinophils # (A) 0.13 X 10*3/uL (0.04-0.35); Eosinophils % (A) 3.5 %; HCT 21.5 % (39.6-50.0); Immature Platelet Fraction 2.3 % (1.1-6.1); Lymphocytes # (A) 0.67 X 10*3/uL (0.90-5.00); Lymphocytes % (A) 18.1 %; MCH 29.4 pg (27.0-32.0); MCHC 32.6 g/dL (32.0-37.0); MCV 90.3 FL (80.0-97.0); Mean Platelet Volume 9.3 FL (9.5-12.2); Monocytes # (A) 0.61 X 10*3/uL (0.20-1.00); Monocytes % (A) 16.5 %; NRBC Per 100 WBC 0 X 10*3/uL (0.00-0.01); Neutrophils # (A) 2.25 X 10*3/uL (1.80-7.70); Neutrophils % (A) 60.8 %; Platelet Count 47 X 10*3/uL (140-440); RBC 2.38 X 10*6/uL (4.40-5.60); RDW 13.9 % (11.5-14.5)
[2024-03-03] MEDS: PEG 3350 (236 GM/BTL) + LYTES 4,000 ML BOTTLE PO ONE (13:58)
--- NOTE | 2024-03-03 14:06 | P.PN ---
Subjective Progress Note Date: 03/03/24 SURGICAL PROGRESS NOTE CHIEF COMPLAINT: Anemia HISTORY OF PRESENT ILLNESS: Patient denies any abdominal pain. He reports no blood in the stools or black stools. Patient had a recent large bruise/hematoma in the left leg. This has improved. His left calf still has some swelling. Hemoglobin 7.0 and platelets of 47. Stool for occult blood is positive. He is still having some shortness of breath and fatigue after ambulating. Family requesting colonoscopy to be completed during hospitalization. PHYSICAL EXAM: VITAL SIGNS: Reviewed. GENERAL: Well-developed in no acute distress. ABDOMEN: Soft. Nondistended. Nontender. NEUROLOGIC: Alert and oriented. Cranial nerves II through XII grossly intact. ASSESSMENT: 1. Symptomatic anemia 2. history of colonoscopy x 4 years ago with polyp removal and history of hemorrhoid (recent +fecal occult blood test) 3. recent history of large hematoma of lower extremity 4. Pancytopenia PLAN: -Patient scheduled for colonoscopy tomorrow with Dr. Viveros -Petey Shannon bowel prep today -N.p.o. after midnight -Platelets ordered for thrombocytopenia with platelet count of 47. Repeat CBC in a.m. to follow-up on platelets and hemoglobin Physician Plant Buyer note has been reviewed by physician. Signing provider agrees with the documented findings, assessment, and plan of care. Objective - Vital Signs Vital signs: Vital Signs Temp 98.2 F 03/03/24 07:00 Pulse 67 03/03/24 07:00 Resp 18 03/03/24 07:00 BP 124/67 03/03/24 07:00 Pulse Ox 96 03/03/24 09:06 FiO2 Intake & Output 03/02/24 03/03/24 03/03/24 18:59 06:59 18:59 Intake Total 910 1376 Balance 910 1376 Intake: Intake, IV Titration 600 600 Amount Sodium Chloride 0.9% 1, 600 600 000 ml @ 75 mls/hr IV . [id number] ASYA Rx#:[id number] Oral 776 Blood Product 310 Rc As-1 Unit 310 [id number] Other: # Voids 2 - Labs CBC & Chem 7: 03/03/24 05:01 03/03/24 05:01 Labs: Abnormal Lab Results - Last 24 Hours (Table) 03/02/24 03/03/24 03/03/24 Range/Units 10:34 05:01 05:01 WBC 3.70 L (4.50-10.00) X 10*3/uL RBC 2.38 L (4.40-5.60) X 10*6/uL Hgb 7.0 L (13.0-17.0) g/dL Hct 21.5 L (39.6-50.0) % Plt Count 47 A* (140-440) X 10*3/uL MPV 9.3 L (9.5-12.2) FL Lymphocytes # 0.67 L (0.90-5.00) X 10*3/uL Calcium 8.3 L (8.7-10.3) mg/dL Crossmatch See Detail
--- NOTE | 2024-03-03 17:00 | P.CONS ---
History of Present Illness - Reason for Consult Consult date: 03/03/24 pancytopenia Requesting physician: Carson E Sheet - Chief Complaint SOB - History of Present Illness Mr. Mcmahan is a pleasant 83-year-old male who recently had ablation for atrial fibrillation, groin hematoma who is currently admitted with symptomatic anemia, suspected GI bleed as occult is positive. His labs were reviewed hemoglobin 7, Hct 21.5, WBCs 3.7, ANC 2.25, platelets 47,000. Patient denies any reports of low blood counts in the past. He states that he had cellulitis in his legs around [place] time. He currently denies any overt bleeding including epistaxis. Anemia is noted in the chart as far back as 2018, progressive over the years, the low white blood cell count is new, low platelets have been noted intermittently since 2021. Patient has been evaluated by surgery with plans for an outpatient colonoscopy. Patient did receive heparin in late January during his admission. Patient is otherwise ambulatory in his room, denies fevers, chills, chest pain, nausea, vomiting, abdominal pain or cramping, his hematoma is continuing to heal, no unusual swelling in the legs, numbness or tingling, no new pain to report. Review of Systems 14 point review of systems is negative except as stated in HPI Past Medical History Past Medical History: Atrial Fibrillation, Deep Vein Thrombosis (DVT), Musculoskeletal Disorder, Osteoarthritis (OA), Prostate Disorder, Skin Disorder Additional Past Medical History / Comment(s): Hx cellulitis right leg, [facility] wound on [place], uses silvadine, dvt in 1981 post op knee procedure History of Any Multi-Drug Resistant Organisms: None Reported Past Surgical History: Cardiac Ablation, Cardiac Valve Replacement, Joint Replacement, Orthopedic Surgery Additional Past Surgical History / Comment(s): Bilateral hip surgery, stan total knee replacement, cardiac ablation, mitral valve repair, COLONOSCOPY, BILATERAL CATARACTS REMOVED WITH LENS IMPLANTS, pain procedure. Past Anesthesia/Blood Transfusion Reactions: No Reported Reaction Additional Past Anesthesia/Blood Transfusion Reaction / Comm: as child had blood tx Past Psychological History: No Psychological Hx Reported Smoking Status: Former smoker Past Alcohol Use History: None Reported Additional Past Alcohol Use History / Comment(s): QUIT SMOKING 30 YEARS AGO. Past Drug Use History: None Reported - Past Family History Father Family Medical History: No Reported History Additional Family Medical History / Comment(s): Father was a heavy smoker and most of his health problems were related to smoking. Mother Additional Family Medical History / Comment(s): Had TB when she was young, at 97. Daughter(s) Family Medical History: Cancer Additional Family Medical History / Comment(s): Breast and liver cancer. Medications and Allergies Home Medications Medication Instructions Recorded Confirmed Type Finasteride [Proscar] 5 mg PO DAILY 03/05/17 03/01/24 History Aspirin 81 mg PO DAILY 11/20/18 03/01/24 History Apixaban [Eliquis] 5 mg PO BID #60 tab 11/29/21 03/01/24 Rx Mirabegron [Myrbetriq] 50 mg PO DAILY 01/19/22 03/01/24 History Vitc/E/Zinc/Copper/Lutein/Zeax 1 tab PO DAILY 09/05/23 03/01/24 History [Icaps Areds2 Tablet] Ammonium Lactate Lotion 1 applic TOPICAL DAILY 02/09/24 03/01/24 History [Lac-Hydrin 12% Lotion] Cholecalciferol (Vitamin D3) 50 mcg PO DAILY 02/09/24 03/01/24 History [Vitamin D3 (50 Mcg = 2000 Iu)] Metoprolol Tartrate [Lopressor] 50 mg PO BID 02/09/24 03/01/24 History Nystatin 100,000 Unit/gm Powd 1 applic TOPICAL DIRECTED 03/01/24 03/01/24 History [Mycostatin Powder] Allergies Allergy/AdvReac Type Severity Reaction Status Date / Time verapamil Allergy Rash/Hives Verified 03/01/24 13:25 on face ciprofloxacin [From Cipro] AdvReac Severe LEG PAIN Verified 03/01/24 13:25 levofloxacin [From Levaquin] AdvReac leg pain Verified 03/01/24 13:25 Physical Exam Vitals: Vital Signs Temp Pulse Pulse Resp BP BP Pulse Ox 03/03/24 09:06 96 03/03/24 07:00 98.2 F 67 18 124/67 96 03/03/24 01:43 98.2 F 61 18 134/72 95 03/02/24 21:34 65 03/02/24 18:10 98.0 F 65 15 146/70 97 03/02/24 16:26 97.8 F 68 16 122/68 99 03/02/24 14:11 97.6 F 66 16 123/66 98 03/02/24 13:51 98.0 F 65 16 114/64 96 03/02/24 13:43 97.9 F 66 16 124/67 Intake and Output 03/02/24 03/03/24 03/03/24 22:59 06:59 14:59 Intake Total 310 Balance 310 Intake: Blood Product 310 Rc As-1 Unit 310 [id number] Other: # Voids 2 2 - Constitutional General appearance: average body habitus, cooperative, no acute distress - EENT Eyes: anicteric sclerae, EOMI ENT: hearing grossly normal, normal oropharynx - Neck Neck: no lymphadenopathy - Respiratory Respiratory: bilateral: CTA - Cardiovascular Rhythm: regular Heart sounds: normal: S1, S2 Abnormal Heart Sounds: no systolic murmur, no diastolic murmur, no rub, no S3 Gallop, no S4 Gallop, no click, no other leg Peripheral Edema: bilateral: Trace - Gastrointestinal General gastrointestinal: no absent bowel sounds, no decreased bowel sounds, no distended, no hepatomegaly, no hyperactive bowel sounds, normal bowel sounds, no organomegaly, no rigid, no scaphoid, soft, no splenomegaly, no tenderness, no umbilical hernia, no ventral hernia - Genitourinary lt inguinal hematoma, much smaller per pt - Integumentary No other bruising or petechiae other then lt groin Integumentary: normal - Neurologic Neurologic: CNII-XII intact - Musculoskeletal Musculoskeletal: strength equal bilaterally - Psychiatric Psychiatric: A&O x's 3, appropriate affect, intact judgment & insight Results CBC & Chem 7: 03/03/24 05:01 03/03/24 05:01 Labs: Abnormal Lab Results - Last 24 Hours (Table) 03/02/24 03/03/24 Range/Units 10:34 05:01 Calcium 8.3 L (8.7-10.3) mg/dL Crossmatch See Detail Assessment and Plan (1) Pancytopenia Current Visit: Yes Status: Acute Priority: High Code(s): D61.818 - OTHER PANCYTOPENIA SNOMED Code(s): 044173061 Plan: Pancytopenia -As noted anemia has been intermittent since 2017, leukopenia is new, platelets intermittently low since 2021. -Suspect stress of procedures 1 mo ago, bleeding, and recent cellulitis around [place] along with decreased bone marrow function 2/2 age might be causing a worsening transient decrease in counts. -Pancytopenia work up ordered. HIT ab as he received heparin just about 2 weeks ago. Hemolysis labs. Iron studies. Pending results -Transfuse for hemoglobin less than 7 or if patient is symptomatic -Transfuse for platelets less than 10,000 or if patient is symptomatic.*Patient platelet count is 47,000 today. Holding Eliquis but, continuing the baby aspirin. Risk versus benefit status post recent procedures. AM CBC. Lex re commendations regarding antiplatelet/anticoagulation based on labs -No GCSF, ANC adequate Doctor attests: I performed a history and physical examination of this patient, developed impression and plan of care. Discussed with dictator. I agree with dictators note, documented as a scribe.
[2024-03-03 22:18] LABS: % Iron Saturation 13.18 (15.00-50.00); Iron 41 UG/DL (65-175); Rheumatoid Factor, Qnt <15 IU/mL (0-15); Total Iron Binding Capacity 311 UG/DL (228-460)
[2024-03-04 01:44] LABS: Reticulocyte % 0.21 % (0.10-1.80)
--- NOTE | 2024-03-04 03:51 | P.PN ---
Subjective Progress Note Date: 03/03/24 This is a pleasant 83 years old male with past medical history of multiple medical problem Patient presents because of weakness and elevated heart rate. At home he checked his heart rate was 119 and blood pressure 170/71 Patient states that he was extremely fatigued yesterday that he was lying on the floor. Has been complaining from exertional dyspnea over the last week and that he has to stop and catch up his breath He denies chest pain or dyspnea. No GI/ symptoms. No blood in the stool no v omiting. No abdominal pain. No headache dizziness weakness or numbness Patient is currently getting 1 unit of blood transfusion Patient is hemodynamically stable. He is afebrile. Labs showing anemia with hemoglobin 7.6 at 7.2 He has pancytopenia with WBC also trending down 3.4 down to 2.8 and platelet count 68 down to 51 Occult blood in stool positive EKG showing junctional rhythm at [address]-T changes Chest x-ray is negative for acute process 03/03/2024 Patient seen in follow-up today with oncology as well as general surgery. Hemoglobin is 7 today and platelets are slightly low in the 40s with no active bleeding noted. Initially patient to follow-up outpatient for endoscopy although having continued symptoms with his anemia, patient will prep for colonoscopy and have colonoscopy with general surgery on 03/04/2024. Repeat labs ordered for a.m. and patient undergoing anemia workup with hematology. Patient is afebrile denies chest pain or shortness of breath. Patient does elicit shortness of breath with exertion and is currently on room air. Review of systems: Constitutional: No reports of fatigue, fever, or chills Cardiovascular: No reports of chest pain or palpitations Respiratory: reports of shortness of breath with exertion, no cough GI: No reports of nausea, vomiting, or diarrhea, reports loose stools that is chronic : No reports of dysuria or retention Neurovascular: No reports of weakness or numbness All medications have been reviewed Physical exam: Gen: This is a 83-year-old male who is awake, alert and oriented x 3, well- developed, elderly appearing, obese HEENT: Head is atraumatic, normocephalic. Pupils equal, round. Sclerae is ani cteric. NECK: Supple. No JVD. No lymphadenopathy. No thyromegaly. LUNGS: Diminished breath sounds bilaterally otherwise clear to auscultation. No wheezes or rhonchi. No intercostal retractions. HEART: S1, S2 are muffled ABDOMEN: Soft. Obese. Bowel sounds are present. No masses. No tenderness. EXTREMITIES: Bilateral lower extremity edema noted. No calf tenderness. NEUROLOGICAL: Patient is awake, alert and oriented x3. Cranial nerves 2 through 12 are grossly intact. Assessment: Acute GI bleed, patient is s/p 1 unit of blood transfusion on 03/02, hemoglobin today is 7, scheduled to undergo colonoscopy on 03/04/2024, "positive Acute blood loss anemia Pancytopenia, new undergoing further workup with oncology Atrial fibrillation on Eliquis which is currently being held History of DVT on Eliquis BPH Osteoarthritis Obesity with a BMI 33.0 GI prophylaxis DVT prophylaxis Full code Plan: Continue monitoring hemoglobin Transfuse if hemoglobin less than 7. Initially a unit of PRBCs were ordered and oncology/hematology recommended holding and follow-up on repeat labs Hold Eliquis till cleared by surgery team given his GI bleed. Continue aspirin per hematology Surgery team consult. No GI team coverage in this facility this week. Initially discussed having endoscopy outpatient although patient remains symptomatic and will initiate colon prep and schedule colonoscopy on 03/04/2024 per general surgery. Follow-up on repeat labs in the a.m. Overall prognosis is guarded The impression and plan of care has been dictated by Nereyda White, Nurse Practitioner as directed. Dr. Sravan MD I have performed a history and examination and MDM of this patient, discussed the same with the dictator, and agree with the dictator's assessment and plan as written ,documented as a scribe. Based on total visit time, I have performed more than 50% of the visit. Objective - Vital Signs Vital signs: Vital Signs Temp 98.2 F 03/03/24 07:00 Pulse 67 03/03/24 07:00 Resp 18 03/03/24 07:00 BP 124/67 03/03/24 07:00 Pulse Ox 96 03/03/24 09:06 FiO2 Intake & Output 03/02/24 03/03/24 03/03/24 18:59 06:59 18:59 Intake Total 910 536 Balance 910 536 Intake: Intake, IV Titration 600 Amount Sodium Chloride 0.9% 1, 600 000 ml @ 75 mls/hr IV . [id number] [facility] Rx#:[id number] Oral 536 Blood Product 310 Rc As-1 Unit 310 [id number] Other: # Voids 2 - Labs CBC & Chem 7: 03/03/24 05:01 03/03/24 05:01 Labs: Abnormal Lab Results - Last 24 Hours (Table) 03/02/24 03/03/24 03/03/24 Range/Units 10:34 05:01 05:01 WBC 3.70 L (4.50-10.00) X 10*3/uL RBC 2.38 L (4.40-5.60) X 10*6/uL Hgb 7.0 L (13.0-17.0) g/dL Hct 21.5 L (39.6-50.0) % Plt Count 47 A* (140-440) X 10*3/uL MPV 9.3 L (9.5-12.2) FL Lymphocytes # 0.67 L (0.90-5.00) X 10*3/uL Calcium 8.3 L (8.7-10.3) mg/dL Crossmatch See Detail
[2024-03-04 06:16] LABS: Basophils % (A) 1 %; Eosinophils # (A) 0.2 k/uL (0-0.7); Eosinophils % (A) 3 %; HCT 22.2 % (39.0-53.0); HGB 7.4 gm/dL (13.0-17.5); Lymphocytes # (A) 0.8 k/uL (1.0-4.8); Lymphocytes % (A) 15 %; MCH 29.7 pg (25.0-35.0); MCHC 33.5 g/dL (31.0-37.0); MCV 88.6 fL (80.0-100.0); Mean Platelet Volume 8.2; Monocytes # (A) 0.7 k/uL (0-1.0); Monocytes % (A) 12 %; Neutrophils # (A) 3.8 k/uL (1.3-7.7); Neutrophils % (A) 68 %; RDW 14.5 % (11.5-15.5); WBC 5.6 k/uL (3.8-10.6)
[2024-03-04 06:21] LABS: African American GFR (CKD) >90 (>60 ml/min/1.73 sqM); Anion Gap 5 mmol/L; Blood Urea Nitrogen 7 mg/dL (9-20); Calcium 8.7 mg/dL (8.4-10.2); Carbon Dioxide 27 mmol/L (22-30); Chloride 105 mmol/L (98-107); Glucose 87 mg/dL (74-99); Non-African American GFR(CKD) 83 (>60 ml/min/1.73 sqM); Potassium 3.9 mmol/L (3.5-5.1); Sodium 137 mmol/L (137-145)
[2024-03-04 06:32] LABS: Platelet Count 70 k/uL (150-450)
[2024-03-04 12:30] LABS: Free Kappa Lt Chain Qnt, Serum 2.78 mg/dL (0.33-1.94)
[2024-03-04 13:27] LABS: Protein, Total 6.4 g/dL (6.2-8.2)
[2024-03-04] MEDS: IV FLUID CONTINUATION 1,000 ML IV ONE (13:43)
[2024-03-04] MEDS ORDERED: PROPOFOL 10 MG/ML 20 ML VIAL IV ONE (13:43)
--- NOTE | 2024-03-04 14:14 | P.OP ---
Date of Procedure: 03/04/24 Preoperative Diagnosis: Symptomatic anemia Postoperative Diagnosis: Symptomatic anemia Prominent diverticulosis Colitis with inflammatory changes of the right colon Procedure(s) Performed: Colonoscopy with biopsy Anesthesia: MAC Surgeon: Mustapha Viveros Pathology: other (Biopsies of right colon) Condition: stable Disposition: floor Indications for Procedure: 83-year-old male with symptomatic anemia that is newly onset. Occult stool positive. Plan is for colonoscopy for further evaluation of GI source. Risks, benefits and alternatives were provided to the patient. All questions answered prior to the procedure. Operative Findings: Inflammatory changes of the right colon, biopsies were taken Prominent diverticulosis of the sigmoid colon and descending colon Description of Procedure: The patient was brought to the endoscopy suite and placed in left lateral decubitus position and adequate sedation was achieved using conscious sedation. Digital rectal exam was performed and mild internal hemorrhoids were palpated. An endoscope was then placed in the rectum and advanced to the cecum as identified by landmarks including the appendiceal orifice and the ileocecal valve. The prep was good. The colonoscope was then slowly withdrawn, examining for any mucosal abnormalities. The cecum, ascending, transverse, descending and sigmoid colon were visualized adequately. There were no large neoplastic lesions noted throughout the colon. A small portion of the cecum was not completely visualized, however no obvious large abnormalities. Inflammatory changes were noticed in the right colon and biopsies were taken. Significant prominent diverticulosis noted in the descending and sigmoid colon. Hemostasis was maintained. Retroflexion was performed in the rectum and internal hemorrhoids. Excess air was removed, the colonoscope withdrawn and the procedure terminated. The patient was then transferred to the recovery unit in stable condition. Repeat colonoscopy should be performed based on symptoms due to the patient's age.
[2024-03-04] MEDS: PANTOPRAZOLE 40 MG/10 ML VIAL IVP SCH (19:23)
[2024-03-04] MEDS: ACETAMINOPHEN IV (For NPO) 1,000 MG in EMPTY BAG 1 BAG IVPB STA (21:48)
[2024-03-04] MEDS: MAGNESIUM SULFATE-D5W PMX 1 GM in DEXTROSE/WATER 1 100ML.BAG IVPB ONE (21:53)
--- NOTE | 2024-03-04 22:20 | P.PN ---
Subjective Progress Note Date: 03/04/24 This is a pleasant 83 years old male with past medical history of multiple medical problem Patient presents because of weakness and elevated heart rate. At home he checked his heart rate was 119 and blood pressure 170/71 Patient states that he was extremely fatigued yesterday that he was lying on the floor. Has been complaining from exertional dyspnea over the last week and that he has to stop and catch up his breath He denies chest pain or dyspnea. No GI/ symptoms. No blood in the stool no vomiting. No abdominal pain. No headache dizziness weakness or numbness Patient is currently getting 1 unit of blood transfusion Patient is hemodynamically stable. He is afebrile. Labs showing anemia with hemoglobin 7.6 at 7.2 He has pancytopenia with WBC also trending down 3.4 down to 2.8 and platelet count 68 down to 51 Occult blood in stool positive EKG showing junctional rhythm at [address]-T changes Chest x-ray is negative for acute process 03/03/2024 Patient seen in follow-up today with oncology as well as general surgery. Hemoglobin is 7 today and platelets are slightly low in the 40s with no active bleeding noted. Initially patient to follow-up outpatient for endoscopy although having continued symptoms with his anemia, patient will prep for colonoscopy and have colonoscopy with general surgery on 03/04/2024. Repeat labs ordered for a.m. and patient undergoing anemia workup with hematology. Patient is afebrile denies chest pain or shortness of breath. Patient does elicit shortness of breath with exertion and is currently on room air. 03/04/2024 Pt seen and evaluated, Hgb is improved to 7.4 and plt to 70k. He is scheduled for colonoscopy today Objective - Vital Signs Vital signs: Vital Signs Temp 98.0 F 03/04/24 18:39 Pulse 88 03/04/24 18:39 Resp 17 03/04/24 18:39 BP 132/57 03/04/24 18:39 Pulse Ox 95 03/04/24 18:39 FiO2 Intake & Output 03/04/24 03/04/24 03/05/24 06:59 18:59 06:59 Intake Total 265 300 Balance 265 300 Intake: IV 300 Blood Product 265 Platelet Pheresis Pas 265 Psoralen Unit [id number] Other: Voiding Method Toilet Toilet # Voids 2 # Bowel Movements 4 - Exam Gen: well developed, NAD CV: RRR, no murmur Lungs: Normal effort, clear throughout - Labs CBC & Chem 7: 03/04/24 05:05 03/04/24 05:05 Labs: Abnormal Lab Results - Last 24 Hours (Table) 03/03/24 03/03/24 03/03/24 Range/Units 09:54 09:54 09:54 RBC (4.30-5.90) m/uL Hgb (13.0-17.5) gm/dL Hct (39.0-53.0) % Plt Count (150-450) k/uL Lymphocytes # (1.0-4.8) k/uL BUN (9-20) mg/dL Iron 41 L (65-175) UG/DL % Saturation 13.18 L (15.00-50.00) RBC Folate 865 H (280 - 791) ng/mL Free [place] LC, Quant 2.78 H (0.33-1.94) mg/dL 03/04/24 03/04/24 Range/Units 05:05 05:05 RBC 2.50 L (4.30-5.90) m/uL Hgb 7.4 L (13.0-17.5) gm/dL Hct 22.2 L (39.0-53.0) % Plt Count 70 L (150-450) k/uL Lymphocytes # 0.8 L (1.0-4.8) k/uL BUN 7 L (9-20) mg/dL Iron (65-175) UG/DL % Saturation (15.00-50.00) RBC Folate (280 - 791) ng/mL Free [place] LC, Quant (0.33-1.94) mg/dL Assessment and Plan Plan: Continue with current regimen, hold ellquis and closely monitor Hgb. Continue ASA
[2024-03-05 05:12] LABS: Methylmalonic Acid 0.22 umol/L (<0.40)
[2024-03-05] MEDS: VIT A,C & E-LUTEIN-MINERALS 1 EACH TAB PO SCH (08:28)
[2024-03-05 09:22] LABS: HCT 25.3 % (39.0-53.0); HGB 8.5 gm/dL (13.0-17.5); MCH 30.3 pg (25.0-35.0); MCHC 33.7 g/dL (31.0-37.0); Mean Platelet Volume 8.6; Platelet Count 102 k/uL (150-450); RBC 2.81 m/uL (4.30-5.90); RDW 14.6 % (11.5-15.5); WBC 7.6 k/uL (3.8-10.6)
[2024-03-05] MEDS: SODIUM FERRIC GLUCONAT-SUCROSE 125 MG in SODIUM CHLORIDE 0.9% 100 ML IVPB SCH (13:08)
[2024-03-05 14:19] VITALS: BP 127/65; PULSE 64; RESP 15; TEMP 98.8
[2024-03-05 15:47] LABS: Albumin 3.81 g/dL (3.80-4.90); Gamma Globulin 0.83 g/dL (0.70-1.50)
--- NOTE | 2024-03-05 15:47 | P.PN ---
Subjective Progress Note Date: 03/05/24 SURGICAL PROGRESS NOTE CHIEF COMPLAINT: Anemia HISTORY OF PRESENT ILLNESS: Patient status post colonoscopy. Results reported prominent diverticulosis colitis with inflammatory changes of the right colon. Biopsies were taken. Patient does report some mild discomfort on the right side of the abdomen. No active signs of bleeding. Afebrile. WBC 7.6 Hgb 8.5 platelets 102 PHYSICAL EXAM: VITAL SIGNS: Reviewed. GENERAL: Well-developed in no acute distress. ABDOMEN: Soft. Nondistended. Nontender. NEUROLOGIC: Alert and oriented. Cranial nerves II through XII grossly intact. ASSESSMENT: 1. Symptomatic anemia 2. history of colonoscopy x 4 years ago with polyp removal and history of hemorrhoid (recent +fecal occult blood test) 3. recent history of large hematoma of lower extremity 4. Pancytopenia PLAN: -Patient can be discharged from surgical standpoint -Recommend holding Eliquis at least until tomorrow due to biopsy done during colonoscopy Physician Microcomputer Support Specialist note has been reviewed by physician. Signing provider agrees with the documented findings, assessment, and plan of care. Attestation Patient seen and examined at bedside. Status post colonoscopy. No obvious signs of active bleeding noted with some inflammatory changes in the right colon. Biopsies were taken. Continue regular diet. No further intervention planned. Mustapha Viveros, Objective - Vital Signs Vital signs: Vital Signs Temp 98.8 F 03/05/24 14:00 Pulse 64 03/05/24 14:00 Resp 15 03/05/24 14:00 BP 127/65 03/05/24 14:00 Pulse Ox 100 03/05/24 14:00 FiO2 Intake & Output 03/04/24 03/05/24 03/05/24 18:59 06:59 18:59 Intake Total 300 250 Balance 300 250 Intake: IV 300 Oral 250 Other: Voiding Method Toilet Toilet Toilet # Voids 1 - Labs CBC & Chem 7: 03/05/24 09:00 03/04/24 05:05 Labs: Abnormal Lab Results - Last 24 Hours (Table) 03/05/24 Range/Units 09:00 RBC 2.81 L (4.30-5.90) m/uL Hgb 8.5 L (13.0-17.5) gm/dL Hct 25.3 L (39.0-53.0) % Plt Count 102 L (150-450) k/uL
--- NOTE | 2024-03-05 18:57 | P.PN ---
Subjective Progress Note Date: 03/05/24 Principal diagnosis: pancytopenia Pt reports he is feeling well today, did well with the colonoscopy. Denies F, N,V, cough, abd pain, bleeding. His lt leg is still tight and swollen but, it is improving, hematoma in groin is doing better. Objective - Vital Signs Vital signs: Vital Signs Temp 98.6 F 03/05/24 07:45 Pulse 65 03/05/24 08:00 Resp 16 03/05/24 08:00 BP 110/65 03/05/24 07:45 Pulse Ox 95 03/05/24 07:45 FiO2 Intake & Output 03/04/24 03/05/24 03/05/24 18:59 06:59 18:59 Intake Total 300 120 Balance 300 120 Intake: IV 300 Oral 120 Other: Voiding Method Toilet Toilet Toilet # Voids 1 - Constitutional General appearance: Present: average body habitus, cooperative, no acute dis tress - EENT Eyes: Present: anicteric sclerae, EOMI ENT: Present: hearing grossly normal, normal oropharynx - Respiratory Details: resp even and unlabored at rest - Cardiovascular Rhythm: regular - Peripheral edema leg Peripheral Edema: left: 2+ - Integumentary Integumentary: Present: normal - Neurologic Neurologic: Present: CNII-XII intact - Musculoskeletal Musculoskeletal: Present: strength equal bilaterally - Psychiatric Psychiatric: Present: A&O x's 3, appropriate affect, intact judgment & insight - Labs CBC & Chem 7: 03/05/24 09:00 03/04/24 05:05 Labs: Abnormal Lab Results - Last 24 Hours (Table) 03/05/24 Range/Units 09:00 RBC 2.81 L (4.30-5.90) m/uL Hgb 8.5 L (13.0-17.5) gm/dL Hct 25.3 L (39.0-53.0) % Plt Count 102 L (150-450) k/uL Assessment and Plan (1) Pancytopenia Status: Acute Priority: High Code(s): D61.818 - OTHER PANCYTOPENIA SNOMED Code(s): 374824290 Plan: Pancytopenia -As noted anemia has been intermittent since 2017, leukopenia is new, platelets intermittently low since 2021. -Suspect stress of procedures 1 mo ago, bleeding, and recent cellulitis and antibiotics around [place], along with decreased bone marrow function 2/2 age might be causing a worsening transient decrease in counts. His counts are spontaneously recovering -HIT ab neg. Hemolysis labs neg. No monoclonal protein. Iron studies did show a low saturation. With recent bleeding, IV iron ordered today. -Hgb 8.5 today, received PRBC transfusion on the 12th for Hgb 7. Appropriate increase -He received plt transfusion for count of 47,000 and colonoscopy. Next lab was 70,000, today 102,000. -Procedure note reviewed. Ok to resume eliquis with close Hgb monitoring. -WBC recovered, normal, normal differential -Hematology f/u will be scheduled in 4-6 weeks.
--- NOTE | 2024-03-06 14:02 | P.DS ---
Providers Date of admission: 03/04/24 08:48 Expected date of discharge: 03/05/24 Attending physician: Ismael Delgado MD Consults: 03/01/24 17:12 Consult Physician Routine Consulting Provider: Mckay Polanco Consult Reason/Comments: Acute GI bleeding Do you want consulting provider notified?: Already Contacted 03/02/24 13:49 Consult Physician Routine Consulting Provider: Kalia Lugo Consult Reason/Comments: Pancytopenia and anemia Do you want consulting provider notified?: Yes Primary care physician: Radha Danny Lds Hospital Course: Final Diagnoses: Symptomatic anemia, status post colonoscopy reported prominent diverticulosis with inflammatory changes of the right colon, biopsy obtained. Status post transfusion of 1 unit of packed RBCs and 1 platelet. Pancytopenia, evaluated by hematology, suspecting related to stress of procedures 1 month ago, bleeding and recent cellulitis and antibiotics around [place] with decreased bone marrow function ,HIT ab negative with. counts spontaneously recovering. Iron studies reported low saturation, received IV iron Recent history of left lower extremity cellulitis, left groin hematoma, 7.9 x 4.8 cm, likely related to previous access site for cardiac ablation, venous duplex 02/08 reported no ultrasound evidence of DVT. Left lower extremity CTA reported no CT evidence of pathology in the left groin.improving. Completely occluded right anterior tibial, posterior tibial and peroneal arteries with 0 vessel right lower extremity runoff. No significant flow visualized in the right dorsalis pedis and posterior tibial arteries in the right foot. Three-vessel left lower extremity runoff. Extensive bilateral lower extremity subcutaneous edema, left greater than right. Numerous left- sided venous varicosities. Further follow-up outpatient with vascular surgery recommended. Atrial fibrillation recent cardiac ablation 01/24/2024 History venous duplex study reported no ultrasound evidence for DVTof colonoscopy 4 years ago with polyp removal, history of hemorrhoid Hospital course: This is a 83-year-old gentleman admitted with symptomatic anemia, in a patient with history significant for recent cardiac ablation 01/24/2024, left groin hematoma post ablation, left lower extremity-evaluated by vascular surgery with no acute surgical intervention recommended. Hemoglobin on admission 7.6, dropped as low as 7, post 1 unit packed RBCs and 1 unit platelets. Status post colonoscopy, reported prominent diverticulosis with inflammatory changes of the right colon, biopsy obtained. Cleared by both general surgery and oncology to resume Eliquis with close hemoglobin monitoring. Hold aspirin-reevaluate at follow-up visit with PCP in 1 week. Per hematology:"Pancytopenia -As noted anemia has been intermittent since 2018, leukopenia is new, platelets intermittently low since 2021. -Suspect stress of procedures 1 mo ago, bleeding, and recent cellulitis and antibiotics around [place], along with decreased bone marrow function 2/2 age might be causing a worsening transient decrease in counts. His counts are spontaneously recovering -HIT ab neg. Hemolysis labs neg. No monoclonal protein. Iron studies did show a low saturation. With recent bleeding, IV iron ordered today. -Hgb 8.5 today, received PRBC transfusion on the 12th for Hgb 7. Appropriate increase -He received plt transfusion for count of 47,000 and colonoscopy. Next lab was 70,000, today 102,000. -Procedure note reviewed. Ok to resume eliquis with close Hgb monitoring. -WBC recovered, normal, normal differential -Hematology f/u will be scheduled in 4-6 weeks. " Patient has been advised to follow-up with general surgery for bx results. Significant clinical improvement. WBC 7.6 Hgb 8.5 platelets 102. Denies bleeding. Denies chest pain, palpitations or shortness of breath, maintaining O2 sats of 100% on room air. Denies lightheadedness dizziness or focal deficits. Patient will be discharged home today in a stable condition with guarded prognosis. The impression and plan of care has been dictated as directed. : I performed a history and examination of this patient, discussed the same with the dictator. I agree with the dictator's note ,documented as a scribe. Any additional findings or plans will be noted. Patient Condition at Discharge: Stable Plan - Discharge Summary Discharge Rx Participant: No New Discharge Prescriptions: New Furosemide [Lasix] 20 mg PO DAILY tab Famotidine [Pepcid] 20 mg PO BID tab Continue Finasteride [Proscar] 5 mg PO DAILY Apixaban [Eliquis] 5 mg PO BID #60 tab Nystatin 100,000 Unit/gm Powd [Mycostatin Powder] 1 applic TOPICAL DIRECTE D Mirabegron [Myrbetriq] 50 mg PO DAILY Metoprolol Tartrate [Lopressor] 50 mg PO BID Ammonium Lactate Lotion [Lac-Hydrin 12% Lotion] 1 applic TOPICAL DAILY Cholecalciferol (Vitamin D3) [Vitamin D3 (50 Mcg = 2000 Iu)] 50 mcg PO DAILY No Action Vitc/E/Zinc/Copper/Lutein/Zeax [Icaps Areds2 Tablet] 1 tab PO DAILY Discharge Medication List Finasteride [Proscar] 5 mg PO DAILY 03/05/17 [History] Apixaban [Eliquis] 5 mg PO BID #60 tab 11/29/21 [Rx] Mirabegron [Myrbetriq] 50 mg PO DAILY 01/19/22 [History] Vitc/E/Zinc/Copper/Lutein/Zeax [Icaps Areds2 Tablet] 1 tab PO DAILY 09/05/23 [History] Ammonium Lactate Lotion [Lac-Hydrin 12% Lotion] 1 applic TOPICAL DAILY 02/09/24 [History] Cholecalciferol (Vitamin D3) [Vitamin D3 (50 Mcg = 2000 Iu)] 50 mcg PO DAILY 02/09/24 [History] Metoprolol Tartrate [Lopressor] 50 mg PO BID 02/09/24 [History] Nystatin 100,000 Unit/gm Powd [Mycostatin Powder] 1 applic TOPICAL DIRECTED 03/01/24 [History] Famotidine [Pepcid] 20 mg PO BID tab 03/05/24 [Rx] Furosemide [Lasix] 20 mg PO DAILY tab 03/05/24 [Rx] Follow up Appointment(s)/Referral(s): Yury Post [STAFF PHYSICIAN] - 6 Weeks Radha Delgado DO [Primary Care Provider] - 3 Days Ambulatory/Diagnostic Orders: Complete Blood Count w/diff [LAB.AMB] Time Frame: 3 Days, Location: None Selected Patient Instructions/Handouts: Diverticulosis (DC), Colitis (ED), Pancytopenia (IP) Activity/Diet/Wound Care/Special Instructions: Resume eliquis tomorrow. Hold Aspirin until F/U in Clinic with PCP -to further eval. Discharge Disposition: HOME SELF-CARE
--- NOTE | 2024-03-07 09:56 | CDI ---
Documentation Clarification Form Date: 03/07/2024 09:35:17 AM From: Natalia Calhoun Admit Date: 03/04/2024 08:48:00 AM Patient Name: Chip Mcmahan Visit Number: [id number] Discharge Date: 03/05/2024 06:28:00 PM ATTENTION: The Clinical Documentation Specialists (CDI) and [facility] Coding Staff appreciate your assistance in clarifying documentation. Please respond to the clarification below the line at the bottom and electronically sign. The CDI & [facility] Coding staff will review the response and follow-up if needed. Please note: Queries are made part of the Legal Health Record. If you have any questions, please contact the author of this message via ITS. Doctor/Provider: Ismael Delgado, The final diagnosis of the pathology report states RIGHT COLON, BIOPSY: Focal acutecolitiswithischemictype features and mucosalerosion. Coding guidelines do not allow coding professionals to code based on pathology results; therefore, clarification is requested. History/risk factors: Acute blood loss anemia, diverticulosis, pancytopenia, obesity, atrial fibrillation Clinical Indicators: Acute GI bleed. Colitis with inflammatory changes of the right colon. Treatment: Colonoscopy with biopsy. Please clarify if you agree with the pathology report diagnosis of [RIGHT COLON, BIOPSY: Focal acutecolitiswithischemictype features and mucosalerosion. [ X ] Yes [ ] No [ ] Other (please specify) [ ] Unable to determine MTDD
--- NOTE | 2024-03-07 10:04 | CDI ---
Documentation Clarification Form Date: 03/07/24 From: Natalia Calhoun Admit Date: 03/04/2024 08:48:00 AM Patient Name: Chip Mcmahan Visit Number: [id number] Discharge Date: 03/05/2024 06:28:00 PM ATTENTION: The Clinical Documentation Specialists (CDI) and [facility] Coding Staff appreciate your assistance in clarifying documentation. Please respond to the clarification below the line at the bottom and electronically sign. The CDI & [facility] Coding staff will review the response and follow-up if needed. Please note: Queries are made part of the Legal Health Record. If you have any questions, please contact the author of this message via ITS. Doctor/Provider: Ismael Delgado, Atrial Fibrillation is documented in EDNOTE, H&P. Additional clarification regarding the type of atrial fibrillation is requested. History/Risk Factors: Acute blood loss anemia, diverticulosis, pancytopenia, obesity Clinical Indicators: Atrial fibrillation recently had ablation. EKG/telemetry: Treatment: Eliquis 5 mg BID Please clarify the type of atrial fibrillation, if known: [X ] Chronic [ ] Permanent [ ] Paroxysmal [ ] Persistent [ ] Other, please specify [ ] Unable to determine MTDD
== END 2024-03-05 18:28 | disposition home or self-care (01) | DRG 377 ==
LOC: EC 13:22 → 6NMEDSUR 17:12 → OBSVTOIN 03-04 08:48
PROVIDERS: ADMIT Family Medicine; ATTEND Family Medicine
PROC: 30233N1 Transfusion of Nonautologous Red Blood Cells into Peripheral Vein, Percutaneous Approach (ICD-10-PCS; 2024-03-02)
PROC: 30233R1 Transfusion of Nonautologous Platelets into Peripheral Vein, Percutaneous Approach (ICD-10-PCS; 2024-03-03)
PROC: 0DBF8ZX Excision of Right Large Intestine, Via Natural or Artificial Opening Endoscopic, Diagnostic (ICD-10-PCS; principal; 2024-03-04 13:15)
DX: K57.31 Diverticulosis of large intestine without perforation or abscess with bleeding (principal); K55.039 Acute (reversible) ischemia of large intestine, extent unspecified; D61.818 Other pancytopenia; D62 Acute posthemorrhagic anemia; E66.9 Obesity, unspecified; Z95.2 Presence of prosthetic heart valve; I48.20 Chronic atrial fibrillation, unspecified; Z68.33 Body mass index [BMI] 33.0-33.9, adult; I45.10 Unspecified right bundle-branch block; N40.0 Benign prostatic hyperplasia without lower urinary tract symptoms; Z79.01 Long term (current) use of anticoagulants; Z79.82 Long term (current) use of aspirin; Z79.899 Other long term (current) drug therapy; Z86.718 Personal history of other venous thrombosis and embolism; M19.90 Unspecified osteoarthritis, unspecified site; Z96.653 Presence of artificial knee joint, bilateral; Z87.891 Personal history of nicotine dependence; Z88.1 Allergy status to other antibiotic agents; Z88.8 Allergy status to other drugs, medicaments and biological substances
CPT/HCPCS: 36415; 36430; 45380; 71046; 80048; 80053; 82272; 82607; 82728; 82746; 82747; 83010; 83540; 83550; 83615; 83735; 83883; 83921; 84165; 84484; 85025; 85027; 85045; 85610; 85652; 85730; 86022; 86038; 86334; 86431; 86850; 86900; 86901; 86920; 88305; 93005; 94760; 96360; 96361; 99285

== ENCOUNTER → 2024-03-08 | Outpatient (CLI) | payer MEDICARE ==
[2024-03-08 23:22] LABS: Basophils # (A) 0.02 X 10*3/uL (0.00-0.10); Basophils % (A) 0.4 %; Eosinophils # (A) 0.13 X 10*3/uL (0.04-0.35); Eosinophils % (A) 2.4 %; HCT 24.5 % (39.6-50.0); HGB 7.6 g/dL (13.0-17.0); Lymphocytes # (A) 0.61 X 10*3/uL (0.90-5.00); MCV 93.5 FL (80.0-97.0); Mean Platelet Volume 9.2 FL (9.5-12.2); Monocytes # (A) 0.79 X 10*3/uL (0.20-1.00); Monocytes % (A) 14.3 %; NRBC Per 100 WBC 0.02 X 10*3/uL (0.00-0.01); Neutrophils % (A) 70.5 %; Platelet Count 120 X 10*3/uL (140-440); RBC 2.62 X 10*6/uL (4.40-5.60); RDW 14.4 % (11.5-14.5); WBC 5.53 X 10*3/uL (4.50-10.00)
[2024-03-09 10:24] LABS: BUN/Creat Ratio 21.67 Ratio (12.00-20.00); Blood Urea Nitrogen 19.5 mg/dL (9.0-27.0); Carbon Dioxide 25.2 mmol/L (21.6-31.8); Chloride 106 mmol/L (96-109); Glucose 99 mg/dL (70-110); Potassium 4.5 mmol/L (3.5-5.5); Sodium 141 mmol/L (135-145)
== END | disposition home or self-care (01) ==
LOC: LABWHC1 10:22
PROVIDERS: ATTEND Family Medicine
DX: I48.91 Unspecified atrial fibrillation (principal); D61.818 Other pancytopenia; D62 Acute posthemorrhagic anemia
CPT/HCPCS: 36415; 80048; 85025

== ENCOUNTER 2024-06-07 13:14 | Observation (INO) | payer MEDICARE ==
--- NOTE | 2024-06-07 14:39 | XR ---
EXAMINATION TYPE: XR chest 2V DATE OF EXAM: 06/07/2024 2:30 PM COMPARISON: Multiple prior chest radiograph, most recently dated 03/01/2024. CLINICAL INDICATION: Male, 84 years old with history of dysrhythmia; [facility] TECHNIQUE: XR chest 2V Frontal and lateral views of the chest. FINDINGS: Lungs/Pleura: There is no evidence of pleural effusion, focal consolidation, or pneumothorax. Pulmonary vascularity: Unremarkable. Heart/mediastinum: Cardiomegaly. Prosthetic valve on lateral view. Mediastinal wires. Musculoskeletal: No acute osseous pathology. Other findings: None IMPRESSION: No acute cardiopulmonary disease/process. [facility], , 06/07/2024 2:36 PM
[2024-06-07 15:21] LABS: Basophils # (A) 0.05 10*3/uL (0.00-0.10); Basophils % (A) 0.9 %; Eosinophils # (A) 0.05 10*3/uL (0.04-0.35); Eosinophils % (A) 0.9 %; HCT 33.9 % (39.6-50.0); HGB 11.8 g/dL (13.0-17.0); Lymphocytes # (A) 0.67 10*3/uL (0.90-5.00); Lymphocytes % (A) 12.4 %; MCH 32.1 pg (27.0-32.0); MCHC 34.8 g/dL (32.0-37.0); MCV 92.1 fL (80.0-97.0); Mean Platelet Volume 8.6 fL (9.5-12.2); Monocytes # (A) 0.58 10*3/uL (0.20-1.00); Monocytes % (A) 10.8 %; Neutrophils # (A) 4.03 10*3/uL (1.80-7.70); Neutrophils % (A) 74.8 %; Platelet Count 158 10*3/uL (140-440); RBC 3.68 10*6/uL (4.40-5.60); RDW 14.3 % (11.5-14.5); WBC 5.39 10*3/uL (4.50-10.00)
--- NOTE | 2024-06-07 15:34 | ED ---
General Adult HPI - General Source: patient, RN notes reviewed, old records reviewed Mode of arrival: wheelchair Limitations: no limitations <Tono Evans - Last Filed: 06/07/24 17:05> - General Source: patient, RN notes reviewed, old records reviewed Mode of arrival: wheelchair Limitations: no limitations <Hai Mccann - Last Filed: 06/08/24 07:44> - General Chief complaint: Arrhythmia/Palpitations Stated complaint: AFiIB Time Seen by Provider: 06/07/24 14:05 - History of Present Illness Initial comments: This is a 84 male presenting today for evaluation of atrial fibrillation recu rrent (Tono Evans) Patient is an 84-year-old male who presents emergency department for feeling weak and short of breath. He has a history of atrial fibrillation however his usually in sinus rhythm after a ablation last December. Denies chest pain. Den ies shortness of breath at rest. States he feels weak in his legs which is typical when his A-fib acts up. Denies any abdominal pain, nausea, vomiting. Denies any diarrhea. No known sick contacts. He is on Eliquis. Has been compliant with his metoprolol. Presents for further evaluation at this time. Follows up with Dr. Lopez and Dr. Church. (Hai Mccann) - Related Data Home Medications Medication Instructions Recorded Confirmed Finasteride [Proscar] 5 mg PO DAILY 03/05/17 06/07/24 Mirabegron [Myrbetriq] 50 mg PO DAILY 01/19/22 06/07/24 Ammonium Lactate Lotion 1 applic TOPICAL MOWEFR 02/09/24 06/07/24 [Lac-Hydrin 12% Lotion] Metoprolol Tartrate [Lopressor] 50 mg PO BID 02/09/24 06/07/24 tadalafiL 5 mg PO DAILY 06/07/24 06/07/24 Previous Rx's Medication Instructions Recorded Apixaban [Eliquis] 5 mg PO BID #60 tab 11/29/21 Famotidine [Pepcid] 20 mg PO BID tab 03/05/24 Furosemide [Lasix] 20 mg PO DAILY tab 03/05/24 Allergies Allergy/AdvReac Type Severity Reaction Status Date / Time verapamil Allergy Rash/Hives Verified 06/07/24 14:20 on face ciprofloxacin [From Cipro] AdvReac Severe LEG PAIN Verified 06/07/24 14:20 levofloxacin [From Levaquin] AdvReac leg pain Verified 06/07/24 14:20 Review of Systems ROS Other: All systems not noted in ROS Statement are negative. <Tono Evans Komal - Last Filed: 06/07/24 17:05> ROS Other: All systems not noted in ROS Statement are negative. <Hai Mccann - Last Filed: 06/08/24 07:44> ROS Statement: Those systems with pertinent positive or pertinent negative responses have been documented in the HPI. Review of Systems: CONST: Denies fever EYES: Denies blurry vision ENT: Denies nasal congestion C/V: Denies Chest pain RESP: Denies shortness of breath GI: Denies abdominal pain : Denies dysuria SKIN: Denies rash. MSK: Denies joint pain. NEURO: Denies headache (Hai Mccann) Past Medical History Past Medical History: Atrial Fibrillation, Deep Vein Thrombosis (DVT), Musculoskeletal Disorder, Osteoarthritis (OA), Prostate Disorder, Skin Disorder Additional Past Medical History / Comment(s): Hx cellulitis right leg, [facility] lower wound on ramos, uses silvadine, dvt in 1981 post op knee procedure History of Any Multi-Drug Resistant Organisms: None Reported Past Surgical History: Cardiac Ablation, Cardiac Valve Replacement, Joint Replacement, Orthopedic Surgery Additional Past Surgical History / Comment(s): Bilateral hip surgery, stan total knee replacement, cardiac ablation, mitral valve repair, COLONOSCOPY, BILATERAL CATARACTS REMOVED WITH LENS IMPLANTS, pain procedure. Past Anesthesia/Blood Transfusion Reactions: No Reported Reaction Additional Past Anesthesia/Blood Transfusion Reaction / Comment(s): as child had blood tx Past Psychological History: No Psychological Hx Reported Smoking Status: Former smoker - Past Family History Father Family Medical History: No Reported History Additional Family Medical History / Comment(s): Father was a heavy smoker and most of his health problems were related to smoking. Mother Additional Family Medical History / Comment(s): Had TB when she was young, at 97. Daughter(s) Family Medical History: Cancer Additional Family Medical History / Comment(s): Breast and liver cancer. <Hai Mccann - Last Filed: 06/08/24 07:44> General Exam General appearance: alert, in no apparent distress Head exam: Present: atraumatic, normocephalic, normal inspection Eye exam: Present: normal appearance, PERRL, EOMI. Absent: scleral icterus, conjunctival injection, periorbital swelling ENT exam: Present: normal exam, mucous membranes moist Neck exam: Present: normal inspection. Absent: tenderness, meningismus, lymphadenopathy Respiratory exam: Present: normal lung sounds bilaterally. Absent: respiratory distress, wheezes, rales, rhonchi, stridor Cardiovascular Exam: Present: regular rate, tachycardia, irregular rhythm, normal heart sounds. Absent: systolic murmur, diastolic murmur, rubs, gallop, clicks GI/Abdominal exam: Present: soft, normal bowel sounds. Absent: distended, tenderness, guarding, rebound, rigid Extremities exam: Present: normal inspection, full ROM, normal capillary refill. Absent: tenderness, pedal edema, joint swelling, calf tenderness Back exam: Present: normal inspection Neurological exam: Present: alert, oriented X3, CN II-XII intact Psychiatric exam: Present: normal affect, normal mood Skin exam: Present: warm, dry, intact, normal color. Absent: rash <Tono Evans - Last Filed: 06/07/24 17:05> Limitations: no limitations <Hai Mccann - Last Filed: 06/08/24 07:44> - General Exam Comments Initial Comments: General: Appears in no acute distress. HEAD: Normal with no signs of head trauma. EYES: EOMI ENT: Hearing grossly intact, normal oropharynx. RESPIRATORY: Clear breath sounds bilaterally. No wheezes, rales, or rhonchi. C/V: Regular rate and rhythm. S1 and S2 auscultated, peripheral pulses 2+ and intact throughout ABD: Abd is soft, nontender, nondistended EXT: No obvious deformity SKIN: No rashes or lesions observed on exposed skin. NEURO: Alert and oriented x 4. (Hai Mccann) Course Vital Signs 06/07/24 06/07/24 06/07/24 13:25 14:17 14:29 Temperature 98.0 F Pulse Rate 93 67 Pulse Rate [ 72 Claims Service Adjustor ] Respiratory 17 18 Rate Blood Pressure 100/57 104/66 O2 Sat by Pulse 97 97 Oximetry 06/07/24 06/07/24 17:13 18:49 Temperature Pulse Rate 70 70 Pulse Rate [ Claims Service Adjustor ] Respiratory 18 18 Rate Blood Pressure 121/70 122/68 O2 Sat by Pulse 98 98 Oximetry Medical Decision Making - Lab Data Result diagrams: 06/07/24 14:16 06/07/24 14:16 <Tono Evans - Last Filed: 06/07/24 17:05> - Lab Data Result diagrams: 06/07/24 14:16 06/07/24 14:16 - EKG Data -: EKG Interpreted by Me <Hai Mccann - Last Filed: 06/08/24 07:44> - Medical Decision Making 84 male atrial fibrillation with RVR recurrent, patient was stable for cardiac evaluation (Tono Evans) Was pt. sent in by a medical professional or institution (, PA, OCCUPATIONAL THERAPIST AIDE, urgent care, hospital, or jail...) When possible be specific @ -No Did you speak to anyone other than the patient for history (EMS, parent, family, police, friend...)? What history was obtained from this source @ -No Did you review nursing and triage notes (agree or disagree)? Why? @ -I reviewed and agree with nursing and triage notes Were old charts reviewed (outside hosp., previous admission, EMS record, old EKG, old radiological studies, urgent care reports/EKG's, jail records)? Report findings @ -Today's EKG compared with EKG from February 2024. Right bundle branch block redemonstrated. No obvious acute ischemic process present. Differential Diagnosis (chest pain, altered mental status, abdominal pain women, abdominal pain men, vaginal bleeding, weakness, fever, dyspnea, syncope, headache, dizziness, GI bleed, back pain, seizure, CVA, palpatations, mental health, musculoskeletal)? @ -Symptomatic atrial fibrillation, electrolyte abnormality, dehydration. This list is not all inclusive. EKG interpreted by me (3pts min.). @ -As above X-rays interpreted by me (1pt min.). @ -Chest x-ray shows no obvious acute cardiopulmonary process CT interpreted by me (1pt min.). @ -None done U/S interpreted by me (1pt. min.). @ -None done What testing was considered but not performed or refused? (CT, X-rays, U/S, labs)? Why? @ -None What meds were considered but not given or refused? Why? @ -None Did you discuss the management of the patient with other professionals (professionals i.e. , PA, OCCUPATIONAL THERAPIST AIDE, lab, RT, psych nurse, social media content specialist, clinical cytogeneticist scientist, teacher, corporate ethics officer, caseworker intake)? Give summary @ -No Was smoking cessation discussed for >3mins.? @ -No Was critical care preformed (if so, how long)? @ -No Were there social determinants of health that impacted care today? How? (Homelessness, low income, unemployed, alcoholism, drug addiction, t ransportation, low edu. Level, literacy, decrease access to med. care, long-term, rehab)? @ -No Was there de-escalation of care discussed even if they declined (Discuss DNR or withdrawal of care, Hospice)? DNR status @ -No What co-morbidities impacted this encounter? (DM, HTN, Smoking, COPD, CAD, Cance r, CVA, ARF, Chemo, Hep., AIDS, mental health diagnosis, sleep apnea, morbid obesity)? @ -History of atrial fibrillation Was patient admitted / discharged? Hospital course, mention meds given and rou te, prescriptions, significant lab abnormalities, going to OR and other pertinent info. @ -Patient presents for what appears to be symptomatic A-fib. Typically is in normal sinus rhythm however is currently in atrial fibrillation based on EKG. He has no other acute complaints other than the weakness and the mild shortness of breath that he gets when he is in A-fib. He has been compliant with his blood thinner as well as with his metoprolol. Currently is rate controlled. We will obtain general laboratory studies as well as screening EKG and chest x-ray however I did discuss with the patient and as he is symptomatic with movement, patient will likely be admitted for cardiology evaluation. He was in agreement this plan. Vitals within acceptable limits. EKG shows atrial fibrillation that is rate controlled. Similar to prior EKGs. Laboratory studies are pending. Chest x-ray shows no obvious acute cardiopulmonary process. Patient signed out to Dr. Evans Pending results of labs. Patient will likely be admitted following results. Patient was in agreement this plan. Undiagnosed new problem with uncertain prognosis? @ -No Drug Therapy requiring intensive monitoring for toxicity (Heparin, Nitro, Insulin, Cardizem)? @ -No Were any procedures done? @ -No Diagnosis/symptom? @ -Symptomatic atrial fibrillation (Hai Mccann) - Lab Data Lab Results 06/07/24 06/07/24 06/07/24 Range/Units 14:16 14:16 14:16 WBC 5.39 (4.50-10.00) 10*3/uL RBC 3.68 L (4.40-5.60) 10*6/uL Hgb 11.8 L (13.0-17.0) g/dL Hct 33.9 L (39.6-50.0) % MCV 92.1 (80.0-97.0) fL MCH 32.1 H (27.0-32.0) pg MCHC 34.8 (32.0-37.0) g/dL Plt Count 158 (140-440) 10*3/uL MPV 8.6 L (9.5-12.2) fL Immature Gran % (Auto) 0.2 % Neutrophils % 74.8 % Lymphocytes % 12.4 % Monocytes % 10.8 % Eosinophils % 0.9 % Basophils % 0.9 % Immature Gran # 0.01 (0.00-0.04) 10*3/uL Neutrophils # 4.03 (1.80-7.70) 10*3/uL Lymphocytes # 0.67 L (0.90-5.00) 10*3/uL Monocytes # 0.58 (0.20-1.00) 10*3/uL Eosinophils # 0.05 (0.04-0.35) 10*3/uL Basophils # 0.05 (0.00-0.10) 10*3/uL PT 12.0 (10.0-12.5) sec INR 1.1 (<1.2) APTT 25.0 (22.0-30.0) sec Sodium 130 L (137-145) mmol/L Potassium 4.7 (3.5-5.1) mmol/L Chloride 98 (98-107) mmol/L Carbon Dioxide 28 (22-30) mmol/L Anion Gap 4 mmol/L BUN 19 (9-20) mg/dL Creatinine 0.88 (0.66-1.25) mg/dL Est GFR (CKD-EPI)AfAm >90 (>60 ml/min/1.73 sqM) Est GFR (CKD-EPI)NonAf 80 (>60 ml/min/1.73 sqM) Glucose 90 (74-99) mg/dL Calcium 9.2 (8.4-10.2) mg/dL Magnesium 2.1 (1.6-2.3) mg/dL Total Bilirubin 0.5 (0.2-1.3) mg/dL AST 25 (17-59) U/L ALT 16 (4-49) U/L Alkaline Phosphatase 53 (38-126) U/L Troponin I (0.000-0.034) ng/mL Total Protein 6.2 L (6.3-8.2) g/dL Albumin 3.6 (3.5-5.0) g/dL TSH 1.920 (0.465-4.680) mIU/L Urine Color Urine Appearance (Clear) Urine pH (5.0-8.0) Ur Specific [place] (1.001-1.035) Urine Protein (Negative) Urine Glucose (UA) (Negative) Urine Ketones (Negative) Urine Blood (Negative) Urine Nitrite (Negative) Urine Bilirubin (Negative) Urine Urobilinogen (<2.0) mg/dL Ur Leukocyte Esterase (Negative) 06/07/24 06/07/24 Range/Units 14:16 15:31 WBC (4.50-10.00) 10*3/uL RBC (4.40-5.60) 10*6/uL Hgb (13.0-17.0) g/dL Hct (39.6-50.0) % MCV (80.0-97.0) fL MCH (27.0-32.0) pg MCHC (32.0-37.0) g/dL Plt Count (140-440) 10*3/uL MPV (9.5-12.2) fL Immature Gran % (Auto) % Neutrophils % % Lymphocytes % % Monocytes % % Eosinophils % % Basophils % % Immature Gran # (0.00-0.04) 10*3/uL Neutrophils # (1.80-7.70) 10*3/uL Lymphocytes # (0.90-5.00) 10*3/uL Monocytes # (0.20-1.00) 10*3/uL Eosinophils # (0.04-0.35) 10*3/uL Basophils # (0.00-0.10) 10*3/uL PT (10.0-12.5) sec INR (<1.2) APTT (22.0-30.0) sec Sodium (137-145) mmol/L Potassium (3.5-5.1) mmol/L Chloride (98-107) mmol/L Carbon Dioxide (22-30) mmol/L Anion Gap mmol/L BUN (9-20) mg/dL Creatinine (0.66-1.25) mg/dL Est GFR (CKD-EPI)AfAm (>60 ml/min/1.73 sqM) Est GFR (CKD-EPI)NonAf (>60 ml/min/1.73 sqM) Glucose (74-99) mg/dL Calcium (8.4-10.2) mg/dL Magnesium (1.6-2.3) mg/dL Total Bilirubin (0.2-1.3) mg/dL AST (17-59) U/L ALT (4-49) U/L Alkaline Phosphatase (38-126) U/L Troponin I <0.012 (0.000-0.034) ng/mL Total Protein (6.3-8.2) g/dL Albumin (3.5-5.0) g/dL TSH (0.465-4.680) mIU/L Urine Color Light Yellow Urine Appearance Clear (Clear) Urine pH 7.0 (5.0-8.0) Ur Specific [place] 1.014 (1.001-1.035) Urine Protein Negative (Negative) Urine Glucose (UA) Negative (Negative) Urine Ketones Negative (Negative) Urine Blood Negative (Negative) Urine Nitrite Negative (Negative) Urine Bilirubin Negative (Negative) Urine Urobilinogen <2.0 (<2.0) mg/dL Ur Leukocyte Esterase Negative (Negative) - EKG Data EKG Comments: 12-lead Electrocardiogram Interpretation Note EKG was reviewed and interpreted by myself. 12-lead ECG performed at 1338 is interpreted by me as revealing atrial fibrillation with right bundle branch block. At a rate of 83 beats per minute. Tracy is normal. QRS duration is 147 ms, QTc is 437 ms.. There were no ST or T wave abnormalities to suggest myocardial ischemia or injury. R wave progression across the precordium was satisfactory. By my interpretation this EKG is non-diagnostic for acute ischemia. (Hai Mccann) Disposition Is patient prescribed a controlled substance at d/c from ED?: No Time of Disposition: 17:00 <Tono Evans - Last Filed: 06/07/24 17:05> <Hai Mccann - Last Filed: 06/08/24 07:44> Clinical Impression: Atrial fibrillation, Tachycardia, Palpitations Disposition: ADMITTED IP TO THIS HOSP Condition: Fair
[2024-06-07 15:36] LABS: Appearance,Urine Clear (Clear); Bilirubin,Urine Negative (Negative); Blood,Urine Negative (Negative); Color,Urine Light Yellow; Glucose,Urine (UA) Negative (Negative); Ketones,Urine Negative (Negative); Leukocyte Esterase,Urine Negative (Negative); Nitrite,Urine Negative (Negative); Protein,Urine Negative (Negative); Specific Gravity,Urine 1.014 (1.001-1.035); Urobilinogen,Urine <2.0 mg/dL (<2.0)
[2024-06-07 15:37] LABS: INR 1.1 (<1.2)
[2024-06-07 15:40] LABS: ALT 16 U/L (4-49); AST 25 U/L (17-59); African American GFR (CKD) >90 (>60 ml/min/1.73 sqM); Albumin 3.6 g/dL (3.5-5.0); Alkaline Phosphatase 53 U/L (38-126); Anion Gap 4 mmol/L; Blood Urea Nitrogen 19 mg/dL (9-20); Calcium 9.2 mg/dL (8.4-10.2); Carbon Dioxide 28 mmol/L (22-30); Chloride 98 mmol/L (98-107); Glucose 90 mg/dL (74-99); Magnesium 2.1 mg/dL (1.6-2.3); Non-African American GFR(CKD) 80 (>60 ml/min/1.73 sqM); Potassium 4.7 mmol/L (3.5-5.1); Sodium 130 mmol/L (137-145); Total Bilirubin 0.5 mg/dL (0.2-1.3); Total Protein 6.2 g/dL (6.3-8.2)
[2024-06-07] MEDS ORDERED: NALOXONE 0.4 MG/ML 1 ML VIAL IV PRN (17:04)
[2024-06-07] MEDS ORDERED: ONDANSETRON 4 MG/2 ML VIAL IVP PRN (17:04)
[2024-06-07] MEDS ORDERED: MORPHINE SULFATE 4 MG/ML SYRINGE IV PRN (17:04)
[2024-06-07] MEDS: SODIUM CHLORIDE 0.9% 1,000 ML IV STA (17:25)
[2024-06-07] MEDS: METOPROLOL TARTRATE 5 MG/5 ML VIAL IVP STA (17:25)
[2024-06-07] MEDS: SODIUM CHLORIDE 0.9% 500 ML 500 ML IV ONE (17:25)
[2024-06-07] MEDS: METOPROLOL TARTRATE 50 MG TAB PO SCH (21:16)
[2024-06-07] MEDS: APIXABAN 5 MG TAB PO SCH (21:16)
[2024-06-07] MEDS: FAMOTIDINE 20 MG TAB PO SCH (21:16)
[2024-06-08] MEDS: PATIENT'S OWN (Mirabegron [Myrbetriq] 50 MG Tab.Er.24h) PO SCH (08:01)
[2024-06-08] MEDS: PATIENT'S OWN (Tadalafil [Tadalafil] 20 MG Tablet) PO SCH (08:01)
[2024-06-08] MEDS: FUROSEMIDE 20 MG TAB PO SCH (08:01)
[2024-06-08] MEDS: FINASTERIDE 5 MG TAB PO SCH (08:01)
[2024-06-08 10:14] LABS: Basophils # (A) 0.05 X 10*3/uL (0.00-0.10); HCT 32.7 % (39.6-50.0); HGB 10.6 g/dL (13.0-17.0); Lymphocytes # (A) 0.96 X 10*3/uL (0.90-5.00); Lymphocytes % (A) 19.3 %; MCH 30.9 pg (27.0-32.0); MCHC 32.4 g/dL (32.0-37.0); MCV 95.3 FL (80.0-97.0); Mean Platelet Volume 8.8 FL (9.5-12.2); Monocytes # (A) 0.74 X 10*3/uL (0.20-1.00); Monocytes % (A) 14.9 %; NRBC Per 100 WBC 0 X 10*3/uL (0.00-0.01); Neutrophils % (A) 60.4 %; Platelet Count 144 X 10*3/uL (140-440); RBC 3.43 X 10*6/uL (4.40-5.60); RDW 14.6 % (11.5-14.5); WBC 4.97 X 10*3/uL (4.50-10.00)
[2024-06-08 10:18] LABS: ALT 14 U/L (10-49); AST 18 U/L (14-35); Albumin 3.6 g/dL (3.8-4.9); Albumin/Globulin Ratio 1.89 Ratio (1.60-3.17); Alkaline Phosphatase 51 U/L (41-126); Blood Urea Nitrogen 19.1 mg/dL (9.0-27.0); Calcium 8.7 mg/dL (8.7-10.3); Carbon Dioxide 24.9 mmol/L (21.6-31.8); Chloride 100 mmol/L (96-109); Globulin 1.9 g/dL (1.6-3.3); Glucose 93 mg/dL (70-110); Magnesium 2.1 mg/dL (1.5-2.4); Phosphorus 3.6 mg/dL (2.4-5.1); Potassium 4.6 mmol/L (3.5-5.5); Sodium 133 mmol/L (135-145); Total Bilirubin <0.2 mg/dL (0.3-1.2); Total Protein 5.5 g/dL (6.2-8.2)
[2024-06-08 10:39] LABS: Influenza A Not Detected (Not Detectd); Influenza B Not Detected (Not Detectd); RSV Not Detected (Not Detectd)
--- NOTE | 2024-06-08 11:14 | P.CRDCN ---
History of Present Illness Consult date: 06/08/24 Consult reason: atrial fibrillation History of present illness: This is an 84-year-old male patient of Dr. Church with past medical history of atrial fibrillation with previous ablation, mitral valve repair 2005, SVT status post ablation, hypertension, obstructive sleep apnea on CPAP. We have been asked to evaluate the patient for atrial fibrillation. Patient gives history that on Sunday he was walking from his car to go into the house and he suddenly did not feel very well with fatigue. He went inside and took a nap and thought he went into atrial fibrillation. In the next morning, he checked his blood pressure machine and his heart rate was elevated and blood pressure was low and he decided to come into the hospital for further evaluation. Patient states he is feeling fine at rest. He denies chest pain or chest pressure no dizziness or lightheadedness. He has been taking his Eliquis as scheduled and has not missed any doses. Blood pressure 110/68, heart rate 74, pulse ox 97% on room air. Patient was given options of cardioversion tomorrow and stay in the hospital, cardioversion as an outpatient or medication treatment. Patient would like to undergo cardioversion for tomorrow. -EKG: Atrial fibrillation at 83 bpm -Chest x-ray: No acute process. -Laboratory studies: Hemoglobin 11.8. Sodium 130, creatinine 0.88. Troponin negative x 3. TSH 1.92. Urinalysis negative. -Home cardiac medications: Eliquis 5 mg twice daily, Lasix 20 mg daily, Lopressor 50 mg twice daily. -Cardiac catheterization in 2019 revealed right dominant system, no obstructive CAD, LV pressure is normal. No gradient across aortic valve. -Cardiovascular surgery with mitral valve repair done by Dr. Moffett 11/24/2005. -Echocardiogram performed 05/07/2023 in the office revealed EF of 50 to 55%, moderate aortic regurgitation. Mild to moderate mitral stenosis with annuloplasty ring mitral valve prosthesis with abnormal findings. Mild tricu spid regurgitation. PASP 35 mmHg. -Lexiscan stress test performed in the office on 10/23/2023 revealed inconclusive stress test because of resting EKG changes. Patient has atrial fibrillation with right bundle branch block pattern with repolarization abnormalities. Probably normal MPI with mild intensity, inferior wall fixed defect which is probably diaphragmatic attenuation with apical fixed defect which may be normal variant. No reversible defects. There is no ischemia and EF is well-preserved. -Event monitor for 3 days and October 2023 revealed A-fib, A. tach and a flutter with complaints of fatigue. -Atrial fibrillation ablation 01/24/2024 -Cardioversion for atrial fibrillation 07/24/2022. 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 Review Of Systems: At the time of my exam: CONSTITUTIONAL: Denies fever or chills. HEENT: Denies blurred vision, vision changes, or eye pain. Denies hemoptysis CARDIOVASCULAR: Denies chest pain. Denies orthopnea. Denies PND. Denies palpitations RESPIRATORY: Denies shortness of breath. GASTROINTESTINAL: Denies abdominal pain. Denies nausea or vomiting. HEMATOLOGIC: Denies bleeding disorders. GENITOURINARY: Denies any blood in urine. SKIN: Denies puritis. Denies rash. Physical examination: Gen: This is 84-year-old male in no acute distress VS: reviewed HEENT: Head is atraumatic, normocephalic. Pupils equal, round. Sclerae is anicteric. NECK: Supple. No JVD. LUNGS: Clear to auscultation. No wheezes or rhonchi. No intercostal retractions. HEART: Irregular rate and rhythm. No murmur. ABDOMEN: Soft No tenderness. EXTREMITIES: No pedal edema. No calf tenderness. NEUROLOGICAL: Patient is awake, alert and oriented x3. Assessment: Paroxysmal atrial fibrillation with RVR, currently rate controlled History of previous atrial fibrillation ablation in January 2024 History of AVNRT ablation 2013 Mitral valve repair 2005 Hypertension Obstructive sleep apnea on CPAP Plan: Resume patient's home cardiac medications Schedule patient for cardioversion tomorrow with Dr. Church N.p.o. after midnight Further recommendations to follow based upon clinical course Thank you kindly for this consultation. Nurse practitioner note has been reviewed, I agree with documented findings and plan of care. Patient was seen and examined. Past Medical History Past Medical History: Atrial Fibrillation, Deep Vein Thrombosis (DVT), Musculoskeletal Disorder, Osteoarthritis (OA), Prostate Disorder, Skin Disorder Additional Past Medical History / Comment(s): Hx cellulitis right leg, [facility] on ramos, uses silvadine, dvt in 1981 post op knee procedure History of Any Multi-Drug Resistant Organisms: None Reported Past Surgical History: Cardiac Ablation, Cardiac Valve Replacement, Joint Replacement, Orthopedic Surgery Additional Past Surgical History / Comment(s): Bilateral hip surgery, stan total knee replacement, cardiac ablation, mitral valve repair, COLONOSCOPY, BILATERAL CATARACTS REMOVED WITH LENS IMPLANTS, pain procedure. Past Anesthesia/Blood Transfusion Reactions: No Reported Reaction Additional Past Anesthesia/Blood Transfusion Reaction / Comment(s): as child had blood tx Past Psychological History: No Psychological Hx Reported Smoking Status: Former smoker - Past Family History Father Family Medical History: No Reported History Additional Family Medical History / Comment(s): Father was a heavy smoker and most of his health problems were related to smoking. Mother Additional Family Medical History / Comment(s): Had TB when she was young, at 97. Daughter(s) Family Medical History: Cancer Additional Family Medical History / Comment(s): Breast and liver cancer. Medications and Allergies Home Medications Medication Instructions Recorded Confirmed Type Finasteride [Proscar] 5 mg PO DAILY 03/05/17 06/07/24 History Apixaban [Eliquis] 5 mg PO BID #60 tab 11/29/21 06/07/24 Rx Mirabegron [Myrbetriq] 50 mg PO DAILY 01/19/22 06/07/24 History Ammonium Lactate Lotion 1 applic TOPICAL MOWEFR 02/09/24 06/07/24 History [Lac-Hydrin 12% Lotion] Metoprolol Tartrate [Lopressor] 50 mg PO BID 02/09/24 06/07/24 History Famotidine [Pepcid] 20 mg PO BID tab 03/05/24 06/07/24 Rx Furosemide [Lasix] 20 mg PO DAILY tab 03/05/24 06/07/24 Rx tadalafiL 5 mg PO DAILY 06/07/24 06/07/24 History Allergies Allergy/AdvReac Type Severity Reaction Status Date / Time verapamil Allergy Rash/Hives Verified 06/07/24 14:20 on face ciprofloxacin [From Cipro] AdvReac Severe LEG PAIN Verified 06/07/24 14:20 levofloxacin [From Levaquin] AdvReac leg pain Verified 06/07/24 14:20 Physical Exam Vitals: Vital Signs Temp Pulse Pulse Pulse Resp BP BP 06/08/24 06:50 97.8 F 74 17 110/68 06/08/24 00:54 97.9 F 69 18 110/67 06/07/24 21:16 72 61 18 06/07/24 18:50 97.5 F L 61 18 105/57 06/07/24 18:49 70 18 122/68 06/07/24 17:13 70 18 121/70 06/07/24 14:29 67 18 104/66 06/07/24 14:17 72 06/07/24 13:25 98.0 F 93 17 100/57 Pulse Ox 06/08/24 06:50 99 06/08/24 00:54 97 06/07/24 21:16 06/07/24 18:50 96 06/07/24 18:49 98 06/07/24 17:13 98 06/07/24 14:29 97 06/07/24 14:17 06/07/24 13:25 97 Intake and Output 06/07/24 06/08/24 06/08/24 22:59 06:59 14:59 Output Total 400 Balance -400 Output: Urine 400 Other: Voiding Method Toilet Toilet # Voids 3 Weight 104.326 kg Results 06/08/24 03:58 06/08/24 03:58 Cardiac Enzymes 06/07/24 06/07/24 06/07/24 Range/Units 14:16 14:16 18:10 AST 25 (17-59) U/L Troponin I <0.012 <0.012 (0.000-0.034) ng/mL 06/07/24 Range/Units 20:49 AST (17-59) U/L Troponin I <0.012 (0.000-0.034) ng/mL Coagulation 06/07/24 Range/Units 14:16 PT 12.0 (10.0-12.5) sec APTT 25.0 (22.0-30.0) sec CBC 06/07/24 Range/Units 14:16 WBC 5.39 (4.50-10.00) 10*3/uL RBC 3.68 L (4.40-5.60) 10*6/uL Hgb 11.8 L (13.0-17.0) g/dL Hct 33.9 L (39.6-50.0) % Plt Count 158 (140-440) 10*3/uL Comprehensive Metabolic Panel 06/07/24 Range/Units 14:16 Sodium 130 L (137-145) mmol/L Potassium 4.7 (3.5-5.1) mmol/L Chloride 98 (98-107) mmol/L Carbon Dioxide 28 (22-30) mmol/L BUN 19 (9-20) mg/dL Creatinine 0.88 (0.66-1.25) mg/dL Glucose 90 (74-99) mg/dL Calcium 9.2 (8.4-10.2) mg/dL AST 25 (17-59) U/L ALT 16 (4-49) U/L Alkaline Phosphatase 53 (38-126) U/L Total Protein 6.2 L (6.3-8.2) g/dL Albumin 3.6 (3.5-5.0) g/dL Current Medications Generic Name Dose Route Start Last Admin Trade Name Freq PRN Reason Stop Dose Admin Apixaban 5 mg 06/07/24 21:00 06/08/24 08:01 Apixaban 5 Mg Tab PO 5 mg BID ASYA Administration Protocol Famotidine 20 mg 06/07/24 21:00 06/08/24 08:01 Famotidine 20 Mg Tab PO 20 mg BID ASYA Administration Finasteride 5 mg 06/08/24 09:00 06/08/24 08:01 Finasteride 5 Mg Tab PO 5 mg DAILY ASYA Administration Furosemide 20 mg 06/08/24 09:00 06/08/24 08:01 Furosemide 20 Mg Tab PO 20 mg DAILY ASYA Administration Metoprolol Tartrate 50 mg 06/07/24 21:00 06/08/24 08:02 Metoprolol Tartrate 50 Mg Tab PO 50 mg BID ASYA Administration Morphine Sulfate 4 mg 06/07/24 17:04 Morphine Sulfate 4 Mg/Ml Syringe IV Q4HR PRN Severe Pain (Scale 7 to 10) Naloxone HCl 0.2 mg 06/07/24 17:04 Naloxone 0.4 Mg/Ml 1 Ml Vial IV Q2M PRN Opioid Reversal Patient's Own ( 50 mg 06/08/24 09:00 06/08/24 08:01 Mirabegron [ PO Not Given Myrbetriq] 50 Mg Tab DAILY ASYA .Er.24h) Patient's Own ( 5 mg 06/08/24 09:00 06/08/24 08:01 Tadalafil [Tadalafil PO Not Given ] 20 Mg Tablet) DAILY [facility] Ondansetron HCl 4 mg 04/19/25 17:04 Ondansetron 4 Mg/2 Ml Vial IVP Q8HR PRN Nausea And Vomiting Intake and Output 06/07/24 06/08/24 06/08/24 22:59 06:59 14:59 Output Total 400 Balance -400 Output: Urine 400 Other: Voiding Method Toilet Toilet # Voids 3 Weight 104.326 kg 06/07/24 14:16 06/07/24 14:16
--- NOTE | 2024-06-08 11:51 | CT ---
EXAMINATION TYPE: CT chest angio for PE DATE OF EXAM: 06/08/2024 COMPARISON: None CLINICAL INDICATION: Male, 84 years old with history of Dyspnea; PHH, CHEST PAIN, SOB or PAIN TECHNIQUE: Ct angiogram of the chest performed with with IV Contrast, patient injected with 80 ml mL of Isovue 3 70. MIP images are created and reviewed. CT DLP: [address] CTDI: mGy Automated exposure control for dose reduction was used. FINDINGS: There are mild chronic interstitial changes within the lungs. There is no airspace consolidation. The re is no suspicious lung mass or nodule. There is no pleural effusion or pneumothorax. 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 There is 3.4 cm dilatation of the main pulmo nary artery but there are no filling defects within the pulmonary arterial circulation to suggest pul monary emboli. There is no mediastinal, hilar or axillary adenopathy. There is moderate with marked left atrial enlargement Limited scanning through the upper abdomen reve als a large septated cyst of the left kidney with linear septal calcification. There are no focal osseous abnormalities. IMPRESSION: 1. No evidence of pulmonary embolism. 2. No suspicious lung mass or nodule. 3. Mild interstitial changes but no acute cardiopulmonary disease. 4. 3.4 cm dilatation of the main pulmonary artery raising the question pulmonary hypertension. 5. 2.9 cm ectasia of the ascending thoracic aorta [facility], , 06/08/2024 11:49 AM
[2024-06-08] MEDS: SODIUM CHLORIDE 0.9% 1,000 ML IV SCH (12:29)
--- NOTE | 2024-06-08 13:02 | P.HPIM ---
History of Present Illness H&P Date: 06/08/24 History of present illness; patient is a 84-year-old gentleman past medical history significant for atrial fibrillation status post ablation, DVT, who presented the ER because of generalized weakness. Patient stated for the last few days he has been having generalized weakness and felt short of breath. Patient denies any palpitation. There is complaint of shortness of breath on exertion. Patient denies any chest pain. There is no complaint of orthopnea or PND. Patient stated that last time he felt like this he was in A-fib. There was no complaint of cough. Patient denies any fever or chills. Because of generalized weakness, patient came to the ER Initial lab work done in the ER showed WBC 5.39, hemoglobin 9.8, platelet count 158, sodium 130, potassium 4.7, BUN 19, creatinine 0.88, glucose 90 calcium 9.2, magnesium 2.1 AST 25, ALT 16, troponin 0.012 UA negative for any infection EKG done in the ER showed heart rate of 83, irregular in rhythm, no ST segment elevation or depression seen, no T-wave inversions seen. Chest x-ray done in the ER showed no acute cardiopulmonary Patient admitted to internal medicine service REVIEW OF SYSTEMS: CONSTITUTIONAL: No fever, no malaise, no fatigue. HEENT: No recent visual problems or hearing problems. Denied any sore throat. CARDIOVASCULAR: As mentioned above PULMONARY: As mentioned above GASTROINTESTINAL: No diarrhea, no nausea, no vomiting, no abdominal pain. NEUROLOGICAL: No headaches, no weakness, no numbness. HEMATOLOGICAL: Denies any bleeding or petechiae. GENITOURINARY: Denies any burning micturition, frequency, or urgency. MUSCULOSKELETAL/RHEUMATOLOGICAL: Denies any joint pain, swelling, or any muscle pain. ENDOCRINE: Denies any polyuria or polydipsia. The rest of the 14-point review of systems is negative. PHYSICAL EXAMINATION: GENERAL: The patient is alert and oriented x3, not in any acute distress. Well developed, well nourished. HEENT: Pupils are round and equally reacting to light. EOMI. No scleral icterus. No conjunctival pallor. Normocephalic, atraumatic. No pharyngeal erythema. No thyromegaly. CARDIOVASCULAR: S1 and S2 present. No murmurs, rubs, or gallops. PULMONARY: Chest is clear to auscultation, no wheezing or crackles. ABDOMEN: Soft, nontender, nondistended, normoactive bowel sounds. No palpable organomegaly. MUSCULOSKELETAL: No joint swelling or deformity. EXTREMITIES: No cyanosis, clubbing, or pedal edema. NEUROLOGICAL: Gross neurological examination did not reveal any focal deficits. SKIN: No rashes. Assessment and plan A-fib, rate controlled History of previous atrial fibrillation ablation in January 2024 History of AVNRT ablation 2013 Mitral valve repair 2005 Generalized weakness History of prior atrial ablation History of DVT Monitor vital signs Monitor CBC Monitor CMP Continue telemetry monitoring Trend troponin Ordered D-dimer Check CRP, ESR Check Pro-Yrn Check influenza AB and COVID-19 Resume Eliquis Resume Lopressor Consult cardiology Labs and medication were reviewed.. Continue same treatment. Continue with symptomatic treatment. Resume home medication. Monitor labs and vitals. DVT and GI prophylaxis. Further recommendations as per clinical course of the patient Dictation was produced using [employer] dictation software. please excuse any grammatical, word or spelling errors. Past Medical History Past Medical History: Atrial Fibrillation, Deep Vein Thrombosis (DVT), Musculoskeletal Disorder, Osteoarthritis (OA), Prostate Disorder, Skin Disorder Additional Past Medical History / Comment(s): Hx cellulitis right leg, [facility] wound on ramos, uses silvadine, dvt in 1981 post op knee procedure History of Any Multi-Drug Resistant Organisms: None Reported Past Surgical History: Cardiac Ablation, Cardiac Valve Replacement, Joint Replacement, Orthopedic Surgery Additional Past Surgical History / Comment(s): Bilateral hip surgery, stan total knee replacement, cardiac ablation, mitral valve repair, COLONOSCOPY, BILATERAL CATARACTS REMOVED WITH LENS IMPLANTS, pain procedure. Past Anesthesia/Blood Transfusion Reactions: No Reported Reaction Additional Past Anesthesia/Blood Transfusion Reaction / Comment(s): as child had blood tx Past Psychological History: No Psychological Hx Reported Smoking Status: Former smoker - Past Family History Father Family Medical History: No Reported History Additional Family Medical History / Comment(s): Father was a heavy smoker and most of his health problems were related to smoking. Mother Additional Family Medical History / Comment(s): Had TB when she was young, at 97. Daughter(s) Family Medical History: Cancer Additional Family Medical History / Comment(s): Breast and liver cancer. Medications and Allergies Home Medications Medication Instructions Recorded Confirmed Type Finasteride [Proscar] 5 mg PO DAILY 03/05/17 06/07/24 History Apixaban [Eliquis] 5 mg PO BID #60 tab 11/29/21 06/07/24 Rx Mirabegron [Myrbetriq] 50 mg PO DAILY 01/19/22 06/07/24 History Ammonium Lactate Lotion 1 applic TOPICAL MOWEFR 02/09/24 06/07/24 History [Lac-Hydrin 12% Lotion] Metoprolol Tartrate [Lopressor] 50 mg PO BID 02/09/24 06/07/24 History Famotidine [Pepcid] 20 mg PO BID tab 03/05/24 06/07/24 Rx Furosemide [Lasix] 20 mg PO DAILY tab 03/05/24 06/07/24 Rx tadalafiL 5 mg PO DAILY 06/07/24 06/07/24 History Allergies Allergy/AdvReac Type Severity Reaction Status Date / Time verapamil Allergy Rash/Hives Verified 06/07/24 14:20 on face ciprofloxacin [From Cipro] AdvReac Severe LEG PAIN Verified 06/07/24 14:20 levofloxacin [From Levaquin] AdvReac leg pain Verified 06/07/24 14:20 Physical Exam Vitals: Vital Signs Temp Pulse Pulse Pulse Resp BP BP 06/08/24 06:50 97.8 F 74 17 110/68 06/08/24 00:54 97.9 F 69 18 110/67 06/07/24 21:16 72 61 18 06/07/24 18:50 97.5 F L 61 18 105/57 06/07/24 18:49 70 18 122/68 06/07/24 17:13 70 18 121/70 06/07/24 14:29 67 18 104/66 06/07/24 14:17 72 06/07/24 13:25 98.0 F 93 17 100/57 Pulse Ox 06/08/24 06:50 99 06/08/24 00:54 97 06/07/24 21:16 06/07/24 18:50 96 06/07/24 18:49 98 06/07/24 17:13 98 06/07/24 14:29 97 06/07/24 14:17 06/07/24 13:25 97 Intake and Output 06/07/24 06/08/24 06/08/24 22:59 06:59 14:59 Output Total 400 Balance -400 Output: Urine 400 Other: Voiding Method Toilet Toilet # Voids 3 Weight 104.326 kg Results CBC & Chem 7: 06/08/24 03:58 06/08/24 03:58 Labs: Abnormal Lab Results - Last 24 Hours (Table) 06/07/24 06/07/24 Range/Units 14:16 14:16 RBC 3.68 L (4.40-5.60) 10*6/uL Hgb 11.8 L (13.0-17.0) g/dL Hct 33.9 L (39.6-50.0) % MCH 32.1 H (27.0-32.0) pg MPV 8.6 L (9.5-12.2) fL Lymphocytes # 0.67 L (0.90-5.00) 10*3/uL Sodium 130 L (137-145) mmol/L Total Protein 6.2 L (6.3-8.2) g/dL Thrombosis Risk Factor Assmnt - Choose All That Apply Any of the Below Risk Factors Present?: Yes Each Factor Represents 1 point: Obesity (BMI >25) Other Risk Factors: Yes Each Risk Factor Represents 3 Points: Age 75 years or older, History of DVT/PE, Positive Lupus Anticoagulant Thrombosis Risk Factor Assessment Total Risk Factor Score: 10 Thrombosis Risk Factor Assessment Level: High Risk
[2024-06-09] MEDS ORDERED: PROPOFOL 10 MG/ML 20 ML VIAL IV ONE (10:02)
[2024-06-09] MEDS: IV FLUID CONTINUATION 500 ML IV ONE (10:16)
[2024-06-09 10:27] VITALS: TEMP 97.2
[2024-06-09 11:33] VITALS: BP 127/72; PULSE 59; RESP 16
--- NOTE | 2024-06-09 12:49 | CE ---
CARDIAC ELECTROPHYSIOLOGY REPORT PROCEDURE PERFORMED: Electrical cardioversion. INDICATION: Persistent symptomatic atrial fibrillation. CLINICAL INFORMATION: Mr. Chip Mcmahan is an 84-year-old gentleman, history of AVNRT ablation in 2003 and recently in January 2024, he underwent ablation for atrial fibrillation. He came into the hospital with symptoms of shortness of breath, decreased stamina, fatigue and was in atrial fibrillation with moderate ventricular rate. He has been consistently on Eliquis. He was seen and evaluated by Dr. Sarmiento. We advised the procedure. I saw the patient this morning and discussed with him the rationale, risks, benefits, options. He understood all details and wished to proceed with the procedure. There was no family available. PROCEDURE NOTE: With the attendance of the anesthesiologist, under the influence of [id number] intravenous anesthetic agent with the attendance of the anesthesiologist, a single shock of 120 joules was delivered with anterior and posterior patches in a synchronized fashion. He converted to sinus rhythm, remained hemodynamically stable and neurologically intact. This was a successful electrical cardioversion. The patient can be discharged later today or tomorrow. MMODL / IJN: [id number] /
--- NOTE | 2024-06-09 13:40 | P.DS ---
Providers Date of admission: 06/07/24 17:04 Attending physician: Damaso Anthony Consults: 06/07/24 17:04 Consult Physician Routine Consulting Provider: Antonio Lopez Consult Reason/Comments: afib Do you want consulting provider notified?: Yes Primary care physician: Ismael Delgado MD Hospital Course: 84-year-old with known history of atrial fibrillation and ablation in the past he came in because of generalized weakness found to be in atrial fibrillation patient felt really fatigued. Patient underwent electrical cardioversion patient is converted to sinus rhythm is cleared for discharge from cardiology perspective and will be discharged today. PHYSICAL EXAMINATION: GENERAL: The patient is alert and oriented x3, not in any acute distress. Well developed, well nourished. HEENT: Pupils are round and equally reacting to light. EOMI. No scleral icterus. No conjunctival pallor. Normocephalic, atraumatic. No pharyngeal erythema. No thyromegaly. CARDIOVASCULAR: S1 and S2 present. No murmurs, rubs, or gallops. PULMONARY: Chest is clear to auscultation, no wheezing or crackles. ABDOMEN: Soft, nontender, nondistended, normoactive bowel sounds. No palpable organomegaly. MUSCULOSKELETAL: No joint swelling or deformity. EXTREMITIES: No cyanosis, clubbing, or pedal edema. NEUROLOGICAL: Gross neurological examination did not reveal any focal deficits. SKIN: No rashes. Assessment and plan Assessment and plan A-fib, rate controlled History of previous atrial fibrillation ablation in January 2024 History of AVNRT ablation 2013 Mitral valve repair 2005 Generalized weakness History of prior atrial ablation History of DVT Patient Condition at Discharge: Fair Plan - Discharge Summary Discharge Rx Participant: No New Discharge Prescriptions: New Metoprolol Tartrate [Lopressor] 50 mg PO BID #0 tab Continue Finasteride [Proscar] 5 mg PO DAILY Apixaban [Eliquis] 5 mg PO BID #60 tab Mirabegron [Myrbetriq] 50 mg PO DAILY Ammonium Lactate Lotion [Lac-Hydrin 12% Lotion] 1 applic TOPICAL MOWEFR Furosemide [Lasix] 20 mg PO DAILY tab Famotidine [Pepcid] 20 mg PO BID tab tadalafiL 5 mg PO DAILY Discontinued Metoprolol Tartrate [Lopressor] 50 mg PO BID Discharge Medication List Finasteride [Proscar] 5 mg PO DAILY 03/05/17 [History] Apixaban [Eliquis] 5 mg PO BID #60 tab 11/29/21 [Rx] Mirabegron [Myrbetriq] 50 mg PO DAILY 01/19/22 [History] Ammonium Lactate Lotion [Lac-Hydrin 12% Lotion] 1 applic TOPICAL MOWEFR 02/09/24 [History] Famotidine [Pepcid] 20 mg PO BID tab 03/05/24 [Rx] Furosemide [Lasix] 20 mg PO DAILY tab 03/05/24 [Rx] tadalafiL 5 mg PO DAILY 06/07/24 [History] Metoprolol Tartrate [Lopressor] 50 mg PO BID #0 tab 06/09/24 [Rx] Follow up Appointment(s)/Referral(s): Antonio Lopez MD [STAFF PHYSICIAN] - 06/12/24 10:00 am (Appt 06/12/2024 at 10am with EVNI Ochoa) Ismael Delgado MD [Primary Care Provider] - 3 Days Discharge Disposition: HOME SELF-CARE
== END 2024-06-09 14:46 | disposition home or self-care (01) ==
LOC: EC 13:14 → 6NMEDSUR 17:04
PROVIDERS: ADMIT Hospitalist; ATTEND Hospitalist
DX: I48.0 Paroxysmal atrial fibrillation (principal); I10 Essential (primary) hypertension; I08.3 Combined rheumatic disorders of mitral, aortic and tricuspid valves; I45.10 Unspecified right bundle-branch block; E86.0 Dehydration; E87.8 Other disorders of electrolyte and fluid balance, not elsewhere classified; D68.62 Lupus anticoagulant syndrome; G47.33 Obstructive sleep apnea (adult) (pediatric); E66.9 Obesity, unspecified; Z68.33 Body mass index [BMI] 33.0-33.9, adult; Z11.52 Encounter for screening for COVID-19; Z11.59 Encounter for screening for other viral diseases; Z79.01 Long term (current) use of anticoagulants; Z79.899 Other long term (current) drug therapy; Z88.1 Allergy status to other antibiotic agents; Z88.8 Allergy status to other drugs, medicaments and biological substances; Z95.2 Presence of prosthetic heart valve; Z86.79 Personal history of other diseases of the circulatory system; Z87.891 Personal history of nicotine dependence; Z86.718 Personal history of other venous thrombosis and embolism; Z86.711 Personal history of pulmonary embolism; Z98.890 Other specified postprocedural states
CPT/HCPCS: 99285; 36415; 94760; 93005; 92960; 85379; 80053 ×2; 85652; 83735 ×2; 84100; 84443; 84484; 85025 ×2; 85610; 85730; 86140; 81003; 84145; 87636; 71046; 71275; G0378 ×3; S0138 ×2; J2704; Q9967